=== PATIENT | female | born 1950 | race Caucasian/White ===

== ENCOUNTER 2020-02-13 13:56 | Outpatient (CLI) | payer MEDICARE, SELFPAY ==
--- NOTE | ~2020-02-13 | XR_ITS ---
EXAMINATION: XR knee LT 3V DATE: 02/13/2020 14:17 INDICATION: Left knee pain. TECHNIQUE: 3 views of left knee were obtained. COMPARISON: None. FINDINGS: Bone alignment is normal. No fracture. There is mild tricompartmental osteoarthritis. There is chondrocalcinosis of the menisci. There is a small knee joint effusion. IMPRESSION: 1. Mild left knee osteoarthritis. 2. Small left knee joint effusion. Reviewed, dictated and finalized at location A.
== END 2020-02-13 13:57 | disposition home or self-care (01) ==
LOC: ANHIMG 14:05
PROVIDERS: PCP Family Medicine; Visit Provider Physician Assistant
DX: M25.562 Pain in left knee (principal); M17.12 Unilateral primary osteoarthritis, left knee; M25.462 Effusion, left knee
CPT/HCPCS: 73562

== ENCOUNTER 2020-08-03 13:05 | Outpatient (CLI) | payer MEDICARE, SELFPAY ==
[2020-08-03 15:01] LABS: Alanine Aminotransferase 34 U/L (14-59); Albumin Level 3.6 g/dL (3.4-5.0); Alkaline Phosphatase 111 U/L (46-116); Anion Gap 8 mmol/L (8-16); Aspartate Amino Transferase 19 U/L (15-37); Bilirubin,Total 0.3 mg/dL (0.00-1.00); Blood Urea Nitrogen 15 mg/dL (7-18); Calcium 9.1 mg/dL (8.5-10.1); Carbon Dioxide 28 mmol/L (21-32); Chloride 105 mmol/L (98-108); Estimated Glomerular Filt Rate > 60; Glucose 91 mg/dL (70-99); Osmolality Calculated 292 mOsm/kg (285-295); Potassium 4.2 mmol/L (3.5-5.1); Sodium 141 mmol/L (136-145)
== END 2020-08-03 13:06 | disposition home or self-care (01) ==
LOC: CHSLAB 13:08
PROVIDERS: PCP Family Medicine; Visit Provider Family Medicine
DX: I10 Essential (primary) hypertension (principal)
CPT/HCPCS: 36415; 80053

== ENCOUNTER 2020-08-10 15:44 | Outpatient (RCR) | payer MEDICARE, SELFPAY ==
--- NOTE | 2020-08-10 16:12 | PTOPEVAL ---
Thank you for referring Daphne Paula to [facility].? The patient is scheduled to be seen for therapy? __3__x/week for 12 visits. Please review, sign, date and return this plan of care CHIQUIS. I agree with and certify that the following plan of care is medically necessary. Referring Physician Date Admitting Provider: Attending Provider: Fuad Dudley MD Referring Provider: *PT Outpatient Evaluation Start: 08/10/20 15:34 Freq: Status: Active Protocol: Document 08/10/20 15:35 CATALINA (Rec: 08/10/20 16:11 CATALINA [id number]) Therapy Assessment Status Assessment Status Assessment Status Evaluation Evaluation Information Problem Diagnosis left shoulder pain Onset 05/10/20 Subjective Information Pt. reports that she developed Query Text:As Reported By Patient/ a gradual onset of left Family shoulder pain over the past 3 months. Pain is described in the lateral brachial region and increased reaching behind the back and overhead. She has not undergone MRI and xray . Pt. reports that pain does not wake her at night. She is right hand dominant. Pt. reports that she wants to be able to comb her hair and hook her undergarment without pain . 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 Hand Dominance Right Activity of Daily Living Ability Independent Indoor/Home Mobility Independent Community Mobility Independent Stairs Ability Independent Functional Cognition (Planning, Shopping Independent , Taking Medications) Cooking Yes Cleaning Yes Laundry Yes Shopping Yes Driving Yes Pain Assessment Timing of Pain Assessment Timing of Pain Assessment Pre-Treatment Pain Scale Pain Scale Used Numeric (1 - 10) Self Report Pain Assessment Left Shoulder(s) Reported Pain Level 3 Pain Description Sharp Lowest Pain Intensity 0 Greatest Pain Intensity 9 Pain Aggravating Factors Exercise/Activity,Lifting Pain Score Pain Score 3: Self Report Interventions Used Interventions Used By Clinicians Electrical Stimulation, Exercise,Heat Upper Extremity Range of Motion General Upper Extremity Range of
--- NOTE | 2020-08-30 09:18 | PCPTNOTE ---
patient called and cancelled appt today. ANDREWS
--- NOTE | 2020-11-09 12:58 | PCPTNOTE ---
Pt. has failed to return to the clinic. Refer to her last daily note for discharge status. Nile Robertson, MPT
== END 2020-08-24 18:00 | disposition home or self-care (01) ==
LOC: CHSPT 15:44
PROVIDERS: PCP Family Medicine; Visit Provider Family Medicine
DX: M25.512 Pain in left shoulder (principal); M75.02 Adhesive capsulitis of left shoulder
CPT/HCPCS: 97014; 97110; 97161; G0283

== ENCOUNTER 2020-09-07 09:59 | Outpatient (CLI) | payer MEDICARE, SELFPAY ==
--- NOTE | ~2020-09-07 | XR_ITS ---
EXAMINATION: XR shoulder LT min 2V DATE: 09/07/2020 10:14 INDICATION: Left shoulder pain. TECHNIQUE: 4 views of left shoulder were obtained. COMPARISON: None. FINDINGS: Bone alignment is normal. No fracture. Glenohumeral joint is normal. There is mild acromioc lavicular joint osteoarthritis. IMPRESSION: 1. Mild acromioclavicular joint osteoarthritis. Reviewed, dictated and finalized at location A. AL SERVICES DIRECTOR
== END 2020-09-07 10:00 | disposition home or self-care (01) ==
LOC: CHSIMG 10:01
PROVIDERS: PCP Family Medicine; Visit Provider Physician Assistant
DX: M25.512 Pain in left shoulder (principal)
CPT/HCPCS: 73030

== ENCOUNTER 2020-09-20 10:09 | Emergency (ER) | payer MEDICARE, SELFPAY ==
[2020-09-20] VITALS (62 sets, daily range): BP systolic 69–117; BP diastolic 29–74; PULSE 79–120; RESP 11–28; TEMP 36.1–37.2; O2SAT 79–100
--- NOTE | ~2020-09-20 | CT_ITS ---
EXAMINATION: CT abdomen pelvis wo con DATE: 09/20/2020 11:00 INDICATION: Epigastric abdominal pain. Left lower quadrant abdominal pain. Nausea, vomiting, diarrhea . TECHNIQUE: Computed tomography (CT) of the abdomen and pelvis was performed without intravenous contr ast. Automated exposure control and iterative reconstruction technique were employed. Exam dose: 460 .38 mGy-cm total exam DLP. COMPARISON: None. FINDINGS: There is mild patchy infiltrate and/or atelectasis at the lung base including lingula and l eft lower lobe. The right lung base is clear. Heart size is within normal range. No pericardial or pleural effusion. There is a large paraesophageal hiatal hernia, with prominent fluid levels within the hiatal hernia a nd the abdominal portion of the stomach. Status post cholecystectomy. No hepatic space-occupying mass lesion or bile duct dilatation is eviden t. Normal splenic size. No pancreatic mass lesion or calcification or pancreatic duct dilatation. Normal morphology of the adrenal glands. No renal mass lesion or urinary tract calculus or hydroureteronephrosis. The urinary bladder is evacu ated, not optimally evaluated. The uterus and adnexal areas are unremarkable. Normal appendix. No bowel obstruction, bowel wall thickening, pneumatosis or intraperitoneal free air . Normal caliber of the abdominal aorta. No intraperitoneal or retroperitoneal or pelvic mass lesion or adenopathy or ascites. No suspicious osteolytic or osteoblastic lesions are noted. IMPRESSION: Large paraesophageal hiatal hernia with prominent air-fluid levels; surgical consultatio n is recommended. Status post cholecystectomy Dr. Bird telephoned the report and recommendation for surgical consultation on 09/20/2020 at 1123 hours to emergency room physician Dr. Shanks. Reviewed, dictated and finalized at Location A. Reviewed, dictated and finalized at location B. SPORTATION SPECIALIST IMPRESSION: Large paraesophageal hiatal hernia with prominent air-fluid levels ; surgical consultation is recommended. Status post cholecystectomy Dr. Bird telephoned the report and recommendation for surgical consultation on 09/20/2020 at 1123 hours to emergency room physician Dr. Shanks.
--- NOTE | 2020-09-20 10:21 | ED.GENADULT ---
HPI - General Adult General Chief complaint: Nausea/Vomiting/Diarrhea <Abdifatah Sahni PA-C - Last Filed: 09/20/20 18:31> Stated complaint: N/V since <Abdifatah Sahni PA-C - Last Filed: 09/20/20 18:31> Time Seen by Provider: 09/20/20 10:12 <ARIEL Baldwin Last Filed: 09/20/20 18:31> History of Present Illness HPI narrative: Patient is a 70-year-old female who comes to the ED today complaining of nausea, vomiting, diarrhea for the last 4 days. Patient reports that she has been unable to keep anything down, having about 10 episodes of emesis per day. She did notice some coffee-ground emesis. Having about 3 loose bowel meds a day as well. Having some intermittent epigastric pain. Denies any fevers or any other symptoms or concerns. Admits to previous history of similar symptoms several times in the past but typically only last for a couple hours, says it is very strange for the symptoms to last several days like they are now. Is followed by gastroenterology Dr. Yap. <Abdifatah Sahni PA-C - Last Filed: 09/20/20 18:31> Related Data Home medications: Home Medications Medication Instructions Recorded Confirmed bupropion HCl 150 mg 24 hr tablet, 150 mg PO QAM 02/13/20 09/15/20 extended release buspirone 5 mg tablet 5 mg PO BID 02/13/20 09/15/20 cholecalciferol (vitamin D3) 125 125 mcg PO DAILY 02/13/20 09/15/20 mcg (5,000 unit) tablet duloxetine 60 mg capsule,delayed 60 mg PO DAILY 02/13/20 09/15/20 release omeprazole 20 mg capsule,delayed 20 mg PO DAILY 02/13/20 09/15/20 release vitamin B12 1,000 mcg-folic acid lozenge SUBLINGUAL 02/13/20 09/15/20 400 mcg sublingual lozenge zolpidem 5 mg tablet 5 mg PO ONCE 02/13/20 09/15/20 aripiprazole 2 mg tablet 2 mg PO DAILY 03/02/20 09/15/20 <Abdifatah Sahni PA-C - Last Filed: 09/20/20 18:31> Allergies/adverse reactions: Allergies Allergy/AdvReac Type Severity Reaction Status Date / Time testosterone AdvReac Unknown HIVES Verified 09/14/20 10:58 <ARIEL Baldwin Last Filed: 09/20/20 18:31> Review of Systems Review of Systems: All systems reviewed & are unremarkable except as noted in HPI and below <Abdifatah Sahni PA-C - Last Filed: 09/20/20 18:31> REPLACED BY [facility] Past Medical History Medical History: Medical History (Updated 09/20/20 @ 16:50 by Kevin Shanks DO) Adhesive capsulitis of left shoulder BMI 32.0-32.9,adult Depression H/O hiatal hernia History of terminal esophageal web HLD (hyperlipidemia) HTN (hypertension) Insomnia OAB (overactive bladder) Vitamin D deficiency <ARIEL Baldwin Last Filed: 09/20/20 18:31> Surgical History Surgical History: Surgical History H/O right knee surgery (~1989) History of cholecystectomy (~1994) <ARIEL Baldwin Last Filed: 09/20/20 18:31> Family History Family History: Family History Father Hypertension Cerebrovascular accident Sibling Hypertension Cerebrovascular accident Family history of malignant neoplasm <ARIEL Baldwin Last Filed: 09/20/20 18:31> Social History Social History: Social History Smoking status: Never smoker Second hand tobacco smoke exposure: No Alcohol intake: never Substance use: never Substance use type: does not use Additional occupation/education comments: [employer] Gender identity (if verbalized by the patient): Female <ARIEL Baldwin Last Filed: 09/20/20 18:31> Exam Const: General: no acute distress (Uncomfortable appearing) and alert <Abdifatah Sahni PA-C - Last Filed: 09/20/20 18:31> Orientation/consciousness: patient oriented x3 <Abdifatah Sahni PA-C - Last Filed: 09/20/20 18:31> HENMT: Head: normal to inspe
[2020-09-20 10:28] LABS: Hematocrit 41.6 % (37.0-47.0); Hemoglobin 13.9 g/dL (12.0-15.0); Mean Corpuscular HGB Conc 33.4 g/dl (32-36); Mean Corpuscular Hemoglobin 29.6 pg (26-34); Mean Corpuscular Volume 88.5 fl (80-100); Mean Platelet Volume 9.7 fl (7.4-10.4); Platelet Count Result 506 k/mm3 (150-375); Red Cell Distribution Width 14.1 % (11.5-14.5)
[2020-09-20 10:40] LABS: Alanine Aminotransferase 33 U/L (4-35); Albumin Level 4.5 g/dL (3.5-5.1); Alkaline Phosphatase 105 U/L (38-126); Anion Gap 17 mmol/L (8-16); Aspartate Amino Transferase 34 U/L (14-36); Bilirubin,Total 0.8 mg/dL (0.2-1.3); Blood Urea Nitrogen 81 mg/dL (7-17); Calcium 9.7 mg/dL (8.4-10.2); Carbon Dioxide 34 mmol/L (22-30); Chloride 85 mmol/L (98-107); Estimated CRCL calculation 11 ml/min; Estimated Glomerular Filt Rate 10; Glucose 157 mg/dL (65-105); Lipase 183 U/L (23-300); Sodium 136 mmol/L (137-145)
[2020-09-20 10:43] LABS: Lymphocytes Absolute Manual 4.32 K/mm3 (1.1-4.5); Monocytes Absolute Manual 1.08 K/mm3 (0.1-0.90); Monocytes Percent Manual 4 % (3-9); Neutrophils Percent Manual 80 % (46-73); Platelet Estimate Increased (Adequate); Total Cells Counted 100
[2020-09-20 10:44] LABS: Hypochromasia 1+ (NORMAL)
[2020-09-20] MEDS: LACTATED RINGERS 1,000 ML 999 ML IV CONT (11:08)
[2020-09-20] MEDS: ONDANSETRON INJ 4 MG/2 ML VIAL IV PUSH (11:09)
[2020-09-20] MEDS: FAMOTIDINE 20 MG/2 ML VIAL IV PUSH (11:10)
[2020-09-20] MEDS: SODIUM CHLORIDE 0.9% IV 1,000 ML 999 ML IV CONT (11:29)
--- NOTE | 2020-09-20 12:31 | PC.NURSE ---
attempted to place ng x2, unsuccesful pt to go to have it done by [facility]
[2020-09-20] MEDS: BENZOCAINE/TETRACAINE SPRAY (*SP) 56 ML AEROSOL 1 SPRAY (12:52)
[2020-09-20] MEDS: SODIUM CHLORIDE 0.9% IV 1,000 ML 999 ML (12:52)
--- NOTE | 2020-09-20 14:20 | PC.NURSE ---
[facility] declined transfer to [facility] accepted transfer to [facility] [address] Trip# [phone]
[2020-09-20] MEDS: SODIUM CHLORIDE 0.9% IV 1,000 ML 125 ML IV CONT (14:41)
[2020-09-20 14:55] LABS: Reflex Lactic Acid Yes or No Add Lactic
--- NOTE | 2020-09-20 15:18 | PC.NURSE ---
new ETA for [facility] [address]
[2020-09-20 15:52] LABS: Lactic Acid 1.9 mmol/L (0.7-2.1)
[2020-09-20 16:13] LABS: Add Urine Microscopic? YES; Appearance Urine Cloudy (Clear); Bacteria Urine Trace /hpf; Bilirubin Urine Negative (Negative); Blood Urine 2+ (Negative); Color Urine Yellow (Yellow); Glucose Urine UA 1+ mg/dL (Negative); Hyaline Casts Urine 20-29 /lpf; Ketones Urine Negative (Negative); Leukocyte Esterase Ur Negative LEU/UL (Negative); Mucus Urine Few /lpf; Nitrate Urine Negative (Negative); Protein Urine 2+ mg/dL (Negative); RBC Urine 0-2 /hpf (0-2); Specific Grav Ur 1.018 (1.001-1.035); Squamous Epithelial Cell Urine Few /hpf (Few); Urobilinogen Urine Negative mg/dL (<2.0); WBC Urine 0-3 /hpf
== END 2020-09-20 18:12 | disposition short-term general hospital (02) ==
PROVIDERS: Physician Assistant Medical; Emergency Provider Emergency Medicine; PCP Family Medicine
DX: K44.9 Diaphragmatic hernia without obstruction or gangrene (principal); N17.9 Acute kidney failure, unspecified; D72.829 Elevated white blood cell count, unspecified; E87.6 Hypokalemia; E78.5 Hyperlipidemia, unspecified; I10 Essential (primary) hypertension; F32.9 Major depressive disorder, single episode, unspecified
CPT/HCPCS: 36415; 74176; 80053; 81001; 83605; 83690; 83735; 85025; 87040; 96361; 96365; 96366; 96375; 99291; A9270; J2405; J3480; J7030; J7120

== ENCOUNTER 2020-11-17 15:49 | Outpatient (CLI) | payer MEDICARE, SELFPAY ==
[2020-11-17 16:12] LABS: Basophils Absolute Auto 0.1 K/mm3 (0.0-0.1); Basophils Percent Auto 0.6 % (0.2-1.2); Eosinophils Absolute Auto 0.3 K/mm3 (0-0.3); Eosinophils Percent Auto 2.3 % (0-4.4); Hematocrit 41.1 % (37.0-47.0); Hemoglobin 13.2 g/dL (12.0-15.0); Immature Granulocyte Absolute 0.05 K/mm3 (0.00-0.031); Immature Granulocyte Percent A 0.5 % (0-0.5); Lymphocytes Absolute Auto 1.87 K/mm3 (0.9-3.2); Lymphocytes Percent Auto 17.3 % (18.3-44.2); Mean Corpuscular HGB Conc 32.1 g/dl (32-36); Mean Corpuscular Hemoglobin 27.6 pg (26-34); Mean Platelet Volume 8.8 fl (7.4-10.4); Monocytes Absolute Auto 0.7 K/mm3 (0.1-0.6); Monocytes Percent Auto 6.3 % (2.6-8.5); Neutrophils Absolute Auto 7.9 K/mm3 (1.3-6.7); Platelet Count Result 411 k/mm3 (150-375); Red Blood Count 4.78 M/mm3 (4.2-5.4); Red Cell Distribution Width 13.9 % (11.5-14.5); White Blood Count 10.8 K/mm3 (4.5-10.0)
[2020-11-17 16:25] LABS: D Dimer 0.65 ug/mL (<0.48)
[2020-11-17 16:26] LABS: Alanine Aminotransferase 22 U/L (4-35); Albumin Level 4.3 g/dL (3.5-5.1); Alkaline Phosphatase 116 U/L (38-126); Anion Gap 9 mmol/L (8-16); Aspartate Amino Transferase 32 U/L (14-36); Bilirubin,Total 0.3 mg/dL (0.2-1.3); Blood Urea Nitrogen 16 mg/dL (7-17); Calcium 9.6 mg/dL (8.4-10.2); Carbon Dioxide 25 mmol/L (22-30); Chloride 106 mmol/L (98-107); Estimated Glomerular Filt Rate > 60; Glucose 124 mg/dL (65-105); Potassium 3.7 mmol/L (3.4-5.0); Sodium 140 mmol/L (137-145)
== END 2020-11-17 15:50 | disposition home or self-care (01) ==
LOC: ANHLAB 15:55
PROVIDERS: PCP Family Medicine; Visit Provider Family Medicine
DX: I10 Essential (primary) hypertension (principal); I95.1 Orthostatic hypotension; R00.0 Tachycardia, unspecified
CPT/HCPCS: 36415; 80053; 84443; 85025; 85380

== ENCOUNTER 2020-11-18 12:03 | Outpatient (CLI) | payer MEDICARE, SELFPAY ==
--- NOTE | ~2020-11-18 | CT_ITS ---
EXAMINATION: CTA chest PE protocol EXAM DATE: 11/18/2020 12:28 INDICATION: R00.0 - Tachycardia, unspecified . TECHNIQUE: Spiral CTA of the chest (pulmonary arteries) was performed with 100 cc Omnipaque 350 intr avenous contrast injection. Images were acquired during the pulmonary arterial phase. Coronal maxi mum intensity projection 3D-reconstructions were created by the technologist on dedicated workstation . Axial, coronal and sagittal reformatted images were reviewed. The dose-length product (DLP) for t his examination was 274.33 mGy-cm. The exposure was tailored according to patient size (auto mA exp osure control), and iterative reconstruction (ASIR) was used as additional dose reduction technique. Comparison is made to prior examination from 10/06/2016. FINDINGS: Pulmonary arteries are well opacified and without intraluminal filling defects. No thora cic aortic dissection. Lingular subsegmental atelectasis. There is mild emphysema. Several pleural-b ased nodules identified bilaterally, up to 5 mm diameter. These are stable compared to 2017, noncalci fied granulomata. No suspicious nodules or lung opacities. There is small pericardial effusion. Tr acheobronchial tree is patent. There is no mediastinal, hilar or axillary lymphadenopathy. There is no pneumothorax. Heart normal in size. No evidence of coronary arterial calcification. Possib le Estefani fundoplication, correlate with surgical history (there was moderate hiatal hernia on prior study). There are cholecystectomy clips. There is thoracic spondylosis without osteoblastic or osteo lytic lesions identified. IMPRESSION: 1. No pulmonary emboli or acute findings. 2. Mild emphysema. 3. Granulomata. Reviewed, dictated and finalized at location A. /VAULT SUPERVISOR
== END 2020-11-18 12:04 | disposition home or self-care (01) ==
PROVIDERS: PCP Family Medicine; Visit Provider Family Medicine
DX: R00.0 Tachycardia, unspecified (principal); R78.89 Finding of other specified substances, not normally found in blood
CPT/HCPCS: 71275; Q9967

== ENCOUNTER 2020-12-24 07:53 | Outpatient (RCR) | payer MEDICARE, SELFPAY ==
--- NOTE | 2020-12-24 09:03 | PTOPEVAL ---
Thank you for referring Daphne Paula to [facility].? The patient is scheduled to be seen for therapy? ____x/week for ___ weeks. Please review, sign, date and return this plan of care CHIQUIS. I agree with and certify that the following plan of care is medically necessary. Referring Physician Date Admitting Provider: Attending Provider: Zeb Alarcon MD Referring Provider: *PT Outpatient Evaluation Start: 12/24/20 07:56 Freq: Status: Active Protocol: Document 12/24/20 07:57 Nely (Rec: 12/24/20 09:02 TIFF [email or web address]) Therapy Assessment Status Assessment Status Assessment Status Evaluation Outpatient Past Medical History Neurological History Hx Neurological Disorders No Significant History Cardiovascular History Hx Cardiac Disorders No Significant History Respiratory History Hx Respiratory Disorders No Significant History Gastrointestinal History Hx Gastrointestinal Disorders No Significant History Genitourinary History Hx Genitourinary Disorders No Significant History Musculoskeletal History Hx Musculoskeletal Disorders No Significant History Hematological History Hx Hematological Disorders No Significant History Endocrine History Hx Endocrine Disorders No Significant History HEENT History Hx HEENT Disorders No Significant History Integumentary History Hx Skin Disorders No Significant History Reproductive History Hx Reproductive Disorders No Significant History Psychosocial History Hx Depression Yes Pain History History of Any Previous or Ongoing No Significant History Instance of Pain Anesthesia History Hx Anesthesia Reactions No Significant History Evaluation Information Problem Diagnosis L adhesive capsulitis Onset 09/15/20 Additional Evaluation Detail quick dash = 38% functionally declined Subjective Information patient reports she has had a Query Text:As Reported By Patient/ frozen shoulder on the L side Family since june of last year. she reports her frozen shoulder occured around the time of getting her flu shot. she was coming to therapy for about a month, but had to stop due to another surgery. she is now ready to come back to therapy for her shoulder after recovering from operation. she reports she did see a specialist for the L shoulder who gave her an injection. she reports s
== END 2021-02-01 16:23 | disposition home or self-care (01) ==
LOC: CHSPT 07:53
PROVIDERS: Visit Provider Orthopaedic Surgery
DX: M75.02 Adhesive capsulitis of left shoulder (principal)
CPT/HCPCS: 97014; 97110; 97140; 97161; G0283

== ENCOUNTER 2021-07-11 10:12 | Outpatient (CLI) | payer MEDICARE, SELFPAY ==
--- NOTE | ~2021-07-11 | MM_ITS ---
EXAMINATION: MM screening [facility] BI w mitul HISTORY: Screening mammogram TECHNIQUE: Craniocaudal and mediolateral oblique 3-D tomosynthesis images were obtained and synthetic 2-D images were generated. CAD analysis was submitted and interpreted. COMPARISON: 09/27/2018, 01/05/2017, 08/27/2015 bilateral digital screening mammogram examinations BREAST PARENCHYMAL COMPOSITION: There are scattered areas of fibroglandular density. FINDINGS: Bilateral subcentimeter breast masses are suggested. Bilateral diagnostic mammography and b ilateral breast ultrasound examination are recommended. IMPRESSION: 1. Bilateral breast masses 2. Bilateral diagnostic mammography and bilateral breast ultrasound examination are recommended. BI-RADS Category 0: Incomplete: Needs additional imaging evaluation. Reviewed, dictated and finalized at location A.
== END 2021-07-11 10:13 | disposition home or self-care (01) ==
LOC: ANHIMG 10:14
PROVIDERS: PCP Family Medicine; Visit Provider Family Medicine
DX: Z12.31 Encounter for screening mammogram for malignant neoplasm of breast (principal); R92.8 Other abnormal and inconclusive findings on diagnostic imaging of breast
CPT/HCPCS: 77063; 77067

== ENCOUNTER 2021-07-12 13:41 | Outpatient (CLI) | payer MEDICARE, SELFPAY ==
--- NOTE | ~2021-07-12 | DEXA_ITS ---
Bone Density Report Name: Daphne Paula Age: 70 Sex: Female Ethnicity: White Date of : 1950 Indication: postmenopausal; Referring Provider: Fuad Dudley Study: Bone densitometry was performed. Exam Date: July 12, 2021 Accession number: [id number] Bone Density: Region BMD T-score Z-score Classification AP Spine (L1, L3, L4) 0.953 -0.9 1.4 Normal Femoral Neck (Left) 0.743 -1.0 1.0 Normal Total Hip (Left) 0.875 -0.5 1.1 Normal Total Hip Bilateral Avg 0.854 -0.7 1.0 Normal Femoral Neck (Right) 0.690 -1.4 0.5 Osteopenia Total Hip (Right) 0.832 -0.9 0.8 Normal World Health Organization criteria for BMD impression classify patients as: Normal (T-score at or above -1.0), Osteopenia (T-score between -1.0 and -2.5), or Osteoporosis (T-score at or below -2.5). 10-year Fracture Risk(1): Major Osteoporotic Fracture 10% Hip Fracture 1.6% Reported Risk Factors: [place] (), Neck BMD=0.690, BMI=31.1 (1) FRAX(R) Version 3.08. Fracture probability calculated for an untreated patient. Fracture probability may be lower if the patient has received treatment. Clinical Information Provided by Patient: Has used the following medications: Vitamin D Patient maximum height was 66 Menopause Age: 48 No regular weight bearing exercise Drinks caffeinated beverages Onset of menses at age 11 Number of children 3 Impression: The patient has low bone mass, based on the Right Femoral Neck T-score. The patient has an estimated ten-year risk of hip fracture of 1.6% and an estimated ten-year risk of major fracture of 10%, based on the WHO FRAX algorithm. Discussion: BONE DENSITY IS LOW AT ONE OR MORE SKELETAL SITES. This patient's lowest T-score is low at one or more skeletal sites. It meets the World Health Organization's (WHO) criteria for ?low bone mass? (T-score between -1.0 and -2.5). The patient's 10-year risk of fracture as calculated by FRAX is less than the threshold where pharmacological therapy is recommended by the National Osteoporosis Foundation (NOF). However, all treatment decisions require clinical judgment and consideration of individual patient factors, including patient preferences, comorbidities, previous drug use, risk factors not captured in the FRAX model (e.g., frailty, falls, vitamin D deficiency, increased bone turnover, interval significant decline in bone density) and possible under or overestimation of fracture risk by FRAX. The patient should follow a healthful lifestyle (good nutrition with adequate calcium and vitamin D, and appropriate weight-bearing exercise). Follow-Up: Consider repeating this study in 2 to 3 years to reassess this patient's status, or sooner if there is some new clinical indication. Reported by: HEENA on 07/12/2021 2:01:00 PM.
== END 2021-07-12 13:42 | disposition home or self-care (01) ==
LOC: ANHIMG 13:43
PROVIDERS: PCP Family Medicine; Visit Provider Family Medicine
DX: Z78.0 Asymptomatic menopausal state (principal); M85.851 Other specified disorders of bone density and structure, right thigh
CPT/HCPCS: 77080

== ENCOUNTER → 2021-07-12 15:11 | Outpatient (REF) | payer MEDICARE, SELFPAY | LOC: ANHLAB 15:11 | PROVIDERS: PCP Family Medicine; Visit Provider Nurse Practitioner | DX: D49.2 Neoplasm of unspecified behavior of bone, soft tissue, and skin (principal) | CPT/HCPCS: 77080; 88305 ==

== ENCOUNTER 2021-07-15 11:40 | Outpatient (CLI) | payer MEDICARE, SELFPAY ==
[2021-07-15 11:56] LABS: Hematocrit 43.1 % (35.0-42.0); Mean Corpuscular HGB Conc 32.5 g/dL (32.0-36.0); Mean Corpuscular Volume 89.2 fL (78.0-102.0); Mean Platelet Volume 8.6 fl (9.2-11.8); Platelet Count Result 309 K/mm3 (150-420); Red Blood Count 4.83 M/mm3 (4.20-5.40); Red Cell Distribution Width 14.3 % (11.6-14.4); White Blood Count 7.3 K/mm3 (4.8-10.8)
[2021-07-15 11:58] LABS: Appearance Urine Clear (Clear); Bilirubin Urine Negative (Negative); Color Urine Light Yellow (Yellow); Glucose Urine UA Negative (Negative); Ketones Urine Negative (Negative); Leukocyte Esterase Ur 2+ (Negative); Nitrate Urine Negative (Negative); Protein Urine Negative (Negative); Specific Grav Ur 1.015 (1.010-1.020); Urobilinogen Urine 0.2 mg/dL (0.2-1.0)
[2021-07-15 12:05] LABS: Add Urine Microscopic? YES; Blood Urine Trace-Intact (Negative); RBC Urine 0-2 /hpf (0-2); Squamous Epithelial Cell Urine Few /hpf (Few)
[2021-07-15 12:06] LABS: Bacteria Urine 1+ /hpf
[2021-07-15 12:32] LABS: Alanine Aminotransferase 48 U/L (14-59); Albumin Level 3.6 g/dL (3.4-5.0); Alkaline Phosphatase 132 U/L (46-116); Anion Gap 10 mmol/L (8-16); Aspartate Amino Transferase 28 U/L (15-37); Bilirubin,Total 0.3 mg/dL (0.00-1.00); Blood Urea Nitrogen 12 mg/dL (7-18); Calcium 9.2 mg/dL (8.5-10.1); Carbon Dioxide 29 mmol/L (21-32); Chloride 104 mmol/L (98-108); Cholesterol 207 mg/dL (0-200); Estimated Glomerular Filt Rate > 60; Glucose 101 mg/dL (70-99); HDL Direct 72 mg/dL (40-60); LDL Cholesterol Calculated 116 mg/dL (<130); Osmolality Calculated 295 mOsm/kg (285-295); Sodium 143 mmol/L (136-145); Total Protein 6.8 g/dL (6.4-8.2); Triglycerides 94 mg/dL (0-150)
[2021-07-15 12:50] LABS: Thyroid Stimulating Hormone 1.47 uIU/mL (0.36-3.74)
== END 2021-07-15 11:41 | disposition home or self-care (01) ==
LOC: CHSLAB 11:43
PROVIDERS: PCP Family Medicine; Visit Provider Family Medicine
DX: E78.2 Mixed hyperlipidemia (principal); I10 Essential (primary) hypertension; R53.83 Other fatigue; Z00.00 Encounter for general adult medical examination without abnormal findings
CPT/HCPCS: 36415; 80053; 80061; 81001; 84443; 85027

== ENCOUNTER 2021-07-28 12:21 | Outpatient (CLI) | payer MEDICARE, SELFPAY ==
--- NOTE | ~2021-07-28 | MMUS_ITS ---
EXAMINATION: MM diagnostic [facility] BI w mitul, US breast BI complete HISTORY: Bilateral breast masses on 06/2021 screening mammogram examination TECHNIQUE: Additional 3-D tomosynthesis images of both breasts were performed and synthetic 2-D image s were generated. CAD analysis was submitted and interpreted. High resolution and complete bilateral breast ultrasound including all 4 quadrants and subareolar areas was performed. COMPARISON: 07/11/2021, 10/06/2018, 01/05/2017, 08/27/2015, 08/18/2014 bilateral screening mammogram exa minations. FINDINGS: MAMMOGRAPHIC FINDINGS: There are occasional small circumscribed opacities which are largely chronic, and benign in mammograp hic appearance. No suspicious mass or architectural distortion, malignant calcification or skin thickening or retract ion or significant new or developing density is detected. ULTRASOUND: No suspicious mass or shadowing or other significant sonographic abnormality of either breast is dete cted. IMPRESSION: 1. No mammographic evidence of malignancy 2. Routine mammographic screening is recommended BI-RADS Category 1: Negative Reviewed, dictated and finalized at location A. LATORY PROCESS MANAGER IMPRESSION: 1. No mammographic evidence of malignancy 2. Routine mammographic screening is recommended BI-RADS Category 1: Negative
== END 2021-07-28 12:22 | disposition home or self-care (01) ==
PROVIDERS: PCP Family Medicine; Visit Provider Family Medicine
DX: R92.8 Other abnormal and inconclusive findings on diagnostic imaging of breast (principal)
CPT/HCPCS: 76641; 77062; 77066; G0279

== ENCOUNTER 2021-11-18 12:05 | Outpatient (CLI) | payer MEDICARE, SELFPAY ==
[2021-11-18 13:23] LABS: Cholesterol 223 mg/dL (0-200); HDL Direct 69 mg/dL (40-60); LDL Cholesterol Calculated 135 mg/dL (<130); Triglycerides 95 mg/dL (0-150)
== END 2021-11-18 12:06 | disposition home or self-care (01) ==
LOC: CHSLAB 12:07
PROVIDERS: PCP Family Medicine; Visit Provider Nurse Practitioner Family
DX: R73.01 Impaired fasting glucose (principal); E78.2 Mixed hyperlipidemia
CPT/HCPCS: 36415; 80061; 83036

== ENCOUNTER 2021-12-27 14:56 | Outpatient (CLI) | payer MEDICARE, SELFPAY ==
--- NOTE | ~2021-12-27 | XR_ITS ---
EXAM: XR lumbar spine 2-3V HISTORY: Low back pain towards RT side x 6 mo NKI. COMPARISON: 02/07/2019 FINDINGS: Cholecystectomy. 5 nonrib-bearing lumbar-type vertebral bodies. Pedicles are intact. Hypop lastic ribs at T12. Exaggerated lumbar lordosis. Multilevel disc space narrowing and marginal osteoph ytosis. Multilevel facet hypertrophy. IMPRESSION: No acute fracture or traumatic malalignment in the lumbar spine. Multilevel degenerative disc disease and facet arthropathy. Reviewed, dictated and finalized at location K. IMPRESSION: No acute fracture or traumatic malalignment in the lumbar spine. Multilevel deg enerative disc disease and facet arthropathy.
== END 2021-12-27 14:57 | disposition home or self-care (01) ==
LOC: CHSIMG 14:58
PROVIDERS: PCP Family Medicine; Visit Provider Nurse Practitioner Family
DX: M54.50 Low back pain, unspecified (principal)
CPT/HCPCS: 72100

== ENCOUNTER 2022-01-16 12:48 | Outpatient (RCR) | payer MEDICARE, SELFPAY ==
--- NOTE | 2022-01-16 14:01 | PTOPEVAL ---
Thank you for referring Daphne Paula to [facility].? The patient is scheduled to be seen for therapy? __2__x/week for 12 visits. Please review, sign, date and return this plan of care CHIQUIS. I agree with and certify that the following plan of care is medically necessary. Referring Physician Date Admitting Provider: Attending Provider: ANDREA Dao Referring Provider: DanaPT Outpatient Evaluation Start: 01/16/22 13:03 Freq: Status: Active Protocol: Document 01/16/22 13:00 CATALINA (Rec: 01/16/22 14:00 CATALINA [email or web address]) Therapy Assessment Status Assessment Status Assessment Status Evaluation Outpatient Past Medical History Neurological History Hx Neurological Disorders No Significant History Cardiovascular History Hx Cardiac Disorders No Significant History Respiratory History Hx Respiratory Disorders No Significant History Gastrointestinal History Hx Gastrointestinal Disorders No Significant History Genitourinary History Hx Genitourinary Disorders No Significant History Musculoskeletal History Hx Musculoskeletal Disorders No Significant History Hematological History Hx Hematological Disorders No Significant History Endocrine History Hx Endocrine Disorders No Significant History HEENT History Hx HEENT Disorders No Significant History Integumentary History Hx Skin Disorders No Significant History Reproductive History Hx Reproductive Disorders No Significant History Psychosocial History Hx Depression Yes Pain History History of Any Previous or Ongoing No Significant History Instance of Pain Anesthesia History Hx Anesthesia Reactions No Significant History Evaluation Information Problem Diagnosis back pain Onset 10/19/21 Subjective Information Pt. reports worsening back Query Text:As Reported By Patient/ pain over the past several Family months. She reports that pain is most notable with working. 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 She reports she can work outside in the yard for only about 15 minutes before having to sit due to back pain. She reports that her goal for therapy is to reduce her back pain with standing. Prior Level of Function Comments Additional Prior Level of Function Pt. attempts to remain very Comments active. She continues to work 1-2 days a week and completes
== END 2022-02-09 15:05 | disposition home or self-care (01) ==
LOC: CHSPT 12:48
PROVIDERS: Visit Provider Nurse Practitioner Family
DX: M54.50 Low back pain, unspecified (principal)
CPT/HCPCS: 97014; 97110; 97140; 97161; G0283

== ENCOUNTER 2022-04-07 12:56 | Outpatient (CLI) | payer MEDICARE, SELFPAY ==
[2022-04-07 13:54] LABS: Cholesterol 151 mg/dL (0-200); HDL Direct 69 mg/dL (40-60); LDL Cholesterol Calculated 67 mg/dL (<130); Triglycerides 74 mg/dL (0-150)
== END 2022-04-07 12:57 | disposition home or self-care (01) ==
LOC: CHSLAB 12:58
PROVIDERS: PCP Family Medicine; Visit Provider Nurse Practitioner Family
DX: E78.2 Mixed hyperlipidemia (principal); H53.2 Diplopia
CPT/HCPCS: 36415; 80061; 83519

== ENCOUNTER 2022-04-10 12:15 | Outpatient (CLI) | payer MEDICARE, SELFPAY ==
--- NOTE | ~2022-04-10 | MR_ITS ---
EXAMINATION: MR brain/brain stem wo/w con, MR orbits face neck wo/w con DATE: 04/10/2022 13:28 INDICATION: Diplopia, blurry vision and drifting left eye. TECHNIQUE: 1. Magnetic resonance imaging (MRI) of the brain and brainstem was performed without and with 17 mL M ultihance intravenous contrast. Sequences included sagittal and axial T1-weighted SE, axial diffusion -weighted FS SE, axial T2*-weighted GRE, coronal T2-weighted PROPELLOR FLAIR, axial T2-weighted FLAIR , and axial T2-weighted FSE. Postcontrast axial and coronal T1-weighted FS PROPELLER was obtained. Ap parent diffusion coefficient (ADC) maps were created. 2. MRI of the orbits was performed without and with identical 17 mL MultiHance intravenous contrast b olus. Sequences included small [id number] sequences of the orbits included coronal and axial T2-we ighted FS FSE, T1-weighted FSE and T2-weighted PROPELLOR FLAIR. Postcontrast sequences included small field of view axial T1-weighted FS FSE. COMPARISON: None. FINDINGS: There are no areas of restricted diffusion to suggest acute infarction. No intracranial hemorrhage or abnormal intracranial mass lesion. There are a few small scattered foci of nonspecific increased T2- weighted signal intensity in the cerebral white matter, predominantly involving the deep and perivent ricular white matter which is within normal limits for age. There are no intraparenchymal signal abno rmalities seen on the other pulse sequences. The ventricles are symmetric and normal in size. There i s and intrasellar 7 x 5 x 7 mm T2 hyperintense nonenhancing cystic lesion along the posterior margin of the pituitary and which remains within the sella with no extension into the suprasellar space or m ass effect upon the optic chiasm. The lesion remains hypointense on the prior imaging. There are no a bnormal extra-axial fluid collections. Flow voids are seen in the cerebral arteries on the T2-weighte d sequences consistent with their expected patency. Small mucous retention cyst in a posterior left e thmoid air cell. Prominent right occipital arachnoid granulation. Visualized orbits and soft tissues are unremarkable. There are no areas of abnormal enhancement on the post contrast images. IMPRESSION: 1. Mild scattered nonspecific white matter T2 hyperintensity which is within normal limits for age an d likely sequela of chronic small vessel ischemic disease. No acute intracranial process. 2. 7 x 5 x 7 mm nonenhancing T2 hyperintense cystic lesion within the sella at the posterior margin o f the pituitary gland which follows CSF signal on FLAIR images. Differential would include arachnoid cyst or Rathke's cleft cyst, epidermoid cyst or less likely craniopharyngioma or cystic pituitary khushbu noma. Reviewed, dictated and finalized at location A. IMPRESSION: 1. Mild scattered nonspecific white matter T2 hyperintensity which is within no rmal limits for age and likely sequela of chronic small vessel ischemic disease . No acute intracranial process. 2. 7 x 5 x 7 mm nonenhancing T2 hyperintense cystic lesion within the sella at the posterior margin of the pituitary gland which follows CSF signal on FLAIR i mages. Differential would include arachnoid cyst or Rathke's cleft cyst, epider moid cyst or less likely craniopharyngioma or cystic pituitary adenoma.
[2022-04-10 12:47] LABS: Estimated Glomerular Filt Rate 49
== END 2022-04-10 12:16 | disposition home or self-care (01) ==
LOC: ANHIMG 12:22
PROVIDERS: PCP Family Medicine
DX: H53.2 Diplopia (principal); R93.0 Abnormal findings on diagnostic imaging of skull and head, not elsewhere classified
CPT/HCPCS: 70543; 70553; A9577

== ENCOUNTER 2022-05-18 14:29 | Outpatient (CLI) | payer MEDICARE, SELFPAY ==
--- NOTE | 2022-05-18 14:45 | ECG_ITS ---
Measurements Intervals Cunningham Rate: 84 P: 57 MA: 170 QRS: -25 QRSD: 144 T: 124 QT: 408 QTc: 485 Interpretive Statements SINUS RHYTHM LEFT BUNDLE BRANCH BLOCK [120+ ms QRS DURATION, 80+ ms Q/S IN V1/V2, 85+ ms R IN I/aVL/V5/V6] NO PREVIOUS ECG AVAILABLE FOR COMPARISON Electronically Signed On 05-18-2022 15:13:25 CDT by Wanda Almaguer M.D.
[2022-05-21 07:06] LABS: Prolactin 7.8 ng/mL (***)
== END 2022-05-18 14:30 | disposition home or self-care (01) ==
LOC: CHSLAB 14:32
PROVIDERS: PCP Family Medicine; Visit Provider Nurse Practitioner Family
DX: E23.7 Disorder of pituitary gland, unspecified (principal); I10 Essential (primary) hypertension; Z01.818 Encounter for other preprocedural examination
CPT/HCPCS: 36415; 84146; 93005

== ENCOUNTER → 2022-06-12 01:53 | Outpatient (CLI) | payer MEDICARE, SELFPAY ==
[2022-06-12 11:42] LABS: SARS-CoV-2 RNA PCR Negative
== END ==
PROVIDERS: PCP Family Medicine
DX: Z01.812 Encounter for preprocedural laboratory examination (principal); Z20.822 Contact with and (suspected) exposure to COVID-19
CPT/HCPCS: C9803; U0003; U0005

== ENCOUNTER 2022-08-25 12:18 | Outpatient (CLI) | payer MEDICARE, SELFPAY ==
[2022-08-25 12:34] LABS: Basophils Absolute Auto 0.05 K/mm3 (0.00-0.10); Basophils Percent Auto 0.5 % (0.0-1.0); Eosinophils Absolute Auto 0.15 K/mm3 (0.02-0.50); Eosinophils Percent Auto 1.6 % (1.0-6.0); Hematocrit 40.6 % (35.0-42.0); Hemoglobin 13.1 g/dL (11.7-13.8); Immature Granulocyte Absolute 0.04 K/mm3 (0.00-0.00); Immature Granulocyte Percent A 0.4 % (0.0-0.0); Lymphocytes Percent Auto 28.2 % (18.0-42.0); Mean Corpuscular HGB Conc 32.3 g/dL (32.0-36.0); Mean Corpuscular Hemoglobin 29.2 pg (27.0-31.0); Mean Corpuscular Volume 90.6 fL (78.0-102.0); Mean Platelet Volume 8.8 fl (9.2-11.8); Monocytes Absolute Auto 0.53 K/mm3 (0.10-0.90); Monocytes Percent Auto 5.5 % (2.0-11.0); Neutrophils Absolute Auto 6.1 K/mm3 (1.7-7.2); Neutrophils Percent Auto 63.8 % (50.0-70.0); Platelet Count Result 373 K/mm3 (150-420); Red Blood Count 4.48 M/mm3 (4.20-5.40); Red Cell Distribution Width 13.6 % (11.6-14.4); White Blood Count 9.6 K/mm3 (4.8-10.8)
[2022-08-25 12:36] LABS: Appearance Urine Slightly Cloudy (Clear); Bilirubin Urine Negative (Negative); Color Urine Yellow (Yellow); Glucose Urine UA Negative (Negative); Ketones Urine Negative (Negative); Leukocyte Esterase Ur 3+ (Negative); Nitrate Urine Negative (Negative); Protein Urine Negative (Negative); Urobilinogen Urine 0.2 mg/dL (0.2-1.0); pH Urine 6.5 (5.0-8.0)
[2022-08-25 12:47] LABS: Add Urine Microscopic? YES; Bacteria Urine 1+ /hpf; Blood Urine Trace-Intact (Negative); Squamous Epithelial Cell Urine Many /hpf (Few); WBC Urine 21-30 /hpf (0-3)
[2022-08-25 13:02] LABS: Hemoglobin A1C 5.5 % (<5.7)
[2022-08-25 13:22] LABS: Alanine Aminotransferase 27 U/L (14-59); Albumin Level 3.5 g/dL (3.4-5.0); Alkaline Phosphatase 138 U/L (46-116); Anion Gap 9 mmol/L (8-16); Aspartate Amino Transferase 17 U/L (15-37); Bilirubin,Total 0.3 mg/dL (0.00-1.00); Blood Urea Nitrogen 15 mg/dL (7-18); Carbon Dioxide 26 mmol/L (21-32); Chloride 107 mmol/L (98-108); Estimated Glomerular Filt Rate 52; Glucose 103 mg/dL (70-99); Osmolality Calculated 294 mOsm/kg (285-295); Potassium 4.1 mmol/L (3.5-5.1); Sodium 142 mmol/L (136-145); Thyroid Stimulating Hormone 1.42 uIU/mL (0.36-3.74); Total Protein 6.7 g/dL (6.4-8.2)
== END 2022-08-25 12:19 | disposition home or self-care (01) ==
LOC: CHSLAB 12:20
PROVIDERS: PCP Family Medicine; Visit Provider Nurse Practitioner Family
DX: E78.5 Hyperlipidemia, unspecified (principal); E03.9 Hypothyroidism, unspecified; I10 Essential (primary) hypertension; R73.01 Impaired fasting glucose; Z00.00 Encounter for general adult medical examination without abnormal findings
CPT/HCPCS: 36415; 80053; 81001; 83036; 84443; 85025

== ENCOUNTER 2022-09-12 10:43 | Outpatient (CLI) | payer MEDICARE, SELFPAY ==
--- NOTE | ~2022-09-12 | MM_ITS ---
EXAMINATION: MM screening poncho BI w mitul HISTORY: Screening mammogram TECHNIQUE: Craniocaudal and mediolateral oblique 3-D tomosynthesis images were obtained and synthetic 2-D images were generated. CAD analysis was submitted and interpreted. COMPARISON: 07/28/2021 bilateral diagnostic mammography and complete breast ultrasound examination 07/11/2021, 09/27/2018 bilateral screening mammogram examinations BREAST PARENCHYMAL COMPOSITION: There are scattered areas of fibroglandular density. FINDINGS: There is no evidence of suspicious mass, calcification, or architectural distortion to sugg est malignancy in either breast. There has been no suspicious interval change. IMPRESSION: 1. No mammographic evidence of malignancy. 2. Recommend routine screening mammography in one year. BI-RADS Category 1: Negative Reviewed, dictated and finalized at location A. ER GRADER
== END 2022-09-12 10:44 | disposition home or self-care (01) ==
LOC: ANHIMG 10:45
PROVIDERS: PCP Family Medicine; Visit Provider Physician Assistant
DX: Z12.31 Encounter for screening mammogram for malignant neoplasm of breast (principal)
CPT/HCPCS: 77063; 77067

== ENCOUNTER 2023-03-29 12:47 | Outpatient (CLI) | payer MEDICARE, OTHER, SELFPAY ==
--- NOTE | ~2023-03-29 | MR_ITS ---
EXAMINATION: MR brain/brain stem wo con DATE: 03/29/2023 13:46 INDICATION: Pituitary cyst. TECHNIQUE: Magnetic resonance imaging (MRI) of the brain and brainstem was performed without intraven ous contrast. COMPARISON: Brain MRI 04/10/2022 FINDINGS: There are scattered areas of nonspecific increased T2-weighted signal intensity in the cere bral white matter, which is within normal limits for the patient's age. There is a 7 mm cyst in the p ituitary. There is no acute ischemic infarct or intracranial hemorrhage. The ventricles are normal in size. The orbits are normal. The paranasal sinuses are clear. The mastoid air cells are normal. IMPRESSION: 1. 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 Reviewed, dictated and finalized at location E.
== END 2023-03-29 12:48 | disposition home or self-care (01) ==
PROVIDERS: PCP Family Medicine; Visit Provider Family Medicine
DX: E23.6 Other disorders of pituitary gland (principal)
CPT/HCPCS: 70551

== ENCOUNTER 2023-05-18 12:34 | Outpatient (CLI) | payer MEDICARE, SELFPAY ==
[2023-05-18 12:56] LABS: Bilirubin Urine Negative (Negative); Blood Urine Trace-Intact (Negative); Color Urine Light Yellow (Yellow); Glucose Urine UA Negative (Negative); Ketones Urine Negative (Negative); Leukocyte Esterase Ur 2+ (Negative); Nitrate Urine Negative (Negative); Protein Urine Negative (Negative); Urobilinogen Urine 0.2 mg/dL (0.2-1.0)
[2023-05-18 12:56] LABS: Basophils Absolute Auto 0.09 K/mm3 (0.00-0.10); Basophils Percent Auto 0.7 % (0.0-1.0); Eosinophils Absolute Auto 0.19 K/mm3 (0.02-0.50); Eosinophils Percent Auto 1.6 % (1.0-6.0); Hematocrit 43.7 % (35.0-42.0); Hemoglobin 14.3 g/dL (11.7-13.8); Immature Granulocyte Absolute 0.07 K/mm3 (0.00-0.00); Immature Granulocyte Percent A 0.6 % (0.0-0.0); Lymphocytes Absolute Auto 2.77 K/mm3 (1.10-4.50); Lymphocytes Percent Auto 22.8 % (18.0-42.0); Mean Corpuscular HGB Conc 32.7 g/dL (32.0-36.0); Mean Corpuscular Hemoglobin 30.6 pg (27.0-31.0); Mean Corpuscular Volume 93.6 fL (78.0-102.0); Mean Platelet Volume 9.1 fl (9.2-11.8); Monocytes Absolute Auto 0.65 K/mm3 (0.10-0.90); Monocytes Percent Auto 5.3 % (2.0-11.0); Neutrophils Absolute Auto 8.4 K/mm3 (1.7-7.2); Nucleated Red Blood Cells Absolute Auto 0.03 K/mm3 (0.00-0.00); Nucleated Red Blood Cells Perc 0.2 % (0-0.0); Platelet Count Result 331 K/mm3 (150-420); Red Blood Count 4.67 M/mm3 (4.20-5.40); Red Cell Distribution Width 13.2 % (11.6-14.4); White Blood Count 12.2 K/mm3 (4.8-10.8)
[2023-05-18 13:02] LABS: Add Urine Microscopic? YES; Appearance Urine Slightly Cloudy (Clear); RBC Urine 0-2 /hpf (0-2); Renal Epithelial Cells Urine Few /hpf; Squamous Epithelial Cell Urine Moderate /hpf (Few)
[2023-05-18 13:03] LABS: Bacteria Urine 2+ /hpf
[2023-05-18 13:26] LABS: Alanine Aminotransferase 26 U/L (14-59); Albumin Level 3.7 g/dL (3.4-5.0); Alkaline Phosphatase 130 U/L (46-116); Anion Gap 6 mmol/L (8-16); Aspartate Amino Transferase 16 U/L (15-37); Bilirubin,Total 0.4 mg/dL (0.00-1.00); Blood Urea Nitrogen 18 mg/dL (7-18); Calcium 9.5 mg/dL (8.5-10.1); Carbon Dioxide 31 mmol/L (21-32); Chloride 105 mmol/L (98-108); Estimated Glomerular Filt Rate 48; Glucose 108 mg/dL (70-99); Osmolality Calculated 296 mOsm/kg (285-295); Sodium 142 mmol/L (136-145); Thyroid Stimulating Hormone 3.22 uIU/mL (0.36-3.74); Total Protein 6.8 g/dL (6.4-8.2)
[2023-05-23 20:13] LABS: Vitamin D 25 Hydroxy 30 ng/mL (30-100)
== END 2023-05-18 12:35 | disposition home or self-care (01) ==
LOC: CHSLAB 12:39
PROVIDERS: Physician Assistant; PCP Family Medicine
DX: I10 Essential (primary) hypertension (principal); E55.9 Vitamin D deficiency, unspecified; R31.9 Hematuria, unspecified
CPT/HCPCS: 36415; 80053; 80178; 81001; 82306; 84443; 85025; 87086; 87088

== ENCOUNTER 2023-06-20 08:32 | Outpatient (CLI) | payer MEDICARE, OTHER, SELFPAY ==
--- NOTE | ~2023-06-20 | XR_ITS ---
XR chest 2V DATE: 06/20/2023 08:48 INDICATION: Shortness of breath for 3 weeks TECHNIQUE: PA and lateral views COMPARISON: 11/2020 CT pulmonary scan FINDINGS: Heart size is within normal limits. No hilar or mediastinal enlargement. No pulmonary infil trate or consolidation, pleural effusion or pulmonary vascular congestion or pneumothorax is detected . Surgical clips, right upper quadrant consistent with cholecystectomy. Diffuse osteopenia. IMPRESSION: No active cardiopulmonary disease Reviewed, dictated and finalized at location B.
== END 2023-06-20 08:33 | disposition home or self-care (01) ==
LOC: ANHIMG 08:38
PROVIDERS: PCP Family Medicine; Visit Provider Family Medicine
DX: R06.09 Other forms of dyspnea (principal)
CPT/HCPCS: 71046

== ENCOUNTER 2023-06-20 10:12 | Outpatient (CLI) | payer MEDICARE, SELFPAY ==
[2023-06-20 10:24] LABS: Basophils Absolute Auto 0.05 K/mm3 (0.00-0.10); Basophils Percent Auto 0.5 % (0.0-1.0); Eosinophils Absolute Auto 0.07 K/mm3 (0.02-0.50); Eosinophils Percent Auto 0.7 % (1.0-6.0); Hematocrit 42.4 % (35.0-42.0); Hemoglobin 13.8 g/dL (11.7-13.8); Immature Granulocyte Absolute 0.07 K/mm3 (0.00-0.00); Immature Granulocyte Percent A 0.7 % (0.0-0.0); Lymphocytes Absolute Auto 2.57 K/mm3 (1.10-4.50); Lymphocytes Percent Auto 23.9 % (18.0-42.0); Mean Corpuscular HGB Conc 32.5 g/dL (32.0-36.0); Mean Corpuscular Hemoglobin 30.3 pg (27.0-31.0); Mean Platelet Volume 8.9 fl (9.2-11.8); Monocytes Absolute Auto 0.48 K/mm3 (0.10-0.90); Monocytes Percent Auto 4.5 % (2.0-11.0); Neutrophils Absolute Auto 7.5 K/mm3 (1.7-7.2); Neutrophils Percent Auto 69.7 % (50.0-70.0); Platelet Count Result 322 K/mm3 (150-420); Red Blood Count 4.56 M/mm3 (4.20-5.40); Red Cell Distribution Width 13.4 % (11.6-14.4); White Blood Count 10.8 K/mm3 (4.8-10.8)
== END 2023-06-20 10:13 | disposition home or self-care (01) ==
LOC: CHSLAB 10:14
PROVIDERS: PCP Family Medicine; Visit Provider Family Medicine
DX: D72.829 Elevated white blood cell count, unspecified (principal); I10 Essential (primary) hypertension
CPT/HCPCS: 36415; 85025

== ENCOUNTER 2023-07-16 08:56 | Outpatient (CLI) | payer MEDICARE, OTHER, SELFPAY ==
--- NOTE | 2023-07-16 | EST_ITS ---
Patient Info Name: Daphne Paula Age: 72 years : 1950 Gender: Female Ht: 66 in Wt: 185 lbs BSA: 2.00 m2 HR: 69 bpm BP: 150 / 80 mmHg Heart Rhythm: Sinus Rhythm Exam Date: 07/16/2023 9:59 AM Exam Location: [facility] Stress Patient Status: Outpatient Admit Date: 07/16/2023 Staff Ordering Physician: Jarrod Vera PA-C Attending Provider: Jarrod Vera PA-C Exercise Technologist: Keesha Obrien CT Nurse: Kelle Reyes APN Exam Type: CA stress felisa w NM Study Info Indications R06.09 - Other forms of dyspnea A regadenoson stress test was performed. Summary 1. Normal sinus rhythm with left bundle branch block. 2. Non-diagnostic ECG due to left bundle branch block. 3. Clinically and electrocardiographically negative but nondiagnostic stress test because of left bundle branch block. 4. Myocardial perfusion imaging study to be reported by Radiology. Protocol: Lexiscan Stress ECG Details Stage: REST Duration (min): 1 min : 0 sec HR (bpm): 69 SBP (mmHg): 150 DBP (mmHg): 80 Stage: REST Duration (min): 5 min : 42 sec HR (bpm): 68 SBP (mmHg): 150 DBP (mmHg): 80 Stage: STAGE 1 Duration (min): 1 min : 0 sec HR (bpm): 76 SBP (mmHg): 150 DBP (mmHg): 80 Stage: RECOVERY Duration (min): 1 min : 0 sec HR (bpm): 84 SBP (mmHg): 114 DBP (mmHg): 65 Stage: RECOVERY Duration (min): 2 min : 0 sec HR (bpm): 84 SBP (mmHg): 114 DBP (mmHg): 65 Stage: RECOVERY Duration (min): 3 min : 0 sec HR (bpm): 85 SBP (mmHg): 142 DBP (mmHg): 65 Stage: RECOVERY Duration (min): 3 min : 11 sec HR (bpm): 86 SBP (mmHg): 142 DBP (mmHg): 65 Rest HR: 68 bpm Peak HR: 86 bpm Rest Sys BP: 150 mmHg Peak Sys BP: 142 mmHg Max Pred HR: 146 bpm % Max Pred HR: 59 % Target HR: 124 bpm Max RPP: 12,212 bpm*mmHg Termination Reason: Completed protocol Cardiac Symptoms: None Total Time: 1 min : 0 sec Rest Davison BP: 80 mmHg Peak Davison BP: 65 mmHg Total Dose: 0.4 mg Resting ECG Normal sinus rhythm with left bundle branch block. Stress ECG Non-diagnostic ECG due to left bundle branch block. Report Signatures
--- NOTE | ~2023-07-16 | NM_ITS ---
EXAMINATION: NM felisa stress w perfusion DATE: 07/16/2023 11:26 INDICATION: Other forms of dyspnea TECHNIQUE: Rest images were obtained following intravenous administration of 9.7 mCi Tc99m tetrofosmi n (Myoview). The patient was infused intravenously with Lexiscan (Regadenoson). Then, 30.5 mCi Tc99m tetrofosmin (Myoview) was administered intravenously, and stress images were obtained in supine posit ion with repeat post stress images obtained in the prone position. Data was reconstructed into short axis and horizontal and vertical long axis SPECT images. Gated SPECT images were also obtained. COMPARISON: None. FINDINGS: Likely diaphragmatic attenuation artifact along portions of the inferior and septal romo o n imaging obtained in the supine position which normalizes on the prone post stress imaging where the re is no perfusion abnormality to suggest ischemia or infarction. There is normal left ventricular c hamber size, wall motion and ejection fraction. Left ventricular ejection fraction measures >70%. IMPRESSION: 1. Normal myocardial perfusion on post stress imaging obtained in prone position with no evident isch emia or infarct. 2. Left ventricular ejection fraction measuring >70%. Reviewed, dictated and finalized at location A. IMPRESSION: 1. Normal myocardial perfusion on post stress imaging obtained in prone positio n with no evident ischemia or infarct. 2. Left ventricular ejection fraction measuring >70%.
== END 2023-07-16 08:57 | disposition home or self-care (01) ==
PROVIDERS: PCP Family Medicine; Visit Provider Physician Assistant
DX: R06.09 Other forms of dyspnea (principal)
CPT/HCPCS: 78452; 93017; A9502; J2785

== ENCOUNTER 2023-08-23 09:55 | Outpatient (CLI) | payer MEDICARE, OTHER, SELFPAY ==
--- NOTE | 2023-08-27 12:27 | WPDPFTINT ---
PFT Procedure Performed PFT Procedure Performed Spirometry with Pre/Post Bronchodilator Plethysmography (Lung Vol) Diffusing Cap (DLCO) Flow Vol Loop PFT Interpretation DOS: 08/23/2023 REQUESTING: Dr. Faud Dudley REASON FOR TESTING: dyspnea PULMONARY FUNCTION TESTS Results are reliable and reproducible. The repeatability of spirometry pre and post bronchodilator is Grade A. Spirometry: pre bronchodilator FEV1 is 2.55 L, 113%, normal. Pre bronchodilator FVC is 3.33 L, 113%, normal. FEV1/FVC is 76%, normal. After bronchodilator there is a 2% increase in the FEV1 and no change in the FVC. This is not statistically significant. Lung volumes: total lung capacity 5.83 L, 108% predicted, normal. Residual volume 2.35 L, 99%, normal. RV /TLC is 40%, normal. Airway resistance is 2.19, 157% predicted. Diffusion: DLCO 16.2, 78%, normal. DLCO/VA is 3.26, 79%, normal. Flow volume loop: Normal. IMPRESSION: This pulmonary function test shows normal spirometry, normal lung volumes and normal diffusion. There is no significant response to bronchodilator. Lack of response to bronchodilator should not preclude use if clinically indicated. Bailee Marquis MD
== END 2023-08-23 09:56 | disposition home or self-care (01) ==
PROVIDERS: PCP Family Medicine; Visit Provider Family Medicine
DX: R06.09 Other forms of dyspnea (principal)
CPT/HCPCS: 94060; 94726; 94729

== ENCOUNTER 2023-09-05 11:35 | Outpatient (CLI) | payer MEDICARE, OTHER, SELFPAY ==
[2023-09-05 14:57] LABS: Basophils Absolute Auto 0.1 K/mm3 (0.0-0.1); Basophils Percent Auto 0.7 % (0.2-1.2); Eosinophils Absolute Auto 0.2 K/mm3 (0-0.3); Eosinophils Percent Auto 1.6 % (0-4.4); Hematocrit 43.8 % (37.0-47.0); Hemoglobin 14.5 g/dL (12.0-15.0); Immature Granulocyte Absolute 0.05 K/mm3 (0.00-0.031); Immature Granulocyte Percent A 0.5 % (0-0.5); Lymphocytes Absolute Auto 2.23 K/mm3 (0.9-3.2); Lymphocytes Percent Auto 21.6 % (18.3-44.2); Mean Corpuscular HGB Conc 33.1 g/dl (32-36); Mean Corpuscular Hemoglobin 29.8 pg (26-34); Mean Corpuscular Volume 89.9 fl (80-100); Mean Platelet Volume 9.1 fl (7.4-10.4); Monocytes Absolute Auto 0.6 K/mm3 (0.1-0.6); Monocytes Percent Auto 5.7 % (2.6-8.5); Neutrophils Absolute Auto 7.2 K/mm3 (1.3-6.7); Neutrophils Percent Auto 69.9 % (45.5-73.1); Platelet Count Result 332 k/mm3 (150-375); Red Blood Count 4.87 M/mm3 (4.2-5.4); Red Cell Distribution Width 13.1 % (11.5-14.5); White Blood Count 10.3 K/mm3 (4.5-10.0)
[2023-09-05 15:02] LABS: Alanine Aminotransferase 40 U/L (6-35); Albumin Level 4.1 g/dL (3.5-5.1); Alkaline Phosphatase 137 U/L (38-126); Anion Gap 9 mmol/L (8-16); Aspartate Amino Transferase 37 U/L (14-36); Bilirubin,Total 0.4 mg/dL (0.2-1.3); Blood Urea Nitrogen 15 mg/dL (7-17); Calcium 9.2 mg/dL (8.4-10.2); Carbon Dioxide 22 mmol/L (22-30); Chloride 106 mmol/L (98-107); Estimated Glomerular Filt Rate > 60; Glucose 134 mg/dL (65-110); Potassium 3.5 mmol/L (3.4-5.0); Sodium 137 mmol/L (137-145)
[2023-09-05 15:11] LABS: Iron 90 ug/dL (37-170)
[2023-09-05 15:20] LABS: Percent Iron Saturation 25 % (20-50)
[2023-09-05 16:37] LABS: Free T4 Free Thyroxine 1.37 ng/mL (0.78-2.19)
== END 2023-09-05 11:36 | disposition home or self-care (01) ==
PROVIDERS: PCP Family Medicine
DX: L65.9 Nonscarring hair loss, unspecified (principal); L81.4 Other melanin hyperpigmentation; L71.8 Other rosacea; L82.1 Other seborrheic keratosis
CPT/HCPCS: 36415; 80053; 82306; 82607; 82728; 83540; 83550; 84439; 84443; 85025

== ENCOUNTER 2023-11-29 14:45 | Outpatient (CLI) | payer MEDICARE, OTHER, SELFPAY ==
[2023-11-29 15:55] LABS: Alanine Aminotransferase 37 U/L (14-59); Albumin Level 3.5 g/dL (3.4-5.0); Alkaline Phosphatase 147 U/L (46-116); Anion Gap 10 mmol/L (8-16); Aspartate Amino Transferase 22 U/L (15-37); Bilirubin,Total 0.3 mg/dL (0.00-1.00); Blood Urea Nitrogen 16 mg/dL (7-18); Carbon Dioxide 27 mmol/L (21-32); Chloride 105 mmol/L (98-108); Estimated Glomerular Filt Rate 57; Glucose 97 mg/dL (70-99); Osmolality Calculated 295 mOsm/kg (285-295); Potassium 4.1 mmol/L (3.5-5.1); Sodium 142 mmol/L (136-145); Total Protein 6.7 g/dL (6.4-8.2)
== END 2023-11-29 14:46 | disposition home or self-care (01) ==
LOC: CHSLAB 14:47
PROVIDERS: PCP Family Medicine; Visit Provider Family Medicine
DX: I10 Essential (primary) hypertension (principal)
CPT/HCPCS: 36415; 80053

== ENCOUNTER 2024-02-15 10:06 | Outpatient (CLI) | payer MEDICARE, OTHER, SELFPAY ==
--- NOTE | ~2024-02-15 | MM_ITS ---
EXAMINATION: MM screening poncho BI w mitul HISTORY: Screening TECHNIQUE: Craniocaudal and mediolateral oblique 3-D tomosynthesis images were obtained and synthetic 2-D images were generated. CAD analysis was submitted and interpreted. COMPARISON: Comparison to multiple prior studies sequentially, with oldest reviewed study dated 08/17. BREAST PARENCHYMAL COMPOSITION: There are scattered areas of fibroglandular density. FINDINGS: There is no evidence of suspicious mass, calcification, or architectural distortion to sugg est malignancy in either breast. There has been no suspicious interval change. IMPRESSION: 1. No mammographic evidence of malignancy. 2. Recommend routine screening mammography in one year. BI-RADS Category 1: Negative Reviewed, dictated and finalized at location B.
== END 2024-02-15 10:07 | disposition home or self-care (01) ==
LOC: ANHIMG 10:09
PROVIDERS: PCP Family Medicine; Visit Provider Family Medicine
DX: Z12.31 Encounter for screening mammogram for malignant neoplasm of breast (principal)
CPT/HCPCS: 77063; 77067

== ENCOUNTER 2024-05-22 12:43 | Outpatient (CLI) | payer MEDICARE, SELFPAY ==
[2024-05-22 12:56] LABS: Hemoglobin 14.1 g/dL (11.7-13.8); Mean Corpuscular HGB Conc 32.8 g/dL (32-36); Mean Corpuscular Hemoglobin 29.7 pg (27.0-31.0); Mean Corpuscular Volume 90.5 fL (78.0-102.0); Mean Platelet Volume 8.8 fl (9.2-11.8); Platelet Count Result 323 K/mm3 (150-420); Red Blood Count 4.75 M/mm3 (4.20-5.40); Red Cell Distribution Width 13.2 % (11.6-14.4); White Blood Count 10.4 K/mm3 (4.8-10.8)
[2024-05-22 13:16] LABS: Add Urine Microscopic? YES; Appearance Urine Sl Cloudy (Clear); Bilirubin Urine Negative (Negative); Blood Urine Trace (Negative); Color Urine Yellow (Yellow); Glucose Urine UA Negative (Negative); Ketones Urine Negative (Negative); Leukocyte Esterase Ur 2+ (Negative); Nitrate Urine Negative (Negative); Protein Urine Negative (Negative); Specific Grav Ur 1.015 (1.010-1.020); Urobilinogen Urine 0.2 mg/dL (0.2-1.0)
[2024-05-22 13:17] LABS: Bacteria Urine 1+ /hpf; RBC Urine None seen /hpf (0-2); Squamous Epithelial Cell Urine Moderate /hpf (Few)
[2024-05-23 09:27] LABS: Alanine Aminotransferase 34 U/L (6-35); Albumin Level 4.1 g/dL (3.5-5.1); Alkaline Phosphatase 120 U/L (38-126); Anion Gap 12 mmol/L (4-12); Aspartate Amino Transferase 32 U/L (14-36); Bilirubin,Total 0.5 mg/dL (0.2-1.3); Blood Urea Nitrogen 15 mg/dL (7-17); Calcium 9.8 mg/dL (8.4-10.2); Carbon Dioxide 28 mmol/L (22-30); Chloride 99 mmol/L (98-107); Cholesterol 139 mg/dL (0-200); Estimated Glomerular Filt Rate > 60; Glucose 99 mg/dL (65-110); HDL Direct 59 mg/dL; LDL Cholesterol Calculated 65 mg/dL (<130); Osmolality Calculated 288 mOsm/kg (285-295); Potassium 4.2 mmol/L (3.4-5.0); Sodium 139 mmol/L (137-145); Triglycerides 75 mg/dL (<150)
[2024-05-23 09:55] LABS: Thyroid Stimulating Hormone 0.266 uIU/mL (0.465-4.680)
== END 2024-05-22 12:44 | disposition home or self-care (01) ==
LOC: CHSLAB 12:45
PROVIDERS: PCP Family Medicine; Visit Provider Family Medicine
DX: R53.83 Other fatigue (principal); E78.5 Hyperlipidemia, unspecified; I10 Essential (primary) hypertension
CPT/HCPCS: 36415; 80053; 80061; 81001; 84443; 85027

== ENCOUNTER 2024-06-16 17:14 | Outpatient (CLI) | payer MEDICARE, SELFPAY ==
[2024-06-16 18:20] LABS: Free T4 Free Thyroxine 0.98 ng/dL (0.76-1.46); Thyroid Stimulating Hormone 1.67 uIU/mL (0.36-3.74)
[2024-06-17 14:36] LABS: Free T3 2.53 pg/mL (2.18-3.98)
== END 2024-06-16 17:15 | disposition home or self-care (01) ==
LOC: CHSLAB 17:18
PROVIDERS: PCP Family Medicine; Visit Provider Physician Assistant Medical
DX: I10 Essential (primary) hypertension (principal); R79.89 Other specified abnormal findings of blood chemistry
CPT/HCPCS: 36415; 84439; 84443; 84481

== ENCOUNTER 2024-12-03 13:03 | Outpatient (CLI) | payer MEDICARE, SELFPAY ==
[2024-12-03 13:44] LABS: Alanine Aminotransferase 61 U/L (14-59); Albumin Level 3.8 g/dL (3.4-5.0); Alkaline Phosphatase 128 U/L (46-116); Anion Gap 9 mmol/L (4-12); Aspartate Amino Transferase 37 U/L (15-37); Bilirubin,Total 0.7 mg/dL (0.00-1.00); Blood Urea Nitrogen 11 mg/dL (7-18); Carbon Dioxide 29 mmol/L (21-32); Chloride 103 mmol/L (98-108); Estimated Glomerular Filt Rate 44; Glucose 138 mg/dL (70-99); Osmolality Calculated 293 mOsm/kg (285-295); Sodium 141 mmol/L (136-145); Total Protein 6.9 g/dL (6.4-8.2)
--- OUTSIDE RECORDS SUMMARY | 2024-12-03 14:28 | XMS_ITS ---
Author Organization [facility] [employer] 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 Name Role Phone Fuad Dudley MD Primary Care Provider Unavaila Roya Mann Unavailable [phone] Allergies No Known Allergies Results Component Value Reference Range Notes UDT Reviewed date:11/27/2024 11:37:42 AM Interpretation: Performing Lab: Notes/Report: THC NEG 0 - 50 ng/ml Cocaine NEG 0 - 300 ng/ml Amphetamine NEG 0 - 1000 ng/ml Buprenorphine (BUP) NEG 0 - 10 ng/ml Secobarbital (Bar) NEG 0 - 300 ng/ml Oxazepam (BZO) POS 0 - 300 ng/ml 7-wrleoqkili-9,4-siddgfxs-0,3-diphenylpyrrolidine (SOTO P) NEG 0 - 300 ng/ml Methamphetamine (MET) NEG 0 - 1000 ng/ml Methylenedioxymethamphetamine (MDMA) NEG 0 - 500 ng/ml Morphine (MOP 300/[id number]) NEG 0 - 300 ng/ml Methadone (MTD) NEG 0 - 300 ng/ml Phencyclidine (PCP) NEG 0 - 25 ng/ml Nortriptyline (TCA) NEG 0 - 1000 ng/ml Oxycodone NEG 0 - 300 ng/ml x NEG 0 - 300 ng/ml REASON FOR VISIT follow-up anxiety Medications Medication SIG (Take, Route, Frequency, Duration) Notes Start Date End Date Status Venlafaxine HCl ER 75 MG Oral 02/04/2024 Unknown Venlafaxine HCl ER 150 MG Oral 02/04/2024 Unknown Tretinoin 0.025 % External 02/04/2024 U nknown Atorvastatin Calcium 20 MG Oral 02/04/2024 Unknown metroNIDAZOLE 1 % External 02/04/2024 U nknown Lisinopril 10 MG Oral 02/04/2024 Un known Clobetasol Propionate 0.05 % External 02/04/2024 Unknown Lisinopril 5 MG Oral 02/04/2024 Unk nown metroNIDAZOLE 0.75 % External 02/04/2024 Unknown Zolpidem Tartrate 5 MG Oral 02/04/2024 Unknown Atorvastatin Calcium 20 MG 20 MG ORALLY EVERY DAY AT BEDTIME Oral for 90 Days Active Clindamycin HCl 150 MG TAKE 1 CAPSULE 4 TIMES DAILY FOR 7 DAYS Oral for 7 Days Active hydroCHLOROthiazide 12.5 MG Oral 02/04/2024 Unknown Lisinopril 5 MG TAKE 1 TABLET (5 MG TOTAL) BY MOUTH DAILY. Oral for 90 Days Active hydroCHLOROthiazide 12.5 MG TAKE 1 TABLET BY MOUTH EVERY DAY Oral for 90 Days Active ALPRAZolam 0.5 MG TAKE 1 TABLET BY MOUTH EVERY DAY FOR 30 DAYS for 30 appointment needed 11/12/2024 Active lamoTRIgine 150 MG 1 tablet Orally Once a day for 90 days D/C 100 mg dose Active ALPRAZolam 0.5 MG 1 tablet Oral Twice a day for 30 days 11/27/2024 Active Zolpidem Tartrate 5 MG 1 tablet bedtime Oral bedtime for 30 days 11/27/2024 Active Lurasidone HCl 20 MG 1 tablet in the evening with food Orally Once a day for 30 days d/c 40 mg dose Active Social History Sex Assigned At : Social History Observation Description Sex Assigned At Female Vital Signs Blood pressure systolic 110 mm Hg 11/28/19 25 Blood pressure diastolic 75 mm Hg 025 Heart Rate 67 /min 11/27/2024 Height 66.00 in 11/27/2024 Weight 186.4 lbs 11/27/2024 BMI 30.08 kg/m2 11/27/2024 Height-cm 167.64 cm 11/27/2024 Weight-kg 84.55 kg 11/27/2024 Encounters Encounter Location Date Provider Diagnosis [facility] [employer] [facility] [address] [address] 11/27/2024 Roya Cuellar Encounter for screen ing for depression Z13.31 ; Encounter for screening for cardiovascular disorders Z13.6 ; Generalized anxiety disorder F41.1 ; Major depressive disorder, recurrent severe without psychotic features F33.2 ; Primary insomnia F51.01 ; Primary hypertension I10 ; Involuntary movements R25.9 and Tardive dyskinesia G24.01 Assessments Encounter Date Diagnosis (ICD Code) Assessment Notes Treatment Notes Treatment Clinical Notes Section Notes 11/27/2024 Encounter for screening for depression (ICD-10 - Z13.31) 1. Depression discuss therapy options- refer to [facility] and would like to see someone else in [facility] Irritability and Agitation - Assessment: Patient reports a history of irritability and agitation, exacerbated by recent stressors patient needs 90 days rx, decrease lurasidone (Latuda) 20 mg at night with food - monitor TD and mood, depression patient reported since last visit having tongue movement clicking and rt leg moves at times AIMS= 6 11/27/24 mood stabilization and off-label use for irritability and agitation and depression reported fatigue and helps sleep still has depression and some agitation and irritable heart heart healthy diet and excise educated and healthy eating habits, discuss rx options for depression and anxiety and agiation Increase Lamotrigine 150 mg daily depression educated on Lamotrigine and monitor for rash, 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 2. Anxiety- having increase - Assessment: Patient is currently taking alprazolam (Xanax) as needed for anxiety.- - Plan: increase alprazolam 0.5 mg twice a day as needed.at this time 3. Insomnia - Assessment: Patient is currently taking zolpidem (Ambien) 1/2 tab for insomnia. - Plan: Continue zolpidem as prescribed. Monitor for any changes in sleep patterns sleep hygeine Previous Adverse Reaction to Medication - Assessment: Patient reports a history of muscle twitching and agitation with either Rexulti or Vraylar. - Plan: Avoid prescribing Rexulti or Vraylar. Pharmacogenomic Testing - hx Patient pharmacogenomic testing reviewed and copy given - Plan: discuss medication options 4. MNCD - SLUMS reviewed = 24 06/30/24- discuss with patient will take test in 6-12 months discuss rx for memory - patient will wait at this time 5. TD patient reported since last visit having tongue movement clicking and rt leg moves at times DISCUSS TD and tx options Austedo and Ingrezza discuss Latuda and past medications and TD AIMS= 6 11/27/24 ADD Austedo XR titation saples given to 12 mg dose - PA started [facility] education on rx benefits, side effects, risk, discuss DXN and monitoring Counseling - Assessment: Patient has seen a counselor, Trixie, - Plan: Encourage healthy eating habits and excise and sleep hygenie and therapy 11/27/2024 Encounter for screening for cardiovascular disorders (ICD-10 - Z13.6) 1. Depression discuss therapy options- refer to [facility] Trixie hx and would like to see someone else in [facility] Irritability and Agitation - Assessment: Patient reports a history of irritability and agitation, exacerbated by recent stressors patient needs 90 days rx, decrease lurasidone (Latuda) 20 mg at night with food - monitor TD and mood, depression patient reported since last visit having tongue movement clicking and rt leg moves at times AIMS= 6 11/27/24 mood stabilization and off-label use for irritability and agitation and depression reported fatigue and helps sleep still has depression and some agitation and irritable heart heart healthy diet and excise educated and healthy eating habits, discuss rx options for depression and anxiety and agiation Increase Lamotrigine 150 mg daily depression educated on Lamotrigine and monitor for rash, 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 2. Anxiety- having increase - Assessment: Patient is currently taking alprazolam (Xanax) as needed for anxiety.- - Plan: increase alprazolam 0.5 mg twice a day as needed.at this time 3. Insomnia - Assessment: Patient is currently taking zolpidem (Ambien) 1/2 tab for insomnia. - Plan: Continue zolpidem as prescribed. Monitor for any changes in sleep patterns sleep hygeine Previous Adverse Reaction to Medication - Assessment: Patient reports a history of muscle twitching and agitation with either Rexulti or Vraylar. - Plan: Avoid prescribing Rexulti or Vraylar. Pharmacogenomic Testing - hx Patient pharmacogenomic testing reviewed and copy given - Plan: discuss medication options 4. MNCD - SLUMS reviewed = 24 06/30/24- discuss with patient will take test in 6-12 months discuss rx for memory - patient will wait at this time 5. TD patient reported since last visit having tongue movement clicking and rt leg moves at times DISCUSS TD and tx options Austedo and Ingrezza discuss Latuda and past medications and TD AIMS= 6 11/27/24 ADD Austedo XR titation saples given to 12 mg dose - PA started [facility] education on rx benefits, side effects, risk, discuss DXN and monitoring Counseling - Assessment: Patient has seen a counselor, Trixie, - Plan: Encourage healthy eating habits and excise and sleep hygenie and therapy 11/27/2024 Generalized anxiety disorder (ICD-10 - F41.1) 1. Depression discuss therapy options- refer to [facility] Trixie hx and would like to see someone else in [facility] Irritability and Agitation - Assessment: Patient reports a history of irritability and agitation, exacerbated by recent stressors patient needs 90 days rx, decrease lurasidone (Latuda) 20 mg at night with food - monitor TD and mood, depression patient reported since last visit having tongue movement clicking and rt leg moves at times AIMS= 6 11/27/24 mood stabilization and off-label use for irritability and agitation and depression reported fatigue and helps sleep still has depression and some agitation and irritable heart heart healthy diet and excise educated and healthy eating habits, discuss rx options for depression and anxiety and agiation Increase Lamotrigine 150 mg daily depression educated on Lamotrigine and monitor for rash, 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 2. Anxiety- having increase - Assessment: Patient is currently taking alprazolam (Xanax) as needed for anxiety.- - Plan: increase alprazolam 0.5 mg twice a day as needed.at this time 3. Insomnia - Assessment: Patient is currently taking zolpidem (Ambien) 1/2 tab for insomnia. - Plan: Continue zolpidem as prescribed. Monitor for any changes in sleep patterns sleep hygeine Previous Adverse Reaction to Medication - Assessment: Patient reports a history of muscle twitching and agitation with either Rexulti or Vraylar. - Plan: Avoid prescribing Rexulti or Vraylar. Pharmacogenomic Testing - hx Patient pharmacogenomic testing reviewed and copy given - Plan: discuss medication options 4. MNCD - SLUMS reviewed = 24 06/30/24- discuss with patient will take test in 6-12 months discuss rx for memory - patient will wait at this time 5. TD patient reported since last visit having tongue movement clicking and rt leg moves at times DISCUSS TD and tx options Austedo and Ingrezza discuss Latuda and past medications and TD AIMS= 6 11/27/24 ADD Austedo XR titation saples given to 12 mg dose - PA started [facility] education on rx benefits, side effects, risk, discuss DXN and monitoring Counseling - Assessment: Patient has seen a counselor, Trixie, - Plan: Encourage healthy eating habits and excise and sleep hygenie and therapy 11/27/2024 Major depressive disorder, recurrent severe without psychotic features (ICD-10 - F33.2) 1. Depression discuss therapy options- refer to [facility] and would like to see someone else in [facility] Irritability and Agitation - Assessment: Patient reports a history of irritability and agitation, exacerbated by recent stressors patient needs 90 days rx, decrease lurasidone (Latuda) 20 mg at night with food - monitor TD and mood, depression patient reported since last visit having tongue movement clicking and rt leg moves at times AIMS= 6 11/27/24 mood stabilization and off-label use for irritability and agitation and depression reported fatigue and helps sleep still has depression and some agitation and irritable heart heart healthy diet and excise educated and healthy eating habits, discuss rx options for depression and anxiety and agiation Increase Lamotrigine 150 mg daily depression educated on Lamotrigine and monitor for rash, 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 2. Anxiety- having increase - Assessment: Patient is currently taking alprazolam (Xanax) as needed for anxiety.- - Plan: increase alprazolam 0.5 mg twice a day as needed.at this time 3. Insomnia - Assessment: Patient is currently taking zolpidem (Ambien) 1/2 tab for insomnia. - Plan: Continue zolpidem as prescribed. Monitor for any changes in sleep patterns sleep hygeine Previous Adverse Reaction to Medication - Assessment: Patient reports a history of muscle twitching and agitation with either Rexulti or Vraylar. - Plan: Avoid prescribing Rexulti or Vraylar. Pharmacogenomic Testing - hx Patient pharmacogenomic testing reviewed and copy given - Plan: discuss medication options 4. MNCD - SLUMS reviewed = 24 06/30/24- discuss with patient will take test in 6-12 months discuss rx for memory - patient will wait at this time 5. TD patient reported since last visit having tongue movement clicking and rt leg moves at times DISCUSS TD and tx options Austedo and Ingrezza discuss Latuda and past medications and TD AIMS= 6 11/27/24 ADD Austedo XR titation saples given to 12 mg dose - PA started [facility] education on rx benefits, side effects, risk, discuss DXN and monitoring Counseling - Assessment: Patient has seen a counselor, Trixie, - Plan: Encourage healthy eating habits and excise and sleep hygenie and therapy 11/27/2024 Primary insomnia (ICD-10 - F51.01) 1. Depression discuss therapy options- refer to [facility] Trixie and would like to see someone else in [facility] Irritability and Agitation - Assessment: Patient reports a history of irritability and agitation, exacerbated by recent stressors patient needs 90 days rx, decrease lurasidone (Latuda) 20 mg at night with food - monitor TD and mood, depression patient reported since last visit having tongue movement clicking and rt leg moves at times AIMS= 6 11/27/24 mood stabilization and off-label use for irritability and agitation and depression reported fatigue and helps sleep still has depression and some agitation and irritable heart heart healthy diet and excise educated and healthy eating habits, discuss rx options for depression and anxiety and agiation Increase Lamotrigine 150 mg daily depression educated on Lamotrigine and monitor for rash, 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 2. Anxiety- having increase - Assessment: Patient is currently taking alprazolam (Xanax) as needed for anxiety.- - Plan: increase alprazolam 0.5 mg twice a day as needed.at this time 3. Insomnia - Assessment: Patient is currently taking zolpidem (Ambien) 1/2 tab for insomnia. - Plan: Continue zolpidem as prescribed. Monitor for any changes in sleep patterns sleep hygeine Previous Adverse Reaction to Medication - Assessment: Patient reports a history of muscle twitching and agitation with either Rexulti or Vraylar. - Plan: Avoid prescribing Rexulti or Vraylar. Pharmacogenomic Testing - hx Patient pharmacogenomic testing reviewed and copy given - Plan: discuss medication options 4. MNCD - SLUMS reviewed = 24 06/30/24- discuss with patient will take test in 6-12 months discuss rx for memory - patient will wait at this time 5. TD patient reported since last visit having tongue movement clicking and rt leg moves at times DISCUSS TD and tx options Austedo and Ingrezza discuss Latuda and past medications and TD AIMS= 6 11/27/24 ADD Austedo XR titation saples given to 12 mg dose - PA started [facility] education on rx benefits, side effects, risk, discuss DXN and monitoring Counseling - Assessment: Patient has seen a counselor, Trixie, - Plan: Encourage healthy eating habits and excise and sleep hygenie and therapy 11/27/2024 Primary hypertension (ICD-10 - I10) 1. Depression discuss therapy options- refer to [facility] Trixie hx and would like to see someone else in [facility] Irritability and Agitation - Assessment: Patient reports a history of irritability and agitation, exacerbated by recent stressors patient needs 90 days rx, decrease lurasidone (Latuda) 20 mg at night with food - monitor TD and mood, depression patient reported since last visit having tongue movement clicking and rt leg moves at times AIMS= 6 11/27/24 mood stabilization and off-label use for irritability and agitation and depression reported fatigue and helps sleep still has depression and some agitation and irritable heart heart healthy diet and excise educated and healthy eating habits, discuss rx options for depression and anxiety and agiation Increase Lamotrigine 150 mg daily depression educated on Lamotrigine and monitor for rash, 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 2. Anxiety- having increase - Assessment: Patient is currently taking alprazolam (Xanax) as needed for anxiety.- - Plan: increase alprazolam 0.5 mg twice a day as needed.at this time 3. Insomnia - Assessment: Patient is currently taking zolpidem (Ambien) 1/2 tab for insomnia. - Plan: Continue zolpidem as prescribed. Monitor for any changes in sleep patterns sleep hygeine Previous Adverse Reaction to Medication - Assessment: Patient reports a history of muscle twitching and agitation with either Rexulti or Vraylar. - Plan: Avoid prescribing Rexulti or Vraylar. Pharmacogenomic Testing - hx Patient pharmacogenomic testing reviewed and copy given - Plan: discuss medication options 4. MNCD - SLUMS reviewed = 24 06/30/24- discuss with patient will take test in 6-12 months discuss rx for memory - patient will wait at this time 5. TD patient reported since last visit having tongue movement clicking and rt leg moves at times DISCUSS TD and tx options Austedo and Ingrezza discuss Latuda and past medications and TD AIMS= 6 11/27/24 ADD Austedo XR titation saples given to 12 mg dose - PA started [facility] education on rx benefits, side effects, risk, discuss DXN and monitoring Counseling - Assessment: Patient has seen a counselor, Trixie, - Plan: Encourage healthy eating habits and excise and sleep hygenie and therapy 11/27/2024 Involuntary movements (ICD-10 - R25.9) 1. Depression discuss therapy options- refer to [facility] Trixie hx and would like to see someone else in [facility] Irritability and Agitation - Assessment: Patient reports a history of irritability and agitation, exacerbated by recent stressors patient needs 90 days rx, decrease lurasidone (Latuda) 20 mg at night with food - monitor TD and mood, depression patient reported since last visit having tongue movement clicking and rt leg moves at times AIMS= 6 11/27/24 mood stabilization and off-label use for irritability and agitation and depression reported fatigue and helps sleep still has depression and some agitation and irritable heart heart healthy diet and excise educated and healthy eating habits, discuss rx options for depression and anxiety and agiation Increase Lamotrigine 150 mg daily depression educated on Lamotrigine and monitor for rash, 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 2. Anxiety- having increase - Assessment: Patient is currently taking alprazolam (Xanax) as needed for anxiety.- - Plan: increase alprazolam 0.5 mg twice a day as needed.at this time 3. Insomnia - Assessment: Patient is currently taking zolpidem (Ambien) 1/2 tab for insomnia. - Plan: Continue zolpidem as prescribed. Monitor for any changes in sleep patterns sleep hygeine Previous Adverse Reaction to Medication - Assessment: Patient reports a history of muscle twitching and agitation with either Rexulti or Vraylar. - Plan: Avoid prescribing Rexulti or Vraylar. Pharmacogenomic Testing - hx Patient pharmacogenomic testing reviewed and copy given - Plan: discuss medication options 4. MNCD - SLUMS reviewed = 24 06/30/24- discuss with patient will take test in 6-12 months discuss rx for memory - patient will wait at this time 5. TD patient reported since last visit having tongue movement clicking and rt leg moves at times DISCUSS TD and tx options Austedo and Ingrezza discuss Latuda and past medications and TD AIMS= 6 11/27/24 ADD Austedo XR titation saples given to 12 mg dose - PA started [facility] education on rx benefits, side effects, risk, discuss DXN and monitoring Counseling - Assessment: Patient has seen a counselor, Trixie, - Plan: Encourage healthy eating habits and excise and sleep hygenie and therapy 11/27/2024 Tardive dyskinesia (ICD-10 - G24.01) Electronic Prior Authorization was requested for Austedo XR 12 MG Tablet Extended Release 24 Hour. Provider can order medication once approval received. 1. Depression discuss therapy options- refer to [facility] Trixie hx and would like to see someone else in [facility] Irritability and Agitation - Assessment: Patient reports a history of irritability and agitation, exacerbated by recent stressors patient needs 90 days rx, decrease lurasidone (Latuda) 20 mg at night with food - monitor TD and mood, depression patient reported since last visit having tongue movement clicking and rt leg moves at times AIMS= 6 11/27/24 mood stabilization and off-label use for irritability and agitation and depression reported fatigue and helps sleep still has depression and some agitation and irritable heart heart healthy diet and excise educated and healthy eating habits, discuss rx options for depression and anxiety and agiation Increase Lamotrigine 150 mg daily depression educated on Lamotrigine and monitor for rash, 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 2. Anxiety- having increase - Assessment: Patient is currently taking alprazolam (Xanax) as needed for anxiety.- - Plan: increase alprazolam 0.5 mg twice a day as needed.at this time 3. Insomnia - Assessment: Patient is currently taking zolpidem (Ambien) 1/2 tab for insomnia. - Plan: Continue zolpidem as prescribed. Monitor for any changes in sleep patterns sleep hygeine Previous Adverse Reaction to Medication - Assessment: Patient reports a history of muscle twitching and agitation with either Rexulti or Vraylar. - Plan: Avoid prescribing Rexulti or Vraylar. Pharmacogenomic Testing - hx Patient pharmacogenomic testing reviewed and copy given - Plan: discuss medication options 4. MNCD - SLUMS reviewed = 24 06/30/24- discuss with patient will take test in 6-12 months discuss rx for memory - patient will wait at this time 5. TD patient reported since last visit having tongue movement clicking and rt leg moves at times DISCUSS TD and tx options Austedo and Ingrezza discuss Latuda and past medications and TD AIMS= 6 11/27/24 ADD Austedo XR titation saples given to 12 mg dose - PA started [facility] education on rx benefits, side effects, risk, discuss DXN and monitoring Counseling - Assessment: Patient has seen a counselor, Trixie, - Plan: Encourage healthy eating habits and excise and sleep hygenie and therapy Plan Of Treatment Medication Medication Name Sig Start Date Stop Date Notes lamoTRIgine 150 MG 1 tablet Orally Once a day for 90 days D/C 100 mg dose ALPRAZolam 0.5 MG 1 tablet Oral Twice a day for 30 days 11/27/2024 Zolpidem Tartrate 5 MG 1 tablet bedtime Oral bedtime for 30 days 11/27/2024 Lurasidone HCl 20 MG 1 tablet in the neftali lolly with food Orally Once a day for 30 days d/c 40 mg dose Treatment Notes Assessment Notes Tardive dyskinesia Electronic Prior Aut horization was requested for Austedo XR 12 MG Tablet Extended Release 24 Hour. Provider can order medication once approval received. Next Appt Details Follow Up: 4 Weeks, Reason: medication follow up Austedo and increase LAMOTRIGINE and decrease Latuda Provider Name:Roya Cuellar , 12/25/2024 11:00:00 AM, [address], [address], [place], [address], Progress Notes * HAFSA SANTANAOB:[id number] ( 74 yo F)Acc No.[id number]:11/27/2024 Patient: NABOR HUANG Provider: EVAN LOUISHNP :1950 A ge:74 Y S ex:Female Date:11/27/2024 Address:[address] [place], [place] [id number] Pcp:Fuad Dudley MD Subjective: * Chief Complaints: * 1 . Follow-up anxiety. * HPI: D epression Screening: MAXIMUS-7 (2018 Edition) F eeling nervous, anxious, or on edge N early every day N ot being able to stop or control worrying?Nearly every day W orrying too much about different things N early every day T rouble relaxing N early every day B eing so restless that it is hard to sit still M ore than half the days B ecoming easily annoyed or irritable S ever F eeling afraid as if something awful might happen M ore than half the days T otal MAXIMUS-7 Score 1 7 I nterpretation of Total ( 15 and over) Severe D epression screening: PHQ-9 L ittle interest or pleasure in doing things?Nearly every day F eeling down, depressed, or hopeless N early every day T rouble falling or staying asleep, or sleeping too much N early every day F eeling tired or having little energy N early every day P oor appetite or overeating N early every day F eeling bad about yourself or that you are a failure, or have let yourself or your family down M ore than half the days T rouble concentrating on things, such as reading the newspaper or watching television S ever days M oving or speaking so slowly that other people could have noticed; or the opposite, being so fidgety or restless that you have been moving around a lot more than usual N ot at all T houghts that you would be better off or of hurting yourself in some way N ot at all T otal Score 1 8 I nterpretation M oderately Severe Depression Intervention D epression Screening Findings P ositve F ollow-Up for Depression M [facility], Patient follow-up to return when and if necessary S uicide Risk Assessment Performed 0 11/27/2024 A dditional Evaluation for Depression P sychiatric interview and evaluation N oren of the standardized tool used for adult depression screening: P atient Health Questionnaire (PHQ-9) H istory of Presenting Problem: Pt was seen today and Urine drug screen was done This is a 74 year old female follow up depression and anxiety I am not doing good I have increase anxiety and not able to sit still I have issue swith bowels and diarrhea and increase anxiety and tearful today and depression, I feel bowels get worst last few months, I have appt tomorrow with GI, I have uncontrol movement in tongue and rt foot, been going on rt foot for a while and tongue 2 months, I feel sad, down hopeless and helpess and I had flu past week also not helped it and I sleep if I settle down ok, but trouble settle down and up and down, and had to stay in one place very long, I feel like I need to move, I am on antibiotic for root canal infection, I cry all the time over anything, I sleep average hours plenty 12 am- 8 am, since flu not eating well and less appetite but before that fine, and no paranoia, no delusions, no SI/HI, I get nervous, no patience, I do worry about what is happening, I take 1/2 Xanax 0.5 mg tab and once in a while whole tab, helps, Abilify worked the best but cost too much. rx hx Ambien, Xanax, Effexor (hot flashes, irritable and agitation), Wellbutrin (r/o agitation), Vraylar (irritable and agitation) Rexulti (irritable and agitation), Viibyrd(agitated), Auvelity (too expensive), Kinnelon, trintellix, viibryd, paxil, sertraline, Cymbalta, Abilify, Latuda (r/o TD) therapy KISHRO Mckay had TMS and not helped SLUMS= 24 06/30/24 discuss Anastacia has no ride. * ROS: P erformance Met: N ormal blood pressure reading documented, follow-up not required ( G8783) Patient reports no chest pain, reported shortness of breath flu last week a nd on antibiotic n o palpitations, no known heart murmur, and no ankle swelling; . She reports no GERD b ut reports no abdominal pain, no nausea, no vomiting, no constipation, normal appetite, reported diarrhea- chronic- see GI , chornic bowel issues on fiber con - on antibiotic tooth infection . She reports no gait dysfunction; She reports d epression, sleep disturbances, reported restless sleep, reported anxiety, and no memory loss no alcohol abuse, no hallucinations, no suicidal thoughts, no mood swings,? no agitation, no dementia, She reports f atigue. She reports no fever, weight gain, and no significant weight loss. She reports no sore throat, reported seasonal allergies She reports no cough She reports no incontinence, no difficulty urinating, and no increased frequency. reported hx bladder leakage She reports no muscle aches, no muscle weakness, no arthralgias/joint pain, once in a while back pain, no neck pain, and no difficulty walking. SLUMS= 24 06/30/24. * Medical History: Naresh kennedy: Chronic post-traumatic stress disorder, Generalized anxiety disorder, Long-term drug therapy, Primary insomnia, Severe recurrent major depression without psychotic features. * Medications: T aking Lurasidone HCl 40 MG Tablet 1 tablet in the evening with food Orally Once a day , Notes to Pharmacist: d/c 20 mg dose, Notes: eat 350 calories with rx, Taking lamoTRIgine 100 MG Tablet 1 tablet Orally Once a day , Notes to Pharmacist: D/C 50 mg dose, Taking Zolpidem Tartrate 5 MG Tablet 1 tablet bedtime Oral bedtime , Taking ALPRAZolam 0.5 MG Tablet TAKE 1 TABLET BY MOUTH EVERY DAY FOR 30 DAYS , Notes to Pharmacist: appointment needed, Taking Lisinopril 5 MG Tablet TAKE 1 TABLET (5 MG TOTAL) BY MOUTH DAILY. Oral , Taking hydroCHLOROthiazide 12.5 MG Tablet TAKE 1 TABLET BY MOUTH EVERY DAY Oral , Taking Atorvastatin Calcium 20 MG Tablet 20 MG ORALLY EVERY DAY AT BEDTIME Oral , Taking Clindamycin HCl 150 MG Capsule TAKE 1 CAPSULE 4 TIMES DAILY FOR 7 DAYS Oral , Discontinued lamoTRIgine 100 MG Tablet 1 tablet Orally Once a day , Unknown hydroCHLOROthiazide 12.5 MG Tablet Oral , Unknown Zolpidem Tartrate 5 MG Tablet Oral , Unknown Lisinopril 10 MG Tablet Oral , Unknown Clobetasol Propionate 0.05 % Solution External , Unknown Lisinopril 5 MG Tablet Oral , Unknown metroNIDAZOLE 0.75 % Gel External , Unknown Tretinoin 0.025 % Cream External , Unknown Atorvastatin Calcium 20 MG Tablet Oral , Unknown metroNIDAZOLE 1 % Gel External , Unknown Venlafaxine HCl ER 75 MG Capsule Extended Release 24 Hour Oral , Unknown Venlafaxine HCl ER 150 MG Capsule Extended Release 24 Hour Oral , Medication List reviewed and reconciled with the patient * Allergies: N .K.D.A. Objective: * Vitals: B P:110/75mm Hg, HR:67/min, Wt:186.4lbs, Wt-k.55 kg, Ht: 66.00 in, Ht-cm: 167.64 cm, BMI:30.08Index, Body Surface Area: 1.98. * Examination: P sychiatry: Appearance: w ell-groomed, well-nourished, appears stated age. Abnormal body movements: r eported mouth movement and rt foot. Affect / mood: a pathetic, depressed, sad, tearful. Aggression: l ow. Anger control: g ood. Attention: g ood. Attitude: c ooperative. Gait s teady. Homicidal ideation: n one. Suicidal ideation: n one. Memory status: n o impairment noted. Degree of awareness of surroundings: w ithin normal limits.? Delusions: n o. Hallucinations: n o. Impulse control: g ood. Insight: g ood. Intellectual functioning: a verage. Comprehension - Intellectual function: a verage. Judgement: g ood. Orientation: a wake, alert and oriented x 3. Perceptual disorders: n o perceptual disorder noted. Psychomotor activity: w ithin normal range. Speech / language: a ppropriate pitch/modulation, clear and coherent, normal rate, volume, and articulation (RVR), proper grammar used. Thought content: a ppropriate. Thought process: i ntact. u nsupported by family members N o overt signs of psychosis or thought disorder were observed during the conversation. Diagnostic Test Results and Labs: - Pharmacogenomic testing was discussed. Assessment: * Assessment: 1. M ajor depressive disorder, recurrent severe without psychotic features - F33.2 (Primary)? 2. E ncounter for screening for depression - Z13.31 3 . E ncounter for screening for cardiovascular disorders - Z13.6 4 . G eneralized anxiety disorder - F41.1 5 . P rimary insomnia - F51.01 6 . P rimary hypertension - I10 7 . I nvoluntary movements - R25.9 8 .?Tardive dyskinesia - G24.01 1. Depression discuss therapy options- refer to [facility] Trixie and would like to see someone else in [facility] Irritability and Agitation - Assessment: Patient reports a history of irritability and agitation, exacerbated by recent stressors patient needs 90 days rx, d ecrease lurasidone (Latuda) 20 mg at night with food- monitor TD and mood, depression patient reported since last visit having tongue movement clicking and rt leg moves at times AIMS= 6 11/27/24 mood stabilization and off-label use for irritability and agitation and depression reported fatigue and helps sleep still has depression and some agitation and irritable heart heart healthy diet and excise educated and healthy eating habits, discuss rx options for depression and anxiety and agiation Increase Lamotrigine 150 mg daily depression educated on Lamotrigine and monitor for rash, 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 2. Anxiety- having increase - Assessment: Patient is currently taking alprazolam (Xanax) as needed for anxiety.- - Plan: increase alprazolam 0.5 mg twice a day a s needed.at this time 3. Insomnia - Assessment: Patient is currently taking zolpidem (Ambien) 1/2 tab for insomnia. - Plan: Continue zolpidem as prescribed. Monitor for any changes in sleep patterns sleep hygeine Previous Adverse Reaction to Medication - Assessment: Patient reports a history of muscle twitching and agitation with either Rexulti or Vraylar. - Plan: Avoid prescribing Rexulti or Vraylar. Pharmacogenomic Testing - hx Patient pharmacogenomic testing reviewed and copy given - Plan: discuss medication options 4. MNCD - SLUMS reviewed = 24 06/30/24- discuss with patient will take test in 6-12 months discuss rx for memory - patient will wait at this time 5. TD patient reported since last visit having tongue movement clicking a nd rt leg moves at times DISCUSS TD and tx options Austedo and Ingrezza d iscuss Latuda and past medications and TD AIMS= 6 11/27/24 ADD Austedo XR titation saples given to 12 mg dose - PA started [facility] education on rx benefits, side effects, risk, discuss DXN and monitoring Counseling - Assessment: Patient has seen a counselor, Trixie, - Plan: Encourage healthy eating habits and excise and sleep hygenie and therapy Plan: * Treatment: 2. G eneralized anxiety disorder Refill ALPRAZolam Tablet, 0.5 MG, 1 tablet, Oral, Twice a day, 30 days, 60 Tablet, Refills 0. ? 3. P rimary insomnia Refill Zolpidem Tartrate Tablet, 5 MG, 1 tablet bedtime, Oral, bedtime, 30 days, 30 Tablet, Refills 2. 4. T ardive dyskinesia Notes: Electronic Prior Authorization was requested for Austedo XR 12 MG Tablet Extended Release 24 Hour. Provider can order medication once approval received. * Labs: * L ab: UDT (Collection Date & Time - 11/27/2024) Value Reference Range T HC NEG 0 - 50 ng/ml * C ocaine NEG 0 - 300 ng/ml * A mphetamine NEG 0 - 1000 ng/ml * B uprenorphine (BUP) NEG 0 - 10 ng/ml * S ecobarbital (Bar) NEG 0 - 300 ng/ml * O xazepam (BZO) POS 0 - 300 ng/ml * 2 -ethylidene-1,8-vztsjjvv-3,3-diphenylpyrrolidine (EDDP) NEG 0 - 300 ng/ml * M ethamphetamine (MET) NEG 0 - 1000 ng/ml * M ethylenedioxymethamphetamine (MDMA) NEG 0 - 500 ng/ml * M orphine (MOP 300/CZU6725) NEG 0 - 300 ng/ml * M ethadone (MTD) NEG 0 - 300 ng/ml * P hencyclidine (PCP) NEG 0 - 25 ng/ml * N ortriptyline (TCA) NEG 0 - 1000 ng/ml * O xycodone NEG 0 - 300 ng/ml * x NEG 0 - 300 ng/ml * Procedure Codes: 9 6127 BEHAV ASSMT W/SCORE & DOCD/STAND INSTRUMENT, G8783 NORMAL BP READING DOC F/U NOT RQR, 88867 DRUG TST PRSMV READ INSTRMNT ASSTD DIR OPT OBS, 11540 BEHAV ASSMT W/SCORE & DOCD/STAND INSTRUMENT, G8431 CLIN DEPRESSION SCREEN DOC, G8431 CLIN DEPRESSION SCREEN DOC, G2211 VISIT COMPLEXITY INHERENT TO ONGOING CARE RELATED TO A PATIENT'S SINGLE, SERIOUS CONDITION OR A COMPLEX CONDITION, G8752 MOST RECENT SYSTOLIC BP < 140MM HG, G8754 MOST RECENT DIASTOLIC BP < 90MM HG * Preventive Medicine: Counseling: A dvance Care Planning Date of last Advance Care Planning:?11/27/2024 ____ MIPS Type of advance care directives: F ull Code POA- DAUGHTER * Follow Up: 4 Weeks (Reason: medication follow up Austedo and increase LAMOTRIGINE and decrease Latuda) * Billing Information: * Visit Code: 75229 OFFICE OUTPATIENT VISIT 25 MINUTES DETAILED HISTORY AND EXAM/MODERATE MEDICAL DECISION MAKING. * Procedure Codes: 66111 BEHAV ASSMT W/SCORE & DOCD/STAND INSTRUMENT. G8783 NORMAL BP READING DOC F/U NOT RQR. 63610 DRUG TST PRSMV READ INSTRMNT ASSTD DIR OPT OBS. 97383 BEHAV ASSMT W/SCORE & DOCD/STAND INSTRUMENT. G8431 CLIN DEPRESSION SCREEN DOC. G8431 CLIN DEPRESSION SCREEN DOC. G2211 VISIT COMPLEXITY INHERENT TO ONGOING CARE RELATED TO A PATIENT'S SINGLE, SERIOUS CONDITION OR A COMPLEX CONDITION. G8752 MOST RECENT SYSTOLIC BP < 140MM HG. G8754 MOST RECENT DIASTOLIC BP < 90MM HG. * Sign off status: Completed true * Provider: ECHO LOUIS Date: 11/27/2024 Generated for Robert hernandez/Tamie/Ignacio on: 12/03/2024 02:28 PM CDT History and Physical Notes * HPI (History of Present Illness) Category Sub-Category Detail Notes Category Not es History of Presenting Problem Pt was seen today and Urine drug screen was done This is a 74 year old female follow up depression and anxiety I am not doing good I have increase anxiety and not able to sit still I have issue swith bowels and diarrhea and increase anxiety and tearful today and depression, I feel bowels get worst last few months, I have appt tomorrow with GI, I have uncontrol movement in tongue and rt foot, been going on rt foot for a while and tongue 2 months, I feel sad, down hopeless and helpess and I had flu past week also not helped it and I sleep if I settle down ok, but trouble settle down and up and down, and had to stay in one place very long, I feel like I need to move, I am on antibiotic for root canal infection, I cry all the time over anything, I sleep average hours plenty 12 am- 8 am, since flu not eating well and less appetite but before that fine, and no paranoia, no delusions, no SI/HI, I get nervous, no patience, I do worry about what is happening, I take 1/2 Xanax 0.5 mg tab and once in a while whole tab, helps, Abilify worked the best but cost too much. rx hx Ambien, Xanax, Effexor (hot flashes, irritable and agitation), Wellbutrin (r/o agitation), Vraylar (irritable and agitation) Rexulti (irritable and agitation), Viibyrd(agitated), Auvelity (too expensive), Kinnelon, trintellix, viibryd, paxil, sertraline, Cymbalta, Abilify, Latuda (r/o TD) therapy KISHOR Mckay had TMS and not helped SLUMS= 24 06/30/24 discuss Anastacia has no ride Depression screening PHQ-9 Little inte rest or pleasure in doing things: Nearly every day Feeling down, depressed, or hopeless: Ne lubna every day Trouble falling or staying asleep, or sl eeping too much: Nearly every day Feeling tired or having little energy: N early every day Poor appetite or overeating: Nearly ever y day Feeling bad about yourself o r that you are a failure, or have let yourself or your family down: More than half the days Trouble concentrating on thi ngs, such as reading the newspaper or watching television: Several days Moving or speaking so slowly that other people could have noticed; or the opposite, being so fidgety or restless that you have been moving around a lot more than usual: Not at all Thoughts that you would be b raven off or of hurting yourself in some way: Not at all Total Score: 18 Interpretation: Moderately Severe Depres su Intervention Depression Screening Findings: P ositve Follow-Up for Depression: [facility] health treatment assessment, Patient follow-up to return when and if necessary Suicide Risk Assessment Performed: 11/27 Additional Evaluation for Depression: Ps ychiatric interview and evaluation Name of the standardized too l used for adult depression screening:: Patient Health Questionnaire (PHQ-9) Depression Screening MAXIMUS-7 (2018 Edition) Feelin g nervous, anxious, or on edge: Nearly every day Not being able to stop or control worryi ng: Nearly every day Worrying too much about different things : Nearly every day Trouble relaxing: Nearly every day Being so restless that it is hard to sit still: More than half the days Becoming easily annoyed or irritable: Se veral days Feeling afraid as if something awful faby ht happen: More than half the days Total MAXIMUS-7 Score: 17 Interpretation of Total: (15 and over) S evere Examination Category Sub-Category Detail Notes Category Not es Psychiatry Appearance: well-groomed, we ll-nourished, appears stated age unsupported by family members No overt signs of psychosis or thought disorder were observed during the conversation. Diagnostic Test Results and Labs: - Pharmacogenomic testing was discussed Attitude: cooperative Psychomotor activity: within normal rang e Abnormal body movements: reported mouth movement and rt foot Attention: good Degree of awareness of surroundings: wit hin normal limits Orientation: awake, alert and charisse ented x 3 Affect / mood: apathetic, depressed , sad, tearful Speech / language: appropriate pitch/mo dulation, clear and coherent, normal rate, volume, and articulation (RVR), proper grammar used Insight: good Judgement: good Thought process: intact Thought content: appropriate Perceptual disorders: no perceptual diso rder noted Aggression: low Anger control: good Suicidal ideation: none Homicidal ideation: none Intellectual functioning: average Impulse control: good Memory status: no impairment noted Delusions: no Hallucinations: no Comprehension - Intellectual function: a verage Gait steady
--- OUTSIDE RECORDS SUMMARY | 2024-12-03 14:28 | XMS_ITS | Clinical Summary ---
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 Name Role Phone Fuad Dudley MD Primary Care Provider Allergies No known active allergies Medications ALPRAZolam (XANAX) 0.5 mg tablet Take 1 tablet (0.5 mg total) by mouth nightly as needed for anxiety Active zolpidem (AMBIEN) 5 mg tablet 1 Active atorvastatin (LIPITOR) 20 mg tablet 2 Active lurasidone (LATUDA) 20 mg tablet TAKE 1 TABLET BY MOUTH EVERY DAY IN THE EVENING WITH FOOD 4 Active hydroCHLOROthiazi de 12.5 mg tabletIndications :Essential hypertension TAKE 1 TABLET BY MOUTH EVERY DAY 90 tablet 2 4 Active lisinopriL (PRINIVIL,ZESTRIL ) 5 mg tabletIndications :Essential hypertension TAKE 1 TABLET (5 MG TOTAL) BY MOUTH DAILY. 90 tablet 2 4 09/15/20 25 Active Active Problems Problem Noted Date Diagnosed Date Hypercholesterolemia 01/23/2022 LBBB (left bundle branch block) 11/29/2020 Sinus tachycardia 11/29/2020 Hiatal hernia 09/20/2020 Overview (09/21/2020): Added automatically from request for surgery [id number] Hiatal hernia with GERD 09/20/2020 Overview (09/22/2020): Added automatically from request for surgery [id number] Hypertension Lipid screening Dizziness Surgical History Surgery Date Site/Laterality Comments KNEE ARTHROSCOPY Right CHOLECYSTECTOMY HERNIA REPAIR Medical History Medical History Date Comments Anxiety Depression Hiatal hernia Hypertension Skin disorder Pneumonia Family History Medical History Relation Name Comments Stroke Brother Seizures Father Stroke Father Fall Mother Cancer Sister Relation Name Status Comments Brother (Age 77) Father (Age 73) Mother (Age 88) Sister (Age 52) Social History Tobacco Use Types Packs/Day Years Used Date Smoking Tobacco: Never Smokeless Tobacco: Never Tobacco Cessation:Counseling Given: Not Answered Comments No Sex and Gender Information Value Date Recorded Sex Assigned at Not on file Legal Sex Female 9:48 AM [facility] [place] Gender Identity Not on file Sexual Orientation Not on file Obstetrics History Last Filed Vital Signs Vital Sign Reading Time Taken Comments Blood Pressure 102/60 05/12/2024 11:42 AM CDT Pulse 88 05/12/2024 11:42 AM CDT Temperature 36.5 C (97.7 F) 12/15/2020 2:01 PM CDT Respiratory Rate 18 09/25/2020 8:45 AM [place] Oxygen Saturation 94% 05/12/2024 11:42 AM CDT Inhaled Oxygen Concentration - - Weight 90.3 kg (199 lb) 05/12/2024 11:42 AM CDT Height 165.1 cm (5' 5 ) 05/12/2024 11:42 AM CDT Body Mass Index 33.12 05/12/2024 11:42 AM CDT Plan of Treatment Health Maintenance Due Date Last Done Comments Depression Screening 1950 Hepatitis C Screening 1950 Osteoporosis Screening-Bone Density Scan 1950 Hepatitis B Screening 1966 Zoster Vaccine (1 of 2) 1998 Well Visit 65+ 2013 Fall Risk Assessment 09/25/2021 09/25/2020 DTaP/Tdap/Td Vaccine (2 - Td or Tdap) 07/22/2022 07/22/2012 Influenza Vaccine (#1) 2024 9, 07/23/2018, 06/27/2017, Additional history exists Pneumococcal vaccine 65+ Completed 018, 12/26/2016, 07/04/2013 Insurance MEDICARE [employer] SENIOR SU[employer]MENT MEDICARE [facility] MEDICARE [facility] [place] [address] Advance Directives For more information, please contact: [phone] * Full Code (Latest Code Status on File) Date Activated Date Inactivated Comments 09/21/2020 12:22 PM 09/25/2020 6:54 PM * Full Code Date Activated Date Inactivated Comments 09/20/2020 7:42 PM 09/21/2020 12:22 PM Care Teams Balloon Artist Relationship Specialty Start Date End Date Fuad Dudley MD [address] [address] PCP - General Family Medicine 11/29/20
--- OUTSIDE RECORDS SUMMARY | 2024-12-03 14:28 | XMS_ITS ---
Author Organization [facility] [employer] Address [address] [place] [address] Care Team Providers Care X Ray Consultant Name Role Phone Fuad Dudley MD Primary Care Provider Roya Guzmán Unavailable [phone] Allergies No Known Allergies REASON FOR VISIT f/u increase Lamotrigine Medications Medication SIG (Take, Route, Frequency, Duration) Notes Start Date End Date Status Tretinoin 0.025 % External 02/04/2024 U nknown Atorvastatin Calcium 20 MG Oral 02/04/2024 Unknown metroNIDAZOLE 1 % External 02/04/2024 U nknown Venlafaxine HCl ER 75 MG Oral 02/04/2024 Unknown Venlafaxine HCl ER 150 MG Oral 02/04/2024 Unknown Clobetasol Propionate 0.05 % External 02/04/2024 Unknown Lisinopril 5 MG Oral 02/04/2024 Unk nown metroNIDAZOLE 0.75 % External 02/04/2024 Unknown lamoTRIgine 100 MG 1 tablet Orally Once a day for 90 days D/C 50 mg dose Active Zolpidem Tartrate 5 MG 1 tablet bedtime Oral bedtime for 30 days 08/28/2024 Active Zolpidem Tartrate 5 MG Oral 02/04/2024 Unknown Lisinopril 10 MG Oral 02/04/2024 Un known ALPRAZolam 0.5 MG 1 tablet Oral once a day for 30 days 08/28/2024 Active Lurasidone HCl 40 MG 1 tablet in the evening with food Orally Once a day for 90 days d/c 20 mg dose Active hydroCHLOROthiazide 12.5 MG Oral 02/04/2024 Unknown hydroCHLOROthiazide 12.5 MG Oral for 90 Days Active Lisinopril 5 MG Oral for 90 Days Active Atorvastatin Calcium 20 MG Oral for 90 Days Active lamoTRIgine 100 MG 1 tablet Orally Once a day for 30 day(s) Active Social History Sex Assigned At : Social History Observation Description Sex Assigned At Female Vital Signs Blood pressure systolic 126 mm Hg 08/28/20 24 Blood pressure diastolic 85 mm Hg 024 Heart Rate 86 /min 08/28/2024 Height 66.00 in 08/28/2024 Weight 195.0 lbs 08/28/2024 BMI 31.47 kg/m2 08/28/2024 Height-cm 167.64 cm 08/28/2024 Weight-kg 88.45 kg 08/28/2024 Encounters Encounter Location Date Provider Diagnosis [facility] [employer] [address] [place] [address] 08/28/2024 Roya Cuellar Generalized anxiety disorder F41.1 ; Major depressive disorder, recurrent severe without psychotic features F33.2 ; Primary insomnia F51.01 and Primary hypertension I10 Assessments Encounter Date Diagnosis (ICD Code) Assessment Notes Treatment Notes Treatment Clinical Notes Section Notes 08/28/2024 Generalized anxiety disorder (ICD-10 - F41.1) Irritability and Agitation - Assessment: Patient reports a history of irritability and agitation, exacerbated by recent stressors patient needs 90 days rx, Increase lurasidone (Latuda) 40 mg at night with food for mood stabilization and off-label use for irritability and agitation and depression reported fatigue and helps sleep still has depression and some agitation and irritable heart heart healthy diet and excise educated and healthy eating habits, discuss rx options for depression and anxiety and agiation Lamotrigine 100 mg daily depression educated on Lamotrigine and monitor for rash, 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 Anxiety - Assessment: Patient is currently taking alprazolam (Xanax) as needed for anxiety.- - Plan: Continue alprazolam as needed. Insomnia - Assessment: Patient is currently taking zolpidem (Ambien) for insomnia. - Plan: Continue zolpidem as prescribed. Monitor for any changes in sleep patterns during the follow-up appointment. Previous Adverse Reaction to Medication - Assessment: Patient reports a history of muscle twitching and agitation with either Rexulti or Vraylar. - Plan: Avoid prescribing Rexulti or Vraylar. Pharmacogenomic Testing - Assessment: Patient pharmacogenomic testing reviewed and copy given - Plan: discuss medication options MNCD - SLUMS reviewed = 24 06/30/24- discuss with patient will take test in 6-12 months discuss rx for memory - patient will wait at this time Counseling - Assessment: Patient has seen a counselorTrixie, - Plan: Encourage healthy eating habits and excise and sleep hygenie and therapy 08/28/2024 Major depressive disorder, recurrent severe without psychotic features (ICD-10 - F33.2) Irritability and Agitation - Assessment: Patient reports a history of irritability and agitation, exacerbated by recent stressors patient needs 90 days rx, Increase lurasidone (Latuda) 40 mg at night with food for mood stabilization and off-label use for irritability and agitation and depression reported fatigue and helps sleep still has depression and some agitation and irritable heart heart healthy diet and excise educated and healthy eating habits, discuss rx options for depression and anxiety and agiation Lamotrigine 100 mg daily depression educated on Lamotrigine and monitor for rash, 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 Anxiety - Assessment: Patient is currently taking alprazolam (Xanax) as needed for anxiety.- - Plan: Continue alprazolam as needed. Insomnia - Assessment: Patient is currently taking zolpidem (Ambien) for insomnia. - Plan: Continue zolpidem as prescribed. Monitor for any changes in sleep patterns during the follow-up appointment. Previous Adverse Reaction to Medication - Assessment: Patient reports a history of muscle twitching and agitation with either Rexulti or Vraylar. - Plan: Avoid prescribing Rexulti or Vraylar. Pharmacogenomic Testing - Assessment: Patient pharmacogenomic testing reviewed and copy given - Plan: discuss medication options MNCD - SLUMS reviewed = 24 06/30/24- discuss with patient will take test in 6-12 months discuss rx for memory - patient will wait at this time Counseling - Assessment: Patient has seen a counselorTrixie, - Plan: Encourage healthy eating habits and excise and sleep hygenie and therapy 08/28/2024 Primary insomnia (ICD-10 - F51.01) Irritability and Agitation - Assessment: Patient reports a history of irritability and agitation, exacerbated by recent stressors patient needs 90 days rx, Increase lurasidone (Latuda) 40 mg at night with food for mood stabilization and off-label use for irritability and agitation and depression reported fatigue and helps sleep still has depression and some agitation and irritable heart heart healthy diet and excise educated and healthy eating habits, discuss rx options for depression and anxiety and agiation Lamotrigine 100 mg daily depression educated on Lamotrigine and monitor for rash, 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 Anxiety - Assessment: Patient is currently taking alprazolam (Xanax) as needed for anxiety.- - Plan: Continue alprazolam as needed. Insomnia - Assessment: Patient is currently taking zolpidem (Ambien) for insomnia. - Plan: Continue zolpidem as prescribed. Monitor for any changes in sleep patterns during the follow-up appointment. Previous Adverse Reaction to Medication - Assessment: Patient reports a history of muscle twitching and agitation with either Rexulti or Vraylar. - Plan: Avoid prescribing Rexulti or Vraylar. Pharmacogenomic Testing - Assessment: Patient pharmacogenomic testing reviewed and copy given - Plan: discuss medication options [facility] - SLUMS reviewed = 24 06/30/24- discuss with patient will take test in 6-12 months discuss rx for memory - patient will wait at this time Counseling - Assessment: Patient has seen a counselor, Trixie, - Plan: Encourage healthy eating habits and excise and sleep hygenie and therapy 08/28/2024 Primary hypertension (ICD-10 - I10) Irritability and Agitation - Assessment: Patient reports a history of irritability and agitation, exacerbated by recent stressors patient needs 90 days rx, Increase lurasidone (Latuda) 40 mg at night with food for mood stabilization and off-label use for irritability and agitation and depression reported fatigue and helps sleep still has depression and some agitation and irritable heart heart healthy diet and excise educated and healthy eating habits, discuss rx options for depression and anxiety and agiation Lamotrigine 100 mg daily depression educated on Lamotrigine and monitor for rash, 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 Anxiety - Assessment: Patient is currently taking alprazolam (Xanax) as needed for anxiety.- - Plan: Continue alprazolam as needed. Insomnia - Assessment: Patient is currently taking zolpidem (Ambien) for insomnia. - Plan: Continue zolpidem as prescribed. Monitor for any changes in sleep patterns during the follow-up appointment. Previous Adverse Reaction to Medication - Assessment: Patient reports a history of muscle twitching and agitation with either Rexulti or Vraylar. - Plan: Avoid prescribing Rexulti or Vraylar. Pharmacogenomic Testing - Assessment: Patient pharmacogenomic testing reviewed and copy given - Plan: discuss medication options MNCD - SLUMS reviewed = 24 06/30/24- discuss with patient will take test in 6-12 months discuss rx for memory - patient will wait at this time Counseling - Assessment: Patient has seen a counselor, Trixie, - Plan: Encourage healthy eating habits and excise and sleep hygenie and therapy Plan Of Treatment Medication Medication Name Sig Start Date Stop Date Notes lamoTRIgine 100 MG 1 tablet Orally Once a day for 90 days D/C 50 mg dose Zolpidem Tartrate 5 MG 1 tablet bedtime Oral bedtime for 30 days 08/28/2024 ALPRAZolam 0.5 MG 1 tablet Oral once a day for 30 days 08/28/2024 Lurasidone HCl 40 MG 1 tablet in the neftali lolly with food Orally Once a day for 90 days d/c 20 mg dose Next Appt Details Follow Up: 3 Weeks, Reason: f/u increase Latuda Provider Name:Roya Cuellar , 12/25/2024 11:00:00 AM, [address] [facility] [address] [facility] [address], [place], [address], Progress Notes * HAFSA SANTANAOB:1950 ( 73 yo F)Acc No.[id number]:08/28/2024 Patient: NABOR HUANG Provider: EVAN LUOISHNP :1950 A ge:73 Y S ex:Female Date:08/28/2024 Address:[address] [place], [place] [id number] Pcp:Fuad Dudley MD Subjective: * Chief Complaints: * 1 . f/u increase Lamotrigine. * HPI: D epression screening: PHQ-9 L ittle interest or pleasure in doing things N early every day, F eeling down, depressed, or hopeless M ore than half the days, T rouble falling or staying asleep, or sleeping too much N early every day, F eeling tired or having little energy N early every day, P oor appetite or overeating M ore than half the days,?Feeling bad about yourself or that you are a failure, or have let yourself or your family down Several days, T rouble concentrating on things, such as reading the newspaper or watching television S , M oving or speaking so slowly that other people could have noticed; or the opposite, being so fidgety or restless that you have been moving around a lot more than usual N ot at all, T houghts that you would be better off or of hurting yourself in some way N ot at all, T otal Score 1 5, I nterpretation M oderately Severe Depression.?Intervention D epression Screening Findings P ositve, F ollow-Up for Depression Emotional support education, Management of mental health treatment, S uicide Risk Assessment Performed 1 10/29/2023 , A dditional Evaluation for Depression P sychiatric interview and evaluation, N oren of the standardized tool used for adult depression screening:?Patient Health Questionnaire (PHQ-9). D epression Screening: MAXIMUS-7 (2018 Edition) F eeling nervous, anxious, or on edge?More than half the days, N ot being able to stop or control worrying M ore than half the days, W orrying too much about different things M ore than hafl the days, T rouble relaxing S ever, B eing so restless that it is hard to sit still N ot at all, B ecoming easily annoyed or irritable M ore than half the days, F eeling afraid as if something awful might happen S , T otal MAXIMUS-7 Score 1 0, I nterpretation of Total (10 to 14) Moderate. H istory of Presenting Problem: This is a 73 year old female follow up increase L amotrigine 100 mg I am emotional and cry over everything, it has been that way for a while not since rx, I get agitation still r/t roof they got money untill I was bullied for it and I am reporting them and complaint number, insurance account manager came over also, I am writign a review also, still hang there, it is over and deal with it now, and I feel sad, down, also still h opeless and helpless after all this, I want to stay in bed all the time not sleeping just in bed and I can not get up and do things, unless I have to do something or go some place, I have no desire, I do not have ride for [employer], I am eating normal for me I eat early afternoon and I eat all the time and out of nervous and depression, not best food choices and I eat out a lot and junk food, I also have candy in my bedroom.I love bedroom and eat in there, I need to plan to do things with others, I am not having any s/e rx no rash, n o abnormal inviluntary movements reported or noted, I feel not worth getting ready to go places, no motivation and at times not a lot restless but I do get anxious about different things and I am working on trust made up also, I have a advanced manufacturing associate to help me, and a lot worries, I have not seen therapy, no psychosis, no azalea s/s r no energy, cocnentration and focus fine no paranoia, no delusions, no SI/HI, toelrating rx no s/e I also feel comfortable in house all day and weather not for cold I been waking up early and bed early also now, rx hx Ambien, Xanax, Effexor (irritable and agitation), Wellbutrin (r/o agitation), Vraylar (irritable and agitation) Rexulti (irritable and agitation), Viibyrd(agitated), Auvelity (too expensive), [place], trintellix, viibryd,paxil, sertraline, Cymbalta, Abilify therapy KISHOR Mckay had TMS and not helped SLUMS= 24 06/30/24. * ROS: Patient reports no chest pain, no shortness of breath no palpitations, no known heart murmur, and no ankle swelling; . She reports no GERD b ut reports no abdominal pain, no nausea, no vomiting, no constipation, normal appetite, no diarrhea, chornic bowel issues on fiber con . She reports no gait dysfunction; She reports d epression, nosleep disturbances, no restless sleep, anxiety, and no memory loss no alcohol abuse, no hallucinations, no suicidal thoughts, no mood swings, agitation, no dementia, She reports f atigue. She reports no fever, weight gain, and no significant weight loss. She reports no sore throat, reported seasonal allergies She reports no cough and no shortness of breath. She reports no incontinence, no difficulty urinating, and no increased frequency. reported hx bladder leakage She reports no muscle aches, no muscle weakness, no arthralgias/joint pain, once in a while back pain, no neck pain, and no difficulty walking. SLUMS= 24 06/30/24. * Medical History: P sulaiman: Chronic post-traumatic stress disorder, Generalized anxiety disorder, Long-term drug therapy, Primary insomnia, Severe recurrent major depression without psychotic features. * Medications: T aking Zolpidem Tartrate 5 MG Tablet Oral , Taking hydroCHLOROthiazide 12.5 MG Tablet Oral , Taking Lisinopril 5 MG Tablet Oral , Taking Atorvastatin Calcium 20 MG Tablet Oral , Taking Lurasidone HCl 20 MG Tablet 1 tablet in the evening with food Orally Once a day , Taking ALPRAZolam 0.5 MG Tablet 1 tablet Oral once a day , Taking lamoTRIgine 100 MG Tablet 1 tablet Orally Once a day , Discontinued Lurasidone HCl 20 MG Tablet 1 tablet in the evening with food Orally Once a day , Unknown hydroCHLOROthiazide [...] Allergies: N .K.D.A. Objective: * Vitals: B P:126/85mm Hg, HR:86/min, Wt:195.0lbs, Wt-k.45 kg, Ht: 66.00 in, Ht-cm: 167.64 cm, BMI:31.47Index, Body Surface Area: 2.03. * Examination: P sychiatry: Appearance: w ell-groomed, well-nourished, appears stated age. Abnormal body movements: n one. Affect / mood: a ppropriate, full range reported gets irritable. Aggression: l ow. Anger control: g ood. Attention: g ood. Attitude: c ooperative. Homicidal ideation: n one. Suicidal ideation: n [...] content: a ppropriate. Thought process: i ntact. M ental Status Examination: The patient expressed irritability and agitation, particularly in relation to personal and family issues. D emonstrated frustration and a sense of being unsupported by family members N o overt signs of psychosis or thought disorder were observed during the conversation. tolerating Latuda no s/e Diagnostic Test Results and Labs: - Pharmacogenomic testing was discussed. Assessment: * Assessment: 1. M ajor depressive disorder, recurrent severe without psychotic features - F33.2 (Primary)? 2. G eneralized anxiety disorder - F41.1 3 . P rimary insomnia - F51.01 4 . P rimary hypertension - I10 Irritability and Agitation - Assessment: Patient reports a history of irritability and agitation, exacerbated by recent stressors patient needs 90 days rx, Increase lurasidone (Latuda) 40 mg at night with food for mood stabilization and off-label use for irritability and agitation and depression reported fatigue and helps sleep still has depression and some agitation and irritable heart heart healthy diet and excise educated and healthy eating habits, discuss rx options for depression and anxiety and agiation L amotrigine 100 mg daily depression educated on Lamotrigine and monitor for rash, 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 Anxiety - Assessment: Patient is currently taking alprazolam (Xanax) as needed for anxiety.- - Plan: Continue alprazolam as needed. Insomnia - Assessment: Patient is currently taking zolpidem (Ambien) for insomnia. - Plan: Continue zolpidem as prescribed. Monitor for any changes in sleep patterns during the follow-up appointment. Previous Adverse Reaction to Medication - Assessment: Patient reports a history of muscle twitching and agitation with either Rexulti or Vraylar. - Plan: Avoid prescribing Rexulti or Vraylar. Pharmacogenomic Testing - Assessment: Patient pharmacogenomic testing reviewed and copy given - Plan: discuss medication options MNCD - SLUMS reviewed = 24 06/30/24- discuss with patient will take test in 6-12 months discuss rx for memory - patient will wait at this time Counseling - Assessment: Patient has seen a counselor, Trixie, - Plan: Encourage healthy eating habits and excise and sleep hygenie and therapy Plan: * Treatment: 2. G eneralized anxiety disorder Refill ALPRAZolam Tablet, 0.5 MG, 1 tablet, Oral, once a day, 30 days, 30, Refills 2. 3. P rimary insomnia Refill Zolpidem Tartrate Tablet, 5 MG, 1 tablet bedtime, Oral, bedtime, 30 days, 30 Tablet, Refills 2. * Procedure Codes: 9 6127 BEHAV ASSMT W/SCORE & DOCD/STAND INSTRUMENT, 88118 BEHAV ASSMT W/SCORE & DOCD/STAND INSTRUMENT, G2211 VISIT COMPLEXITY INHERENT TO ONGOING CARE RELATED TO A PATIENT'S SINGLE, SERIOUS CONDITION OR A COMPLEX CONDITION * Follow Up: 3 Weeks (Reason: f/u increase Latuda) * Billing Information: * Visit Code: 70382 OFFICE OUTPATIENT VISIT 25 MINUTES DETAILED HISTORY AND EXAM/MODERATE MEDICAL DECISION MAKING. * Procedure Codes: 31587 BEHAV ASSMT W/SCORE & DOCD/STAND INSTRUMENT. 96855 BEHAV ASSMT W/SCORE & DOCD/STAND INSTRUMENT. G2211 VISIT COMPLEXITY INHERENT TO ONGOING CARE RELATED TO A PATIENT'S SINGLE, SERIOUS CONDITION OR A COMPLEX CONDITION. * [employer]CH[employer]IC Sign off status: Completed true * Provider: ECHO [facility] Date: 10/29/2023 Generated for Robert hernandez/Tamie/Zoesmitting on: 0 12/03/2024 02:28 PM CDT History and Physical Notes * HPI (History of Present Illness) Category Sub-Category Detail Notes Category Not es History of Presenting Problem This is a 73 year old female follow up increase Lamotrigine 100 mg I am emotional and cry over everything, it has been that way for a while not since rx, I get agitation still r/t roof they got money untill I was bullied for it and I am reporting them and complaint number, insurance account manager came over also, I am writign a review also, still hang there, it is over and deal with it now, and I feel sad, down, also still hopeless and helpless after all this, I want to stay in bed all the time not sleeping just in bed and I can not get up and do things, unless I have to do something or go some place, I have no desire, I do not have ride for [employer], I am eating normal for me I eat early afternoon and I eat all the time and out of nervous and depression, not best food choices and I eat out a lot and junk food, I also have candy in my bedroom.I love bedroom and eat in there, I need to plan to do things with others, I am not having any s/e rx no rash, no abnormal inviluntary movements reported or noted, I feel not worth getting ready to go places, no motivation and at times not a lot restless but I do get anxious about different things and I am working on trust made up also, I have a advanced manufacturing associate to help me, and a lot worries, I have not seen therapy, no psychosis, no azalea s/s r no energy, cocnentration and focus fine no paranoia, no delusions, no SI/HI, toelrating rx no s/e I also feel comfortable in house all day and weather not for cold I been waking up early and bed early also now, rx hx Ambien, Xanax, Effexor (irritable and agitation), Wellbutrin (r/o agitation), Vraylar (irritable and agitation) Rexulti (irritable and agitation), Viibyrd(agitated), Auvelity (too expensive), [place], trintellix, viibryd,paxil, sertraline, Cymbalta, Abilify therapy KISHOR Mckay had TMS and not helped SLUMS= 24 06/30/24 Depression screening PHQ-9 Little interest or pleasure in doing things: Nearly every day Feeling down, depressed, or hopeless: Mo re than half the days Trouble falling or staying asleep, or sl eeping too much: Nearly every day Feeling tired or having little energy: N early every day Poor appetite or overeating: More than h freddie the days Feeling bad about yourself o r that you are a failure, or have let yourself or your family down: Several days Trouble concentrating on thi ngs, such [...] some way: Not at all Total Score: 15 Interpretation: Moderately Severe Depres su Intervention Depression Screening Findings: P ositve Follow-Up for Depression: Em otional support education, Management of mental health treatment Suicide Risk Assessment Performed: 08/28 Additional Evaluation for De pression: Psychiatric interview and evaluation Name of the standardized too l used for adult depression screening:: Patient Health Questionnaire (PHQ-9) Depression Screening MAXIMUS-7 (2018 Edition) Feelin g nervous, anxious, or on edge: More than half the days Not being able to stop or control worryi ng: More than half the days Worrying too much about different things : More than hafl the days Trouble relaxing: Several days Being so restless that it is hard to sit still: Not at all Becoming easily annoyed or irritable: Mo re than half the days Feeling afraid as if something awful faby ht happen: Several days Total MAXIMUS-7 Score: 10 Interpretation of Total: (10 to 14) Mode rate Examination Category Sub-Category Detail Notes Category Not es Psychiatry Appearance: well-groomed, we ll-nourished, appears stated age Mental Status Examination: The patient expressed irritability and agitation, particularly in relation to personal and family issues. Demonstrated frustration and a sense of being unsupported by family members No overt signs of psychosis or thought disorder were observed during the conversation. tolerating Latuda no s/e Diagnostic Test Results and Labs: - Pharmacogenomic testing was discussed Attitude: cooperative Psychomotor activity: within normal rang e Abnormal body movements: none Attention: good Degree of awareness of surroundings: wit hin normal limits Orientation: awake, alert and charisse ented x 3 Affect / mood: appropriate, full ra nge reported gets irritable Speech / language: appropriate pitch/mo dulation, clear [...]
--- OUTSIDE RECORDS SUMMARY | 2024-12-03 14:28 | XMS_ITS ---
Author Organization [facility] [address] Address [address] [place] [address] Care Team Providers Care Emery Wheel Worker Name Role Phone Fuad Dudley MD Primary Care Provider UnavailRoya Maldonado Unavailable [phone] Allergies No Known Allergies REASON FOR VISIT f/u rx Lamotrigine Medications Medication SIG (Take, Route, Frequency, Duration) Notes Start Date End Date Status ALPRAZolam 0.5 MG 1 tablet Oral once a day for 30 days As needed 06/02/2024 Active Lurasidone HCl 20 MG 1 tablet in the evening with food Orally Once a day for 30 day(s) Active Venlafaxine HCl ER 150 MG Oral 02/04/2024 Unknown Venlafaxine HCl ER 75 MG Oral 02/04/2024 Unknown metroNIDAZOLE 1 % External 02/04/2024 U nknown Clobetasol Propionate 0.05 % External 02/04/2024 Unknown Atorvastatin Calcium 20 MG Oral 02/04/2024 Unknown Tretinoin 0.025 % External 02/04/2024 U nknown metroNIDAZOLE 0.75 % External 02/04/2024 Unknown Lisinopril 5 MG Oral 02/04/2024 Unk nown Lurasidone HCl 20 MG 1 tablet in the evening with food Orally Once a day for 30 days Active Lisinopril 10 MG Oral 02/04/2024 Un known ALPRAZolam 0.5 MG Oral 02/04/2024 U nknown Zolpidem Tartrate 5 MG Oral 02/04/2024 Unknown lamoTRIgine 100 MG 1 tablet Orally Once a day for 30 days D/C 50 mg dose Active hydroCHLOROthiazide 12.5 MG Oral 02/04/2024 Unknown Atorvastatin Calcium 20 MG Oral for 90 Days Active Lisinopril 5 MG Oral for 90 Days Active hydroCHLOROthiazide 12.5 MG Oral for 90 Days Active Zolpidem Tartrate 5 MG Oral for 90 Days Active Social History Sex Assigned At : Social History Observation Description Sex Assigned At Female Problems Problem Type SNOMED Code ICD Code Onset Dates Problem Status W/U Status Risk Notes Problem [id number] Primary hypertension (I10) Active confirmed Vital Signs Blood pressure systolic 137 mm Hg 06/30/20 24 Blood pressure diastolic 99 mm Hg 024 Heart Rate 85 /min 06/30/2024 Height 66.00 in 06/30/2024 Weight 197.6 lbs 06/30/2024 BMI 31.89 kg/m2 06/30/2024 Height-cm 167.64 cm 06/30/2024 Weight-kg 89.63 kg 06/30/2024 Encounters Encounter Location Date Provider Diagnosis [facility] [address] [facility] [address] [place] [address] 06/30/2024 Roya Cuellar Generalized anxiety disorder F41.1 ; Major depressive disorder, recurrent severe without psychotic features F33.2 ; Primary insomnia F51.01 and Primary hypertension I10 Assessments Encounter Date Diagnosis (ICD Code) Assessment Notes Treatment Notes Treatment Clinical Notes Section Notes 06/30/2024 Generalized anxiety disorder (ICD-10 - F41.1) Irritability and Agitation - Assessment: Patient reports a history of irritability and agitation, exacerbated by recent stressors Continue lurasidone (Latuda) 20 mg at night with food for mood stabilization and off-label use for irritability and agitation. 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 Anxiety - Assessment: Patient is currently taking alprazolam (Xanax) as needed for anxiety.- no refil needed - Plan: Continue alprazolam as needed. Insomnia - Assessment: Patient is currently taking zolpidem (Ambien) for insomnia. - Plan: Continue zolpidem as prescribed. no refill needed Monitor for any changes in sleep patterns [...] and excise and sleep hygenie and therapy 06/30/2024 Major depressive disorder, recurrent severe without psychotic features (ICD-10 - F33.2) Irritability and Agitation - Assessment: Patient reports a history of irritability and agitation, exacerbated by recent stressors Continue lurasidone (Latuda) 20 mg at night with food for mood stabilization and off-label use for irritability and agitation. 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 Anxiety - Assessment: Patient is currently taking alprazolam (Xanax) as needed for anxiety.- no refil needed - Plan: Continue alprazolam as needed. Insomnia - Assessment: Patient is currently taking zolpidem (Ambien) for insomnia. - Plan: Continue zolpidem as prescribed. no refill needed Monitor for any changes in sleep patterns [...] and excise and sleep hygenie and therapy 06/30/2024 Primary insomnia (ICD-10 - F51.01) Irritability and Agitation - Assessment: Patient reports a history of irritability and agitation, exacerbated by recent stressors Continue lurasidone (Latuda) 20 mg at night with food for mood stabilization and off-label use for irritability and agitation. 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 Anxiety - Assessment: Patient is currently taking alprazolam (Xanax) as needed for anxiety.- no refil needed - Plan: Continue alprazolam as needed. Insomnia - Assessment: Patient is currently taking zolpidem (Ambien) for insomnia. - Plan: Continue zolpidem as prescribed. no refill needed Monitor for any changes in sleep patterns [...] and excise and sleep hygenie and therapy 06/30/2024 Primary hypertension (ICD-10 - I10) Irritability and Agitation - Assessment: Patient reports a history of irritability and agitation, exacerbated by recent stressors Continue lurasidone (Latuda) 20 mg at night with food for mood stabilization and off-label use for irritability and agitation. 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 Anxiety - Assessment: Patient is currently taking alprazolam (Xanax) as needed for anxiety.- no refil needed - Plan: Continue alprazolam as needed. Insomnia - Assessment: Patient is currently taking zolpidem (Ambien) for insomnia. - Plan: Continue zolpidem as prescribed. no refill needed Monitor for any changes in sleep patterns [...] Name Sig Start Date Stop Date Notes Lurasidone HCl 20 MG 1 tablet in the neftali lolly with food Orally Once a day for 30 days lamoTRIgine 100 MG 1 tablet Orally Once a day for 30 days D/C 50 mg dose Next Appt Details Follow Up: 4 Weeks, Reason: f/u increase Lamotrigine Provider Name:Roya Cuellar , 12/25/2024 11:00:00 AM, [address] [address], [facility] [address], [place], [address], Progress Notes * HAFSA SANTANAOB:1950 ( 73 yo F)Acc No.[id number]:06/30/2024 Patient: NABOR HUANG Provider: Nely CUELLAR PMHNP :1950 A ge:73 Y S ex:Female Date:06/30/2024 Address:[address] [place], [place] [id number] Pcp:Fuad Dudley MD Subjective: * Chief Complaints: * 1 . f/u rx Lamotrigine. * HPI: D epression screening: PHQ-9 L ittle interest or pleasure in doing things N early every day, F eeling down, depressed, or hopeless N early every day, T rouble falling or staying asleep, or sleeping too much N early every day, F eeling tired or having little energy N early every day, P oor appetite or overeating N early every day, F eeling bad about yourself or that you are a failure, or have let yourself or your family down N early every day, T rouble concentrating on things, such as reading the newspaper or watching television?More than half the days, M oving or speaking so slowly that other people could have noticed; or the opposite, being so fidgety or restless that you have been moving around a lot more than usual N ot at all, T houghts that you would be better off or of hurting yourself in some way N ot at all, T otal Score 2 0, I nterpretation S evere Depression. I ntervention D epression Screening Findings P ositve, F ollow-Up for Depression E motional support education, Management of mental health treatment, S uicide Risk Assessment Performed , A dditional Evaluation for Depression P sychiatric interview and evaluation, N oren of the standardized tool used for adult depression screening: P atient Health Questionnaire (PHQ-9). D epression Screening: MAXIMUS-7 (2018 Edition) F eeling nervous, anxious, or on edge?Nearly every day, N ot being able to stop or control worrying N early every day, W orrying too much about different things N early every day, T rouble relaxing N ot at all, B eing so restless that it is hard to sit still N ot at all, B ecoming easily annoyed or irritable N early every day, F eeling afraid as if something awful might happen N early every day, T otal MAXIMUS-7 Score 1 5, I nterpretation of Total ( 15 and over) Severe. H istory of Presenting Problem: This is a 73 year old female follow up Lamotrigine 50 mg I been on rx last month and not seen much change I have lost few pounds, I get agitation still r/t roof and horrible time with it and insurance, nothing else triggers it, and I feel sad, down, also still h opeless and helpless I am eating normal for me not best food choices and I eat out a lot and junk food, I have diet drinks, and a lot water, hard to eat alone and cook, I am not having any s/e rx no rash, no abnormal inviluntary movements reported or noted, no twitching or moving in leg like I used to have when I was on Rexult or Vraylar, if my roof was done I would feel a lot better, n o time frame may be end 08/10, still prefer to not do things I made self have a yard sale this weekend and need to get out bed and get things done, no motivation and at times I get the anxious distress feeling, and a lot worries, and I feel not restless, fidgety and able to sit still, sleep a lot and prefer to stay in bed and not face the world, b ed 12 am or later and wake up 8 am but not out bed 10-11 am and sleep 9-10 hours, I have not seen therapy, no psychosis, no azalea s/s r no energy, cocnentration and focus fine n o paranoia, no delusions, no SI/HI,? rx hx Ambien, Xanax, Effexor (irritable and agitation), Wellbutrin (r/o agitation), Vraylar (irritable and agitation) Rexulti (irritable and agitation), Viibyrd(agitated), Auvelity (too expensive), Sum[place], trintellix, viibryd,paxil, sertraline, Cymbalta, Abilify therapy KISHOR Mckay had TMS and not helped SLUMS= 24 06/30/24. * ROS: Patient reports no chest pain, no arm pain on exertion, no shortness of breath when walking, no shortness of breath when lying down, no palpitations, no known heart murmur, and no ankle swelling;? . She reports no GERD b ut reports no abdominal pain, no nausea, no vomiting, no constipation, normal appetite, no diarrhea, chornic bowel issues on fiber con . She reports no gait dysfunction; She reports d epression, sleep disturbances, restless sleep, anxiety, and no memory loss [...] SLUMS= 24 06/30/24. * Medical History: P brent: Chronic post-traumatic stress disorder, Generalized anxiety disorder, [...] food Orally Once a day , Taking Lurasidone HCl 20 MG Tablet 1 tablet in the evening with food Orally Once a day , Taking lamoTRIgine 25 MG Tablet 1 tablet once a day for 15 days, 2 tablets once a day for 15 days Orally 1 tablet once a day for 15 days, 2 tablets once a day for 15 days , Taking ALPRAZolam 0.5 MG Tablet 1 tablet Oral once a day As needed, Unknown hydroCHLOROthiazide 12.5 MG Tablet Oral , Unknown Zolpidem Tartrate 5 MG Tablet Oral , Unknown ALPRAZolam 0.5 MG Tablet Oral , Unknown Lisinopril 10 [...] Allergies: N .K.D.A. Objective: * Vitals: B P:137/99mm Hg, HR:85/min, Wt:197.6lbs, Wt-k.63 kg, Ht: 66.00 in, Ht-cm: 167.64 cm, BMI:31.89Index, Body Surface Area: 2.04. * Examination: P sychiatry: Appearance: w ell-groomed, well-nourished, appears stated age. Abnormal body movements: n one. Affect / mood: a ppropriate, full range reported gets irritable and agitation. Aggression: l ow. Anger control: g ood. [...] irritability and agitation, exacerbated by recent stressors Continue lurasidone (Latuda) 20 mg at night with food for mood stabilization and off-label use for irritability and agitation. 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 Anxiety - Assessment: Patient is currently taking alprazolam (Xanax) as needed for anxiety.- no refil needed - Plan: Continue alprazolam as needed. Insomnia - Assessment: Patient is currently taking zolpidem (Ambien) for insomnia. - Plan: Continue zolpidem as prescribed. no refill needed Monitor for any changes in sleep patterns [...] sleep hygenie and therapy Plan: * Treatment: * Procedure Codes: 9 6127 BEHAV ASSMT W/SCORE & DOCD/STAND INSTRUMENT, 76136 BEHAV ASSMT W/SCORE & DOCD/STAND INSTRUMENT, G2211 VISIT COMPLEXITY INHERENT TO ONGOING CARE RELATED TO A PATIENT'S SINGLE, SERIOUS CONDITION OR A COMPLEX CONDITION, 16449 COGNITIVE TEST BY PRO * Preventive Medicine: Counseling: B P Management: P RE-HYPERTENSIVE FOLLOW-UP PLAN: F ollow-up 2 weeks monitor B/P- refer to PCPheart healthy diet and exciselimit salt and caffienemonitor B/Peducated on healthy B/P 120/80on b/p rx seen PCP last week for BPrefer to PCP with B/P, L IFESTYLE RECOMMENDATION: L ifestyle education, R EFERRAL TO ALTERNATIVE / PRIMARY CARE PROVIDER: R eferral to general physician . * Follow Up: 4 Weeks (Reason: f/u increase Lamotrigine) * Billing Information: * Visit Code: 82432 OFFICE OUTPATIENT VISIT 25 MINUTES DETAILED HISTORY AND EXAM/MODERATE MEDICAL DECISION MAKING. * Procedure Codes: 99770 BEHAV ASSMT W/SCORE & DOCD/STAND INSTRUMENT. 02394 BEHAV ASSMT W/SCORE & DOCD/STAND INSTRUMENT. G2211 VISIT COMPLEXITY INHERENT TO ONGOING CARE RELATED TO A PATIENT'S SINGLE, SERIOUS CONDITION OR A COMPLEX CONDITION. 00689 COGNITIVE TEST BY PRO. * Sign off status: Completed true * Provider: ECHO [facility] Date: Generated for Robert hernadnez/Tamie/Ignacio on: 0 12/03/2024 02:28 PM CDT History and Physical Notes * HPI (History of Present Illness) Category Sub-Category Detail Notes Category Not es History of Presenting Problem This is a 73 year old female follow up Lamotrigine 50 mg I been on rx last month and not seen much change I have lost few pounds, I get agitation still r/t roof and horrible time with it and insurance, nothing else triggers it, and I feel sad, down, also still hopeless and helpless I am eating normal for me not best food choices and I eat out a lot and junk food, I have diet drinks, and a lot water, hard to eat alone and cook, I am not having any s/e rx no rash, no abnormal inviluntary movements reported or noted, no twitching or moving in leg like I used to have when I was on Rexult or Vraylar, if my roof was done I would feel a lot better, no time frame may be end 08/10, still prefer to not do things I made self have a yard sale this weekend and need to get out bed and get things done, no motivation and at times I get the anxious distress feeling, and a lot worries, and I feel not restless, fidgety and able to sit still, sleep a lot and prefer to stay in bed and not face the world, bed 12 am or later and wake up 8 am but not out bed 10-11 am and sleep 9-10 hours, I have not seen therapy, no psychosis, no azalea s/s r no energy, cocnentration and focus fine no paranoia, no delusions, no SI/HI, rx hx Ambien, Xanax, Effexor (irritable and agitation), Wellbutrin (r/o agitation), Vraylar (irritable and agitation) Rexulti (irritable and agitation), Viibyrd(agitated), Auvelity (too expensive), [place], trintellix, viibryd,paxil, sertraline, Cymbalta, Abilify therapy KISHOR [...] have let yourself or your family down: Nearly every day Trouble concentrating on thi ngs, such as reading the newspaper or watching television: More than half the days Moving or speaking so slowly that other people could have noticed; or the opposite, being so fidgety or restless that you have been moving around a lot more than usual: Not at all Thoughts that you would be b raven off or of hurting yourself in some way: Not at all Total Score: 20 Interpretation: Severe Depression Intervention Depression Screening Findings: P lia Follow-Up for Depression: Em otional support education, Management of mental health treatment Suicide Risk Assessment Performed: Additional Evaluation for De pression: Psychiatric interview and evaluation Name of the standardized too l used for adult depression screening:: Patient Health Questionnaire (PHQ-9) Depression Screening MAXIMUS-7 (2018 Edition) Feelin g nervous, anxious, or on edge: Nearly every day Not being able to stop or control worryi ng: Nearly every day Worrying too much about different things : Nearly every day Trouble relaxing: Not at all Being so restless that it is hard to sit still: Not at all Becoming easily annoyed or irritable: Ne lubna every day Feeling afraid as if something awful faby ht happen: Nearly every day Total MAXIMUS-7 Score: 15 Interpretation of Total: (15 and over) S [...] appropriate, full ra nge reported gets irritable and agitation Speech / language: appropriate pitch/mo dulation, clear [...]
--- OUTSIDE RECORDS SUMMARY | 2024-12-03 14:28 | XMS_ITS | Referral Summary ---
Author Organization [facility] Address [address] [place] [address] Care Team Providers Care Medical Education Specialist Name Role Phone Fuad Dudley MD Primary [...] (09/21/2020): Added automatically from request for surgery [id number] Hiatal hernia with GERD 09/20/2020 Overview (09/22/2020): Added automatically from request for surgery [id number] Hypertension Lipid screening Dizziness Social History Tobacco Use Types Packs/Day Years Used Date Smoking Tobacco: Never Smokeless Tobacco: Never Tobacco Cessation:Counseling Given: Not Answered Comments No Sex and Gender Information Value Date Recorded Sex Assigned at Not on file 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[employer] Gender Identity Not on file Sexual Orientation Not on file Last Filed Vital Signs Vital Sign Reading Time Taken Comments Blood Pressure 102/60 05/12/2024 11:42 AM CDT Pulse 88 05/12/2024 11:42 AM CDT Temperature 36.5 C (97.7 F) 12/15/2020 2:01 PM CDT Respiratory Rate 18 09/25/2020 8:45 AM [employer] Oxygen Saturation 94% 05/12/2024 11:42 AM CDT Inhaled Oxygen Concentration - - Weight 90.3 kg (199 lb) 05/12/2024 11:42 AM CDT Height 165.1 cm (5' 5 ) 05/12/2024 11:42 AM CDT Body Mass Index 33.12 05/12/2024 11:42 AM CDT Plan of Treatment Not on file Insurance MEDICARE [employer] SENIOR SUPPLEMENT MEDICARE [facility] MEDICARE [facility] [place] [id number] Advance Directives For more information, please contact: [phone] * Full Code (Latest Code Status on File) Date Activated Date Inactivated Comments 09/21/2020 12:22 PM 09/25/2020 6:54 PM * Full Code Date Activated Date Inactivated Comments 09/20/2020 7:42 PM 09/21/2020 12:22 PM Care Teams Medical Education Specialist Relationship Specialty Start Date End Date Fuad Dudley MD [address] [place] [address] PCP - General Family Medicine 11/29/20
--- OUTSIDE RECORDS SUMMARY | 2024-12-03 14:28 | XMS_ITS | Clinical Summary ---
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 Gender Identity Not on file Sexual Orientation Not on file Plan of Treatment Health Maintenance Due Date Last Done Comments Colorectal Cancer Screening Colonoscopy (10 Years) 1948 Hepatitis C 1966 DTaP, Tdap and Td Vaccines ( 1 - Tdap) 1967 Zoster Vaccines (1 of 2) 1998 Dexa Scan (General) 2013 Pneumococcal Vaccine: 65+ Ye ars (1 of 1 - PCV) 2013 RSV Immunization or 60+ Years (1 - 1-dose 75+ series) 2023 COVID-19 Vaccine ( - 2023-2 5 season) 2024 Influenza Adult (#1) 2024 Meningococcal B Vaccine Aged Out No l onger eligible based on patient's age to complete this topic Meningococcal Vaccine Aged Out No nithya hannah eligible based on patient's age to complete this topic RSV Immunizations Under 20 Months Aged Out No longer eligible based on patient's age to complete this topic
== END 2024-12-03 13:04 | disposition home or self-care (01) ==
PROVIDERS: Physician Assistant Medical; PCP Family Medicine; Visit Provider Nurse Practitioner Family
DX: R19.7 Diarrhea, unspecified (principal); R15.9 Full incontinence of feces; I10 Essential (primary) hypertension; F32.9 Major depressive disorder, single episode, unspecified
CPT/HCPCS: 36415; 80053; 82653; 83993; 87045; 87427; 87449

== ENCOUNTER 2025-01-14 14:36 | Outpatient (CLI) | payer MEDICARE, SELFPAY ==
--- OUTSIDE RECORDS SUMMARY | 2025-01-14 15:39 | XMS_ITS | Clinical Summary ---
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 Gender Identity Not on file Sexual Orientation Not on file Obstetrics History Last Filed Vital Signs Vital Sign Reading Time Taken Comments Blood Pressure 102/60 05/12/2024 11:42 AM CDT Pulse 88 05/12/2024 11:42 AM CDT Temperature 36.5 C (97.7 F) 12/15/2020 2:01 PM CDT Respiratory Rate 18 09/25/2020 8:45 AM NUTRITIONAL SERVICES HOST Oxygen Saturation 94% 05/12/2024 11:42 AM CDT [...] Td or Tdap) 07/22/2022 07/22/2012 Influenza Vaccine (Season Ended) 2025 07/09/2019, 07/23/2018, 06/27/2017, Additional history exists Pneumococcal vaccine 65+ Completed 018, 12/26/2016, 07/04/2013 Insurance MEDICARE [employer] SENIOR SUPPLEMENT MEDICARE [facility] MEDICARE [facility] [place] Advance Directives For more information, please contact: [phone] * Full Code (Latest Code Status on File) Date Activated Date Inactivated Comments 09/21/2020 12:22 PM 09/25/2020 6:54 PM * Full Code Date Activated Date Inactivated Comments 09/20/2020 7:42 PM 09/21/2020 12:22 PM Care Teams Preparation Operator Relationship Specialty Start Date End Date Fuad Dudley MD [address] [address] PCP - General Family Medicine 11/29/20
--- OUTSIDE RECORDS SUMMARY | 2025-01-14 15:39 | XMS_ITS | Referral Summary ---
Author Organization [facility] al Address [address] [place] [address] Care Team Providers Care Children'[employer] Magistrate Name Role Phone Fuad Dudley MD Primary [...] (09/21/2020): Added automatically from request for surgery [id number] Hiatal hernia with GERD 09/20/2020 Overview (09/22/2020): Added automatically from request for surgery [id number] Hypertension Lipid screening Dizziness Social History Tobacco Use Types Packs/Day Years Used Date Smoking Tobacco: Never Smokeless Tobacco: Never Tobacco Cessation:Counseling Given: Not Answered Comments No Sex and Gender Information Value Date Recorded Sex Assigned at Not on file 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 Gender Identity Not on file Sexual Orientation Not on file Last Filed Vital Signs Vital Sign Reading Time Taken Comments Blood Pressure 102/60 05/12/2024 11:42 AM CDT Pulse 88 05/12/2024 11:42 AM CDT Temperature 36.5 C (97.7 F) 12/15/2020 2:01 PM CDT Respiratory Rate 18 09/25/2020 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 MEDICARE [facility] [place] [id number] Advance Directives For more information, please contact: [phone] * Full Code (Latest Code Status on File) Date Activated Date Inactivated Comments 09/21/2020 12:22 PM 09/25/2020 6:54 PM * Full Code Date Activated Date Inactivated Comments 09/20/2020 7:42 PM 09/21/2020 12:22 PM Care Teams [address] [address] Magistrate Relationship Specialty Start Date End Date Fuad Dudley MD [address] [place] [address] PCP - General Family Medicine 11/29/20
--- OUTSIDE RECORDS SUMMARY | 2025-01-14 15:39 | XMS_ITS ---
Author Organization [facility] Address [address] [place] [address] Care Team Providers Care Clerk Analyst Name Role Phone Fuad Dudley MD Primary Care Provider UnavailRoya Maldonado Unavailable [phone] Nicolette Boyd Unavailable [phone] REASON FOR VISIT Therapy, depression, anxiety, trauma Medications Medication SIG (Take, Route, Frequency, Duration) Notes Start Date End Date Status Venlafaxine HCl ER 150 MG Oral 02/04/2024 Unknown Venlafaxine HCl ER 75 MG Oral 02/04/2024 Unknown metroNIDAZOLE 1 % External 02/04/2024 U nknown Atorvastatin Calcium 20 MG Oral 02/04/2024 Unknown Tretinoin 0.025 % External 02/04/2024 U nknown Lisinopril 10 MG Oral 02/04/2024 Un known Zolpidem Tartrate 5 MG Oral 02/04/2024 Unknown metroNIDAZOLE 0.75 % External 02/04/2024 Unknown Lisinopril 5 MG Oral 02/04/2024 Unk nown Clobetasol Propionate 0.05 % External 02/04/2024 Unknown hydroCHLOROthiazide 12.5 MG Oral 02/04/2024 Unknown Clindamycin HCl 150 MG TAKE 1 CAPSULE 4 TIMES DAILY FOR 7 DAYS Oral for 7 Days Not-Taking ARIPiprazole 5 MG 1 tablet Orally Once a day for 30 day(s) 12/23/2024 Active lamoTRIgine 150 MG 1 tablet Orally Once a day Oral Once a day for 30 days Active Lurasidone HCl 20 MG 1 tablet in the evening with food Orally Once a day for 30 days Active hydroCHLOROthiazide 12.5 MG TAKE 1 TABLET BY MOUTH EVERY DAY Oral for 90 Days Active Lisinopril 5 MG TAKE 1 TABLET (5 MG TOTAL) BY MOUTH DAILY. Oral for 90 Days Active Austedo XR 12 MG 1 tablet Orally Once a day for 30 days PA approved 11/27/2024 Active Zolpidem Tartrate 5 MG 1 tablet bedtime Oral bedtime for 30 days 11/27/2024 Active Atorvastatin Calcium 20 MG 20 MG ORALLY EVERY DAY AT BEDTIME Oral for 90 Days Active ALPRAZolam 0.5 MG TAKE 1 TABLET BY MOUTH EVERY DAY FOR 30 DAYS for 30 appointment needed 11/12/2024 Active ALPRAZolam 0.25 MG 1 tablet Oral 4 times a day for 30 days d/c 0.5 mg dose 12/23/2024 Active Social History Tobacco Use: Social History Observation Description Date Details (start date - stop date) Never Smoker NA - NA Sex Assigned At : Social History Observation Description Sex Assigned At Female Tobacco Control (Standard) Question Answer Notes Tobacco use: Nonsmoker Additional Findings: Tobacco non-user Current no nsmoker Encounters Encounter Location Date Provider Diagnosis [facility] [address] [address] [address] 01/13/2025 Nicolette Boyd Major depressive disorder, recurrent severe without psychotic features F33.2 ; Generalized anxiety disorder F41.1 and Chronic post-traumatic stress disorder (PTSD) F43.12 Assessments Encounter Date Diagnosis (ICD Code) Assessment Notes Treatment Notes Treatment Clinical Notes Section Notes 01/13/2025 Major depressive disorder, recurrent severe without psychotic features (ICD-10 - F33.2) 01/13/2025 Generalized anxiety disorder (ICD-10 - F41.1) 01/13/2025 Chronic post-traumatic stress disorder (PTSD) (ICD-10 - F43.12) 01/13/2025 Other Client is tearful. She has had multiple health issues. Her daughter that hasn't talked to client in 14 years, sent her a card and initiated contact. They had multiple exchanges via text but daughter does not acknowledge client when they are in the same place (ex: a bridal shower). She focused primarily on how this is contributing to her lack of motivation.Narcisa massey actively listened to client and utilized a cognitve behavioral intervention to herlp her explore strategies to improve motivation (usintg a timer to ensure she is getting up every hour, making a list of calming activities). Plan Of Treatment Next Appt Details Follow Up: 2 Weeks, Reason: therapy follow up Provider Name:Roya Cuellar , 01/22/2025 03:45:00 PM, [address], [address], [address], Provider Name:Nicolette Boyd , 02/13/2025 11:00:00 AM, [address], [place] [address], [place], [address], Progress Notes * HAFSA SANTANAOB:1950 ( 74 yo F)Acc No.[id number]:01/13/2025 Patient: NABOR HUANG Provider: Emily BOYD LCSW :1950 A ge:74 Y S ex:Female Date:01/13/2025 Address:[address] [place], [place] [id number] Pcp:Fuad Dudley MD Data: * Time Tracker: * Date Start Time End Time Duration User Type Captured By Mode Notes 01/13/2025 12:55 PM 01:53 PM 00:58:00 Therapist Nicolette Boyd anual * Chief Complaints: * 1 . Therapy. 2. Depression. 3. Anxiety. 4. Trauma. * HPI: F unctional Status: Client is here today for psychotherapy to treat anxiety, depression, and trauma issues. Based on our session, I think the patient is making moderate progress. At this time I do not recommend changes to the treatment plan. I do not think the patient poses significant risk of harm to self or others at this time. Discussed continued treatment with patient. * Behavioral History: P ast psychiatric Hospitalization:No. H istory of suicidal attempt?:No. * Family History: M aternal Aunt: Depressive disorder . M other: Depressive disorder . D aughter: Depressive disorder . * Social History: T obacco Use: T obacco Control (Standard) T obacco use: N onsmoker A dditional Findings: Tobacco non-user C urrent nonsmoker * Medications: T aking ALPRAZolam 0.25 MG Tablet 1 tablet Oral 4 times a day , Notes to Pharmacist: d/c 0.5 mg dose, Taking ALPRAZolam 0.5 MG Tablet TAKE 1 [...] EVERY DAY AT BEDTIME Oral , Taking Zolpidem Tartrate 5 MG Tablet 1 tablet bedtime Oral bedtime , Taking Austedo XR 12 MG Tablet Extended Release 24 Hour 1 tablet Orally Once a day , stop date 05/26/2025, Notes to Pharmacist: NAYE approved, Taking Lurasidone HCl 20 MG Tablet 1 tablet in the evening with food Orally Once a day , Taking lamoTRIgine 150 MG Tablet 1 tablet Orally Once a day Oral Once a day , Taking ARIPiprazole 5 MG Tablet 1 tablet Orally Once a day , Not-Taking Clindamycin HCl 150 MG Capsule TAKE 1 CAPSULE 4 TIMES DAILY FOR 7 DAYS Oral , Unknown hydroCHLOROthiazide 12.5 MG Tablet Oral [...] reviewed and reconciled with the patient * Examination: P sychiatry: Appearance: w ell-groomed. Affect / mood: t earful. Attention: g ood. Attitude: c ooperative. Homicidal ideation: n one. Suicidal ideation: n one. Memory status: n o impairment noted. Assessment: * Assessment: 1. M ajor depressive disorder, recurrent severe without psychotic features - F33.2 (Primary)? 2. G eneralized anxiety disorder - F41.1 3 . C hronic post-traumatic stress disorder (PTSD) - F43.12 Plan: * Treatment: * Procedure Codes: 9 0837 PSYCHOTHERAPY W/PATIENT 60 MINUTES, G8734 ELDER MALTX SCR DOC NEG NO F/U RQR, G9903 Pt scrn tbco id as non user * Follow Up: 2 Weeks (Reason: therapy follow up) * Billing Information: * Visit Code: * Procedure Codes: 90881 PSYCHOTHERAPY W/PATIENT 60 MINUTES. G8734 ELDER MALTX SCR DOC NEG NO F/U RQR. G9903 Pt scrn tbco id as non user. * Sign off status: Completed Signatures: No Ad Hoc Signature Added true * Provider: Emily BOYD LCSW Date: 01/13/2025 Generated for Robert hernandez/Tamie/Ignacio on: 01/14/2025 03:39 PM CDT History and Physical Notes * Examination Category Sub-Category Detail Notes Category Not es Psychiatry Appearance: well-groomed Attitude: cooperative Attention: good Affect / mood: tearful Suicidal ideation: none Homicidal ideation: none Memory status: no impairment noted
--- OUTSIDE RECORDS SUMMARY | 2025-01-14 15:39 | XMS_ITS | Patient Health Record ---
Author Organization [facility] As [facility] Address [address] [facility] [address] [place] [address] Care Team Providers Care Manager Intern Name Role Phone Fuad Dudley MD Primary Care Provider UnavailRoya Maldonado Unavailable [phone] Daniela Gutierrez Unavailable [phone] Nicolette Boyd Unavailable [phone] Jose Fitch Unavailable [phone] Migration, Provider Unavailable Unavailable Allergies No Known Allergies Results Component Value Reference Range Notes UDT Reviewed date:04/04/2024 11:15:14 AM Interpretation: Performing Lab: Notes/Report: THC N 0 - 50 ng/ml Cocaine N 0 - 300 ng/ml Amphetamine N 0 - 1000 ng/ml Buprenorphine (BUP) N 0 - 10 ng/ml Secobarbital (Bar) N 0 - 300 ng/ml Oxazepam (BZO) P 0 - 300 ng/ml 2-mbkhgyjyrz-3,3-qkfkctmp-0, 3-diphenylpyr rolidine (EDDP) N 0 - 300 ng/ml Methamphetamine (MET) N 0 - 1000 ng/ml Methylenedioxymethamphetamine (MDMA) N 0 - 500 ng/ml Morphine (MOP 300/[id number]) N 0 - 300 ng/ml Methadone (MTD) N 0 - 300 ng/ml Phencyclidine (PCP) N 0 - 25 ng/ml Nortriptyline (TCA) N 0 - 1000 ng/ml Oxycodone N 0 - 300 ng/ml x N 0 - 300 ng/ml UDT Reviewed date:11/27/2024 11:37:42 AM Interpretation: Performing Lab: Notes/Report: THC NEG 0 - 50 ng/ml Cocaine NEG 0 - 300 ng/ml Amphetamine NEG 0 - 1000 ng/ml Buprenorphine (BUP) NEG 0 - 10 ng/ml Secobarbital (Bar) NEG 0 - 300 ng/ml Oxazepam (BZO) POS 0 - 300 ng/ml 4-evzqbfvfxy-3,2-ebhgicnz-4, 3-diphenylpyr rolidine (EDDP) NEG 0 - 300 ng/ml Methamphetamine (MET) NEG 0 - 1000 ng/ml Methylenedioxymethamphetamine (MDMA) NEG 0 - 500 ng/ml Morphine (MOP 300/[id number]) NEG 0 - 300 ng/ml Methadone (MTD) NEG 0 - 300 ng/ml Phencyclidine (PCP) NEG 0 - 25 ng/ml Nortriptyline (TCA) NEG 0 - 1000 ng/ml Oxycodone NEG 0 - 300 ng/ml x NEG 0 - 300 ng/ml Benzodiazepines Reviewed date:12/26/2024 11:13:13 AM Interpretation: Performing Lab:[address] [place] [address], [address] [place] [address], Director - [id number] Notes/Report: An exception occurred while processing this report and so it has incomplete data. Please contact [employer] for assistance. Medicated Consistent Medicated Consistent Not Medicated Consistent Not Medicated Consistent Not Medicated Consistent Not Medicated Consistent Not Medicated Consistent Not Medicated Consistent Not Medicated Consistent Not Medicated Consistent 7-Aminoclonazepam NEGATIVE 20.0 ng/mL Temazepam NEGATIVE 40.0 ng/mL Oxazepam NEGATIVE 40.0 ng/mL Midazolam NEGATIVE 40.0 ng/mL Lorazepam NEGATIVE 40.0 ng/mL Nordiazepam NEGATIVE 40.0 ng/mL Diazepam NEGATIVE 40.0 ng/mL Clonazepam NEGATIVE 20.0 ng/mL Hydroxyalprazolam 686.5 20.0 ng/mL Alprazolam 212.0 20.0 ng/mL PDF Report CE_OUT_RAW_COMMON_S RC_ORU Validity Testing Reviewed date:12/26/2024 11:13:27 AM Interpretation: Performing Lab: Notes/Report: Not Medicated Consistent Not Medicated Consistent Not Medicated Consistent Not Medicated Consistent Specific Lincoln 1.019 1.003 - 1.030 pH 7.0 3.0 - 10.9 Oxidants -17 200 g/mL Creatinine 220.6 20.0 - 300.0 mg/dL UDT Reviewed date:12/23/2024 01:36:21 PM Interpretation: Performing Lab: Notes/Report: THC NEG 0 - 50 ng/ml Cocaine NEG 0 - 300 ng/ml Amphetamine NEG 0 - 1000 ng/ml Buprenorphine (BUP) NEG 0 - 10 ng/ml Secobarbital (Bar) NEG 0 - 300 ng/ml Oxazepam (BZO) POS 0 - 300 ng/ml 1-sjgybwgmpb-9,3-cnbbtzop-3, 3-diphenylpyr rolidine (EDDP) NEG 0 - 300 ng/ml Methamphetamine (MET) NEG 0 - 1000 ng/ml Methylenedioxymethamphetamine (MDMA) NEG 0 - 500 ng/ml Morphine (MOP 300/[id number]) NEG 0 - 300 ng/ml Methadone (MTD) NEG 0 - 300 ng/ml Phencyclidine (PCP) NEG 0 - 25 ng/ml Nortriptyline (TCA) NEG 0 - 1000 ng/ml Oxycodone NEG 0 - 300 ng/ml x NEG 0 - 300 ng/ml Benzodiazepines Reviewed date:12/05/2024 01:06:40 PM Interpretation: Performing Lab:[address] [place] [address], [address] [place] [address], Director - [id number] Notes/Report: An exception occurred while processing this report and so it has incomplete data. Please contact [employer] for assistance. Medicated Consistent Medicated Consistent Not Medicated Consistent Not Medicated Consistent Not Medicated Consistent Not Medicated Consistent Not Medicated Consistent Not Medicated Consistent Not Medicated Consistent Not Medicated Consistent 7-Aminoclonazepam NEGATIVE 20.0 ng/mL Temazepam NEGATIVE 40.0 ng/mL Oxazepam NEGATIVE 40.0 ng/mL Midazolam NEGATIVE 40.0 ng/mL Lorazepam NEGATIVE 40.0 ng/mL Nordiazepam NEGATIVE 40.0 ng/mL Diazepam NEGATIVE 40.0 ng/mL Clonazepam NEGATIVE 20.0 ng/mL Hydroxyalprazolam 228.1 20.0 ng/mL Alprazolam 88.9 20.0 ng/mL PDF Report CE_OUT_RAW_COMMON_S RC_ORU Validity Testing Reviewed date:12/05/2024 01:06:47 PM Interpretation: Performing Lab: Notes/Report: Not Medicated Consistent Not Medicated Consistent Not Medicated Consistent Not Medicated Consistent Specific Lincoln 1.011 1.003 - 1.030 pH 7.3 3.0 - 10.9 Oxidants -12 200 g/mL Creatinine 158.7 20.0 - 300.0 mg/dL Reason For Referral No Information Medications Medication SIG (Take, Route, Frequency, Duration) Notes Start Date End Date Status ARIPiprazole 5 MG 1 tablet Orally Once a day for 30 day(s) Active hydroCHLOROthiazide 12.5 MG TAKE 1 TABLET BY MOUTH EVERY DAY Oral for 90 Days Active Lisinopril 5 MG TAKE 1 TABLET (5 MG TOTAL) BY MOUTH DAILY. Oral for 90 Days Active Lisinopril 10 MG Oral 02/04/2024 Un known ALPRAZolam 0.5 MG TAKE 1 TABLET BY MOUTH EVERY DAY FOR 30 DAYS for 30 appointment needed 11/12/2024 Active Zolpidem Tartrate 5 MG Oral 02/04/2024 Unknown ALPRAZolam 0.25 MG 1 tablet Oral 4 times a day for 30 days d/c 0.5 mg dose 12/23/2024 Active hydroCHLOROthiazide 12.5 MG Oral 02/04/2024 Unknown Clindamycin HCl 150 MG TAKE 1 CAPSULE 4 TIMES DAILY FOR 7 DAYS Oral for 7 Days Not-Taking Venlafaxine HCl ER 150 MG Oral 02/04/2024 Unknown Venlafaxine HCl ER 75 MG Oral 02/04/2024 Unknown lamoTRIgine 150 MG 1 tablet Orally Once a day Oral Once a day for 30 days Active metroNIDAZOLE 1 % External 02/04/2024 U nknown Lurasidone HCl 20 MG 1 tablet in the evening with food Orally Once a day for 30 days Active Atorvastatin Calcium 20 MG Oral 02/04/2024 Unknown Austedo XR 12 MG 1 tablet Orally Once a day for 30 days PA approved 11/27/2024 Active Tretinoin 0.025 % External 02/04/2024 U nknown Zolpidem Tartrate 5 MG 1 tablet bedtime Oral bedtime for 30 days 11/27/2024 Active metroNIDAZOLE 0.75 % External 02/04/2024 Unknown Atorvastatin Calcium 20 MG 20 MG ORALLY EVERY DAY AT BEDTIME Oral for 90 Days Active Lisinopril 5 MG Oral 02/04/2024 Unk nown Clobetasol Propionate 0.05 % External 02/04/2024 Unknown Immunizations Vaccine Route Administration Date Status Comme nts Tdap Unknown 07/22/2012 Administered Pneumococcal polysaccharide PPV23 Unknown 07/04/2013 Ad ministered Pneumococcal polysaccharide PPV23 Unknown 12/26/2016 Ad ministered Pneumococcal conjugate PCV 13 Unknown 07/23/2018 Admini stered Moderna Covid-19 Vaccine 1st dose Unknown 11/19/2020 Ad ministered Moderna Covid-19 Vaccine 1st dose Unknown 12/17/2020 Ad ministered Influenza, seasonal, injecta ble, preservative free, 3 yrs and above Unknown 07/22/2012 Administered Influenza, high dose seasonal Unknown 07/12/2015 Admini stered Influenza, high dose seasonal Unknown 07/12/2016 Admini stered Influenza, high dose seasonal Unknown 06/27/2017 Admini stered Influenza, high dose seasonal Unknown 07/23/2018 Admini stered Influenza, high dose seasonal Unknown 07/09/2019 Admini stered Social History Tobacco Use: Social History Observation Description Date Details (start date - stop date) Never Smoker NA - NA Sex Assigned At : Social History Observation Description Sex Assigned At Female Household Question Answer Notes Marital status: Number of adults in household: 1 Number of children in household: 3 daughters Level of education: finished high school Tobacco Control (Standard) Question Answer Notes Tobacco use: Nonsmoker Additional Findings: Tobacco non-user Current no nsmoker Problems Problem Type SNOMED Code ICD Code Onset Dates Problem Status W/U Status Risk Notes Problem Severe recurrent major depression without psychotic features (38936628) Major depressive disorder, recurrent severe without psychotic features (F33.2) Active confirmed Problem Generalized anxiety disorder (05696435) Generalized anxiety disorder (F41.1) Active confirmed Problem Primary insomnia (4986429) Primary insomnia (F51.01) Active confirmed Problem Screening for cardiovascular system disease (848522191) Encounter for screening for cardiovascular disorders (Z13.6) Active confirmed Problem Depression Screening (049914222) Encounter for screening for depression (Z13.31) Active confirmed Problem 04505070 Primary hypertension (I10) Active confirmed Problem 355528125 Chronic post-traumatic stress disorder (PTSD) (F43.12) Active confirmed Problem Tardive dyskinesia (410561921) Tardive dyskinesia (G24.01) Active confirmed Problem Involuntary movement (finding) (668572308) Involuntary movements (R25.9) Active confirmed Vital Signs Heart Rate 74 /min 12/23/2024 Respiratory Rate 18 /min 06/02/2024 Height-cm 167.64 cm 12/23/2024 Blood pressure diastolic 76 mm Hg 12/23/2024 Weight-kg 83.92 kg 12/23/2024 Height 66.00 in 12/23/2024 Blood pressure systolic 114 mm Hg 12/23/2024 Weight 185 lbs 12/23/2024 BMI 29.86 kg/m2 12/23/2024 Encounters Encounter Location Date Provider Diagnosis [facility], [facility] [address] [place] [place] [address] 01/22/2024 Provider Migration [facility], [facility] [address] [place] [place] [address] 01/23/2024 Provider Migration [facility], [facility] [address] [place] [place] [address] 02/02/2024 Provider Migration [facility], [facility] [address] [place] [place] [address] 02/03/2024 Provider Migration [facility], [facility] [address] [place] [place] [address] 02/06/2024 Provider Migration [facility], [facility] [address] [place] [place] [address] 02/22/2024 Jose [facility], [facility] [address] [place] [place] [address] [facility] [address] [place] [place] [address] [facility] [address] [place] [address] 03/27/2024 [facility] [address] [place] [place] [address] 04/04/2024 Jose [facility], [facility] [address] [place] [place] [address] 05/30/2024 Jose [facility], [facility] [address] [place] [place] [address] 12/04/2024 Roya Cuellar [facility], [facility] [address] [place] [address] 12/26/2024 Daniela Velazquez [facility], [place] [address] [place] [place] [address] 12/31/2024 Roya Cuellar [place] [address] [facility] [address] [place] [address] 01/05/2025 Roya Cuellar [place] [address] [facility] [address] [place] [address] 02/04/2024 Josezak Fitch Primary insomnia F51.01 ; Major depressive disorder, recurrent severe without psychotic features F33.2 and Generalized anxiety disorder F41.1 [place] [address] [facility] [address] [place] [address] 01/13/2025 Nicolette Deb Major depressive disorder, recurrent severe without psychotic features F33.2 ; Generalized anxiety disorder F41.1 and Chronic post-traumatic stress disorder (PTSD) F43.12 [place] [address] [facility] [address] [place] [address] 05/12/2024 Nicolette Deb Major depressive disorder, recurrent severe without psychotic features F33.2 and Generalized anxiety disorder F41.1 [place] [address] [facility] [address] [place] [address] 06/30/2024 Roya Cuellar Generalized anxiety disorder F41.1 ; Major depressive disorder, recurrent severe without psychotic features F33.2 ; Primary insomnia F51.01 and Primary hypertension I10 [place] [address] [facility] [address] [place] [address] 08/28/2024 Roya Cuellar Generalized anxiety disorder F41.1 ; Major depressive disorder, recurrent severe without psychotic features F33.2 ; Primary insomnia F51.01 and Primary hypertension I10 [place] [address] [facility] [address] [place] [address] 11/27/2024 Roya Therzak Encounter for screening for depression Z13.31 ; Encounter for screening for cardiovascular disorders Z13.6 ; Generalized anxiety disorder F41.1 ; Major depressive disorder, recurrent severe without psychotic features F33.2 ; Primary insomnia F51.01 ; Primary hypertension I10 ; Involuntary movements R25.9 and Tardive dyskinesia G24.01 [place] [address] [facility] [address] [place] [address] 12/23/2024 Roya Thery Encounter for screening for depression Z13.31 ; Encounter for screening for cardiovascular disorders Z13.6 ; Generalized anxiety disorder F41.1 ; Major depressive disorder, recurrent severe without psychotic features F33.2 ; Primary insomnia F51.01 ; Primary hypertension I10 ; Involuntary movements R25.9 ; Tardive dyskinesia G24.01 and Chronic post-traumatic stress disorder (PTSD) F43.12 [facility] [address] [place] [place] [address] 03/03/2024 Jsoe Fitch Major depressive disorder, recurrent severe without psychotic features F33.2 ; Generalized anxiety disorder F41.1 and Primary insomnia F51.01 [facility] [address] [place] [place] [address] 04/04/2024 Jose Fitch Major depressive disorder, recurrent severe without psychotic features F33.2 ; Generalized anxiety disorder F41.1 and Primary insomnia F51.01 [facility] [address] [place] [place] [address] 06/02/2024 Royayamileth Cuellar Major depressive disorder, recurrent severe without psychotic features F33.2 ; Generalized anxiety disorder F41.1 and Primary insomnia F51.01 Assessments Encounter Date Diagnosis (ICD Code) Assessment Notes Treatment Notes Treatment Clinical Notes Section Notes 03/03/2024 Major depressive disorder, recurrent severe without psychotic features (ICD-10 - F33.2) Dizziness and Off-Balance Sensation - Assessment: The patient reports experiencing frequent dizziness and feeling off balance. The etiology is unclear, and it is uncertain whether it is related to medication or another underlying issue. - Plan: - Monitor symptoms and reassess at the next visit. Emotional Instability and Headaches - Assessment: The patient has recently discontinued Effexor and is currently taking Ritalin. They report increased emotional instability and frequent headaches. - Plan: - Continue monitoring symptoms and reassess at the next visit. Insomnia and Sleep Schedule - Assessment: The patient has been advised to gradually change their sleep schedule. They currently go to bed around 2:30-3:00 AM and wake up around 11:00 AM-12:00 PM. - Plan: - Encourage the patient to continue working on adjusting their sleep schedule. Weight Gain and Excessive Sweating - Assessment: The patient reports weight gain and excessive sweating, which may be related to their current medication regimen. - Plan: - Discontinue Bupropion XL 300 mg and switch to Bupropion XL 150 mg. - Add vilazodone (Viibryd) to the medication regimen. - Monitor weight and sweating symptoms and reassess at the next visit. Hypertension - Assessment: The patient is currently taking hydrochlorothiazide 12.5 mg daily and lisinopril 5 mg daily for blood pressure management. The most recent blood pressure reading was 146/85. - Plan: - Continue current medications and monitor blood pressure. Hyperlipidemia - Assessment: The patient is currently taking atorvastatin 20 mg for cholesterol management. - Plan: - Continue atorvastatin and monitor lipid levels. Anxiety - Assessment: The patient is taking Xanax 0.5 mg as needed for anxiety. - Plan: - Continue Xanax as needed and monitor anxiety symptoms. Medication Adjustments - Assessment: The patient will be reducing their Bupropion XL dosage and adding vilazodone (Viibryd) to their medication regimen. - Plan: - Prescribe Bupropion XL 150 mg for 30 days with a plan to discontinue in one month. - Prescribe vilazodone (Viibryd) for 90 days. - Monitor the patient's response to the new medication regimen and reassess at the next visit. 04/04/2024 Major depressive disorder, recurrent severe without psychotic features (ICD-10 - F33.2) Irritability and Agitation - Assessment: Patient reports a history of irritability and agitation, exacerbated by recent stressors and interpersonal issues with their daughter. Vraylar was previously tried but discontinued due to increased anger and irritability. - Plan: Discontinue bupropion. Start lurasidone (Latuda) 20 mg at night with food for mood stabilization and off-label use for irritability and agitation. Schedule a follow-up appointment in one month to assess the effectiveness of the medication. Anxiety - Assessment: Patient is currently taking alprazolam (Xanax) as needed for anxiety. - Plan: Continue alprazolam as needed. Encourage the patient to reach out to their daughter and communicate their needs for support. Insomnia - Assessment: Patient is currently taking zolpidem (Ambien) for insomnia. - Plan: Continue zolpidem as prescribed. Monitor for any changes in sleep patterns during the follow-up appointment. Previous Adverse Reaction to Medication - Assessment: Patient reports a history of muscle twitching with either Rexulti or Vraylar. - Plan: Avoid prescribing Rexulti or Vraylar. Monitor for any adverse reactions to the newly prescribed lurasidone. Pharmacogenomic Testing - Assessment: Patient has not had pharmacogenomic testing done in the past. - Plan: Order pharmacogenomic testing to help guide future medication choices. Counseling - Assessment: Patient has previously seen a counselor, Trixie, but has not attended sessions recently. - Plan: Encourage the patient to restart counseling sessions with Trixie or another provider. Discuss with the counselor the patient's preference for alternative exercises or homework, as they are not interested in reading-based tasks. 01/13/2025 Major depressive disorder, recurrent severe without psychotic features (ICD-10 - F33.2) 12/23/2024 Encounter for screening for depression (ICD-10 - Z13.31) 1. Depression- conitnue to have depression discuss therapy options- refer to [facility] Trixie dominguez and would like to see someone else in [facility] refer to Daniela for EDMR Irritability and Agitation - Assessment: Patient reports a history of irritability and agitation, exacerbated by recent stressors- improved patient needs 90 days rx, Stop lurasidone (Latuda) 20 mg at night with food - add Abilify 5 mg at bedtime educated on all rx monitor TD and mood, depression mood stabilization and off-label use for irritability and agitation and depression reported fatigue and helps sleep still has depression and some agitation and irritable heart heart healthy diet and excise educated and healthy eating habits, discuss rx options for depression and anxiety and agiation Lamotrigine 150 mg daily depression educated on Lamotrigine and monitor for rash, 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 2. Anxiety- having increase - Assessment: Patient is currently taking alprazolam (Xanax) as needed for anxiety.- - Plan: alprazolam 0.25 mg twice to four times a day a day as needed. 3. Insomnia - Assessment: Patient is currently [...] - patient will wait at this time patient reported tongue movement clicking and rt leg moves at times- improved with Austedo XR 12 MG daily AIMS= 6 11/27/24 5. TD patient reported since last visit having tongue movement clicking and rt leg moves at times DISCUSS TD and tx options Austedo and Ingrezza discuss Latuda and past medications and TD AIMS= 6 11/27/24 Austedo XR 12 mg dose - pateint having improved TD last few weeks PA [facility] education on rx benefits, side effects, risk, discuss DXN and monitoring 6. PTSD Counseling - Assessment: Patient has seen a counselor, Refer to Daniela RAMIREZ [employer] HX use [employer] relaxation techinque discuss breathing excises - Plan: Encourage healthy eating habits and excise and sleep hygenie and therapy 11/27/2024 Encounter for screening for depression (ICD-10 - Z13.31) 1. Depression discuss therapy options- refer to [facility] Trixie and would like to see someone else in [facility] Irritability and Agitation - Assessment: Patient reports [...] saples given to 12 mg dose - AK started [facility] education on rx benefits, side effects, risk, discuss DXN and monitoring Counseling - Assessment: Patient has seen a counselor, Trixie, - Plan: Encourage healthy eating habits and excise and sleep hygenie and therapy 03/03/2024 Generalized anxiety disorder (ICD-10 - F41.1) Dizziness and Off-Balance Sensation - Assessment: The patient reports experiencing frequent dizziness and feeling off balance. The etiology is unclear, and it is uncertain whether it is related to medication or another underlying issue. - Plan: - Monitor symptoms and reassess at the next visit. Emotional Instability and Headaches - Assessment: The patient has recently discontinued Effexor and is currently taking Ritalin. They report increased emotional instability and frequent headaches. - Plan: - Continue monitoring symptoms and reassess at the next visit. Insomnia and Sleep Schedule - Assessment: The patient has been advised to gradually change their sleep schedule. They currently go to bed around 2:30-3:00 AM and wake up around 11:00 AM-12:00 PM. - Plan: - Encourage the patient to continue working on adjusting their sleep schedule. Weight Gain and Excessive Sweating - Assessment: The patient reports weight gain and excessive sweating, which may be related to their current medication regimen. - Plan: - Discontinue Bupropion XL 300 mg and switch to Bupropion XL 150 mg. - Add vilazodone (Viibryd) to the medication regimen. - Monitor weight and sweating symptoms and reassess at the next visit. Hypertension - Assessment: The patient is currently taking hydrochlorothiazide 12.5 mg daily and lisinopril 5 mg daily for blood pressure management. The most recent blood pressure reading was 146/85. - Plan: - Continue current medications and monitor blood pressure. Hyperlipidemia - Assessment: The patient is currently taking atorvastatin 20 mg for cholesterol management. - Plan: - Continue atorvastatin and monitor lipid levels. Anxiety - Assessment: The patient is taking Xanax 0.5 mg as needed for anxiety. - Plan: - Continue Xanax as needed and monitor anxiety symptoms. Medication Adjustments - Assessment: The patient will be reducing their Bupropion XL dosage and adding vilazodone (Viibryd) to their medication regimen. - Plan: - Prescribe Bupropion XL 150 mg for 30 days with a plan to discontinue in one month. - Prescribe vilazodone (Viibryd) for 90 days. - Monitor the patient's response to the new medication regimen and reassess at the next visit. 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 Anxiety - Assessment: Patient is currently taking alprazolam (Xanax) as needed for anxiety. - Plan: Continue alprazolam as needed. Insomnia - Assessment: Patient is currently taking zolpidem (Ambien) for insomnia. - Plan: Continue zolpidem as prescribed. NO REFILL Needed today Monitor for any changes in sleep patterns during the follow-up appointment. Previous Adverse Reaction to Medication - Assessment: Patient reports a history of muscle twitching and agitation with either Rexulti or Vraylar. - Plan: Avoid prescribing Rexulti or Vraylar. Pharmacogenomic Testing - Assessment: Patient pharmacogenomic testing reviewedand copy given - Plan: discuss medication options Counseling - Assessment: Patient has seen a counselorTrixie, - Plan: Encourage healthy eating habits and excise and sleep hygenie and therapy 06/30/2024 Generalized anxiety disorder (ICD-10 - F41.1) [...] excise and sleep hygenie and therapy 08/28/2024 Generalized anxiety disorder (ICD-10 - F41.1) [...] copy given - Plan: discuss medication options [facility] reviewed = 24 06/30/24- discuss with patient will take test in 6-12 months discuss rx for memory - patient will wait at this time Counseling - Assessment: Patient has seen a counselor, Trixie, - Plan: Encourage healthy eating habits and excise and sleep hygenie and therapy 02/04/2024 Major depressive disorder, recurrent severe without psychotic features (ICD-10 - F33.2) 02/04/2024 Generalized anxiety disorder (ICD-10 - F41.1) 02/04/2024 Primary insomnia (ICD-10 - F51.01) 06/30/2024 Major depressive disorder, recurrent severe without [...] and excise and sleep hygenie and therapy 06/02/2024 Generalized anxiety disorder (ICD-10 - F41.1) Irritability [...] options for depression and anxiety and agiation Will add Lamotrigine 25 mg daily for 2 weeks then increase to Lamotrigine 50 mg daily - educated on Lamotrigine and monitor for rash, 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 Anxiety - Assessment: Patient is currently taking alprazolam (Xanax) as needed for anxiety. - Plan: Continue alprazolam as needed. Insomnia - Assessment: Patient is currently taking zolpidem (Ambien) for insomnia. - Plan: Continue zolpidem as prescribed. NO REFILL Needed today Monitor for any changes in sleep patterns during the follow-up appointment. Previous Adverse Reaction to Medication - Assessment: Patient reports a history of muscle twitching and agitation with either Rexulti or Vraylar. - Plan: Avoid prescribing Rexulti or Vraylar. Pharmacogenomic Testing - Assessment: Patient pharmacogenomic testing reviewedand copy given - Plan: discuss medication options Counseling - Assessment: Patient has seen a counselor, Trixie, - Plan: Encourage healthy eating habits and excise and sleep hygenie and therapy 05/12/2024 Generalized anxiety disorder (ICD-10 - F41.1) 03/03/2024 Primary insomnia (ICD-10 - F51.01) Dizziness and Off-Balance Sensation - Assessment: The patient reports experiencing frequent dizziness and feeling off balance. The etiology is unclear, and it is uncertain whether it is related to medication or another underlying issue. - Plan: - Monitor symptoms and reassess at the next visit. Emotional Instability and Headaches - Assessment: The patient has recently discontinued Effexor and is currently taking Ritalin. They report increased emotional instability and frequent headaches. - Plan: - Continue monitoring symptoms and reassess at the next visit. Insomnia and Sleep Schedule - Assessment: The patient has been advised to gradually change their sleep schedule. They currently go to bed around 2:30-3:00 AM and wake up around 11:00 AM-12:00 PM. - Plan: - Encourage the patient to continue working on adjusting their sleep schedule. Weight Gain and Excessive Sweating - Assessment: The patient reports weight gain and excessive sweating, which may be related to their current medication regimen. - Plan: - Discontinue Bupropion XL 300 mg and switch to Bupropion XL 150 mg. - Add vilazodone (Viibryd) to the medication regimen. - Monitor weight and sweating symptoms and reassess at the next visit. Hypertension - Assessment: The patient is currently taking hydrochlorothiazide 12.5 mg daily and lisinopril 5 mg daily for blood pressure management. The most recent blood pressure reading was 146/85. - Plan: - Continue current medications and monitor blood pressure. Hyperlipidemia - Assessment: The patient is currently taking atorvastatin 20 mg for cholesterol management. - Plan: - Continue atorvastatin and monitor lipid levels. Anxiety - Assessment: The patient is taking Xanax 0.5 mg as needed for anxiety. - Plan: - Continue Xanax as needed and monitor anxiety symptoms. Medication Adjustments - Assessment: The patient will be reducing their Bupropion XL dosage and adding vilazodone (Viibryd) to their medication regimen. - Plan: - Prescribe Bupropion XL 150 mg for 30 days with a plan to discontinue in one month. - Prescribe vilazodone (Viibryd) for 90 days. - Monitor the patient's response to the new medication regimen and reassess at the next visit. 11/27/2024 Encounter for screening for cardiovascular disorders (ICD-10 - Z13.6) 1. Depression discuss therapy options- refer to [facility] Trixie dominguez and would like to see someone else in [facility] Irritability and Agitation - Assessment: Patient reports [...] to 12 mg dose - [place] started [facility] education on rx benefits, side effects, risk, discuss DXN and monitoring Counseling - Assessment: Patient has seen a counselor, Trixie, - Plan: Encourage healthy eating habits and excise and sleep hygenie and therapy 12/23/2024 Encounter for screening for cardiovascular disorders (ICD-10 - Z13.6) 1. Depression- conitnue to have depression discuss therapy options- refer to [facility] doming[facility] and would like to see someone else in [facility] refer to Daniela for EDMR Irritability and Agitation - Assessment: Patient reports a history of irritability and agitation, exacerbated by recent stressors- improved patient needs 90 days rx, Stop lurasidone (Latuda) 20 mg at night with food - add Abilify 5 mg at bedtime educated on all rx monitor TD and mood, depression mood stabilization and off-label use for irritability and agitation and depression reported fatigue and helps sleep still has depression and some agitation and irritable heart heart healthy diet and excise educated and healthy eating habits, discuss rx options for depression and anxiety and agiation Lamotrigine 150 mg daily depression educated on Lamotrigine and monitor for rash, 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 2. Anxiety- having increase - Assessment: Patient is currently taking alprazolam (Xanax) as needed for anxiety.- - Plan: alprazolam 0.25 mg twice to four times a day a day as needed. 3. Insomnia - Assessment: Patient is currently [...] - patient will wait at this time patient reported tongue movement clicking and rt leg moves at times- improved with Austedo XR 12 MG daily AIMS= 6 11/27/24 5. TD patient reported since last visit having tongue movement clicking and rt leg moves at times DISCUSS TD and tx options Austedo and Ingrezza discuss Latuda and past medications and TD AIMS= 6 11/27/24 Austedo XR 12 mg dose - pateint having improved TD last few weeks [facility] education on rx benefits, side effects, risk, discuss DXN and monitoring 6. PTSD Counseling - Assessment: Patient has seen a counselor, Refer to Daniela [facility] use Calm Jaiden relaxation techinque discuss breathing excises - Plan: Encourage healthy eating habits and excise and sleep hygenie and therapy 01/13/2025 Generalized anxiety disorder (ICD-10 - F41.1) 04/04/2024 Generalized anxiety disorder (ICD-10 - F41.1) Irritability and Agitation - Assessment: Patient reports a history of irritability and agitation, exacerbated by recent stressors and interpersonal issues with their daughter. Vraylar was previously tried but discontinued due to increased anger and irritability. - Plan: Discontinue bupropion. Start lurasidone (Latuda) 20 mg at night with food for mood stabilization and off-label use for irritability and agitation. Schedule a follow-up appointment in one month to assess the effectiveness of the medication. Anxiety - Assessment: Patient is currently taking alprazolam (Xanax) as needed for anxiety. - Plan: Continue alprazolam as needed. Encourage the patient to reach out to their daughter and communicate their needs for support. Insomnia - Assessment: Patient is currently taking zolpidem (Ambien) for insomnia. - Plan: Continue zolpidem as prescribed. Monitor for any changes in sleep patterns during the follow-up appointment. Previous Adverse Reaction to Medication - Assessment: Patient reports a history of muscle twitching with either Rexulti or Vraylar. - Plan: Avoid prescribing Rexulti or Vraylar. Monitor for any adverse reactions to the newly prescribed lurasidone. Pharmacogenomic Testing - Assessment: Patient has not had pharmacogenomic testing done in the past. - Plan: Order pharmacogenomic testing to help guide future medication choices. Counseling - Assessment: Patient has previously seen a counselor, Trixie, but has not attended sessions recently. - Plan: Encourage the patient to restart counseling sessions with Trixie or another provider. Discuss with the counselor the patient's preference for alternative exercises or homework, as they are not interested in reading-based tasks. 04/04/2024 Primary insomnia (ICD-10 - F51.01) Irritability and Agitation - Assessment: Patient reports a history of irritability and agitation, exacerbated by recent stressors and interpersonal issues with their daughter. Vraylar was previously tried but discontinued due to increased anger and irritability. - Plan: Discontinue bupropion. Start lurasidone (Latuda) 20 mg at night with food for mood stabilization and off-label use for irritability and agitation. Schedule a follow-up appointment in one month to assess the effectiveness of the medication. Anxiety - Assessment: Patient is currently taking alprazolam (Xanax) as needed for anxiety. - Plan: Continue alprazolam as needed. Encourage the patient to reach out to their daughter and communicate their needs for support. Insomnia - Assessment: Patient is currently taking zolpidem (Ambien) for insomnia. - Plan: Continue zolpidem as prescribed. Monitor for any changes in sleep patterns during the follow-up appointment. Previous Adverse Reaction to Medication - Assessment: Patient reports a history of muscle twitching with either Rexulti or Vraylar. - Plan: Avoid prescribing Rexulti or Vraylar. Monitor for any adverse reactions to the newly prescribed lurasidone. Pharmacogenomic Testing - Assessment: Patient has not had pharmacogenomic testing done in the past. - Plan: Order pharmacogenomic testing to help guide future medication choices. Counseling - Assessment: Patient has previously seen a counselor, Trixie, but has not attended sessions recently. - Plan: Encourage the patient to restart counseling sessions with Trixie or another provider. Discuss with the counselor the patient's preference for alternative exercises or homework, as they are not interested in reading-based tasks. 01/13/2025 Chronic post-traumatic stress disorder (PTSD) (ICD-10 - F43.12) 12/23/2024 Generalized anxiety disorder (ICD-10 - F41.1) 1. Depression- conitnue to have depression discuss therapy options- refer to [facility] Trixie dominguez and would like to see someone else in [facility] refer to Daniela for EDMR Irritability and Agitation - Assessment: Patient reports a history of irritability and agitation, exacerbated by recent stressors- improved patient needs 90 days rx, Stop lurasidone (Latuda) 20 mg at night with food - add Abilify 5 mg at bedtime educated on all rx monitor TD and mood, depression mood stabilization and off-label use for irritability and agitation and depression reported fatigue and helps sleep still has depression and some agitation and irritable heart heart healthy diet and excise educated and healthy eating habits, discuss rx options for depression and anxiety and agiation Lamotrigine 150 mg daily depression educated on Lamotrigine and monitor for rash, 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 2. Anxiety- having increase - Assessment: Patient is currently taking alprazolam (Xanax) as needed for anxiety.- - Plan: alprazolam 0.25 mg twice to four times a day a day as needed. 3. Insomnia - Assessment: Patient is currently [...] - patient will wait at this time patient reported tongue movement clicking and rt leg moves at times- improved with Austedo XR 12 MG daily AIMS= 6 11/27/24 5. TD patient reported since last visit having tongue movement clicking and rt leg moves at times DISCUSS TD and tx options Austedo and Ingrezza discuss Latuda and past medications and TD AIMS= 6 11/27/24 Austedo XR 12 mg dose - pateint having improved TD last few weeks [facility] education on rx benefits, side effects, risk, discuss DXN and monitoring 6. 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 Anxiety - Assessment: Patient is currently taking alprazolam (Xanax) as needed for anxiety. - Plan: Continue alprazolam as needed. Insomnia - Assessment: Patient is currently taking zolpidem (Ambien) for insomnia. - Plan: Continue zolpidem as prescribed. NO REFILL Needed today Monitor for any changes in sleep patterns during the follow-up appointment. Previous Adverse Reaction to Medication - Assessment: Patient reports a history of muscle twitching and agitation with either Rexulti or Vraylar. - Plan: Avoid prescribing Rexulti or Vraylar. Pharmacogenomic Testing - Assessment: Patient pharmacogenomic testing reviewedand copy given - Plan: discuss medication options Counseling - Assessment: Patient has seen a [...] discuss therapy options- refer to [facility] Trixie dominguez and would like to see someone [...] saples given to 12 mg dose - [place] started [facility] education on rx benefits, side effects, [...] 1. Depression discuss therapy options- refer to [facility] Trixie and would like to see someone else in [facility] Irritability and Agitation - Assessment: Patient reports [...] to 12 mg dose - [place] started [facility] education on rx benefits, side effects, risk, discuss DXN and monitoring Counseling - Assessment: Patient has seen a counselor, Trixie, - Plan: Encourage healthy eating habits and excise and sleep hygenie and therapy 12/23/2024 Primary insomnia (ICD-10 - F51.01) 1. Depression- conitnue to have depression discuss therapy options- refer to [facility] Trixie and would like to see someone else in [facility] refer to Daniela for EDMR Irritability and Agitation - Assessment: Patient reports a history of irritability and agitation, exacerbated by recent stressors- improved patient needs 90 days rx, Stop lurasidone (Latuda) 20 mg at night with food - add Abilify 5 mg at bedtime educated on all rx monitor TD and mood, depression mood stabilization and off-label use for irritability and agitation and depression reported fatigue and helps sleep still has depression and some agitation and irritable heart heart healthy diet and excise educated and healthy eating habits, discuss rx options for depression and anxiety and agiation Lamotrigine 150 mg daily depression educated on Lamotrigine and monitor for rash, 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 2. Anxiety- having increase - Assessment: Patient is currently taking alprazolam (Xanax) as needed for anxiety.- - Plan: alprazolam 0.25 mg twice to four times a day a day as needed. 3. Insomnia - Assessment: Patient is currently [...] - patient will wait at this time patient reported tongue movement clicking and rt leg moves at times- improved with Austedo XR 12 MG daily AIMS= 6 11/27/24 5. TD patient reported since last visit having tongue movement clicking and rt leg moves at times DISCUSS TD and tx options Austedo and Ingrezza discuss Latuda and past medications and TD AIMS= 6 11/27/24 Austedo XR 12 mg dose - pateint having improved TD last few weeks [facility] education on rx benefits, side effects, risk, discuss DXN and monitoring 6. PTSD Counseling - Assessment: Patient has seen a counselor, Refer to Daniela [facility] use Calm Jaiden relaxation techinque discuss breathing excises - Plan: Encourage healthy eating habits and excise and sleep hygenie and therapy 12/23/2024 Major depressive disorder, recurrent severe without psychotic features (ICD-10 - F33.2) 1. Depression- conitnue to have depression discuss therapy options- refer to [facility] Trixie hx and would like to see someone else in [facility] refer to Daniela for [facility] Irritability and Agitation - Assessment: Patient reports a history of irritability and agitation, exacerbated by recent stressors- improved patient needs 90 days rx, Stop lurasidone (Latuda) 20 mg at night with food - add Abilify 5 mg at bedtime educated on all rx monitor TD and mood, depression mood stabilization and off-label use for irritability and agitation and depression reported fatigue and helps sleep still has depression and some agitation and irritable heart heart healthy diet and excise educated and healthy eating habits, discuss rx options for depression and anxiety and agiation Lamotrigine 150 mg daily depression educated on Lamotrigine and monitor for rash, 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 2. Anxiety- having increase - Assessment: Patient is currently taking alprazolam (Xanax) as needed for anxiety.- - Plan: alprazolam 0.25 mg twice to four times a day a day as needed. 3. Insomnia - Assessment: Patient is currently [...] - patient will wait at this time patient reported tongue movement clicking and rt leg moves at times- improved with Austedo XR 12 MG daily AIMS= 6 11/27/24 5. TD patient reported since last visit having tongue movement clicking and rt leg moves at times DISCUSS TD and tx options Austedo and Ingrezza discuss Latuda and past medications and TD AIMS= 6 11/27/24 Austedo XR 12 mg dose - pateint having improved TD last few weeks [facility] education on rx benefits, side effects, risk, discuss DXN and monitoring 6. PTSD Counseling - Assessment: Patient has seen a counselor, Refer to Daniela [facility] H[facility] use Calm Jaiden relaxation techinque discuss breathing excises - Plan: Encourage healthy eating habits and excise and sleep hygenie and therapy 12/23/2024 Primary hypertension (ICD-10 - I10) 1. Depression- conitnue to have depression discuss therapy options- refer to [facility] dom[facility] and would like to see someone else in [facility] refer to Daniela for [facility] Irritability and Agitation - Assessment: Patient reports a history of irritability and agitation, exacerbated by recent stressors- improved patient needs 90 days rx, Stop lurasidone (Latuda) 20 mg at night with food - add Abilify 5 mg at bedtime educated on all rx monitor TD and mood, depression mood stabilization and off-label use for irritability and agitation and depression reported fatigue and helps sleep still has depression and some agitation and irritable heart heart healthy diet and excise educated and healthy eating habits, discuss rx options for depression and anxiety and agiation Lamotrigine 150 mg daily depression educated on Lamotrigine and monitor for rash, 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 2. Anxiety- having increase - Assessment: Patient is currently taking alprazolam (Xanax) as needed for anxiety.- - Plan: alprazolam 0.25 mg twice to four times a day a day as needed. 3. Insomnia - Assessment: Patient is currently [...] - patient will wait at this time patient reported tongue movement clicking and rt leg moves at times- improved with Austedo XR 12 MG daily AIMS= 6 11/27/24 5. TD patient reported since last visit having tongue movement clicking and rt leg moves at times DISCUSS TD and tx options Austedo and Ingrezza discuss Latuda and past medications and TD AIMS= 6 11/27/24 Austedo XR 12 mg dose - pateint having improved TD last few weeks [facility] education on rx benefits, side effects, risk, discuss DXN and monitoring 6. PTSD Counseling - Assessment: Patient has seen a counselor, Refer to Daniela [facility] H[facility] use Calm Jaiden relaxation techinque discuss breathing excises - Plan: Encourage healthy eating habits and [...] to 12 mg dose - [place] started [facility] education on rx benefits, side effects, risk, discuss DXN and monitoring Counseling - Assessment: Patient has seen a counselor, Trixie, - Plan: Encourage healthy eating habits and excise and sleep hygenie and therapy 12/23/2024 Involuntary movements (ICD-10 - R25.9) 1. Depression- conitnue to have depression discuss therapy options- refer to [facility] dom[facility] and would like to see someone else in [facility] refer to Daniela for EDMR Irritability and Agitation - Assessment: Patient reports a history of irritability and agitation, exacerbated by recent stressors- improved patient needs 90 days rx, Stop lurasidone (Latuda) 20 mg at night with food - add Abilify 5 mg at bedtime educated on all rx monitor TD and mood, depression mood stabilization and off-label use for irritability and agitation and depression reported fatigue and helps sleep still has depression and some agitation and irritable heart heart healthy diet and excise educated and healthy eating habits, discuss rx options for depression and anxiety and agiation Lamotrigine 150 mg daily depression educated on Lamotrigine and monitor for rash, 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 2. Anxiety- having increase - Assessment: Patient is currently taking alprazolam (Xanax) as needed for anxiety.- - Plan: alprazolam 0.25 mg twice to four times a day a day as needed. 3. Insomnia - Assessment: Patient is currently [...] - patient will wait at this time patient reported tongue movement clicking and rt leg moves at times- improved with Austedo XR 12 MG daily AIMS= 6 11/27/24 5. TD patient reported since last visit having tongue movement clicking and rt leg moves at times DISCUSS TD and tx options Austedo and Ingrezza discuss Latuda and past medications and TD AIMS= 6 11/27/24 Austedo XR 12 mg dose - pateint having improved TD last few weeks [facility] education on rx benefits, side effects, risk, discuss DXN and monitoring 6. PTSD Counseling - Assessment: Patient has seen a counselor, Refer to Daniela SIMPSON TRAUMA HX use Calm Jaiden relaxation techinque discuss breathing excises - Plan: Encourage healthy eating habits and excise and sleep hygenie and therapy 11/27/2024 Involuntary movements (ICD-10 - R25.9) 1. Depression discuss therapy options- refer to [facility] Trixie and would like to see someone else in [facility] Irritability and Agitation - Assessment: Patient reports [...] prescribing Rexulti or Vraylar. Pharmacogenomic Testing - Patient pharmacogenomic testing reviewed and copy given [...] to 12 mg dose - PA started [facility] education on rx benefits, side effects, risk, discuss DXN and monitoring Counseling - Assessment: Patient has seen a counselor, Trixie, - Plan: Encourage healthy eating habits and excise and sleep hygenie and therapy 11/27/2024 Primary hypertension (ICD-10 - I10) 1. Depression discuss therapy options- refer to [facility] Trixie hx and would like to see [...] to 12 mg dose - PA started [facility] education on rx benefits, side effects, [...] 1. Depression discuss therapy options- refer to [facility] Trixie and would like to see someone else in [facility] Irritability and Agitation - Assessment: Patient reports [...] prescribing Rexulti or Vraylar. Pharmacogenomic Testing - Patient pharmacogenomic testing reviewed and copy given [...] to 12 mg dose - PA started [facility] education on rx benefits, side effects, risk, discuss DXN and monitoring Counseling - Assessment: Patient has seen a counselor, Trixie, - Plan: Encourage healthy eating habits and excise and sleep hygenie and therapy 12/23/2024 Tardive dyskinesia (ICD-10 - G24.01) Electronic Prior Authorization was requested for Austedo XR 12 MG Tablet Extended Release 24 Hour. Provider can order medication once approval received. 1. Depression- conitnue to have depression discuss therapy options- refer to KISHOR dominguez and would like to see someone else in [facility] refer to Daniela for [facility] Irritability and Agitation - Assessment: Patient reports a history of irritability and agitation, exacerbated by recent stressors- improved patient needs 90 days rx, Stop lurasidone (Latuda) 20 mg at night with food - add Abilify 5 mg at bedtime educated on all rx monitor TD and mood, depression mood stabilization and off-label use for irritability and agitation and depression reported fatigue and helps sleep still has depression and some agitation and irritable heart heart healthy diet and excise educated and healthy eating habits, discuss rx options for depression and anxiety and agiation Lamotrigine 150 mg daily depression educated on Lamotrigine and monitor for rash, 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 2. Anxiety- having increase - Assessment: Patient is currently taking alprazolam (Xanax) as needed for anxiety.- - Plan: alprazolam 0.25 mg twice to four times a day a day as needed. 3. Insomnia - Assessment: Patient is currently taking zolpidem (Ambien) 1/2 tab for insomnia. - Plan: Continue zolpidem as prescribed. Monitor for any changes in sleep patterns sleep hygeine Previous Adverse Reaction to Medication - Assessment: Patient reports a history of muscle twitching and agitation with either Rexulti or Vraylar. - Plan: Avoid prescribing Rexulti or Vraylar. Pharmacogenomic Testing - Patient pharmacogenomic testing reviewed and copy given - Plan: discuss medication options 4. MNCD - SLUMS reviewed = 24 06/30/24- discuss with patient will take test in 6-12 months discuss rx for memory - patient will wait at this time patient reported tongue movement clicking and rt leg moves at times- improved with Austedo XR 12 MG daily AIMS= 6 11/27/24 5. TD patient reported since last visit having tongue movement clicking and rt leg moves at times DISCUSS TD and tx options Austedo and Ingrezza discuss Latuda and past medications and TD AIMS= 6 11/27/24 Austedo XR 12 mg dose - pateint having improved TD last few weeks [facility] education on rx benefits, side effects, risk, discuss DXN and monitoring 6. PTSD Counseling - Assessment: Patient has seen a counselor, Refer to Daniela RAMIREZ TRAUMA HX use Calm Jaiden relaxation techinque discuss breathing excises - Plan: Encourage healthy eating habits and excise and sleep hygenie and therapy 12/23/2024 Chronic post-traumatic stress disorder (PTSD) (ICD-10 - F43.12) 1. Depression- conitnue to have depression discuss therapy options- refer to [facility] Trixie dominguez and would like to see someone else in [facility] refer to Daniela for [facility] Irritability and Agitation - Assessment: Patient reports a history of irritability and agitation, exacerbated by recent stressors- improved patient needs 90 days rx, Stop lurasidone (Latuda) 20 mg at night with food - add Abilify 5 mg at bedtime educated on all rx monitor TD and mood, depression mood stabilization and off-label use for irritability and agitation and depression reported fatigue and helps sleep still has depression and some agitation and irritable heart heart healthy diet and excise educated and healthy eating habits, discuss rx options for depression and anxiety and agiation Lamotrigine 150 mg daily depression educated on Lamotrigine and monitor for rash, 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 2. Anxiety- having increase - Assessment: Patient is currently taking alprazolam (Xanax) as needed for anxiety.- - Plan: alprazolam 0.25 mg twice to four times a day a day as needed. 3. Insomnia - Assessment: Patient is currently [...] - patient will wait at this time patient reported tongue movement clicking and rt leg moves at times- improved with Austedo XR 12 MG daily AIMS= 6 11/27/24 5. TD patient reported since last visit having tongue movement clicking and rt leg moves at times DISCUSS TD and tx options Austedo and Ingrezza discuss Latuda and past medications and TD AIMS= 6 11/27/24 Austedo XR 12 mg dose - pateint having improved TD last few weeks [facility] education on rx benefits, side effects, risk, discuss DXN and monitoring 6. PTSD Counseling - Assessment: Patient has seen a counselor, Refer to Daniela RAMIREZ TRAUMA HX use Calm Jaiden relaxation techinque discuss breathing excises - Plan: Encourage healthy eating habits and excise and sleep hygenie and therapy 05/12/2024 Other Client reports she is struggling with her medications. She is wanting to change medication providers. Therapist was able to talk to the promotion officer to get approval for this provider change. Client has been stressed due to having her roof replaced and the contractor did a horrible job. She has spent some time in contact with the contractor without any results. Therapist allowed the client to vent and provided a cognitive behavioral intervention to help client explore strategies to minimize her anxiety. 01/13/2025 Other Client is tearful. She has had multiple health issues. Her daughter that hasn't talked to client in 14 years, sent her a card and initiated contact. They had multiple exchanges via text but daughter does not acknowledge client when they are in the same place (ex: a bridal shower). She focused primarily on how this is contributing to her lack of motivation.Nciola patel actively listened to client and utilized a cognitve behavioral intervention to herlp her explore strategies to improve motivation (usintg a timer to ensure she is getting up every hour, making a list of calming activities). Plan Of Treatment Next Appt Details Provider Name:Roya Cuellar , 01/22/2025 03:45:00 PM, [address], [address], [place], [address], Provider Name:Nicolette Boyd , 02/13/2025 11:00:00 AM, [address], [address], [place], [address], Insurance Providers Payer Name Payer Address Payer Phone Subscriber Number Group Number Insured Name Patient Relationship to Insured Coverage Start Date Coverage End Date [place] [address] [place] [address] [id number] NABOR SANTANA Self - patient is the insured [place] [employer] [place] Medicare Supplement [address] [place] [address] [id number] NABOR SANTANA Self - patient is the insured Medical (General) History Medical History History ICD Code Problems: Chronic post-traumatic stress disorder Generalized anxiety disorder Long-term drug therapy Primary insomnia Severe recurrent major depression withou t psychotic features Surgical History Surgery Date(Month/Year) Removal of gallbladder (91030) 8 Any surgical history 05/14/2021 knee surgery rt torn hernia
--- OUTSIDE RECORDS SUMMARY | 2025-01-14 15:39 | XMS_ITS | Clinical Summary ---
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 Gender Identity Not on file Sexual Orientation Not on file Plan of Treatment Health Maintenance Due Date Last Done Comments Hepatitis C 1968 DTaP, Tdap and Td Vaccines ( 1 - Tdap) 1967 Pneumococcal Vaccine: 50+ Ye ars (1 of 1 - PCV) 1998 Zoster Vaccines (1 of 2) 1998 Dexa Scan (General) 2013 RSV Immunization or 60+ Years (1 - 1-dose 75+ series) 2023 COVID-19 Vaccine (2023-2 5 season) 2024 Meningococcal B Vaccine Aged Out No l onger eligible based on patient's age to complete this topic Meningococcal Vaccine Aged Out No nithya hannah eligible based on patient's age to complete this topic RSV Immunizations Under 20 Months Aged Out No longer eligible based on patient's age to complete this topic
[2025-01-15 07:53] LABS: Alanine Aminotransferase 23 U/L (6-35); Albumin Level 4.3 g/dL (3.5-5.1); Alkaline Phosphatase 125 U/L (38-126); Anion Gap 12 mmol/L (4-12); Aspartate Amino Transferase 26 U/L (14-36); Bilirubin,Total 0.5 mg/dL (0.2-1.3); Blood Urea Nitrogen 17 mg/dL (7-17); Calcium 9.9 mg/dL (8.4-10.2); Carbon Dioxide 23 mmol/L (22-30); Chloride 103 mmol/L (98-107); Estimated Glomerular Filt Rate > 60; Glucose 92 mg/dL (65-110); Osmolality Calculated 287 mOsm/kg (285-295); Potassium 4.3 mmol/L (3.4-5.0); Sodium 138 mmol/L (137-145)
== END 2025-01-14 14:37 | disposition home or self-care (01) ==
LOC: CHSLAB 14:38
PROVIDERS: PCP Family Medicine; Visit Provider Physician Assistant Medical
DX: F32.9 Major depressive disorder, single episode, unspecified (principal); R79.89 Other specified abnormal findings of blood chemistry
CPT/HCPCS: 36415; 80053

== ENCOUNTER 2025-01-21 14:26 | Outpatient (CLI) | payer MEDICARE, OTHER, SELFPAY ==
--- NOTE | ~2025-01-21 | CT_ITS ---
CT Scan of the Chest without Contrast: Clinical Indication: Shortness of breath Technique: Contiguous sections were acquired throughout the chest without intravenous contrast. Dose reduction technique was used on this scan by utilizing automated exposure control and iterative recon struction technique. The dose-length product (DLP) was 238.26 mGy-cm. Findings: There is no evidence of any significant mediastinal, hilar or axillary lymphadenopathy. The mediastin al soft tissues appear normal. There is no evidence of pleural or pericardial effusion. 5 mm right lower lobe pulmonary nodule present (axial image 71). 3 mm left lower lobe nodule present peripherally (axial image 72). Additional 4 mm peripheral left lower lobe nodule present (axial image 67). 5 mm left upper lobe nodule present near the fissure (axial image 52). Images through the upper abdomen reveal small hiatal hernia. Impression: Subcentimeter pulmonary nodules, as above. According to Fleischner Society criteria, for a low-risk p atient, no further follow-up required. For a high-risk patient, consider 12 month follow-up CT. Reviewed, dictated and finalized at location . Impression: Subcentimeter pulmonary nodules, as above. According to Fleischner Society radha callahan, for a low-risk patient, no further follow-up required. For a high-risk pa tient, consider 12 month follow-up CT.
--- OUTSIDE RECORDS SUMMARY | 2025-01-21 14:35 | XMS_ITS | Clinical Summary ---
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 Gender Identity Not on file Sexual Orientation Not on file Obstetrics History Last Filed Vital Signs Vital Sign Reading Time Taken Comments Blood Pressure 102/60 05/12/2024 11:42 AM CDT Pulse 88 05/12/2024 11:42 AM CDT Temperature 36.5 C (97.7 F) 12/15/2020 2:01 PM CDT Respiratory Rate 18 09/25/2020 8:45 AM VP INTEGRITY Oxygen Saturation 94% 05/12/2024 11:42 AM CDT [...] 07/04/2013 Insurance MEDICARE [employer] SENIOR SUPPLEMENT MEDICARE [place] MEDICARE [facility] Advance Directives For more information, please contact: [phone] * Full Code (Latest Code Status on File) Date Activated Date Inactivated Comments 09/21/2020 12:22 PM 09/25/2020 6:54 PM * Full Code Date Activated Date Inactivated Comments 09/20/2020 7:42 PM 09/21/2020 12:22 PM Care Teams Licensed Clinical Psychologist Relationship Specialty Start Date End Date Fuad Dudley MD [address] [address] PCP - General Family Medicine 11/29/20
--- OUTSIDE RECORDS SUMMARY | 2025-01-21 14:35 | XMS_ITS | Clinical Summary ---
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
--- OUTSIDE RECORDS SUMMARY | 2025-01-21 14:35 | XMS_ITS | Referral Summary ---
Author Organization [facility] Address [address] [place] [address] Care Team Providers Care Core Inspector Name Role Phone Fuad Dudley MD Primary [...] (09/21/2020): Added automatically from request for surgery [id number] Hiatal hernia with GERD 09/20/2020 Overview (09/22/2020): Added automatically from request for surgery [id number] Hypertension Lipid screening Dizziness Social History Tobacco Use Types Packs/Day Years Used Date Smoking Tobacco: Never Smokeless Tobacco: Never Tobacco Cessation:Counseling Given: Not Answered Comments No Sex and Gender Information Value Date Recorded Sex Assigned at Not on file 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 Gender Identity Not on file Sexual Orientation Not on file Last Filed Vital Signs Vital Sign Reading Time Taken Comments Blood Pressure 102/60 05/12/2024 11:42 AM CDT Pulse 88 05/12/2024 11:42 AM CDT Temperature 36.5 C (97.7 F) 12/15/2020 2:01 PM CDT Respiratory Rate 18 09/25/2020 8:45 AM GEOSPATIAL IMAGE ANALYST Oxygen Saturation 94% 05/12/2024 11:42 AM CDT Inhaled Oxygen Concentration - - Weight 90.3 kg (199 lb) 05/12/2024 11:42 AM CDT Height 165.1 cm (5' 5 ) 05/12/2024 11:42 AM CDT Body Mass Index 33.12 05/12/2024 11:42 AM CDT Plan of Treatment Not on file Insurance MEDICARE [facility] Address: [address] [address] [place] [address] [employer] SENIOR SUPPLEMENT MEDICARE [facility] MEDICARE [facility] [place] [address] Advance Directives For more information, please contact: [phone] * Full Code (Latest Code Status on File) Date Activated Date Inactivated Comments 09/21/2020 12:22 PM 09/25/2020 6:54 PM * Full Code Date Activated Date Inactivated Comments 09/20/2020 7:42 PM 09/21/2020 12:22 PM Care Teams Core Inspector Relationship Specialty Start Date End Date Fuad Dudley MD [address] [place] [address] PCP - General Family Medicine 11/29/20
--- OUTSIDE RECORDS SUMMARY | 2025-01-21 14:36 | XMS_ITS | Patient Health Record ---
Author Organization [facility] As [employer] [facility] Address [address] [facility] [address] [place] [address] Care Team Providers Care Health Care Coach Name Role Phone Fuad Dudley MD Primary Care Provider UnavailRoya Maldonado Unavailable [phone] Daniela Gutierrez Unavailable [phone] Nicolette Boyd Unavailable [phone] Jose Fitch Unavailable [phone] Migration, Provider Unavailable Unavailable Allergies No Known Allergies Results Component Value Reference Range Notes Benzodiazepines Reviewed date:12/26/2024 11:13:13 AM Interpretation: Performing Lab:[address] [place] [address], [address] [place] [address], Director - [id number] Notes/Report: An exception occurred while processing this report and so it has incomplete data. Please contact [employer] for assistance. Medicated Consistent Medicated Consistent [...] Not Medicated Consistent Not Medicated Consistent Specific [place] 1.019 1.003 - 1.030 pH 7.0 3.0 [...] Oxazepam (BZO) POS 0 - 300 ng/ml 4-hjttlbuuba-7,3-iajhjgud-6, 3-diphenylpyr rolidine (EDDP) NEG 0 - 300 ng/ml Methamphetamine (MET) NEG 0 - 1000 ng/ml Methylenedioxymethamphetamine (MDMA) NEG 0 - 500 ng/ml Morphine (MOP 300/[id number]) NEG 0 - 300 ng/ml Methadone (MTD) NEG 0 - 300 ng/ml Phencyclidine (PCP) NEG 0 - 25 ng/ml Nortriptyline (TCA) NEG 0 - 1000 ng/ml Oxycodone NEG 0 - 300 ng/ml x NEG 0 - 300 ng/ml Benzodiazepines Reviewed date:12/05/2024 01:06:40 PM Interpretation: Performing Lab:[address] [place] [address], [address] [place] [address], Director - [id number] Notes/Report: An exception occurred while processing this report and so it has incomplete data. Please contact [employer] for assistance. Medicated Consistent Medicated Consistent [...] Not Medicated Consistent Not Medicated Consistent Specific [place] 1.011 1.003 - 1.030 pH 7.3 3.0 - 10.9 Oxidants -12 200 g/mL Creatinine 158.7 20.0 - 300.0 mg/dL UDT Reviewed date:04/04/2024 11:15:14 AM Interpretation: Performing Lab: Notes/Report: THC N 0 - 50 ng/ml Cocaine N 0 - 300 ng/ml Amphetamine N 0 - 1000 ng/ml Buprenorphine (BUP) N 0 - 10 ng/ml Secobarbital (Bar) N 0 - 300 ng/ml Oxazepam (BZO) P 0 - 300 ng/ml 4-vtkrtrksie-4,6-tgyzdvkb-8, 3-diphenylpyr rolidine (EDDP) N 0 - 300 ng/ml Methamphetamine (MET) N 0 - 1000 ng/ml Methylenedioxymethamphetamine (MDMA) N 0 - 500 ng/ml Morphine (MOP 300/[id number]) N 0 - 300 ng/ml Methadone (MTD) [...] Oxazepam (BZO) POS 0 - 300 ng/ml 3-kogjdaxtyo-0,7-oruxrvls-4, 3-diphenylpyr rolidine (EDDP) NEG 0 - 300 ng/ml Methamphetamine (MET) NEG 0 - 1000 ng/ml Methylenedioxymethamphetamine (MDMA) NEG 0 - 500 ng/ml Morphine (MOP 300/[id number]) NEG 0 - 300 ng/ml Methadone (MTD) NEG 0 - 300 ng/ml Phencyclidine (PCP) NEG 0 - 25 ng/ml Nortriptyline (TCA) NEG 0 - 1000 ng/ml Oxycodone NEG 0 - 300 ng/ml x NEG 0 - 300 ng/ml Reason For Referral No Information Medications Medication [...] Severe recurrent major depression without psychotic features (21443591) Major depressive disorder, recurrent severe without psychotic features (F33.2) Active confirmed Problem Generalized anxiety disorder (14512822) Generalized anxiety disorder (F41.1) Active confirmed Problem Primary insomnia (8554682) Primary insomnia (F51.01) Active confirmed Problem Encounter for screening for cardiovascular disorders (Z13.6) Active confirmed Problem Depression Screening (513056529) Encounter for screening for depression (Z13.31) Active confirmed Problem 70428233 Primary hypertension (I10) Active confirmed Problem 025209430 Chronic post-traumatic stress disorder (PTSD) (F43.12) Active confirmed Problem Tardive dyskinesia (325615321) Tardive dyskinesia (G24.01) Active confirmed Problem Involuntary movement (finding) (678120520) Involuntary movements (R25.9) Active confirmed Vital Signs Heart Rate 74 /min 12/23/2024 Respiratory Rate 18 /min 06/02/2024 Height-cm 167.64 cm 12/23/2024 Blood pressure diastolic 76 mm Hg 12/23/2024 Weight-kg 83.92 kg 12/23/2024 Height 66.00 in 12/23/2024 Blood pressure systolic 114 mm Hg 12/23/2024 Weight 185 lbs 12/23/2024 BMI 29.86 kg/m2 12/23/2024 Encounters Encounter Location Date Provider Diagnosis [facility] [employer] [facility] [address] [place] [address] 02/04/2024 Jose Constantine Primary insomnia F51.01 ; Major depressive disorder, recurrent severe without psychotic features F33.2 and Generalized anxiety disorder F41.1 [facility] [place] [facility] [address] [place] [address] 03/03/2024 Jose Constantine Major depressive disorder, recurrent severe without psychotic features F33.2 ; Generalized anxiety disorder F41.1 and Primary insomnia F51.01 [facility] [place] [facility] [address] [place] [address] 04/04/2024 Jose Constantine Major depressive disorder, recurrent severe without psychotic features F33.2 ; Generalized anxiety disorder F41.1 and Primary insomnia F51.01 [email or web address] [address] [place] [address] 05/12/2024 Nicolette Boyd Major depressive disorder, recurrent severe without psychotic features F33.2 and Generalized anxiety disorder F41.1 [email or web address] [address] [place] [address] 06/02/2024 Roya Therzak Major depressive disorder, recurrent severe without psychotic features F33.2 ; Generalized anxiety disorder F41.1 and Primary insomnia F51.01 [facility] [place] [facility] [address] [place] [address] 06/30/2024 Roya Thery Generalized anxiety disorder F41.1 ; Major depressive disorder, recurrent severe without psychotic features F33.2 ; Primary insomnia F51.01 and Primary hypertension I10 [email or web address] [address] [place] [address] 08/28/2024 Roya Thery Generalized anxiety disorder F41.1 ; Major depressive disorder, recurrent severe without psychotic features F33.2 ; Primary insomnia F51.01 and Primary hypertension I10 [facility], [facility] [address] [place] [address] 11/27/2024 Roya Cuellar Encounter for screening for depression Z13.31 ; Encounter for screening for cardiovascular disorders Z13.6 ; Generalized anxiety disorder F41.1 ; Major depressive disorder, recurrent severe without psychotic features F33.2 ; Primary insomnia F51.01 ; Primary hypertension I10 ; Involuntary movements R25.9 and Tardive dyskinesia G24.01 [facility], [facility] [address] [place] [address] 12/23/2024 Roya Cuellar Encounter for screening for depression Z13.31 ; Encounter for screening for cardiovascular disorders Z13.6 ; Generalized anxiety disorder F41.1 ; Major depressive disorder, recurrent severe without psychotic features F33.2 ; Primary insomnia F51.01 ; Primary hypertension I10 ; Involuntary movements R25.9 ; Tardive dyskinesia G24.01 and Chronic post-traumatic stress disorder (PTSD) F43.12 [facility], [facility] [address] [place] [address] 01/13/2025 Nicolette Boyd Major depressive disorder, recurrent severe without psychotic features F33.2 ; Generalized anxiety disorder F41.1 and Chronic post-traumatic stress disorder (PTSD) F43.12 [facility], [facility] [address] [place] [address] 01/22/2024 Provider Migration [facility], [facility] [address] [place] [address] 01/23/2024 Provider Migration [facility], [facility] [address] [place] [address] 02/02/2024 Provider [facility], [facility] [address] [place] [address] 02/03/2024 Provider Migration [facility], [facility] [address] [place] [address] 02/06/2024 [facility], [facility] [address] [place] [address] 02/22/2024 [facility] [address] [place] [address] 02/26/2024 Jose [facility], [facility] [address] [place] [address] 03/04/2024 [facility], [facility] [address] [place] [address] 03/27/2024 [facility], [facility] [address] [place] [address] 04/04/2024 [facility], [facility] [address] [facility] [address] [place] [address] 05/30/2024 Jose [facility], [facility] [address] [place] [address] 12/04/2024 Roya Cuellar [facility], [facility] [address] [facility] [address] [place] [address] 12/26/2024 Daniela Velazquez [facility], [facility] [address] [facility] [address] [place] [address] 12/31/2024 Roya Cuellar [facility], [facility] [address] [facility] [address] [place] [address] 01/05/2025 Roya Cuellar Assessments Encounter Date Diagnosis (ICD Code) Assessment [...] they are not interested in reading-based tasks. 03/03/2024 Generalized anxiety disorder (ICD-10 - F41.1) [...] 1. Depression discuss therapy options- [facility] T[facility]ie and would like to see someone else in [facility] Irritability and Agitation - Assessment: Patient [...] to 12 mg dose - PA started [facility] education on rx benefits, side effects, risk, discuss DXN and monitoring Counseling - Assessment: Patient has seen a counselor, Trixie, - Plan: Encourage healthy eating habits and excise and sleep hygenie and therapy 12/23/2024 Encounter for screening for depression (ICD-10 - Z13.31) 1. Depression- conitnue to have depression discuss therapy options- [facility] T[facility] and would like to see someone else [facility] refer to Daniela for EDMR Irritability and [...] pateint having improved TD last few weeks [facility] education on rx benefits, side effects, risk, discuss DXN and monitoring 6. PTSD Counseling - Assessment: Patient has seen a counselor, Refer to Daniela RAMIREZ TRAUMA HX use Calm Jaiden relaxation techinque discuss breathing excises - Plan: Encourage healthy eating habits and excise and sleep hygenie and therapy 01/13/2025 Major depressive disorder, recurrent severe without psychotic features (ICD-10 - F33.2) 02/04/2024 Major depressive disorder, recurrent severe without psychotic features (ICD-10 - F33.2) 02/04/2024 Generalized anxiety disorder (ICD-10 - F41.1) 02/04/2024 Primary insomnia (ICD-10 - F51.01) 01/13/2025 Generalized anxiety disorder (ICD-10 - F41.1) 12/23/2024 Encounter for screening for cardiovascular disorders (ICD-10 - Z13.6) 1. Depression- conitnue to have depression discuss therapy options- refer to KISHOR dominguez and would like to see someone else [facility] refer to Daniela garrido [facility] Irritability and Agitation - Assessment: [...] pateint having improved TD last few weeks [facility] education on rx benefits, side [...] to 12 mg dose - PA started [facility] education on rx benefits, side effects, [...] and reassess at the next visit. 04/04/2024 Generalized anxiety disorder (ICD-10 - F41.1) [...] they are not interested in reading-based tasks. 06/02/2024 Primary insomnia (ICD-10 - F51.01) Irritability [...] excise and sleep hygenie and therapy 12/23/2024 Generalized anxiety disorder (ICD-10 - F41.1) 1. Depression- conitnue to have depression discuss therapy options- [facility] Trixie dominguez and would like to see someone else in [facility] refer to Daniela for EDMR Irritability and [...] having improved TD last few weeks [facility] education on rx benefits, side effects, risk, discuss DXN and monitoring 6. PTSD Counseling - Assessment: Patient has seen a counselor, Refer to Daniela RAMIREZ TRAUMA HX use Calm Jaiden relaxation techinque discuss breathing excises - Plan: Encourage healthy eating habits and excise and sleep hygenie and therapy 11/27/2024 Generalized anxiety disorder (ICD-10 - F41.1) 1. Depression discuss therapy options- [facility] Trixie and would like to see someone else in [facility] Irritability and Agitation - Assessment: Patient [...] to 12 mg dose - PA started [facility] education on rx benefits, side effects, risk, discuss DXN and monitoring Counseling - Assessment: Patient has seen a counselor, Trixie, - Plan: Encourage healthy eating habits and excise and sleep hygenie and therapy 01/13/2025 Chronic post-traumatic stress disorder (PTSD) (ICD-10 - F43.12) 12/23/2024 Major depressive disorder, recurrent severe without psychotic features (ICD-10 - F33.2) 1. Depression- conitnue to have depression discuss therapy options- [facility] Trixie dominguez and would like to see someone else in [facility] refer to Daniela for EDMR Irritability and [...] pateint having improved TD last few weeks [facility] education on rx benefits, side [...] would like to see someone else in [facility] refer to Daniela for [facility] Irritability and Agitation - Assessment: [...] pateint having improved TD last few weeks [facility]acy education on rx benefits, side [...] 1. Depression discuss therapy options- [facility] Trixie hx and would like to [...] to 12 mg dose - PA started [facility] education on rx benefits, side effects, [...] to 12 mg dose - PA started [facility] education on rx benefits, side effects, risk, discuss DXN and monitoring Counseling - Assessment: Patient has seen a counselor, Trixie, - Plan: Encourage healthy eating habits and excise and sleep hygenie and therapy 12/23/2024 Primary hypertension (ICD-10 - I10) 1. Depression- conitnue to have depression discuss therapy options- refer to KISHOR dominguez and would like to see someone else [facility] refer to Daniela for EDMR Irritability and [...] pateint having improved TD last few weeks [facility] education on rx benefits, side [...] would like to see someone else in [facility] refer to Daniela for ED Irritability and Agitation - Assessment: Patient reports [...] pateint having improved TD last few weeks [facility] education on rx benefits, side [...] would like to see someone else [facility] Irritability and Agitation - Assessment: Patient [...] to 12 mg dose - PA started [facility] education on rx benefits, side effects, risk, discuss DXN and monitoring Counseling - Assessment: Patient has seen a counselor, Trixie, - Plan: Encourage healthy eating habits and excise and sleep hygenie and therapy 11/27/2024 Involuntary movements (ICD-10 - R25.9) 1. Depression discuss therapy options- [facility] Trixie hx and would like to see someone else in [facility] Irritability and Agitation - Assessment: Patient [...] to 12 mg dose - PA started [facility] education on rx benefits, side effects, [...] to 12 mg dose - PA started [facility] education on rx benefits, side effects, [...] have depression discuss therapy options- [facility] Trixie dominguez and would like to see someone else in [facility] refer to Daniela for EDMR Irritability and [...] having improved TD last few weeks [facility] education on rx benefits, side effects, risk, discuss DXN and monitoring 6. PTSD Counseling - Assessment: Patient has seen a counselor, Refer to Daniela [facility] TRAUMA HX use Calm Jaiden relaxation techinque discuss breathing excises - Plan: Encourage healthy eating habits and excise and sleep hygenie and therapy 12/23/2024 Chronic post-traumatic stress disorder (PTSD) (ICD-10 - F43.12) 1. Depression- conitnue to have depression discuss therapy options- [facility] Trixie dominguez and would like to see someone else in [facility] refer to Daniela for [facility] Irritability and Agitation - Assessment: [...] having improved TD last few weeks [facility] education on rx benefits, side effects, [...] Therapist was able to talk to the bank secrecy act officer to get approval for this provider [...] this is contributing to her lack of motivation.Nicola patel actively listened to client and utilized a cognitve behavioral intervention to herlp her explore strategies to improve motivation (usintg a timer to ensure she is getting up every hour, making a list of calming activities). Plan Of Treatment Next Appt Details Provider Name:Roya Cuellar , 01/22/2025 03:45:00 PM, [address], [facility] [address], [place], [address], Provider Name:Nicolette Boyd , 02/13/2025 11:00:00 AM, [address], [facility] [address], [place], [address], Insurance Providers Payer Name Payer Address Payer Phone Subscriber Number Group Number Insured Name Patient Relationship to Insured Coverage Start Date Coverage End Date [place] [address] [place] [address] [id number] NABOR SANATNA Self - patient is the insured [employer] Medicare Supplement [address] [employer] [facility] [place] [address] [id number] NABOR SANTANA Self - patient is the insured Medical (General) History Medical History History ICD Code Problems: Chronic post-traumatic stress disorder Generalized anxiety disorder Long-term drug therapy Primary insomnia Severe recurrent major depression withou t psychotic features Surgical History Surgery Date(Month/Year) Removal of gallbladder (79287) 8 Any surgical history 05/14/2021 knee surgery rt torn hernia
== END 2025-01-21 14:27 | disposition home or self-care (01) ==
PROVIDERS: PCP Family Medicine; Visit Provider Physician Assistant Medical
DX: R06.09 Other forms of dyspnea (principal); Z87.898 Personal history of other specified conditions; R91.8 Other nonspecific abnormal finding of lung field
CPT/HCPCS: 71250

== ENCOUNTER 2025-01-22 13:39 | Outpatient (CLI) | payer MEDICARE, OTHER, SELFPAY ==
--- NOTE | ~2025-01-22 | DEXA_ITS ---
Bone Density Report Name: NABOR SANTANA Age: 74 Sex: Female Ethnicity: White Date of : 1950 Indication: postmenopausal; screening for osteoporosis; parental hip fracture; Referring Provider: FATUMA YI Study: Bone densitometry was performed. Exam Date: January 22, 2025 Accession number: [id number] Bone Density: Region BMD T-score Z-score Classification AP Spine(L1-L4) 0.992 -0.5 2.0 Normal Femoral Neck (Left) 0.703 -1.3 0.8 Osteopenia Total Hip (Left) 0.833 -0.9 1.0 Normal Femoral Neck (Right) 0.644 -1.8 0.3 Osteopenia Total Hip (Right) 0.848 -0.8 1.1 Normal Total Hip Mean 0.841 -0.9 1.1 Normal World Health Organization criteria for BMD impression classify patients as: Normal (T-score at or above -1.0), Osteopenia (T-score between -1.0 and -2.5), or Osteoporosis (T-score at or below -2.5). 10-year Fracture Risk(1): Major Osteoporotic Fracture 23% Hip Fracture 13% Reported Risk Factors: [place] (), Neck BMD=0.644, BMI=28.8, parental fracture (1) FRAX(R) Version 3.08. Fracture probability calculated for an untreated patient. Fracture probability may be lower if the patient has received treatment. Previous Exams: Region Exam Age BMD T-score BMD Change BMD Change Date g/cm2 vs Baseline vs Previous Total Hip(Left) 01/22/2025 74 0.833 -0.9 -0.042 (-4.8%) -0.042 (-4.8%) 07/12/2021 70 0.875 -0.5 Total Hip(Right) 01/22/2025 74 0.848 -0.8 0.016 (2.0%) 0.016 (2.0%) 07/12/2021 70 0.832 -0.9 *Denotes significance at 95% confidence level, LSC for Total Hip = 0.027 g/cm2 Clinical Information Provided by Patient: Parent has had a hip fracture Has used the following medications: Vitamin D Patient maximum height was 66 Menopause Age: 48 No regular weight bearing exercise Does not regularly consume dairy products Drinks caffeinated beverages Onset of menses at age 11 Number of children 3 Impression: The patient has low bone mass, based on the Right Femoral Neck T-score. The patient has an estimated ten-year risk of hip fracture of 13% and an estimated ten-year risk of major fracture of 23%, based on the WHO FRAX algorithm. The patient has risk factors, including: parental hip fracture. The BMD for the Total Hip(Left) decreased, changing by -4.8% since the last DXA exam. Discussion: BONE DENSITY IS LOW AT ONE OR MORE SKELETAL SITES. THE PATIENT'S BMD AND CLINICAL RISK FACTORS CONTRIBUTE TO THIS PATIENT'S HIGH RISK OF FRACTURE. This patient's lowest T-score is low at one or more skeletal sites. It meets the World Health Organization's (WHO) criteria for ?low bone mass? (T-score between -1.0 and -2.5). The patient's 10-year risk of hip fracture and 10 year risk of a major osteoporotic fracture as calculated by FRAX exceeds the threshold where pharmacological therapy is recommended by the National Osteoporosis Foundation (NOF). However, all treatment decisions require clinical judgment and consideration of individual patient factors, including patient preferences, comorbidities, previous drug use, risk factors not captured in the FRAX model (e.g., frailty, falls, vitamin D deficiency, increased bone turnover, interval significant decline in bone density) and possible under or overestimation of fracture risk by FRAX. The patient should follow a healthful lifestyle (good nutrition with adequate calcium and vitamin D, and appropriate weight-bearing exercise). Follow-Up: Consider a repeat BMD and Vertebral Fracture Assessment (VFA) exam in 2 years or sooner if medically necessary, to reassess this patient's status. Reported by: MAG on 01/22/2025 2:20:00 PM. Reviewed, dictated and finalized at location A.
--- OUTSIDE RECORDS SUMMARY | 2025-01-22 13:42 | XMS_ITS | Referral Summary ---
Author Organization [facility] al Address [address] [place] [address] Care Team Providers Care Clinical Program Director Name Role Phone Fuad Dudley MD Primary [...] (09/21/2020): Added automatically from request for surgery [id number] Hiatal hernia with GERD 09/20/2020 Overview (09/22/2020): Added automatically from request for surgery [id number] Hypertension Lipid screening Dizziness Social History Tobacco Use Types Packs/Day Years Used Date Smoking Tobacco: Never Smokeless Tobacco: Never Tobacco Cessation:Counseling Given: Not Answered Comments No Sex and Gender Information Value Date Recorded Sex Assigned at Not on file 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 Gender Identity Not on file Sexual Orientation Not on file Last Filed Vital Signs Vital Sign Reading Time Taken Comments Blood Pressure 102/60 05/12/2024 11:42 AM CDT Pulse 88 05/12/2024 11:42 AM CDT Temperature 36.5 C (97.7 F) 12/15/2020 2:01 PM CDT Respiratory Rate 18 09/25/2020 8:45 AM CODING SPECIALIST Oxygen Saturation 94% 05/12/2024 11:42 AM CDT Inhaled Oxygen Concentration - - Weight 90.3 kg (199 lb) 05/12/2024 11:42 AM CDT Height 165.1 cm (5' 5 ) 05/12/2024 11:42 AM CDT Body Mass Index 33.12 05/12/2024 11:42 AM CDT Plan of Treatment Not on file Insurance MEDICARE [facility] Address: [address] [address] [place] [address] [employer] SENIOR SUPP[employer]MENT MEDICARE [facility] MEDICARE [facility] [place] [address] Advance Directives For more information, please contact: [phone] * Full Code (Latest Code Status on File) Date Activated Date Inactivated Comments 09/21/2020 12:22 PM 09/25/2020 6:54 PM * Full Code Date Activated Date Inactivated Comments 09/20/2020 7:42 PM 09/21/2020 12:22 PM Care Teams Clinical Program Director Relationship Specialty Start Date End Date Fuad Dudley MD [address] [place] [address] PCP - General Family Medicine 11/29/20
--- OUTSIDE RECORDS SUMMARY | 2025-01-22 13:42 | XMS_ITS | Clinical Summary ---
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
--- OUTSIDE RECORDS SUMMARY | 2025-01-22 13:42 | XMS_ITS | Patient Health Record ---
Author Organization [facility] [employer] [facility] Address [address] [facility] [address] [place] [address] Care Team Providers Care Parking Lot Supervisor Name Role Phone Fuad Dudley MD Primary Care Provider UnavailRoya Maldonado Unavailable [phone] Daniela Gutierrez Unavailable [phone] Nicolette Boyd Unavailable [phone] Jose Fitch Unavailable [phone] Migration, Provider Unavailable Unavailable Allergies No Known Allergies Results Component Value Reference Range Notes Benzodiazepines Reviewed date:12/26/2024 11:13:13 AM Interpretation: Performing Lab:[address] [place] [address], [address] [place] [address], Director - [id number] Notes/Report: An exception occurred while processing this report and so it has incomplete data. Please contact [facility] [employer] for assistance. Medicated Consistent Medicated Consistent [...] Not Medicated Consistent Not Medicated Consistent Specific [place] 1.019 1.003 - 1.030 pH 7.0 3.0 [...] Oxazepam (BZO) POS 0 - 300 ng/ml 9-sgfxmfgjls-0,1-afhcncqc-0, 3-diphenylpyr rolidine (EDDP) NEG 0 - 300 ng/ml Methamphetamine (MET) NEG 0 - 1000 ng/ml Methylenedioxymethamphetamine (MDMA) NEG 0 - 500 ng/ml Morphine (MOP 300/[id number]) NEG 0 - 300 ng/ml Methadone (MTD) NEG 0 - 300 ng/ml Phencyclidine (PCP) NEG 0 - 25 ng/ml Nortriptyline (TCA) NEG 0 - 1000 ng/ml Oxycodone NEG 0 - 300 ng/ml x NEG 0 - 300 ng/ml Benzodiazepines Reviewed date:12/05/2024 01:06:40 PM Interpretation: Performing Lab:[address] [place] [address], [address] [place] [address], Director - [id number] Notes/Report: An exception occurred while processing this report and so it has incomplete data. Please contact [facility] for assistance. Medicated Consistent Medicated Consistent [...] Not Medicated Consistent Not Medicated Consistent Specific [place] 1.011 1.003 - 1.030 pH 7.3 3.0 - 10.9 Oxidants -12 200 g/mL Creatinine 158.7 20.0 - 300.0 mg/dL UDT Reviewed date:11/27/2024 11:37:42 AM Interpretation: Performing Lab: Notes/Report: THC NEG 0 - 50 ng/ml Cocaine NEG 0 - 300 ng/ml Amphetamine NEG 0 - 1000 ng/ml Buprenorphine (BUP) NEG 0 - 10 ng/ml Secobarbital (Bar) NEG 0 - 300 ng/ml Oxazepam (BZO) POS 0 - 300 ng/ml 3-yfdgdehwkw-3,0-umbvrlet-6, 3-diphenylpyr rolidine (EDDP) NEG 0 - 300 ng/ml Methamphetamine (MET) NEG 0 - 1000 ng/ml Methylenedioxymethamphetamine (MDMA) NEG 0 - 500 ng/ml Morphine (MOP 300/HFL3615) NEG 0 - 300 ng/ml Methadone (MTD) NEG 0 - 300 ng/ml Phencyclidine (PCP) NEG 0 - 25 ng/ml Nortriptyline (TCA) NEG 0 - 1000 ng/ml Oxycodone NEG 0 - 300 ng/ml x NEG 0 - 300 ng/ml UDT Reviewed date:04/04/2024 11:15:14 AM Interpretation: Performing Lab: Notes/Report: THC N 0 - 50 ng/ml Cocaine N 0 - 300 ng/ml Amphetamine N 0 - 1000 ng/ml Buprenorphine (BUP) N 0 - 10 ng/ml Secobarbital (Bar) N 0 - 300 ng/ml Oxazepam (BZO) P 0 - 300 ng/ml 4-enbelyxgrf-2,4-rktpqvfq-5, 3-diphenylpyr rolidine (EDDP) N 0 - 300 ng/ml Methamphetamine (MET) N 0 - 1000 ng/ml Methylenedioxymethamphetamine (MDMA) N 0 - 500 ng/ml Morphine (MOP 300/[id number]) N 0 - 300 ng/ml Methadone (MTD) N 0 - 300 ng/ml Phencyclidine (PCP) N 0 - 25 ng/ml Nortriptyline (TCA) N 0 - 1000 ng/ml Oxycodone N 0 - 300 ng/ml x N 0 - 300 ng/ml Reason For Referral [...] Vaccine Route Administration Date Status Comme nts Influenza, high dose seasonal Unknown 07/12/2015 Admini stered Influenza, high dose seasonal Unknown 07/12/2016 Admini stered Influenza, high dose seasonal Unknown 06/27/2017 Admini stered Influenza, high dose seasonal Unknown 07/23/2018 Admini stered Influenza, high dose seasonal Unknown 07/09/2019 Admini stered Influenza, seasonal, injecta ble, preservative free, 3 yrs and above Unknown 07/22/2012 Administered Moderna Covid-19 Vaccine 1st dose Unknown 11/19/2020 Ad ministered Moderna Covid-19 Vaccine 1st dose Unknown 12/17/2020 Ad ministered Pneumococcal conjugate PCV 13 Unknown 07/23/2018 Admini stered Pneumococcal polysaccharide PPV23 Unknown 07/04/2013 Ad ministered Pneumococcal polysaccharide PPV23 Unknown 12/26/2016 Ad ministered Tdap Unknown 07/22/2012 Administered Social History Tobacco Use: Social History Observation [...] Severe recurrent major depression without psychotic features (13993279) Major depressive disorder, recurrent severe without psychotic features (F33.2) Active confirmed Problem Generalized anxiety disorder (68836982) Generalized anxiety disorder (F41.1) Active confirmed Problem Primary insomnia (8380807) Primary insomnia (F51.01) Active confirmed Problem Screening for cardiovascular system disease (947756484) Encounter for screening for cardiovascular disorders (Z13.6) Active confirmed Problem Depression Screening (611354518) Encounter for screening for depression (Z13.31) Active confirmed Problem 80658812 Primary hypertension (I10) Active confirmed Problem 444105426 Chronic post-traumatic stress disorder (PTSD) (F43.12) Active confirmed Problem Tardive dyskinesia (457240004) Tardive dyskinesia (G24.01) Active confirmed Problem Involuntary movement (finding) (915774572) Involuntary movements (R25.9) Active confirmed Vital Signs Heart Rate 74 /min 12/23/2024 Respiratory Rate 18 /min 06/02/2024 Height-cm 167.64 cm 12/23/2024 Blood pressure diastolic 76 mm Hg 12/23/2024 Weight-kg 83.92 kg 12/23/2024 Height 66.00 in 12/23/2024 Blood pressure systolic 114 mm Hg 12/23/2024 Weight 185 lbs 12/23/2024 BMI 29.86 kg/m2 12/23/2024 Encounters Encounter Location Date Provider Diagnosis [facility] [employer] [facility] [address] [place] [address] 02/04/2024 Jose Constantine Primary insomnia F51.01 ; Major depressive disorder, recurrent severe without psychotic features F33.2 and Generalized anxiety disorder F41.1 [facility] [employer] [facility] [address] [place] [address] 03/03/2024 Jose Constantine Major depressive disorder, recurrent severe without psychotic features F33.2 ; Generalized anxiety disorder F41.1 and Primary insomnia F51.01 [facility] [employer] [facility] [address] [place] [address] 04/04/2024 Jose Constantine Major depressive disorder, recurrent severe without psychotic features F33.2 ; Generalized anxiety disorder F41.1 and Primary insomnia F51.01 [facility] [employer] [facility] [address] [place] [address] 05/12/2024 Nicolette Boyd Major depressive disorder, recurrent severe without psychotic features F33.2 and Generalized anxiety disorder F41.1 [facility] [employer] [facility] [address] [place] [address] 06/02/2024 Royayamileth Cuellar Major depressive disorder, recurrent severe without psychotic features F33.2 ; Generalized anxiety disorder F41.1 and Primary insomnia F51.01 [facility] [employer] [facility] [address] [place] [address] 06/30/2024 Roya Therzak Generalized anxiety disorder F41.1 ; Major depressive disorder, recurrent severe without psychotic features F33.2 ; Primary insomnia F51.01 and Primary hypertension I10 [facility] [employer] [facility] [address] [place] [address] 08/28/2024 Roya Therzak Generalized anxiety disorder F41.1 ; Major depressive disorder, recurrent severe without psychotic features F33.2 ; Primary insomnia F51.01 and Primary hypertension I10 [facility], [facility] [address] [place] [address] 11/27/2024 Roya Cuellar Encounter for screening for depression Z13.31 ; Encounter for screening for cardiovascular disorders Z13.6 ; Generalized anxiety disorder F41.1 ; Major depressive disorder, recurrent severe without psychotic features F33.2 ; Primary insomnia F51.01 ; Primary hypertension I10 ; Involuntary movements R25.9 and Tardive dyskinesia G24.01 [facility], [facility] [address] [place] [address] 12/23/2024 Roya Cuellar Encounter for screening for depression Z13.31 ; Encounter for screening for cardiovascular disorders Z13.6 ; Generalized anxiety disorder F41.1 ; Major depressive disorder, recurrent severe without psychotic features F33.2 ; Primary insomnia F51.01 ; Primary hypertension I10 ; Involuntary movements R25.9 ; Tardive dyskinesia G24.01 and Chronic post-traumatic stress disorder (PTSD) F43.12 [facility], [facility] [address] [place] [address] 01/13/2025 Nicolette Boyd Major depressive disorder, recurrent severe without psychotic features F33.2 ; Generalized anxiety disorder F41.1 and Chronic post-traumatic stress disorder (PTSD) F43.12 [facility], [facility] [address] [place] [address] 01/23/2024 Provider Migration [facility], [facility] [address] [place] [address] 02/02/2024 Provider Migration [facility], [facility] [address] [place] [address] 02/03/2024 Provider Migration [facility], [facility] [address] [place] [address] 02/06/2024 Provider [facility], [facility] [address] [place] [address] 02/22/2024 Jose Constantine [facility], [facility] [address] [place] [address] 02/26/2024 Jose Fitch [facility], [facility] [address] [place] [address] 03/04/2024 [facility] [address] [place] [address] 03/27/2024 Jose Fitch [facility], [facility] [address] [place] [address] 04/04/2024 [facility] [address] [facility] [address] [place] [address] 05/30/2024 Josejony Fitch [facility], [facility] [address] [place] [address] 12/04/2024 Roya Cuellar [facility], [facility] [address] [facility] [address] [place] [address] 12/26/2024 Daniela Velazquez [facility], [facility] [address] [place] [address] 12/31/2024 Roya Cuellar [facility], [facility] [address] [facility] [address] [place] [address] 01/05/2025 Roya Cuellar Assessments Encounter Date Diagnosis [...] copy given - Plan: discuss medication options [place] - SLUMS reviewed = 24 06/30/24- discuss [...] 1. Depression discuss therapy options- refer to [facility] Trixie dominguez and would like to see someone else in [facility] Irritability and Agitation - Assessment: Patient [...] to 12 mg dose - PA started [facility] education on rx benefits, side effects, risk, discuss DXN and monitoring Counseling - Assessment: Patient has seen a counselor, Trixie, - Plan: Encourage healthy eating habits and excise and sleep hygenie and therapy 12/23/2024 Encounter for screening for depression (ICD-10 - Z13.31) 1. Depression- conitnue to have depression discuss therapy options- refer to [facility] Trixie dominguez and would like to see someone else in [facility] refer to Daniela for EDMR Irritability [...] pateint having improved TD last few weeks [facility] education on rx benefits, side effects, [...] would like to see someone else in [facility] refer to Daniela RAMIREZ Irritability and Agitation - Assessment: Patient reports [...] pateint having improved TD last few weeks [facility] education on rx benefits, side effects, [...] saples given to 12 mg dose - MS started [facility] education on rx benefits, side effects, [...] have depression discuss therapy options- refer to [facility] Trixie dominguez and would like to see someone else in [facility] refer to Daniela for EDMR Irritability [...] pateint having improved TD last few weeks [facility] education on rx benefits, side effects, [...] Depression discuss therapy options- refer to KISHOR Marcum and would like to see someone else [...] saples given to 12 mg dose - MS started [facility] education on rx benefits, side effects, [...] have depression discuss therapy options- refer to [facility] Trixie dominguez and would like to see someone else in [facility] refer to Daniela for EDMR Irritability [...] pateint having improved TD last few weeks [facility] education on rx benefits, side effects, [...] would like to see someone else in [facility] refer to Daniela for ASHLEY Irritability and Agitation - Assessment: Patient reports [...] pateint having improved TD last few weeks [facility] education on rx benefits, side effects, [...] 1. Depression discuss therapy options- refer to [facility] Trixie and would like to see someone else in [facility] Irritability and Agitation - Assessment: Patient [...] to 12 mg dose - PA started [facility] education on rx benefits, side effects, risk, discuss DXN and monitoring Counseling - Assessment: Patient has seen a counselor, Trixie, - Plan: Encourage healthy eating habits and excise and sleep hygenie and therapy 11/27/2024 Primary insomnia (ICD-10 - F51.01) 1. Depression discuss therapy options- refer to [facility] Trixie and would like to see someone else in [facility] Irritability and Agitation - Assessment: Patient [...] to 12 mg dose - PA started [facility] education on rx benefits, side effects, risk, discuss DXN and monitoring Counseling - Assessment: Patient has seen a counselor, Trixie, - Plan: Encourage healthy eating habits and excise and sleep hygenie and therapy 12/23/2024 Primary hypertension (ICD-10 - I10) 1. Depression- conitnue to have depression discuss therapy options- refer to KISHOR dominguez and would like to see someone else in [facility] refer to Daniela for EDMR Irritability [...] pateint having improved TD last few weeks [facility] education on rx benefits, side effects, [...] would like to see someone else in [facility] refer to Daniela for [facility] Irritability and Agitation - Assessment: Patient reports [...] pateint having improved TD last few weeks [facility] education on rx benefits, side effects, [...] to 12 mg dose - PA started [facility] education on rx benefits, side effects, risk, discuss DXN and monitoring Counseling - Assessment: Patient has seen a counselor, Trixie, - Plan: Encourage healthy eating habits and excise and sleep hygenie and therapy 11/27/2024 Involuntary movements (ICD-10 - R25.9) 1. Depression discuss therapy options- refer to [facility] Trixie dominguez and would like to see someone else in [facility] Irritability and Agitation - Assessment: Patient [...] to 12 mg dose - PA started [facility] education on rx benefits, side effects, [...] would like to see someone else in [facility] Irritability and Agitation - Assessment: Patient [...] to 12 mg dose - PA started [facility] education on rx benefits, side effects, [...] have depression discuss therapy options- refer to [facility] Trixie dominguez and would like to see someone else in [facility] refer to Daniela for EDMR Irritability [...] pateint having improved TD last few weeks [facility] education on rx benefits, side effects, [...] have depression discuss therapy options- refer to [facility] Trixie dominguez and would like to see someone else in [facility] refer to Daniela for [facility] Irritability and Agitation - Assessment: Patient [...] having improved TD last few weeks [facility] education on rx benefits, side effects, [...] was able to talk to the bank compliance officer to get approval for this provider [...] Of Treatment Next Appt Details Provider Name:Roya Alisa , 01/22/2025 03:45:00 PM, [address], [place], [address], Provider Name:Nicolette Boyd , 02/13/2025 11:00:00 AM, [address], [address], [place], [address], Insurance Providers Payer Name Payer Address Payer Phone Subscriber Number Group Number Insured Name Patient Relationship to Insured Coverage Start Date Coverage End Date [place] [address] [facility] [address] [id number] NABOR SANTANA Self - patient is the insured [employer] Medicare Supplement [address] [facility] [address] [id number] NABOR SANTANA Self - patient is the insured Medical (General) History Medical History History ICD Code Problems: Chronic post-traumatic stress disorder Generalized anxiety disorder Long-term drug therapy Primary insomnia Severe recurrent major depression withou t psychotic features Surgical History Surgery Date(Month/Year) Removal of gallbladder (90831) 8 Any surgical history 05/14/2021 knee surgery rt torn hernia
--- OUTSIDE RECORDS SUMMARY | 2025-01-22 13:42 | XMS_ITS | Clinical Summary ---
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 Gender Identity Not on file Sexual Orientation Not on file Obstetrics History Last Filed Vital Signs Vital Sign Reading Time Taken Comments Blood Pressure 102/60 05/12/2024 11:42 AM CDT Pulse 88 05/12/2024 11:42 AM CDT Temperature 36.5 C (97.7 F) 12/15/2020 2:01 PM CDT Respiratory Rate 18 09/25/2020 8:45 AM SPECIAL EDUCATION COORDINATOR Oxygen Saturation 94% 05/12/2024 11:42 AM CDT [...] 07/04/2013 Insurance MEDICARE [employer] SENIOR SUPPLEMENT MEDICARE [facility] [place] MEDICARE [facility] Advance Directives For more information, please contact: [phone] * Full Code (Latest Code Status on File) Date Activated Date Inactivated Comments 09/21/2020 12:22 PM 09/25/2020 6:54 PM * Full Code Date Activated Date Inactivated Comments 09/20/2020 7:42 PM 09/21/2020 12:22 PM Care Teams Manager Of Photography Relationship Specialty Start Date End Date Fuad Dudley MD [address] [address] PCP - General Family Medicine 11/29/20
== END 2025-01-22 13:40 | disposition home or self-care (01) ==
PROVIDERS: PCP Family Medicine; Visit Provider Physician Assistant Medical
DX: M85.852 Other specified disorders of bone density and structure, left thigh (principal); M85.851 Other specified disorders of bone density and structure, right thigh; Z78.0 Asymptomatic menopausal state
CPT/HCPCS: 77080

== ENCOUNTER 2025-02-26 02:53 | Day surgery (SDC) | payer MEDICARE, OTHER, SELFPAY ==
[2025-02-16 10:28] VITALS: BMI 27.9
--- OUTSIDE RECORDS SUMMARY | 2025-02-26 02:56 | XMS_ITS | Clinical Summary ---
Author Organization [facility] Address [address] [place] [address] Care Team Providers Care [facility] Name Role Phone Fuad Dudley MD Primary [...] (09/21/2020): Added automatically from request for surgery [id number] Hiatal hernia with GERD 09/20/2020 Overview (09/22/2020): Added automatically from request for surgery [id number] Hypertension Lipid screening Dizziness Surgical History Surgery [...] on file Legal Sex Female 9:48 AM [employer] Gender Identity Not on file Sexual Orientation Not on file Obstetrics History Last Filed Vital Signs Vital Sign Reading Time Taken Comments Blood Pressure 102/60 05/12/2024 11:42 AM CDT Pulse 88 05/12/2024 11:42 AM CDT Temperature 36.5 C (97.7 F) 12/15/2020 2:01 PM CDT Respiratory Rate 18 09/25/2020 8:45 AM [employer] Oxygen Saturation 94% 05/12/2024 11:42 AM CDT Inhaled Oxygen Concentration - - Weight 90.3 kg (199 lb) 05/12/2024 11:42 AM CDT Height 165.1 cm (5' 5) 05/12/2024 11:42 AM CDT Body Mass Index [...] 07/04/2013 Insurance MEDICARE [employer] SENIOR SUPPLEMENT MEDICARE [place] MEDICARE [facility] [place] Advance Directives For more information, please contact: [phone] * Full Code (Latest Code Status on File) Date Activated Date Inactivated Comments 09/21/2020 12:22 PM 09/25/2020 6:54 PM * Full Code Date Activated Date Inactivated Comments 09/20/2020 7:42 PM 09/21/2020 12:22 PM Care Teams [facility] Relationship Specialty Start Date End Date Fuad Dudley MD [address] [id number] PCP - General Family Medicine 11/29/20
--- OUTSIDE RECORDS SUMMARY | 2025-02-26 02:56 | XMS_ITS | Patient Health Record ---
Author Organization [facility] Address [address] 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 Name Role Phone Fuad Dudley MD Primary Care Provider Unavaila Roya Mann Unavailable [phone] Daniela Gutierrez Unavailable [phone] Nicolette Boyd Unavailable [phone] Jose Fitch Unavailable [phone] Allergies No Known Allergies Results Component Value Reference Range Notes Validity Testing Reviewed date:12/05/2024 01:06:47 PM Interpretation: Performing Lab: Notes/Report: Not Medicated Consistent Not Medicated Consistent Not Medicated Consistent Not Medicated Consistent Specific Pablo 1.011 1.003 - 1.030 pH 7.3 3.0 - 10.9 Oxidants -12 200 g/mL Creatinine 158.7 20.0 - 300.0 mg/dL Benzodiazepines Reviewed date:12/05/2024 01:06:40 PM Interpretation: Performing Lab:[address] [place] [address], [address] [place] [address], Director - [id number] Notes/Report: An exception occurred while processing this report and so it has incomplete data. Please contact [employer] for assistance. Medicated Consistent Medicated Consistent [...] Not Medicated Consistent Not Medicated Consistent Specific Pablo 1.019 1.003 - 1.030 pH 7.0 3.0 - 10.9 Oxidants -17 200 g/mL Creatinine 220.6 20.0 - 300.0 mg/dL Benzodiazepines Reviewed date:12/26/2024 11:13:13 AM Interpretation: Performing Lab:[address] [place] [address], [address] [place] [address], Director - [phone] Notes/Report: An exception occurred while processing this report and so it has incomplete data. Please contact [email or web address] for assistance. Medicated Consistent Medicated Consistent Not [...] 212.0 20.0 ng/mL PDF Report [email or web address] [email or web address] UDT Reviewed date:04/04/2024 11:15:14 AM Interpretation: Performing Lab: Notes/Report: THC N 0 - 50 ng/ml Cocaine N 0 - 300 ng/ml Amphetamine N 0 - 1000 ng/ml Buprenorphine (BUP) N 0 - 10 ng/ml Secobarbital (Bar) N 0 - 300 ng/ml Oxazepam (BZO) P 0 - 300 ng/ml 6-uggaaixglw-7,9-ejjxaqyf-8, 3-diphenylpyr rolidine (EDDP) N 0 - 300 ng/ml Methamphetamine (MET) N 0 - 1000 ng/ml Methylenedioxymethamphetamine (MDMA) N 0 - 500 ng/ml Morphine (MOP 300/FVO2666) N 0 - 300 ng/ml Methadone (MTD) N 0 - 300 ng/ml Phencyclidine (PCP) N 0 - 25 ng/ml Nortriptyline (TCA) N 0 - 1000 ng/ml Oxycodone N 0 - 300 ng/ml x N 0 - 300 ng/ml UDT Reviewed date:12/23/2024 01:36:21 PM Interpretation: Performing Lab: Notes/Report: THC NEG 0 - 50 ng/ml Cocaine NEG 0 - 300 ng/ml Amphetamine NEG 0 - 1000 ng/ml Buprenorphine (BUP) NEG 0 - 10 ng/ml Secobarbital (Bar) NEG 0 - 300 ng/ml Oxazepam (BZO) POS 0 - 300 ng/ml 5-ywixsjdwax-4,3-nzkeaiqz-9, 3-diphenylpyr rolidine (EDDP) NEG 0 - 300 ng/ml Methamphetamine (MET) NEG 0 - 1000 ng/ml Methylenedioxymethamphetamine (MDMA) NEG 0 - 500 ng/ml Morphine (MOP 300/[id number]) NEG 0 - 300 ng/ml Methadone (MTD) NEG 0 - 300 ng/ml Phencyclidine (PCP) NEG 0 - 25 ng/ml Nortriptyline (TCA) NEG 0 - 1000 ng/ml Oxycodone NEG 0 - 300 ng/ml x NEG 0 - 300 ng/ml UDT Reviewed date:11/27/2024 11:37:42 AM Interpretation: Performing Lab: Notes/Report: THC NEG 0 - 50 ng/ml Cocaine NEG 0 - 300 ng/ml Amphetamine NEG 0 - 1000 ng/ml Buprenorphine (BUP) NEG 0 - 10 ng/ml Secobarbital (Bar) NEG 0 - 300 ng/ml Oxazepam (BZO) POS 0 - 300 ng/ml 9-bzelkiabgd-0,7-gjhcczwi-2, 3-diphenylpyr rolidine (EDDP) NEG 0 - 300 ng/ml Methamphetamine (MET) NEG 0 - 1000 ng/ml Methylenedioxymethamphetamine (MDMA) NEG 0 - 500 ng/ml Morphine (MOP 300/[id number]) NEG 0 - 300 ng/ml Methadone (MTD) NEG 0 - 300 ng/ml Phencyclidine (PCP) NEG 0 - 25 ng/ml Nortriptyline (TCA) NEG 0 - 1000 ng/ml Oxycodone NEG 0 - 300 ng/ml x NEG 0 - 300 ng/ml Reason For Referral No Information Medications Medication SIG (Take, Route, Frequency, Duration) Notes Start Date End Date Status Lisinopril 5 MG TAKE 1 TABLET (5 MG TOTAL) BY MOUTH DAILY. Oral for 90 Days Active Lisinopril 5 MG Oral 02/04/2024 Unk nown ARIPiprazole 15 MG 0.5 tablet at bedtime for 30 days d/c 5 mg dose Active Clobetasol Propionate 0.05 % External 02/04/2024 Unknown ALPRAZolam 0.25 MG 1 tablet Oral 4 times a day for 30 days 01/22/2025 Active Lisinopril 10 MG Oral 02/04/2024 Un known Zolpidem Tartrate 5 MG Oral 02/04/2024 Unknown metroNIDAZOLE 1 % External 02/04/2024 U nknown Zolpidem Tartrate 5 MG 1 tablet bedtime Oral bedtime for 30 days 11/27/2024 Active Atorvastatin Calcium 20 MG Oral 02/04/2024 Unknown Atorvastatin Calcium 20 MG 20 MG ORALLY EVERY DAY AT BEDTIME Oral for 90 Days Active Tretinoin 0.025 % External 02/04/2024 U nknown hydroCHLOROthiazide 12.5 MG TAKE 1 TABLET BY MOUTH EVERY DAY Oral for 90 Days Active metroNIDAZOLE 0.75 % External 02/04/2024 Unknown hydroCHLOROthiazide 12.5 MG Oral 02/04/2024 Unknown Clindamycin HCl 150 MG TAKE 1 CAPSULE 4 TIMES DAILY FOR 7 DAYS Oral for 7 Days Not-Taking Venlafaxine HCl ER 150 MG Oral 02/04/2024 Unknown ALPRAZolam 0.5 MG TAKE 1 TABLET BY MOUTH EVERY DAY FOR 30 DAYS for 30 appointment needed 11/12/2024 Not-Taking Venlafaxine HCl ER 75 MG Oral 02/04/2024 Unknown lamoTRIgine 150 MG 1 tablet Orally Once a day Oral Once a day for 30 days Active Immunizations Vaccine Route Administration Date Status Comme [...] Severe recurrent major depression without psychotic features (66705461) Major depressive disorder, recurrent severe without psychotic features (F33.2) Active confirmed Problem Generalized anxiety disorder (F41.1) Active confirmed Problem Primary insomnia (4522455) Primary insomnia (F51.01) Active confirmed Problem Screening for cardiovascular system disease (700809295) Encounter for screening for cardiovascular disorders (Z13.6) Active confirmed Problem Depression Screening (091254148) Encounter for screening for depression (Z13.31) Active confirmed Problem 51811021 Primary hypertension (I10) Active confirmed Problem [id number] Chronic post-traumatic stress disorder (PTSD) (F43.12) Active confirmed Problem Tardive dyskinesia (668254011) Tardive dyskinesia (G24.01) Active confirmed Problem Involuntary movement (finding) (310737136) Involuntary movements (R25.9) Active confirmed Vital Signs Heart Rate 78 /min 01/22/2025 Respiratory Rate 16 /min 01/22/2025 Height-cm 167.64 cm 01/22/2025 Blood pressure diastolic 84 mm Hg 01/22/2025 Weight-kg 82.1 kg 01/22/2025 Height 66.00 in 01/22/2025 Blood pressure systolic 126 mm Hg 01/22/2025 Weight 181.0 lbs 01/22/2025 BMI 29.21 kg/m2 01/22/2025 Encounters Encounter Location Date Provider Diagnosis [facility] [employer] [facility] [address] [place] [address] [place] [address] 03/03/2024 Jose Fitch Major depressive disorder, recurrent severe without psychotic features F33.2 ; Generalized anxiety disorder F41.1 and Primary insomnia F51.01 [facility] [address] [place] [address] 04/04/2024 Jose Fitch Major depressive disorder, recurrent severe without psychotic features F33.2 ; Generalized anxiety disorder F41.1 and Primary insomnia F51.01 [facility] [address] [place] [address] 05/12/2024 Nicoletteshun Boyd Major depressive disorder, recurrent severe without psychotic features F33.2 and Generalized anxiety disorder F41.1 [facility] [address] [place] [address] 06/02/2024 Roya Cuellar Major depressive disorder, recurrent severe without psychotic features F33.2 ; Generalized anxiety disorder F41.1 and Primary insomnia F51.01 [facility] [address] [place] [address] 06/30/2024 Roya Cuellar Generalized anxiety disorder F41.1 ; Major depressive disorder, recurrent severe without psychotic features F33.2 ; Primary insomnia F51.01 and Primary hypertension I10 [facility] [employer] [facility] [address] [place] [place] [address] 08/28/2024 Roya Cuellar Generalized anxiety disorder F41.1 ; Major depressive disorder, recurrent severe without psychotic features F33.2 ; Primary insomnia F51.01 and Primary hypertension I10 [facility] [employer] [facility] [address] [place] [address] 11/27/2024 Roya Cuellar Encounter for screening for depression Z13.31 ; Encounter for screening for cardiovascular disorders Z13.6 ; Generalized anxiety disorder F41.1 ; Major depressive disorder, recurrent severe without psychotic features F33.2 ; Primary insomnia F51.01 ; Primary hypertension I10 ; Involuntary movements R25.9 and Tardive dyskinesia G24.01 [facility] [address] [place] [address] 12/23/2024 Roya Cuellar Encounter for screening for depression Z13.31 ; Encounter for screening for cardiovascular disorders Z13.6 ; Generalized anxiety disorder F41.1 ; Major depressive disorder, recurrent severe without psychotic features F33.2 ; Primary insomnia F51.01 ; Primary hypertension I10 ; Involuntary movements R25.9 ; Tardive dyskinesia G24.01 and Chronic post-traumatic stress disorder (PTSD) F43.12 [facility], [address] [address] 01/13/2025 Nicolette Boyd Major depressive disorder, recurrent severe without psychotic features F33.2 ; Generalized anxiety disorder F41.1 and Chronic post-traumatic stress disorder (PTSD) F43.12 [facility], [address] [address] 01/22/2025 Roya Cuellar Encounter for screening for depression Z13.31 ; Major depressive disorder, recurrent severe without psychotic features F33.2 ; Encounter for screening for cardiovascular disorders Z13.6 ; Generalized anxiety disorder F41.1 ; Primary insomnia F51.01 ; Primary hypertension I10 ; Involuntary movements R25.9 ; Tardive dyskinesia G24.01 and Chronic post-traumatic stress disorder (PTSD) F43.12 [facility], [place] [id number] [facility] [address] [address] 02/13/2025 Nicolette Boyd Major depressive disorder, recurrent severe without psychotic features F33.2 ; Generalized anxiety disorder F41.1 ; Chronic post-traumatic stress disorder (PTSD) F43.12 and Encounter for screening for depression Z13.31 [facility] [place] [address] [address] 03/04/20[facility] [place] [address] [address] 03/27/20[facility] [place] [address] [address] 04/04/2024 [facility] [place] [address] [address] 05/30/2024 [facility], [place] [address] [place] [address] 12/04/2024 [facility] [address] [place] [address] 12/26/2024 Daniela Velazquez [facility], [facility] [address] [place] [address] 12/31/2024 [facility]isa [facility] [address] [place] [address] 01/05/2025 Roya Alisa Assessments Encounter Date Diagnosis (ICD Code) Assessment [...] to 12 mg dose - PA started [facility] education on rx benefits, side effects, [...] pateint having improved TD last few weeks [facility] education on rx benefits, side effects, risk, discuss DXN and monitoring 6. PTSD Counseling - Assessment: Patient has seen a counselor, Refer to Daniela [facility] TRAUMA HX use Calm Jaiden relaxation techinque discuss breathing excises - Plan: Encourage healthy eating habits and excise and sleep hygenie and therapy 01/13/2025 Major depressive disorder, recurrent severe without psychotic features (ICD-10 - F33.2) 01/22/2025 Major depressive disorder, recurrent severe without psychotic features (ICD-10 - F33.2) 1. Depression- conitnue to have depression discuss therapy options- KISHOR Marcum refer to Daniela garrido [facility] scheduled Irritability and Agitation - Assessment: Patient reports a history of irritability and agitation, exacerbated by recent stressors- improved patient needs 90 days rx, Increase Abilify 7.5 mg at bedtime for depression educated on all rx monitor TD and [...] the effectiveness of the medication. 2. Anxiety- - Assessment: Patient is currently taking alprazolam [...] 5. TD patient reported since last visit not having having tongue movement clicking and rt leg moves at times- improved DISCUSS TD and tx options Austedo and Ingrezza AIMS= 6 11/27/24 patient stopped Austedo XR 12 mg dose - pateint having improved TD last few weeks - insomnia and anxiety with Austedo [facility] education on rx benefits, side effects, risk, discuss DXN and monitoring 6. PTSD Counseling - Assessment: Patient has seen a counselor, Refer to Daniela [facility] TRAUMA HX use Calm Jaiden relaxation techinque discuss breathing excises - Plan: Encourage healthy eating habits and excise and sleep hygenie and therapy 01/22/2025 Encounter for screening for depression (ICD-10 - Z13.31) 1. Depression- conitnue to have depression discuss therapy options- KISHOR Marcum refer to Daniela garrido ED scheduled Irritability and Agitation - Assessment: Patient reports a history of irritability and agitation, exacerbated by recent stressors- improved patient needs 90 days rx, Increase Abilify 7.5 mg at bedtime for depression educated on all rx monitor TD and [...] the effectiveness of the medication. 2. Anxiety- - Assessment: Patient is currently taking alprazolam [...] 5. TD patient reported since last visit not having having tongue movement clicking and rt leg moves at times- improved DISCUSS TD and tx options Austedo and Ingrezza AIMS= 6 11/27/24 patient stopped [facility]edo XR 12 mg dose - pateint having improved TD last few weeks - insomnia and anxiety with Austedo [facility] education on rx benefits, side effects, risk, discuss DXN and monitoring 6. PTSD Counseling - Assessment: Patient has seen a counselor, Refer to Daniela RAMIRE[facility] TRAUMA HX use Calm Jaiden relaxation techinque discuss breathing excises - Plan: Encourage healthy eating habits and excise and sleep hygenie and therapy 02/13/2025 Major depressive disorder, recurrent severe without psychotic features (ICD-10 - F33.2) 02/13/2025 Generalized anxiety disorder (ICD-10 - F41.1) 01/22/2025 Encounter for screening for cardiovascular disorders (ICD-10 - Z13.6) 1. Depression- conitnue to have depression discuss therapy options- KISHOR Marcum refer to Daniela garrido ED scheduled Irritability and Agitation - Assessment: Patient reports a history of irritability and agitation, exacerbated by recent stressors- improved patient needs 90 days rx, Increase Abilify 7.5 mg at bedtime for depression educated on all rx monitor TD and [...] the effectiveness of the medication. 2. Anxiety- - Assessment: Patient is currently taking alprazolam [...] 5. TD patient reported since last visit not having having tongue movement clicking and rt leg moves at times- improved DISCUSS TD and tx options Austedo and Ingrezza AIMS= 6 11/27/24 patient stopped Austedo XR 12 mg dose - pateint having improved TD last few weeks - insomnia and anxiety with [facility] education on rx benefits, side effects, risk, discuss DXN and monitoring 6. 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 Schedule a follow-up appointment [...] pateint having improved TD last few weeks [facility] education on rx benefits, [...] to 12 mg dose - PA started [facility] education on rx benefits, side effects, [...] copy given - Plan: discuss medication options [facility] reviewed = 24 06/30/24- [...] copy given - Plan: discuss medication options [facility] reviewed = 24 06/30/24- discuss with patient [...] pateint having improved TD last few weeks [facility] education on rx benefits, [...] to 12 mg dose - PA started [facility] education on rx benefits, side effects, risk, discuss DXN and monitoring Counseling - Assessment: Patient has seen a counselor, Trixie, - Plan: Encourage healthy eating habits and excise and sleep hygenie and therapy 01/13/2025 Chronic post-traumatic stress disorder (PTSD) (ICD-10 - F43.12) 02/13/2025 Encounter for screening for depression (ICD-10 - Z13.31) 01/22/2025 Generalized anxiety disorder (ICD-10 - F41.1) 1. Depression- conitnue to have depression discuss therapy options- KISHOR Marcum refer to Daniela for EDMR scheduled Irritability and Agitation - Assessment: Patient reports a history of irritability and agitation, exacerbated by recent stressors- improved patient needs 90 days rx, Increase Abilify 7.5 mg at bedtime for depression educated on all rx monitor TD and [...] the effectiveness of the medication. 2. Anxiety- - Assessment: Patient is currently taking alprazolam [...] 5. TD patient reported since last visit not having having tongue movement clicking and rt leg moves at times- improved DISCUSS TD and tx options Austedo and Ingrezza AIMS= 6 11/27/24 patient stopped Austedo XR 12 mg dose - pateint having improved TD last few weeks - insomnia and anxiety with [facility]edo [facility] education on rx benefits, side effects, risk, discuss DXN and monitoring 6. PTSD Counseling - Assessment: Patient has seen a counselor, Refer to Daniela RAMIREZ TRAUMA HX use Calm Jaiden relaxation techinque discuss breathing excises - Plan: Encourage healthy eating habits and excise and sleep hygenie and therapy 01/22/2025 Primary insomnia (ICD-10 - F51.01) 1. Depression- conitnue to have depression discuss therapy options- KISHOR Marcum refer to Daniela RAMIREZ scheduled Irritability and Agitation - Assessment: Patient reports a history of irritability and agitation, exacerbated by recent stressors- improved patient needs 90 days rx, Increase Abilify 7.5 mg at bedtime for depression educated on all rx monitor TD and [...] the effectiveness of the medication. 2. Anxiety- - Assessment: Patient is currently taking alprazolam [...] 5. TD patient reported since last visit not having having tongue movement clicking and rt leg moves at times- improved DISCUSS TD and tx options Austedo and Ingrezza AIMS= 6 11/27/24 patient stopped [facility]edo XR 12 mg dose - pateint having improved TD last few weeks - insomnia and anxiety with [facility] education on rx benefits, side effects, [...] pateint having improved TD last few weeks [facility] education on rx benefits, [...] [facility] refer to Daniela for [facility] Irritability and Agitation - Assessment: Patient [...] and monitor for rash, educated on Abdullahi Raemsh syndrome continue therapy Schedule a follow-up appointment [...] pateint having improved TD last few weeks [facility] education on rx benefits, [...] to 12 mg dose - PA started [facility] education on rx benefits, side effects, [...] to 12 mg dose - PA started [facility] education on rx benefits, side effects, risk, discuss DXN and monitoring Counseling - Assessment: Patient has seen a counselor, Trixie, - Plan: Encourage healthy eating habits and excise and sleep hygenie and therapy 12/23/2024 Primary hypertension (ICD-10 - I10) 1. Depression- conitnue to have depression discuss therapy options- [facility] Trixie dominguze and would like to see someone else [...] having improved TD last few weeks [facility] education on rx benefits, side effects, risk, discuss DXN and monitoring 6. PTSD Counseling - Assessment: Patient has seen a counselor, Refer to Daniela RAMIREZ TRAUMA HX use Calm Jaiden relaxation techinque discuss breathing excises - Plan: Encourage healthy eating habits and excise and sleep hygenie and therapy 01/22/2025 Primary hypertension (ICD-10 - I10) 1. Depression- conitnue to have depression discuss therapy options- KISHOR Marcum refer to Daniela for ED scheduled Irritability and Agitation - Assessment: Patient reports a history of irritability and agitation, exacerbated by recent stressors- improved patient needs 90 days rx, Increase Abilify 7.5 mg at bedtime for depression educated on all rx monitor TD and [...] the effectiveness of the medication. 2. Anxiety- - Assessment: Patient is currently taking alprazolam [...] 5. TD patient reported since last visit not having having tongue movement clicking and rt leg moves at times- improved DISCUSS TD and tx options Austedo and Ingrezza AIMS= 6 11/27/24 patient stopped Austedo XR 12 mg dose - pateint having improved TD last few weeks - insomnia and anxiety with [facility]edo [facility] education on rx benefits, side effects, risk, discuss DXN and monitoring 6. PTSD Counseling - Assessment: Patient has seen a counselor, Refer to Daniela RAMIREZ TRAUMA HX use Calm Jaiden relaxation techinque discuss breathing excises - Plan: Encourage healthy eating habits and excise and sleep hygenie and therapy 01/22/2025 Involuntary movements (ICD-10 - R25.9) 1. Depression- conitnue to have depression discuss therapy options- KISHOR Marcum refer to Daniela garrido [facility] scheduled Irritability and Agitation - Assessment: Patient reports a history of irritability and agitation, exacerbated by recent stressors- improved patient needs 90 days rx, Increase Abilify 7.5 mg at bedtime for depression educated on all rx monitor TD and [...] the effectiveness of the medication. 2. Anxiety- - Assessment: Patient is currently taking alprazolam [...] 5. TD patient reported since last visit not having having tongue movement clicking and rt leg moves at times- improved DISCUSS TD and tx options Austedo and Ingrezza AIMS= 6 11/27/24 patient stopped Austedo XR 12 mg dose - pateint having improved TD last few weeks - insomnia and anxiety with [facility] education on rx benefits, side effects, [...] [facility] refer to Daniela for [facility] Irritability and Agitation - Assessment: Patient [...] pateint having improved TD last few weeks [facility] education on rx benefits, [...] to 12 mg dose - PA started [facility] education on rx benefits, side effects, [...] to 12 mg dose - PA started [facility] education on rx benefits, side effects, [...] to 12 mg dose - PA started [facility] education on rx benefits, side effects, [...] pateint having improved TD last few weeks [facility] education on rx benefits, side effects, risk, discuss DXN and monitoring 6. PTSD Counseling - Assessment: Patient has seen a counselor, Refer to Daniela RAMIREZ TRAUMA HX use Calm Jaiden relaxation techinque discuss breathing excises - Plan: Encourage healthy eating habits and excise and sleep hygenie and therapy 01/22/2025 Tardive dyskinesia (ICD-10 - G24.01) Electronic Prior Authorization was requested for Austedo XR 12 MG Tablet Extended Release 24 Hour. Provider can order medication once approval received. 1. Depression- conitnue to have depression discuss therapy options- KISHOR Marcum refer to Daniela for EDMR scheduled Irritability and Agitation - Assessment: Patient reports a history of irritability and agitation, exacerbated by recent stressors- improved patient needs 90 days rx, Increase Abilify 7.5 mg at bedtime for depression educated on all rx monitor TD and [...] the effectiveness of the medication. 2. Anxiety- - Assessment: Patient is currently taking alprazolam [...] 5. TD patient reported since last visit not having having tongue movement clicking and rt leg moves at times- improved DISCUSS TD and tx options Austedo and Ingrezza AIMS= 6 11/27/24 patient stopped Austedo XR 12 mg dose - pateint having improved TD last few weeks - insomnia and anxiety with Austedo [facility] education on rx benefits, side effects, risk, discuss DXN and monitoring 6. PTSD Counseling - Assessment: Patient has seen a counselor, Refer to Daniela [facility] HX use Calm Jaiden relaxation techinque discuss breathing excises - Plan: Encourage healthy eating habits and excise and sleep hygenie and therapy 01/22/2025 Chronic post-traumatic stress disorder (PTSD) (ICD-10 - F43.12) 1. Depression- conitnue to have depression discuss therapy options- KISHOR Marcum refer to Daniela garrido ED scheduled Irritability and Agitation - Assessment: Patient reports a history of irritability and agitation, exacerbated by recent stressors- improved patient needs 90 days rx, Increase Abilify 7.5 mg at bedtime for depression educated on all rx monitor TD and [...] the effectiveness of the medication. 2. Anxiety- - Assessment: Patient is currently taking alprazolam [...] 5. TD patient reported since last visit not having having tongue movement clicking and rt leg moves at times- improved DISCUSS TD and tx options Austedo and Ingrezza AIMS= 6 11/27/24 patient stopped Austedo XR 12 mg dose - pateint having improved TD last few weeks - insomnia and anxiety with Austedo [facility] education on rx benefits, side effects, risk, discuss DXN and monitoring 6. PTSD Counseling - Assessment: Patient has seen a counselor, Refer to Daniela [facility] TRAUMA HX use Calm Jaiden relaxation [...] [facility] refer to Daniela for [facility] Irritability and Agitation - Assessment: Patient [...] having improved TD last few weeks [facility] education on rx benefits, side effects, [...] Therapist was able to talk to the medical office clerk to get approval for this provider change. [...] hour, making a list of calming activities). 02/13/2025 Other Client reports she feels as though everything is falling down around her. She states she has discovered there are squirrels in her attic. She has never had this problem before. It only started after she had the new roof put on (which created another set of problems). She is scheduled for a colonoscopy next week to try to determine why she has been experiencing diarrhea so much of the time. She states she feels as if everything is terrible. Therapist actively listened to client and helped her to explore strategies to help her reduce the stress and anxiety she has been feeling. PHQ=12 moderate Plan Of Treatment Next Appt Details Provider Name:Roya Cuellar , 03/02/2025 01:30:00 PM, [address], [facility] [address], [place], [address], Provider Name:Daniela Peoples Dougie Velazquez, 06/22/2025 01:00:00 PM, [address], [facility] [address], [place], [address], Insurance Providers Payer Name Payer Address Payer Phone Subscriber Number Group Number Insured Name Patient Relationship to Insured Coverage Start Date Coverage End Date [place] [address] [place] [address] [id number] NABOR SANTANA Self - patient is the insured [employer] Medicare Supplement [address] [employer] [place] [address] [id number] NABOR SANTANA Self - patient is the insured Medical (General) History Medical History History ICD Code Problems: Chronic post-traumatic stress disorder Generalized anxiety disorder Long-term drug therapy Primary insomnia Severe recurrent major depression withou t psychotic features Surgical History Surgery Date(Month/Year) Removal of gallbladder (51719) 8 Any surgical history 05/14/2021 knee surgery rt torn hernia
--- OUTSIDE RECORDS SUMMARY | 2025-02-26 02:56 | XMS_ITS | Referral Summary ---
Author Organization [facility] al Address [address] [place] [address] Care Team Providers Care Administrative Hearing Officer Name Role Phone Fuad Dudley MD Primary [...] (09/21/2020): Added automatically from request for surgery [id number] Hiatal hernia with GERD 09/20/2020 Overview (09/22/2020): Added automatically from request for surgery [id number] Hypertension Lipid screening Dizziness Social History Tobacco Use Types Packs/Day Years Used Date Smoking Tobacco: Never Smokeless Tobacco: Never Tobacco Cessation:Counseling Given: Not Answered Comments No Sex and Gender Information Value Date Recorded Sex Assigned at Not on file 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 Gender Identity Not on file Sexual Orientation Not on file Last Filed Vital Signs Vital Sign Reading Time Taken Comments Blood Pressure 102/60 05/12/2024 11:42 AM CDT Pulse 88 05/12/2024 11:42 AM CDT Temperature 36.5 C (97.7 F) 12/15/2020 2:01 PM CDT Respiratory Rate 18 09/25/2020 8:45 AM DECK WORKER Oxygen Saturation 94% 05/12/2024 11:42 AM CDT Inhaled Oxygen Concentration - - Weight 90.3 kg (199 lb) 05/12/2024 11:42 AM CDT Height 165.1 cm (5' 5) 05/12/2024 11:42 AM CDT Body Mass Index 33.12 05/12/2024 11:42 AM CDT Plan of Treatment Not on file Insurance MEDICARE [facility] Address: [address] [address] [place] [address] [employer] SENIOR SUPP[employer]MENT MEDICARE [facility] MEDICARE [facility] [place] [address] Advance Directives For more information, please contact: [phone] * Full Code (Latest Code Status on File) Date Activated Date Inactivated Comments 09/21/2020 12:22 PM 09/25/2020 6:54 PM * Full Code Date Activated Date Inactivated Comments 09/20/2020 7:42 PM 09/21/2020 12:22 PM Care Teams Administrative Hearing Officer Relationship Specialty Start Date End Date Fuad Dudley MD [address] [place] [address] PCP - General Family Medicine 11/29/20
[2025-02-26 10:56] VITALS: BP 127/83; PULSE 94; RESP 16; TEMP 37.1; O2SAT 98
[2025-02-26] MEDS: LACTATED RINGERS 1,000 ML 150 ML IV CONT (11:06)
--- NOTE | 2025-02-26 11:49 | WPDANESEPPF ---
Anes - Initial Pre Proc Eval Procedure: Operation Date: 02/26/25 14:30 Proposed Procedures p Colonoscopy - Luis Keane MD Date/Time: 02/26/25 11:49 Surgeon: Luis Keane MD Pre Op Diagnosis: Full incontinence of feces, Diarrhea, unspecified Patient Data Age: 74 Gender: F Height: 1.7 m Weight: 76.9 kg Last Vital Signs Temp 98.8 F 02/26/25 10:56 Pulse 94 02/26/25 10:56 Resp 16 02/26/25 10:56 BP 127/83 02/26/25 10:56 Pulse Ox 98 02/26/25 10:56 O2 Del Method Room Air 02/26/25 10:56 Allergies Allergy/AdvReac Type Severity Reaction Status Date / Time testosterone AdvReac Unknown HIVES Verified 02/26/25 10:54 Home Medications ?Medication ?Instructions ?Recorded ?Confirmed ?Type cholecalciferol (vitamin D3) 125 125 mcg PO DAILY 02/13/20 02/26/25 History mcg (5,000 unit) tablet zolpidem 5 mg tablet (Ambien) 5 mg PO HS 02/13/20 02/26/25 History hydrochlorothiazide 12.5 mg tablet 12.5 mg PO DAILY #90 tabs 03/14/21 02/26/25 Rx alprazolam 0.25 mg tablet 0.25 mg PO ONCE PRN 03/21/23 02/26/25 Rx anxiety/claustrophobia #2 tabs atorvastatin 20 mg tablet 20 mg PO QHS #90 tabs 12/04/24 02/26/25 Rx lamotrigine 50 mg disintegrating 150 mg PO DAILY 12/18/24 02/26/25 History tablet aripiprazole 5 mg tablet (Abilify) 5 mg PO DAILY 01/15/25 02/26/25 History alendronate 70 mg tablet 70 mg PO WEEKLY #12 tabs 02/03/25 02/16/25 Rx Saccharomyces boulardii 250 mg 250 mg PO BID #60 caps 02/06/25 02/26/25 Rx capsule (Florastor) nystatin 100,000 unit/gram topical 1 applic topical BID #60 grams 02/06/25 02/16/25 Rx cream triamcinolone acetonide 0.1 % 1 applic topical BID #80 grams 02/06/25 02/16/25 Rx topical cream fluconazole 200 mg tablet 200 mg PO WEEKLY #2 tabs 02/13/25 02/16/25 Rx biotin 1 mg capsule 1 mg PO DAILY 02/16/25 02/26/25 History calcium polycarbophil 625 mg 2,500 mg PO DAILY 02/16/25 02/26/25 History tablet (Fiber-Lax) lisinopril 10 mg tablet 5 mg PO DAILY 02/16/25 02/26/25 History Patient hx anesthesia problems: none Family hx anesthesia problems: none Results Review: All pre-operative results and documents have been reviewed as part of the pre-operative evaluation. PENDING SALE TO [facility] Past Medical History Medical History Major depression, chronic Adhesive capsulitis of left shoulder BMI 32.0-32.9,adult History of terminal esophageal web H/O hiatal hernia Vitamin D deficiency Insomnia OAB (overactive bladder) HLD (hyperlipidemia) Depression HTN (hypertension) Surgical History Surgical History History of hernia repair History of cholecystectomy (~1994) H/O right knee surgery (~1989) Family History Family History Father Hypertension Cerebrovascular accident Sibling Hypertension Cerebrovascular accident Family history of malignant neoplasm Social History Social History Smoking status: Never smoker Second hand tobacco smoke exposure: No Alcohol intake: former Substance use: never Substance use type: does not use Do You Feel Safe in your Home?: Yes Lack of Transportation: No Lack of Food: Never True Current Housing: I Have Housing Concerned About Future Housing: No Difficulty Paying Gas/Electric Bills: No Difficulty Paying for Meds: No Currently Unemployed: YES Education: Don't Know Difficulty w/ Childcare or Family Care: No Living arrangements: alone Occupation/Education: retired Additional occupation/education comments: [employer] Gender identity (if verbalized by the patient): Female Sexual Orientation (if Verbalized by the Patient): Straight or Heterosexual Anes - Eval Final PreProcedure Day of Procedure 02/26/25 11:49 Patient weight: normal Heart: regular rate and rhythm Lungs: clear to auscultation Airway: Mallampati scale class II Neurological: alert and oriented Last oral intake: >/= 8 hours ASA classification: III Emergent: no Anesthetic plan: proceed Anesthesia type and monitoring: general GIVS and standard monitoring Results Review: All pre-operative results and documents have been reviewed as part of the pre-operative evaluation. Informed Consent: The patient's anesthetic plan and its attendant risks and benefits were discussed with the patient/family/POA. Questions were solicited and answers provided to the satisfaction of the patient/family/POA.
--- NOTE | 2025-02-26 11:54 | PM.HPGS ---
History of Present Illness History of Present Illness Consent: Risks, benefits, and alternatives have been discussed and questions answered. Patient agrees to proceed with procedure. Chief complaint: Full incontinence of feces, Diarrhea, unspecified Narrative: Daphne Paula is a 74 year old female with diarrhea using fibercon, last colonoscopy 2020 Review of Systems Review of Systems: All systems reviewed & are unremarkable except as noted in HPI and below PMFSH Past Medical History Medical History Major depression, chronic Adhesive capsulitis of left shoulder BMI 32.0-32.9,adult History of terminal esophageal web H/O hiatal hernia Vitamin D deficiency Insomnia OAB (overactive bladder) HLD (hyperlipidemia) Depression HTN (hypertension) Surgical History Surgical History History of hernia repair History of cholecystectomy (~1994) H/O right knee surgery (~1989) Family History Family History Father Hypertension Cerebrovascular accident Sibling Hypertension Cerebrovascular accident Family history of malignant neoplasm Social History Social History Smoking status: Never smoker Second hand tobacco smoke exposure: No Alcohol intake: former Substance use: never Substance use type: does not use Do You Feel Safe in your Home?: Yes Lack of Transportation: No Lack of Food: Never True Current Housing: I Have Housing Concerned About Future Housing: No Difficulty Paying Gas/Electric Bills: No Difficulty Paying for Meds: No Currently Unemployed: YES Education: Don't Know Difficulty w/ Childcare or Family Care: No Living arrangements: alone Occupation/Education: retired Additional occupation/education comments: [employer] Gender identity (if verbalized by the patient): Female Sexual Orientation (if Verbalized by the Patient): Straight or Heterosexual Meds Home Medications and Allergies Home Medications ?Medication ?Instructions ?Recorded ?Confirmed ?Type cholecalciferol (vitamin D3) 125 125 mcg PO DAILY 02/13/20 02/26/25 History mcg (5,000 unit) tablet zolpidem 5 mg tablet (Ambien) 5 mg PO HS 02/13/20 02/26/25 History hydrochlorothiazide 12.5 mg tablet 12.5 mg PO DAILY #90 tabs 03/14/21 02/26/25 Rx alprazolam 0.25 mg tablet 0.25 mg PO ONCE PRN 03/21/23 02/26/25 Rx anxiety/claustrophobia #2 tabs atorvastatin 20 mg tablet 20 mg PO QHS #90 tabs 12/04/24 02/26/25 Rx lamotrigine 50 mg disintegrating 150 mg PO DAILY 12/18/24 02/26/25 History tablet aripiprazole 5 mg tablet (Abilify) 5 mg PO DAILY 01/15/25 02/26/25 History alendronate 70 mg tablet 70 mg PO WEEKLY #12 tabs 02/03/25 02/16/25 Rx Saccharomyces boulardii 250 mg 250 mg PO BID #60 caps 02/06/25 02/26/25 Rx capsule (Florastor) nystatin 100,000 unit/gram topical 1 applic topical BID #60 grams 02/06/25 02/16/25 Rx cream triamcinolone acetonide 0.1 % 1 applic topical BID #80 grams 02/06/25 02/16/25 Rx topical cream fluconazole 200 mg tablet 200 mg PO WEEKLY #2 tabs 02/13/25 02/16/25 Rx biotin 1 mg capsule 1 mg PO DAILY 02/16/25 02/26/25 History calcium polycarbophil 625 mg 2,500 mg PO DAILY 02/16/25 02/26/25 History tablet (Fiber-Lax) lisinopril 10 mg tablet 5 mg PO DAILY 02/16/25 02/26/25 History Allergies Allergy/AdvReac Type Severity Reaction Status Date / Time testosterone AdvReac Unknown HIVES Verified 02/26/25 10:54 Vital Signs Vital Signs - 24 hr 02/26/25 10:56 Temperature 98.8 F Pulse Rate 94 Respiratory Rate 16 Blood Pressure 127/83 Pulse Oximetry 98 Oxygen Delivery Room Air Exam Const: General: comfortable and no acute distress HENMT: Face/Nose/Sinus: Normal nares present Eyes: General: appearance normal, both eyes and all related structures Neck: Neck: no JVD Resp: Auscultation: clear to auscultation bilaterally Cardio: Rate: regular rate Rhythm: regular rhythm GI: Inspection: non-distended GI Palp: Yes Soft to palpation Skin: General skin exam: normal color Neuro: General: gait normal Speech: normal speech Extrem: General: normal to inspection Psych: Mental Status: mental status grossly normal Assessment and Plan Assessment and plan (1) Diarrhea: Qualifiers: Diarrhea type: functional diarrhea Qualified Code(s): K59.1 - Functional diarrhea Code(s): R19.7 - Diarrhea, unspecified Status: Acute Assessment and Plan: colonoscopy with random bx
--- NOTE | 2025-02-26 12:11 | S_PTH ---
PATIENT: Daphne Paula LOC: [facility] Nur#:[id number] AGE/SX: 74/F ROOM: RE02/26/[address]: Luis Keane MD : 1950 BED: DIS: 02/26/2025 SPEC #: [id number] RECD: 02/26/25 13:48 STATUS: DEL REQ #: [id number] VALARIE: 02/26/25 12:[address]: Luis Keane DEPT: [facility] Surgical RECD BY: Jazmin Ovalle ENTERED: 02/26/25 13:49 SP TYPE: Surgical OTHR DR: Fuad Dudley MD Tissues: A - Colon Biopsy Procedures: Hematoxylin and Eosin Stain Gross and Microscopic Level 4
[2025-02-26 12:15] VITALS: BP 100/50; PULSE 77; RESP 20; O2SAT 98
[2025-02-26 12:25] VITALS: BP 130/68; PULSE 75; RESP 18; O2SAT 99
[2025-02-26 12:35] VITALS: BP 121/58; PULSE 77; RESP 19; O2SAT 99
== END 2025-02-26 12:51 | disposition home or self-care (01) ==
PROVIDERS: PCP Family Medicine; Referring Provider Nurse Practitioner Family; Visit Provider Internal Medicine Gastroenterology
PROC: 0DJD8ZZ Inspection of Lower Intestinal Tract, Via Natural or Artificial Opening Endoscopic (ICD-10-PCS; CPT 45378; principal; 2025-02-26 14:30)
DX: K59.1 Functional diarrhea (principal); I10 Essential (primary) hypertension; E78.5 Hyperlipidemia, unspecified; E55.9 Vitamin D deficiency, unspecified; G47.00 Insomnia, unspecified; N32.81 Overactive bladder; F32.9 Major depressive disorder, single episode, unspecified; Z79.83 Long term (current) use of bisphosphonates; Z98.890 Other specified postprocedural states; Z90.49 Acquired absence of other specified parts of digestive tract; Z80.9 Family history of malignant neoplasm, unspecified; Z82.49 Family history of ischemic heart disease and other diseases of the circulatory system
CPT/HCPCS: 45380; 88305; J2003; J2704; J7120

== ENCOUNTER 2025-03-09 16:02 | Outpatient (CLI) | payer MEDICARE, OTHER, SELFPAY ==
[2025-03-09 16:47] LABS: Basophils Percent Auto 0.4 % (0.2-1.2); Eosinophils Percent Auto 0.3 % (0-4.4); Hematocrit 43.9 % (37.0-47.0); Hemoglobin 14.2 g/dL (12.0-15.0); Immature Granulocyte Absolute 0.06 K/mm3 (0.00-0.031); Immature Granulocyte Percent A 0.5 % (0-0.5); Lymphocytes Absolute Auto 2.16 K/mm3 (0.9-3.2); Lymphocytes Percent Auto 19.4 % (18.3-44.2); Mean Corpuscular HGB Conc 32.3 g/dl (32-36); Mean Corpuscular Hemoglobin 28.4 pg (26-34); Mean Corpuscular Volume 87.8 fl (80-100); Monocytes Absolute Auto 0.6 K/mm3 (0.1-0.6); Monocytes Percent Auto 5.3 % (2.6-8.5); Neutrophils Absolute Auto 8.3 K/mm3 (1.3-6.7); Neutrophils Percent Auto 74.1 % (45.5-73.1); Platelet Count Result 319 k/mm3 (150-375); Red Cell Distribution Width 13.5 % (11.5-14.5); White Blood Count 11.1 K/mm3 (4.5-10.0)
[2025-03-09 16:57] LABS: Alanine Aminotransferase 26 U/L (6-35); Albumin Level 4.4 g/dL (3.5-5.1); Alkaline Phosphatase 116 U/L (38-126); Amylase 88 U/L (30-110); Anion Gap 9 mmol/L (4-12); Aspartate Amino Transferase 32 U/L (14-36); Bilirubin,Total 0.6 mg/dL (0.2-1.3); Blood Urea Nitrogen 12 mg/dL (7-17); Calcium 10.2 mg/dL (8.4-10.2); Carbon Dioxide 27 mmol/L (22-30); Chloride 101 mmol/L (98-107); Estimated Glomerular Filt Rate > 60; Glucose 107 mg/dL (65-110); Lipase 67 U/L (23-300); Potassium 3.8 mmol/L (3.4-5.0); Sodium 137 mmol/L (137-145); Total Protein 7.6 g/dL (6.3-8.2)
== END 2025-03-09 16:03 | disposition home or self-care (01) ==
PROVIDERS: PCP Family Medicine
DX: R10.13 Epigastric pain (principal); R11.0 Nausea; R63.4 Abnormal weight loss
CPT/HCPCS: 36415; 80053; 82150; 83013; 83690; 85025

== ENCOUNTER 2025-04-08 09:13 | Outpatient (CLI) | payer MEDICARE, OTHER, SELFPAY ==
--- NOTE | ~2025-04-08 | US_ITS ---
US abdomen complete INDICATION: Stomach pain. Weight loss. PROCEDURE: Realtime right upper abdominal ultrasound. COMPARISON: No prior studies for comparison. FINDINGS: The pancreas is normal without focal mass or pancreatic ductal dilation. Liver echotexture is increased, consistent with fatty infiltration. There is normal directional flow in the portal ve in. Gallbladder is surgically absent. Common bile duct measures 5 mm. No sonographic Fraser's sign. Renal echotexture is unremarkable bilaterally without hydronephrosis, contour deforming mass or renal calculi. Spleen within normal limits. No IMPRESSION: 1: Fatty infiltration of the liver. Reviewed, dictated and finalized at location A.
--- OUTSIDE RECORDS SUMMARY | 2025-04-08 09:25 | XMS_ITS | Clinical Summary ---
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 Gender Identity Not on file Sexual Orientation Not on file Obstetrics History Last Filed Vital Signs Vital Sign Reading Time Taken Comments Blood Pressure 102/60 05/12/2024 11:42 AM CDT Pulse 88 05/12/2024 11:42 AM CDT Temperature 36.5 C (97.7 F) 12/15/2020 2:01 PM CDT Respiratory Rate 18 09/25/2020 8:45 AM GUNNER'S MATE Oxygen Saturation 94% 05/12/2024 11:42 AM CDT [...] or Tdap) 07/22/2022 07/22/2012 Influenza Vaccine (#1) 2025 9, 07/23/2018, 06/27/2017, Additional history exists Pneumococcal vaccine 65+ Completed 018, 12/26/2016, 07/04/2013 Insurance MEDICARE MEDICARE [facility] MEDICARE [facility] Advance Directives For more information, please contact: [phone] * Full Code (Latest Code Status on File) Date Activated Date Inactivated Comments 09/21/2020 12:22 PM 09/25/2020 6:54 PM * Full Code Date Activated Date Inactivated Comments 09/20/2020 7:42 PM 09/21/2020 12:22 PM Care Teams Overhead Distribution Engineer Relationship Specialty Start Date End Date Fuad Dudley MD [address] [facility] [place] [address] [place] [address] PCP - General Family Medicine 11/29/20
--- OUTSIDE RECORDS SUMMARY | 2025-04-08 09:25 | XMS_ITS | Referral Summary ---
Author Organization [facility] al Address [address] [place] [address] Care Team Providers Care Research Assoc Name Role Phone Fuad Dudley MD Primary [...] (09/21/2020): Added automatically from request for surgery [id number] Hiatal hernia with GERD 09/20/2020 Overview (09/22/2020): Added automatically from request for surgery [id number] Hypertension Lipid screening Dizziness Social History Tobacco Use Types Packs/Day Years Used Date Smoking Tobacco: Never Smokeless Tobacco: Never Tobacco Cessation:Counseling Given: Not Answered Comments No Sex and Gender Information Value Date Recorded Sex Assigned at Not on file Legal Sex 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 Gender Identity Not on file Sexual Orientation Not on file Last Filed Vital Signs Vital Sign Reading Time Taken Comments Blood Pressure 102/60 05/12/2024 11:42 AM CDT Pulse 88 05/12/2024 11:42 AM CDT Temperature 36.5 C (97.7 F) 12/15/2020 2:01 PM CDT Respiratory Rate 18 09/25/2020 8:45 AM EDUCATIONAL SPEECH LANGUAGE CLINICIAN Oxygen Saturation 94% 05/12/2024 11:42 AM CDT Inhaled Oxygen Concentration - - Weight 90.3 kg (199 lb) 05/12/2024 11:42 AM CDT Height 165.1 cm (5' 5) 05/12/2024 11:42 AM CDT Body Mass Index 33.12 05/12/2024 11:42 AM CDT Plan of Treatment Not on file Insurance MEDICARE MEDICARE [facility] MEDICARE [facility] Advance Directives For more information, please contact: [phone] * Full Code (Latest Code Status on File) Date Activated Date Inactivated Comments 09/21/2020 12:22 PM 09/25/2020 6:54 PM * Full Code Date Activated Date Inactivated Comments 09/20/2020 7:42 PM 09/21/2020 12:22 PM Care Teams Research Assoc Relationship Specialty Start Date End Date Fuad Dudley MD [address] [facility] [address] [place] [address] PCP - General Family Medicine 11/29/20
--- OUTSIDE RECORDS SUMMARY | 2025-04-08 09:26 | XMS_ITS | Patient Health Record ---
Author Organization [facility] Fly6 [facility] Address [address] [facility] [address] [place] [address] Care Team Providers Care Library Serials Assistant Name Role Phone Fuad Dudley MD Primary Care Provider Unavaila Roya Mann Unavailable [phone] Daniela Gutierrez Unavailable [phone] Nicolette Boyd Unavailable [phone] Jose Fitch Unavailable [phone] Allergies No Known Allergies Results Component Value Reference Range Notes Benzodiazepines Reviewed date:12/05/2024 01:06:40 PM Interpretation: Performing Lab:[address] [place] [address], [address] [place] [address], Director - [id number] Notes/Report: An exception occurred while processing this report and so it has incomplete data. Please contact [employer] for assistance. Medicated Consistent Medicated Consistent [...] Not Medicated Consistent Not Medicated Consistent Specific [place] 1.011 1.003 - 1.030 pH 7.3 3.0 [...] Oxazepam (BZO) POS 0 - 300 ng/ml 3-crmtfdnfwa-6,4-xgdbwsbd-4, 3-diphenylpyr rolidine (EDDP) NEG 0 - 300 ng/ml Methamphetamine (MET) NEG 0 - 1000 ng/ml Methylenedioxymethamphetamine (MDMA) NEG 0 - 500 ng/ml Morphine (MOP 300/[id number]) NEG 0 - 300 ng/ml Methadone (MTD) NEG 0 - 300 ng/ml Phencyclidine (PCP) NEG 0 - 25 ng/ml Nortriptyline (TCA) NEG 0 - 1000 ng/ml Oxycodone NEG 0 - 300 ng/ml x NEG 0 - 300 ng/ml Benzodiazepines Reviewed date:12/26/2024 11:13:13 AM Interpretation: Performing Lab:[address] [place] [address], [address] [place] [address], Director - [phone] Notes/Report: An exception occurred while processing this report and so it has incomplete data. Please contact [employer] for assistance. Medicated Consistent Medicated Consistent [...] Not Medicated Consistent Not Medicated Consistent Specific [place] 1.019 1.003 - 1.030 pH 7.0 3.0 [...] Oxazepam (BZO) POS 0 - 300 ng/ml 4-uvrpdumhqt-9,3-pbgpvgpx-2, 3-diphenylpyr rolidine (EDDP) NEG 0 - 300 ng/ml Methamphetamine (MET) NEG 0 - 1000 ng/ml Methylenedioxymethamphetamine (MDMA) NEG 0 - 500 ng/ml Morphine (MOP 300/[id number]) NEG 0 - 300 ng/ml Methadone (MTD) NEG 0 - 300 ng/ml Phencyclidine (PCP) NEG 0 - 25 ng/ml Nortriptyline (TCA) NEG 0 - 1000 ng/ml Oxycodone NEG 0 - 300 ng/ml x NEG 0 - 300 ng/ml Reason For Referral No Information Medications Medication SIG (Take, Route, Frequency, Duration) Notes Start Date End Date Status Omeprazole 40 MG 1 capsule 1/2 to 1 hour before morning meal Orally Once a day Active Lisinopril 10 MG Oral 02/04/2024 Un known hydroCHLOROthiazide 12.5 MG Oral 02/04/2024 Unknown Clindamycin HCl 150 MG TAKE 1 CAPSULE 4 TIMES DAILY FOR 7 DAYS Oral; Duration: 7 Days Not-Taking ALPRAZolam 0.5 MG TAKE 1 TABLET BY MOUTH EVERY DAY FOR 30 DAYS; Duration: 30 appointment needed 11/12/2024 Not-Taking Venlafaxine HCl ER 150 MG Oral 02/04/2024 Unknown Zolpidem Tartrate 5 MG 1 tablet bedtime Oral bedtime; Duration: 30 days 03/08/2025 Active Venlafaxine HCl ER 75 MG Oral 02/04/2024 Unknown metroNIDAZOLE 1 % External 02/04/2024 U nknown lamoTRIgine 150 MG 1 tablet Orally Once a day Oral Once a day; Duration: 30 days Active Atorvastatin Calcium 20 MG Oral 02/04/2024 Unknown lamoTRIgine 200 MG 1 tablet Orally Once a day Oral Once a day; Duration: 30 days Active Tretinoin 0.025 % External 02/04/2024 U nknown Atorvastatin Calcium 20 MG 20 MG ORALLY EVERY DAY AT BEDTIME Oral; Duration: 90 Days Active hydroCHLOROthiazide 12.5 MG TAKE 1 TABLET BY MOUTH EVERY DAY Oral; Duration: 90 Days Active metroNIDAZOLE 0.75 % External 02/04/2024 Unknown Lisinopril 5 MG TAKE 1 TABLET (5 MG TOTAL) BY MOUTH DAILY. Oral; Duration: 90 Days Active Lisinopril 5 MG Oral 02/04/2024 Unk nown Clobetasol Propionate 0.05 % External 02/04/2024 Unknown ARIPiprazole 15 MG 0.5 tablet at bedtime; Duration: 30 days Active ALPRAZolam 0.25 MG 1 tablet Oral 4 times a day; Duration: 30 days 03/30/2025 Active Immunizations Vaccine Route Administration Date Status [...] Severe recurrent major depression without psychotic features (86733589) Major depressive disorder, recurrent severe without psychotic features (F33.2) Active confirmed Problem Generalized anxiety disorder (29414206) Generalized anxiety disorder (F41.1) Active confirmed Problem Primary insomnia (7823518) Primary insomnia (F51.01) Active confirmed Problem Screening for cardiovascular system disease (533040392) Encounter for screening for cardiovascular disorders (Z13.6) Active confirmed Problem Depression Screening (581818685) Encounter for screening for depression (Z13.31) Active confirmed Problem Primary hypertension (61255058) Primary hypertension (I10) Active confirmed Problem Posttraumatic stress disorder (03200680) Chronic post-traumatic stress disorder (PTSD) (F43.12) Active confirmed Problem Tardive dyskinesia (236106088) Tardive dyskinesia (G24.01) Active confirmed Problem Involuntary movement (finding) (130675706) Involuntary movements (R25.9) Active confirmed Vital Signs Heart Rate 87 /min 03/30/2025 Respiratory Rate 16 /min 03/30/2025 Blood pressure diastolic 71 mm Hg 03/30/2025 Height-cm 167.64 cm 03/30/2025 Weight-kg 76.66 kg 03/30/2025 Height 66.00 in 03/30/2025 Blood pressure systolic 103 mm Hg 03/30/2025 Weight 169 lbs 03/30/2025 BMI 27.27 kg/m2 03/30/2025 Encounters Encounter Location Date Provider Diagnosis [facility] [employer] [facility] [address] [facility] [address] [place] [address] 05/12/2024 Nicolette Deb Major depressive disorder, recurrent severe without psychotic features F33.2 and Generalized anxiety disorder F41.1 [facility] [employer] [facility] [address] [facility] [address] [place] [address] 06/02/2024 Roya Cuellar Major depressive disorder, recurrent severe without psychotic features F33.2 ; Generalized anxiety disorder F41.1 and Primary insomnia F51.01 [facility] [employer] [facility] [address] [facility] [address] [place] [address] 06/30/2024 Roya Cuellar Generalized anxiety disorder F41.1 ; Major depressive disorder, recurrent severe without psychotic features F33.2 ; Primary insomnia F51.01 and Primary hypertension I10 [address] [address] 08/28/2024 Roya Cuellar Generalized anxiety disorder F41.1 ; Major depressive disorder, recurrent severe without psychotic features F33.2 ; Primary insomnia F51.01 and Primary hypertension I10 [address] [address] 11/27/2024 Roya Therzak Encounter for screening for depression Z13.31 ; Encounter for screening for cardiovascular disorders Z13.6 ; Generalized anxiety disorder F41.1 ; Major depressive disorder, recurrent severe without psychotic features F33.2 ; Primary insomnia F51.01 ; Primary hypertension I10 ; Involuntary movements R25.9 and Tardive dyskinesia G24.[address] [address] 12/23/2024 Roya Thery Encounter for screening for depression Z13.31 ; Encounter for screening for cardiovascular disorders Z13.6 ; Generalized anxiety disorder F41.1 ; Major depressive disorder, recurrent severe without psychotic features F33.2 ; Primary insomnia F51.01 ; Primary hypertension I10 ; Involuntary movements R25.9 ; Tardive dyskinesia G24.01 and Chronic post-traumatic stress disorder (PTSD) F43.[address] [address] 01/13/2025 Nicolette Boyd Major depressive disorder, recurrent severe without psychotic features F33.2 ; Generalized anxiety disorder F41.1 and Chronic post-traumatic stress disorder (PTSD) F43.[address] [address] 01/22/2025 Roya Thery Encounter for screening for depression Z13.31 ; Major depressive disorder, recurrent severe without psychotic features F33.2 ; Encounter for screening for cardiovascular disorders Z13.6 ; Generalized anxiety disorder F41.1 ; Primary insomnia F51.01 ; Primary hypertension I10 ; Involuntary movements R25.9 ; Tardive dyskinesia G24.01 and Chronic post-traumatic stress disorder (PTSD) F43.12 [facility] [address] [facility] [address] [place] [address] 02/13/2025 Nicolette Boyd Major depressive disorder, recurrent severe without psychotic features F33.2 ; Generalized anxiety disorder F41.1 ; Chronic post-traumatic stress disorder (PTSD) F43.12 and Encounter for screening for depression Z13.31 [facility] [address] [facility] [address] [place] [address] 03/30/2025 Roya Cuellar Encounter for screening for depression Z13.31 ; Major depressive disorder, recurrent severe without psychotic features F33.2 ; Encounter for screening for cardiovascular disorders Z13.6 ; Generalized anxiety disorder F41.1 ; Primary insomnia F51.01 ; Primary hypertension I10 ; Involuntary movements R25.9 ; Tardive dyskinesia G24.01 and Chronic post-traumatic stress disorder (PTSD) F43.12 [facility] [email or web address] [facility] [address] [address] 05/30/2024 Jose Fitch [facility] [place] [address] [address] 12/04/2024 Roya Cuellar [facility] [address] [address] 12/26/2024 Daniela Velazquez [facility] [place] [address] [address] 12/31/2024 Roya Cuellar [facility] [place] [address] [address] 01/05/2025 Roya Cuellar [facility] [place] [address] [address] 02/27/2025 Roya Cuellar Major depressive disorder, recurrent severe without psychotic features F33.2 Assessments Encounter Date Diagnosis (ICD Code) Assessment Notes Treatment Notes Treatment Clinical Notes Section Notes 02/27/2025 Major depressive disorder, recurrent severe without psychotic features (ICD-10 - F33.2) 05/12/2024 Major depressive disorder, recurrent severe without [...] 1. Depression discuss therapy options- refer to [facility] Trixie hx and would like to see someone else in [facility] Irritability and Agitation - Assessment: Patient [...] to 12 mg dose - PA started [facility] education on rx benefits, side effects, risk, discuss DXN and monitoring Counseling - Assessment: Patient has seen a counselor, Trixie, - Plan: Encourage healthy eating habits and excise and sleep hygenie and therapy 12/23/2024 Encounter for screening for depression (ICD-10 - Z13.31) 1. Depression- conitnue to have depression discuss therapy options- refer to [facility] Trixie dominguez and would like to see someone else in [facility] refer to Daniela for EDMR Irritability [...] options- KISHOR Marcum refer to Daniela for [facility] scheduled Irritability and Agitation - Assessment: Patient [...] - insomnia and anxiety with [facility] PA [facility] education on rx benefits, side effects, [...] - insomnia and anxiety with [facility] PA [facility] education on rx benefits, side effects, [...] 02/13/2025 Generalized anxiety disorder (ICD-10 - F41.1) 03/30/2025 Encounter for screening for depression (ICD-10 - Z13.31) 1. Depression- conitnue to have depression discuss therapy options- KISHOR Marcum refer to Daniela garrido ED scheduled 07/11 Irritability and Agitation - Assessment: Patient reports a history of irritability and agitation, exacerbated by recent stressors- patient needs 90 days rx, CURRENTLY ON Abilify 7.5 mg at bedtime for depression - haing mouth movement and leg shake on this dose discuss decrease Abilify 5 mg bedtime patient wants to wait at this time since going on vacation 04/17-- plan to decrease after vacation discuss Auvelity and educated on rx for depression and patient will consider when come back from vacation and she will check on cost having GI issues and weight loss- seen PCP 03/30/25 and schedule with GI educated on all rx monitor TD and mood, depression mood stabilization and off-label use for irritability and agitation and depression reported fatigue and helps sleep still has depression and some agitation and irritable heart heart healthy diet and excise educated and healthy eating habits, discuss rx options for depression and anxiety and agiation Increase Lamotrigine 200 mg daily depression educated on Lamotrigine and [...] reviewed = 24 06/30/24- discuss with patient SLUMS= 24 03/30/25 will take test in 6-12 months discuss rx for memory - patient will wait at this time 5. TD patient reported since last visit not having having tongue movement clicking and rt leg moves at times- improved DISCUSS TD and tx options Austedo and Ingrezza patient reported tongue movement clicking and rt leg moves at times- AIMS= 6 11/27/24 patient stopped [facility]edo XR 12 mg dose - pateint having improved TD last few weeks - insomnia and anxiety with [facility] PA HX [facility] education on rx benefits, side effects, risk, Disucss TD discuss DXN and monitoring 6. PTSD Counseling - Assessment: Patient has seen a counselor, Refer to Daniela [facility]X use [employer] Ja[employer] relaxation techinque discuss breathing excises - Plan: Encourage healthy eating habits and excise and sleep hygenie and therapy 01/22/2025 Encounter for screening for cardiovascular disorders [...] Plan: discuss medication options 4. MNCD - UMS reviewed = 24 06/30/24- discuss with patient [...] - insomnia and anxiety with [facility] PA [facility] education on rx benefits, side effects, risk, discuss DXN and monitoring 6. PTSD Counseling - Assessment: Patient has seen a counselor, Refer to Daniela [facility] HX use Calm Jaiden relaxation techinque discuss breathing excises - Plan: Encourage healthy eating habits and excise and sleep hygenie and therapy 02/13/2025 Chronic post-traumatic stress disorder (PTSD) (ICD-10 - F43.12) 03/30/2025 Major depressive disorder, recurrent severe without psychotic features (ICD-10 - F33.2) 1. Depression- conitnue to have depression discuss therapy options- KISHOR Marcum refer to Daniela for [facility] scheduled 07/11 Irritability and Agitation - Assessment: Patient reports a history of irritability and agitation, exacerbated by recent stressors- patient needs 90 days rx, CURRENTLY ON Abilify 7.5 mg at bedtime for depression - haing mouth movement and leg shake on this dose discuss decrease Abilify 5 mg bedtime patient wants to wait at this time since going on vacation 04/17-- plan to decrease after vacation discuss Auvelity and educated on rx for depression and patient will consider when come back from vacation and she will check on cost having GI issues and weight loss- seen PCP 03/30/25 and schedule with GI educated on all rx monitor TD and mood, depression mood stabilization and off-label use for irritability and agitation and depression reported fatigue and helps sleep still has depression and some agitation and irritable heart heart healthy diet and excise educated and healthy eating habits, discuss rx options for depression and anxiety and agiation Increase Lamotrigine 200 mg daily depression educated on Lamotrigine and [...] reviewed = 24 06/30/24- discuss with patient SLUMS= 24 03/30/25 will take test in 6-12 months discuss rx for memory - patient will wait at this time 5. TD patient reported since last visit not having having tongue movement clicking and rt leg moves at times- improved DISCUSS TD and tx options Austedo and Ingrezza patient reported tongue movement clicking and rt leg moves at times- AIMS= 6 11/27/24 patient stopped Austedo XR 12 mg dose - pateint having improved TD last few weeks - insomnia and anxiety with [facility] PA HX [facility] education on rx benefits, side effects, risk, Disucss TD discuss DXN and monitoring 6. PTSD Counseling - Assessment: Patient has seen a counselor, Refer to Daniela [facility] HX use Cal[employer] Jaiden relaxation techinque discuss breathing excises - Plan: Encourage healthy eating habits and excise and sleep hygenie and therapy 01/13/2025 Generalized anxiety disorder (ICD-10 - F41.1) 11/27/2024 Encounter for screening for cardiovascular disorders (ICD-10 - Z13.6) 1. Depression discuss therapy options- refer to [facility] Trixie and would like to see someone else in [facility] Irritability and Agitation - Assessment: Patient [...] to 12 mg dose - PA started [facility] education on rx benefits, side effects, [...] would like to see someone else in [facility] refer to Daniela for EDMR Irritability [...] 05/12/2024 Generalized anxiety disorder (ICD-10 - F41.1) 06/02/2024 Primary insomnia (ICD-10 - F51.01) Irritability [...] 1. Depression discuss therapy options- refer to [facility] Trixie hx and would like to see someone else in [facility] Irritability and Agitation - Assessment: Patient [...] to 12 mg dose - PA started [facility] education on rx benefits, side effects, [...] given - Plan: discuss medication options [facility] reviewed = 24 06/30/24- discuss with patient [...] would like to see someone else in [facility] refer to Daniela for EDMR Irritability [...] post-traumatic stress disorder (PTSD) (ICD-10 - F43.12) 01/22/2025 Generalized anxiety disorder (ICD-10 - F41.1) [...] - insomnia and anxiety with [facility] PA [facility] education on rx benefits, side effects, risk, discuss DXN and monitoring 6. PTSD Counseling - Assessment: Patient has seen a counselor, Refer to Daniela [facility] HX use Calm Jaiden relaxation techinque discuss breathing excises - Plan: Encourage healthy eating habits and excise and sleep hygenie and therapy 02/13/2025 Encounter for screening for depression (ICD-10 - Z13.31) 03/30/2025 Encounter for screening for cardiovascular disorders (ICD-10 - Z13.6) 1. Depression- conitnue to have depression discuss therapy options- KISHOR Marcum refer to Daniela for EDMR scheduled 07/11 Irritability and Agitation - Assessment: Patient reports a history of irritability and agitation, exacerbated by recent stressors- patient needs 90 days rx, CURRENTLY ON Abilify 7.5 mg at bedtime for depression - haing mouth movement and leg shake on this dose discuss decrease Abilify 5 mg bedtime patient wants to wait at this time since going on vacation 04/17-- plan to decrease after vacation discuss Auvelity and educated on rx for depression and patient will consider when come back from vacation and she will check on cost having GI issues and weight loss- seen PCP 03/30/25 and schedule with GI educated on all rx monitor TD and mood, depression mood stabilization and off-label use for irritability and agitation and depression reported fatigue and helps sleep still has depression and some agitation and irritable heart heart healthy diet and excise educated and healthy eating habits, discuss rx options for depression and anxiety and agiation Increase Lamotrigine 200 mg daily depression educated on Lamotrigine and [...] reviewed = 24 06/30/24- discuss with patient SLUMS= 24 03/30/25 will take test in 6-12 months discuss rx for memory - patient will wait at this time 5. TD patient reported since last visit not having having tongue movement clicking and rt leg moves at times- improved DISCUSS TD and tx options Austedo and Ingrezza patient reported tongue movement clicking and rt leg moves at times- AIMS= 6 11/27/24 patient stopped [facility] XR 12 mg dose - pateint having improved TD last few weeks - insomnia and anxiety with [facility] PA HX [facility] education on rx benefits, side effects, risk, Disucss TD discuss DXN and monitoring 6. PTSD Counseling - Assessment: Patient has seen a counselor, Refer to Daniela [facility] HX use Calm Jaiden relaxation techinque discuss breathing excises - Plan: Encourage healthy eating habits and excise and sleep hygenie and therapy 03/30/2025 Generalized anxiety disorder (ICD-10 - F41.1) 1. Depression- conitnue to have depression discuss therapy options- KISHOR Marcum refer to Daniela garrido [facility] scheduled 07/11 Irritability and Agitation - Assessment: Patient reports a history of irritability and agitation, exacerbated by recent stressors- patient needs 90 days rx, CURRENTLY ON Abilify 7.5 mg at bedtime for depression - haing mouth movement and leg shake on this dose discuss decrease Abilify 5 mg bedtime patient wants to wait at this time since going on vacation 04/17-- plan to decrease after vacation discuss Auvelity and educated on rx for depression and patient will consider when come back from vacation and she will check on cost having GI issues and weight loss- seen PCP 03/30/25 and schedule with GI educated on all rx monitor TD and mood, depression mood stabilization and off-label use for irritability and agitation and depression reported fatigue and helps sleep still has depression and some agitation and irritable heart heart healthy diet and excise educated and healthy eating habits, discuss rx options for depression and anxiety and agiation Increase Lamotrigine 200 mg daily depression educated on Lamotrigine and [...] reviewed = 24 06/30/24- discuss with patient SLUMS= 24 03/30/25 will take test in 6-12 months discuss rx for memory - patient will wait at this time 5. TD patient reported since last visit not having having tongue movement clicking and rt leg moves at times- improved DISCUSS TD and tx options Austedo and Ingrezza patient reported tongue movement clicking and rt leg moves at times- AIMS= 6 11/27/24 patient stopped [facility]edo XR 12 mg dose - pateint having improved TD last few weeks - insomnia and anxiety with [facility] PA HX [facility] education on rx benefits, side effects, risk, Disucss TD discuss DXN and monitoring 6. PTSD Counseling - Assessment: Patient has seen a counselor, Refer to Daniela [facility] HX use Calm Jaiden relaxation techinque discuss breathing excises - Plan: Encourage healthy eating habits and excise and sleep hygenie and therapy 01/22/2025 Primary insomnia (ICD-10 - F51.01) 1. Depression- conitnue to have depression discuss therapy options- KISHOR Marcum refer to Daniela garrido [facility] scheduled Irritability and Agitation - Assessment: Patient [...] - insomnia and anxiety with [facility] PA [facility] education on rx benefits, side effects, [...] would like to see someone else in [facility] refer to Daniela for ED Irritability [...] have depression discuss therapy options- refer to [facility] Trixie dominguez and would like to see someone else in [facility] refer to Daniela for EDMR Irritability [...] copy given - Plan: discuss medication options [facility] reviewed = 24 06/30/24- discuss [...] to 12 mg dose - PA started [facility] education on rx benefits, side effects, [...] to 12 mg dose - PA started [facility] education on rx benefits, side effects, risk, discuss DXN and monitoring Counseling - Assessment: Patient has seen a counselor, Trixie, - Plan: Encourage healthy eating habits and excise and sleep hygenie and therapy 12/23/2024 Primary hypertension (ICD-10 - I10) 1. Depression- conitnue to have depression discuss therapy options- refer to [facility] Marcum and would like to see someone else in [place] refer to Daniela for ED Irritability and [...] has seen a counselor, Refer to Daniela EDMR TRAUMA HX use Calm Jaiden relaxation techinque discuss breathing excises - Plan: Encourage healthy eating habits and excise and sleep hygenie and therapy 03/30/2025 Primary insomnia (ICD-10 - F51.01) 1. Depression- conitnue to have depression discuss therapy options- KISHOR Marcum refer to Daniela for EDMR scheduled 07/11 Irritability and Agitation - Assessment: Patient reports a history of irritability and agitation, exacerbated by recent stressors- patient needs 90 days rx, CURRENTLY ON Abilify 7.5 mg at bedtime for depression - haing mouth movement and leg shake on this dose discuss decrease Abilify 5 mg bedtime patient wants to wait at this time since going on vacation 04/17-- plan to decrease after vacation discuss Auvelity and educated on rx for depression and patient will consider when come back from vacation and she will check on cost having GI issues and weight loss- seen PCP 03/30/25 and schedule with GI educated on all rx monitor TD and mood, depression mood stabilization and off-label use for irritability and agitation and depression reported fatigue and helps sleep still has depression and some agitation and irritable heart heart healthy diet and excise educated and healthy eating habits, discuss rx options for depression and anxiety and agiation Increase Lamotrigine 200 mg daily depression educated on Lamotrigine and [...] reviewed = 24 06/30/24- discuss with patient SLUMS= 24 03/30/25 will take test in 6-12 months discuss rx for memory - patient will wait at this time 5. TD patient reported since last visit not having having tongue movement clicking and rt leg moves at times- improved DISCUSS TD and tx options Austedo and Ingrezza patient reported tongue movement clicking and rt leg moves at times- AIMS= 6 11/27/24 patient stopped Austedo XR 12 mg dose - pateint having improved TD last few weeks - insomnia and anxiety with Austedo PA HX [facility] education on rx benefits, side effects, risk, Disucss TD discuss DXN and monitoring 6. PTSD Counseling - Assessment: Patient has seen a counselor, Refer to Daniela [facility] TRAUMA HX use Calm Jaiden relaxation techinque discuss breathing excises - Plan: Encourage healthy eating habits and excise and sleep hygenie and therapy 01/22/2025 Primary hypertension (ICD-10 - I10) 1. Depression- conitnue to have depression discuss therapy options- KISHOR Marcum refer to Daniela garrido [facility] scheduled Irritability and Agitation - Assessment: Patient [...] - insomnia and anxiety with Austedo PA [facility] education on rx benefits, side effects, [...] - insomnia and anxiety with Austedo PA [facility] education on rx benefits, side effects, risk, discuss DXN and monitoring 6. PTSD Counseling - Assessment: Patient has seen a counselor, Refer to Daniela [facility] TRAUMA HX use Calm Jaiden relaxation techinque discuss breathing excises - Plan: Encourage healthy eating habits and excise and sleep hygenie and therapy 03/30/2025 Primary hypertension (ICD-10 - I10) 1. Depression- conitnue to have depression discuss therapy options- KISHOR Marcum refer to Daniela garrido EDMR scheduled 07/11 Irritability and Agitation - Assessment: Patient reports a history of irritability and agitation, exacerbated by recent stressors- patient needs 90 days rx, CURRENTLY ON Abilify 7.5 mg at bedtime for depression - haing mouth movement and leg shake on this dose discuss decrease Abilify 5 mg bedtime patient wants to wait at this time since going on vacation 04/17-- plan to decrease after vacation discuss Auvelity and educated on rx for depression and patient will consider when come back from vacation and she will check on cost having GI issues and weight loss- seen PCP 03/30/25 and schedule with GI educated on all rx monitor TD and mood, depression mood stabilization and off-label use for irritability and agitation and depression reported fatigue and helps sleep still has depression and some agitation and irritable heart heart healthy diet and excise educated and healthy eating habits, discuss rx options for depression and anxiety and agiation Increase Lamotrigine 200 mg daily depression educated on Lamotrigine and [...] reviewed = 24 06/30/24- discuss with patient SLUMS= 24 03/30/25 will take test in 6-12 months discuss rx for memory - patient will wait at this time 5. TD patient reported since last visit not having having tongue movement clicking and rt leg moves at times- improved DISCUSS TD and tx options Austedo and Ingrezza patient reported tongue movement clicking and rt leg moves at times- AIMS= 6 11/27/24 patient stopped Austedo XR 12 mg dose - pateint having improved TD last few weeks - insomnia and anxiety with Austedo PA [facility] education on rx benefits, side effects, risk, Disucss TD discuss DXN and monitoring 6. PTSD Counseling [...] would like to see someone else in [facility] refer to Daniela for EDMR Irritability [...] 1. Depression discuss therapy options- refer to [facility] Trixie and would like to see [...] to 12 mg dose - PA started [facility] education on rx benefits, side effects, risk, discuss DXN and monitoring Counseling - Assessment: Patient has seen a counselor, Trixie, - Plan: Encourage healthy eating habits and excise and sleep hygenie and therapy 11/27/2024 Primary hypertension (ICD-10 - I10) 1. Depression discuss therapy options- refer to [facility] Trixie and would like to see someone else in [facility] Irritability and Agitation - Assessment: Patient [...] to 12 mg dose - PA started [facility] education on rx benefits, side effects, [...] 1. Depression discuss therapy options- refer to [facility] Trixie hx and would like to see someone else in [facility] Irritability and Agitation - Assessment: Patient [...] to 12 mg dose - PA started [facility] education on rx benefits, side effects, [...] have depression discuss therapy options- refer to [facility] Trixie dominguez and would like to see someone else in [facility] refer to Daniela for EDMR Irritability [...] having improved TD last few weeks NAYE [facility] education on rx benefits, side effects, risk, discuss DXN and monitoring 6. PTSD Counseling - Assessment: Patient has seen a counselor, Refer to Daniela [facility] TRAUMA HX use Calm Jaiden relaxation techinque discuss breathing excises - Plan: Encourage healthy eating habits and excise and sleep hygenie and therapy 03/30/2025 Involuntary movements (ICD-10 - R25.9) 1. Depression- conitnue to have depression discuss therapy options- KISHOR Marcum refer to Daniela garrido [facility] scheduled 07/11 Irritability and Agitation - Assessment: Patient reports a history of irritability and agitation, exacerbated by recent stressors- patient needs 90 days rx, CURRENTLY ON Abilify 7.5 mg at bedtime for depression - haing mouth movement and leg shake on this dose discuss decrease Abilify 5 mg bedtime patient wants to wait at this time since going on vacation 04/17-- plan to decrease after vacation discuss Auvelity and educated on rx for depression and patient will consider when come back from vacation and she will check on cost having GI issues and weight loss- seen PCP 03/30/25 and schedule with GI educated on all rx monitor TD and mood, depression mood stabilization and off-label use for irritability and agitation and depression reported fatigue and helps sleep still has depression and some agitation and irritable heart heart healthy diet and excise educated and healthy eating habits, discuss rx options for depression and anxiety and agiation Increase Lamotrigine 200 mg daily depression educated on Lamotrigine and [...] reviewed = 24 06/30/24- discuss with patient SLUMS= 24 03/30/25 will take test in 6-12 months discuss rx for memory - patient will wait at this time 5. TD patient reported since last visit not having having tongue movement clicking and rt leg moves at times- improved DISCUSS TD and tx options Austedo and Ingrezza patient reported tongue movement clicking and rt leg moves at times- AIMS= 6 11/27/24 patient stopped Austedo XR 12 mg dose - pateint having improved TD last few weeks - insomnia and anxiety with Austedo PA HX [facility] education on rx benefits, side effects, risk, Disucss TD discuss DXN and monitoring 6. PTSD Counseling [...] weeks - insomnia and anxiety with Austedo [facility] education on rx [...] options- KISHOR Marcum refer to Daniela garrido [facility] scheduled Irritability and Agitation - Assessment: Patient [...] - insomnia and anxiety with Yuliyatedo NAYE [facility] education on rx benefits, side effects, risk, discuss DXN and monitoring 6. PTSD Counseling - Assessment: Patient has seen a counselor, Refer to Daniela [facility] TRAUMA HX use Calm Jaiden relaxation techinque discuss breathing excises - Plan: Encourage healthy eating habits and excise and sleep hygenie and therapy 03/30/2025 Tardive dyskinesia (ICD-10 - G24.01) Electronic Prior Authorization was requested for Austedo XR 12 MG Tablet Extended Release 24 Hour. Provider can order medication once approval received. 1. Depression- conitnue to have depression discuss therapy options- KISHOR Marcum refer to Daniela for EDMR scheduled 07/11 Irritability and Agitation - Assessment: Patient reports a history of irritability and agitation, exacerbated by recent stressors- patient needs 90 days rx, CURRENTLY ON Abilify 7.5 mg at bedtime for depression - haing mouth movement and leg shake on this dose discuss decrease Abilify 5 mg bedtime patient wants to wait at this time since going on vacation 04/17-- plan to decrease after vacation discuss Auvelity and educated on rx for depression and patient will consider when come back from vacation and she will check on cost having GI issues and weight loss- seen PCP 03/30/25 and schedule with GI educated on all rx monitor TD and mood, depression mood stabilization and off-label use for irritability and agitation and depression reported fatigue and helps sleep still has depression and some agitation and irritable heart heart healthy diet and excise educated and healthy eating habits, discuss rx options for depression and anxiety and agiation Increase Lamotrigine 200 mg daily depression educated on Lamotrigine and [...] reviewed = 24 06/30/24- discuss with patient SLUMS= 24 03/30/25 will take test in 6-12 months discuss rx for memory - patient will wait at this time 5. TD patient reported since last visit not having having tongue movement clicking and rt leg moves at times- improved DISCUSS TD and tx options Austedo and Ingrezza patient reported tongue movement clicking and rt leg moves at times- AIMS= 6 11/27/24 patient stopped Austedo XR 12 mg dose - pateint having improved TD last few weeks - insomnia and anxiety with Austedo PA HX [facility] education on rx benefits, side effects, risk, Disucss TD discuss DXN and monitoring 6. PTSD Counseling - Assessment: Patient has seen a counselor, Refer to Daniela [facility] TRAUMA HX use Calm Jaiden relaxation techinque discuss breathing excises - Plan: Encourage healthy eating habits and excise and sleep hygenie and therapy 12/23/2024 Chronic post-traumatic stress disorder (PTSD) (ICD-10 - F43.12) 1. Depression- conitnue to have depression discuss therapy options- refer to [facility] and would like to see someone else in [facility] refer to Daniela for [facility] Irritability and Agitation - Assessment: [...] and excise and sleep hygenie and therapy 03/30/2025 Chronic post-traumatic stress disorder (PTSD) (ICD-10 - F43.12) 1. Depression- conitnue to have depression discuss therapy options- KISHOR Marcum refer to Daniela garrido [facility] scheduled 07/11 Irritability and Agitation - Assessment: Patient reports a history of irritability and agitation, exacerbated by recent stressors- patient needs 90 days rx, CURRENTLY ON Abilify 7.5 mg at bedtime for depression - haing mouth movement and leg shake on this dose discuss decrease Abilify 5 mg bedtime patient wants to wait at this time since going on vacation 04/17-- plan to decrease after vacation discuss Auvelity and educated on rx for depression and patient will consider when come back from vacation and she will check on cost having GI issues and weight loss- seen PCP 03/30/25 and schedule with GI educated on all rx monitor TD and mood, depression mood stabilization and off-label use for irritability and agitation and depression reported fatigue and helps sleep still has depression and some agitation and irritable heart heart healthy diet and excise educated and healthy eating habits, discuss rx options for depression and anxiety and agiation Increase Lamotrigine 200 mg daily depression educated on Lamotrigine and [...] reviewed = 24 06/30/24- discuss with patient SLUMS= 24 03/30/25 will take test in 6-12 months discuss rx for memory - patient will wait at this time 5. TD patient reported since last visit not having having tongue movement clicking and rt leg moves at times- improved DISCUSS TD and tx options Austedo and Ingrezza patient reported tongue movement clicking and rt leg moves at times- AIMS= 6 11/27/24 patient stopped Austedo XR 12 mg dose - pateint having improved TD last few weeks - insomnia and anxiety with Austedo PA HX [facility] education on rx benefits, side effects, risk, Disucss TD discuss DXN and monitoring 6. PTSD Counseling [...] Therapist was able to talk to the air defence officer to get approval for this provider [...] this is contributing to her lack of motivation.The rapist actively listened to client and utilized a [...] Plan Of Treatment Next Appt Details Provider Name:Daniela Peoples Dougie Velazquez, 06/22/2025 01:00:00 PM, [address], [facility], [place], [address], Insurance Providers Payer Name Payer Address Payer Phone Subscriber Number Group Number Insured Name Patient Relationship to Insured Coverage Start Date Coverage End Date [place] [address] [facility] MANDA [phone] [id number] NABOR SANTANA Self - patient is the insured [place] Medicare Supplement [address] [employer], ALEJANDRA [phone] [id number] NABOR SANTANA Self - patient is the insured Medical (General) History Medical History History ICD Code Problems: Chronic post-traumatic stress disorder Generalized anxiety disorder Long-term drug therapy Primary insomnia Severe recurrent major depression withou t psychotic features Surgical History Surgery Date(Month/Year) Removal of gallbladder (91463) 8 Any surgical history 05/14/2021 knee surgery rt torn hernia
== END 2025-04-08 09:14 | disposition home or self-care (01) ==
LOC: CHSIMG 09:14
PROVIDERS: PCP Family Medicine; Visit Provider Internal Medicine Gastroenterology
DX: R10.13 Epigastric pain (principal); R63.4 Abnormal weight loss; K76.0 Fatty (change of) liver, not elsewhere classified
CPT/HCPCS: 76700

== ENCOUNTER 2025-04-15 06:45 | Outpatient (CLI) | payer MEDICARE, OTHER, SELFPAY ==
--- NOTE | ~2025-04-15 | NM_ITS ---
EXAM: NM gastric emptying study DATE: 04/15/2025 13:21 INDICATION: Abnormal weight loss TECHNIQUE: A gastric emptying study was performed using the methodology of Wander ALBERTS, et al. J Nucl Med 2007; 48:568-572. The patient was given a meal consisting of 2 scrambled eggs labeled with 0.991 mCi Tc-99m sulfur colloid, 2 slices of toast, two packages of jam, and approximately 120 mL of water . Simultaneous anterior and posterior 1-min images of the abdomen were obtained with the patient supi ne at multiple time points over a total period of 4 hours. The geometric mean of anterior and posteri or views was determined, and the percentage retention was calculated for each time point. COMPARISON: None. FINDINGS: Gastric retention of the radiotracer-labeled meal was 45%, 10%, and 3% at the 1-hour, 2-hour, and 4-h our time points, respectively. With this technique, apparent rapid gastric emptying is suggested by < 30% gastric retention at 1 hour. Delayed gastric emptying is defined by gastric retention of >90% at 1 hour, >60% retention at 2 hours, or >10% retention at 4 hours. IMPRESSION: 1. Normal gastric emptying. Reviewed, dictated and finalized at location A. IMPRESSION: 1. Normal gastric emptying.
--- NOTE | ~2025-04-15 | XR_ITS ---
XR abdomen/kub 1V 04/15/2025 07:36 INDICATION: Abdominal pain TECHNIQUE: KUB COMPARISON: CT dated 09/20/2020 and ultrasound dated 04/08/2025 FINDINGS: Bowel gas pattern is normal. There is no evidence of free air, mass, organomegaly, ascites or obstruction. No abnormal calculi are seen. The bones appear intact. There are cholecystectomy c lips. There are pelvic phleboliths. Moderate lumbar spondylosis. IMPRESSION: 1: No acute abdominal abnormality identified. Reviewed, dictated and finalized at location B.
--- OUTSIDE RECORDS SUMMARY | 2025-04-15 06:48 | XMS_ITS | Referral Summary ---
Author Organization [facility] Address [address] [place] [address] Care Team Providers Care Light Truck Driver Name Role Phone Fuad Dudley MD Primary Care Provider Encounters Date Type Department Care Team Description 04/14/2025 3:00 PM CDT Office Visit [facility] Department of Psychiatry [address] [address] Juanito Nelson MD from Last 3 Months Allergies No known active allergies Medications zolpidem (AMBIEN) 5 mg tablet 1 Active atorvastatin (LIPITOR) 20 mg tablet 2 Active hydroCHLOROthiazi de 12.5 mg tabletIndications :Essential hypertension TAKE 1 TABLET BY MOUTH EVERY DAY 90 tablet 2 4 Active lisinopriL (PRINIVIL,ZESTRIL ) 5 mg tabletIndications :Essential hypertension TAKE 1 TABLET (5 MG TOTAL) BY MOUTH DAILY. 90 tablet 2 4 09/15/20 25 Active ARIPiprazole (ABILIFY) 15 mg tablet Take 0.5 tablets (7.5 mg total) by mouth nightly Active lamoTRIgine (LaMICtal) 200 mg tablet Take 1 tablet (200 mg total) by mouth nightly Active ALPRAZolam (XANAX) 0.25 mg tablet Take 1 tablet (0.25 mg total) by mouth 3 (three) times a day as needed for anxiety 5 Active ALPRAZolam (XANAX) 0.5 mg tablet Take 1 tablet (0.5 mg total) by mouth nightly as needed for anxiety 04/14/20 Discontinu ed(Patient Reported) lurasidone (LATUDA) 20 mg tablet TAKE 1 TABLET BY MOUTH EVERY DAY IN THE EVENING WITH FOOD 04/14/20 Discontinu ed(Patient Reported) Active Problems Problem Noted Date Diagnosed Date Intra-abdominal hernia 04/14/2025 Generalized anxiety disorder 04/14/2025 Severe recurrent major depre ssion without psychotic features 04/14/2025 Tardive dyskinesia 04/14/2025 Primary hypertension 04/14/2025 Hypercholesterolemia 01/23/2022 LBBB (left bundle branch block) 11/29/2020 Sinus tachycardia 11/29/2020 Hiatal hernia 09/20/2020 Overview (09/21/2020): Added automatically from request for surgery [id number] Hiatal hernia with GERD 09/20/2020 Overview (09/22/2020): Added automatically from request for surgery [id number] Hypertension Lipid screening Dizziness Social History Tobacco Use Types Packs/Day Years Used Date Smoking Tobacco: Never Smokeless Tobacco: Never Tobacco Cessation:Counseling Given: Not Answered Comments No Sex and Gender Information Value Date Recorded Sex Assigned at Not on file Legal Sex Female 9:48 AM KAIAWHINA Gender Identity Not on file Sexual Orientation Not on file Last Filed Vital Signs Vital Sign Reading Time Taken Comments Blood Pressure 108/68 04/14/2025 2:39 PM CDT Pulse 102 04/14/2025 2:39 PM CDT Temperature 36.5 C (97.7 F) 12/15/2020 2:01 PM CDT Respiratory Rate 18 09/25/2020 8:45 AM KAIAWHINA Oxygen Saturation 94% 05/12/2024 11:42 AM CDT Inhaled Oxygen Concentration - - Weight 76.7 kg (169 lb) 04/14/2025 2:39 PM CDT Height 167.6 cm (5' 6) 04/14/2025 2:39 PM CDT Body Mass Index 27.28 04/14/2025 2:39 PM CDT Plan of Treatment Not on file Insurance MEDICARE MEDICARE [facility] Address: [address] [address] [facility] MEDICARE [employer] [facility] Advance Directives For more information, please contact: [phone] * Full Code (Latest Code Status on File) Date Activated Date Inactivated Comments 09/21/2020 12:22 PM 09/25/2020 6:54 PM * Full Code Date Activated Date Inactivated Comments 09/20/2020 7:42 PM 09/21/2020 12:22 PM Care Teams Light Truck Driver Relationship Specialty Start Date End Date Fuad Dudley MD [address] [place] [id number] PCP - General Family Medicine 11/29/20
--- OUTSIDE RECORDS SUMMARY | 2025-04-15 06:48 | XMS_ITS | Encounter Summary ---
Author Organization [facility] Address [address] [place] [address] Phone Care Team Providers Care Nut Picker Name Role Phone Fuad Dudley MD Primary Care Provider Reason for Visit * Consultation (Routine) - Pending Review Specialty Diagnoses / Procedures Referred By Contac t Referred To Contact Psychiatry Diagnoses Episode of recurrent major depressive disorder, unspecified depression episode severity Anxiety Sonam Lindo PA [address] [facility] [address] [facility] [address] [place] [address] Phone: tel: fax: Juanito Nelson MD [address] [address], [address] [address] Phone: tel: fax: Referral ID Status Reason Start Date Expiration Date Visits Requested Visits Authorized [id number] Pending Review Specialty Services Required 12/24/2024 06/25/2026 1 1 Encounter Details Date Type Department Care Team (Late st Contact Info) Description 04/14/2025 3:00 PM CDT Office Visit [facility] Department of Psychiatry [address] [address] Juanito Nelson MD [address] [address] Social History Tobacco Use Types Packs/Day Years Used Date Smoking Tobacco: Never Smokeless Tobacco: Never Comments No Sex and Gender Information Value Date Recorded Sex Assigned at Not on file 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 Gender Identity Not on file Sexual Orientation Not on file documented as of this encounter Last Filed Vital Signs Vital Sign Reading Time Taken Comments Blood Pressure 108/68 04/14/2025 2:39 PM CDT Pulse 102 04/14/2025 2:39 PM CDT Temperature - - Respiratory Rate - - Oxygen Saturation - - Inhaled Oxygen Concentration - - Weight 76.7 kg (169 lb) 04/14/2025 2:39 PM CDT Height 167.6 cm (5' 6) 04/14/2025 2:39 PM CDT Body Mass Index 27.28 04/14/2025 2:39 PM CDT documented in this encounter Patient Instructions * Patient Instructions* Juanito Nelson MD - 04/14/2025 3:00 PM CDT Medication Management: The benefit of the patient???s current medications remains unclear. No changes will be made to the current regimen at this time due to upcoming travel. However, gradual discontinuation will be considered upon reassessment of her symptoms. Should the patient???s symptoms persist, consideration will be given to initiating a medication such as bupropion to target issues of motivation and apathy, which appear to be significant barriers toher engagement in daily life. Ambien and Xanax Use: The patient???s use of Ambien and Xanax should be monitored, as both medications have potential fordependency and tolerance. These medications may be contributing to her impaired functioning, and a gradual tapering plan will be considered after her return from the cruise. Safer alternatives for anxiety and sleep management will be explored. Psychotherapy: The patient should continue with psychotherapy to address both her depressive symptoms and anxiety.This is critical for improving her coping skills, addressing any unresolved trauma, and helping to manage her social isolation. Cognitive Behavioral Therapy (CBT) or other evidence-based approaches would be appropriate to consider. Follow-Up: A follow-up appointment is scheduled for four weeks to reassess her medication, mental health, and any changes to her symptoms post-cruise. During this time, additional considerations for her care plan will be made based on her experiences and feedback. documented in this encounter Plan of Treatment Not on file documented as of this encounter Visit Diagnoses Not on filedocumented in this encounter Discontinued Medications Medication Sig Discontinue Reason Start Date End Da te ALPRAZolam (XANAX) 0.5 mg tablet Take 1 tablet (0.5 mg total) by mouth nightly as needed for anxiety Patient Reported 04/14/2025 lurasidone (LATUDA) 20 mg tablet TAKE 1 TABLET BY MOUTH EVERY DAY IN THE EVENING WITH FOOD Patient Reported 05/02/2024 04/14/2025 documented as of this encounter Historical Medications * This list may reflect changes made after this encounter. ALPRAZolam (XANAX) 0.25 mg tablet Take 1 tablet (0.25 mg total) by mouth 3 (three) times a day as needed for anxiety 03/30/2025 lamoTRIgine (LaMICtal) 200 mg tablet Take 1 tablet (200 mg total) by mouth nightly ARIPiprazole (ABILIFY) 15 mg tablet Take 0.5 tablets (7.5 mg total) by mouth nightly added in this encounter Care Teams Nut Picker Relationship Specialty Start Date End Date Fuad Dudley MD [address] [place] [address] PCP - General Family Medicine 11/29/20 documented as of this encounter
--- OUTSIDE RECORDS SUMMARY | 2025-04-15 06:48 | XMS_ITS | Clinical Summary ---
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
--- OUTSIDE RECORDS SUMMARY | 2025-04-15 06:48 | XMS_ITS | Clinical Summary ---
Author Organization [facility] Address [address] [place] [address] Care Team Providers Care Alley Cleaner Name Role Phone Fuad Dudley MD Primary Care Provider Allergies No known active allergies Medications zolpidem [...] DAY IN THE EVENING WITH FOOD 4 04/14/20 25 Discontinu ed(Patient Reported) Active Problems Problem Noted Date Diagnosed Date Intra-abdominal hernia 04/14/2025 Generalized anxiety disorder 04/14/2025 Severe recurrent major depre ssion without psychotic features 04/14/2025 Tardive dyskinesia 04/14/2025 Primary hypertension 04/14/2025 Hypercholesterolemia 01/23/2022 LBBB (left bundle branch block) 11/29/2020 Sinus tachycardia 11/29/2020 Hiatal hernia 09/20/2020 Overview (09/21/2020): Added automatically from request for surgery [id number] Hiatal hernia with GERD 09/20/2020 Overview (09/22/2020): Added automatically from request for surgery [id number] Hypertension Lipid screening Dizziness Encounters Date Type Department Care Team Description 04/14/2025 3:00 PM CDT Office Visit [facility] Department of Psychiatry [address] [place] [phone] Juanito Nelson MD from Last 3 Months Surgical History Surgery Date Site/Laterality Comments KNEE [...] on file Legal Sex Female 9:48 AM CORNER 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 Gender Identity Not on file Sexual Orientation Not on file Obstetrics History Last Filed Vital Signs Vital Sign Reading Time Taken Comments Blood Pressure 108/68 04/14/2025 2:39 PM CDT Pulse 102 04/14/2025 2:39 PM CDT Temperature 36.5 C (97.7 F) 12/15/2020 2:01 PM CDT Respiratory Rate 18 09/25/2020 8:45 AM CORNER FORMER Oxygen Saturation 94% 05/12/2024 11:42 AM CDT Inhaled Oxygen Concentration - - Weight 76.7 kg (169 lb) 04/14/2025 2:39 PM CDT Height 167.6 cm (5' 6) 04/14/2025 2:39 PM CDT Body Mass Index 27.28 04/14/2025 2:39 PM CDT Plan of Treatment Health Maintenance Due [...] Completed 018, 12/26/2016, 07/04/2013 Insurance MEDICARE MEDICARE [facility] MEDICARE [facility] Advance Directives For more information, please contact: [phone] * Full Code (Latest Code Status on File) Date Activated Date Inactivated Comments 09/21/2020 12:22 PM 09/25/2020 6:54 PM * Full Code Date Activated Date Inactivated Comments 09/20/2020 7:42 PM 09/21/2020 12:22 PM Care Teams Alley Cleaner Relationship Specialty Start Date End Date Fuad Dudley MD [address] [facility] [address] [facility] [address] [place] [address] PCP - General Family Medicine 11/29/20
--- OUTSIDE RECORDS SUMMARY | 2025-04-15 06:48 | XMS_ITS | Patient Health Record ---
Author Organization [facility] [employer] [facility] Address [address] [facility] [address] [place] [address] Care Team Providers Care Observation Assistant Name Role Phone Fuad Dudley MD Primary Care Provider Unavaila Roya Mann Unavailable [phone] Daniela Gutirerez Unavailable [phone] Nicolette Boyd Unavailable [phone] Jose Fitch Unavailable [phone] Allergies No Known Allergies Results Component Value Reference Range Notes Benzodiazepines Reviewed date:12/26/2024 11:13:13 AM Interpretation: Performing Lab:[address] [place] [address], [address] [place] [address], Director - [id number] Notes/Report: An exception occurred while processing this report and so it has incomplete data. Please contact [employer] for assistance. Medicated Consistent Medicated Consistent [...] Not Medicated Consistent Not Medicated Consistent Specific [place] 1.019 1.003 - 1.030 pH 7.0 3.0 - 10.9 Oxidants -17 200 g/mL Creatinine 220.6 20.0 - 300.0 mg/dL Benzodiazepines Reviewed date:12/05/2024 01:06:40 PM Interpretation: Performing Lab:, [facility], [address] [place] [address], Director - [id number] Notes/Report: An exception occurred while processing this report and so it has incomplete data. Please contact [employer] for assistance. Medicated Consistent Medicated Consistent Not [...] Not Medicated Consistent Not Medicated Consistent Specific [place] 1.011 1.003 - 1.030 pH 7.3 3.0 - 10.9 Oxidants -12 200 g/mL Creatinine 158.7 20.0 - 300.0 mg/dL UDT Reviewed date:12/23/2024 01:36:21 PM Interpretation: Performing Lab: Notes/Report: THC NEG 0 - 50 ng/ml Cocaine NEG 0 - 300 ng/ml Amphetamine NEG 0 - 1000 ng/ml Buprenorphine (BUP) NEG 0 - 10 ng/ml Secobarbital (Bar) NEG 0 - 300 ng/ml Oxazepam (BZO) POS 0 - 300 ng/ml 9-nputxyeytd-2,9-bijkpdpb-5, 3-diphenylpyr rolidine (EDDP) NEG 0 - 300 ng/ml Methamphetamine (MET) NEG 0 - 1000 ng/ml Methylenedioxymethamphetamine (MDMA) NEG 0 - 500 ng/ml Morphine (MOP 300/MYO3943) NEG 0 - 300 ng/ml Methadone (MTD) [...] Oxazepam (BZO) POS 0 - 300 ng/ml 8-seksvvlxqx-8,6-rrzbpqiw-4, 3-diphenylpyr rolidine (EDDP) NEG 0 - 300 ng/ml Methamphetamine (MET) NEG 0 - 1000 ng/ml Methylenedioxymethamphetamine (MDMA) NEG 0 - 500 ng/ml Morphine (MOP 300/LUM1629) NEG 0 - 300 ng/ml Methadone (MTD) [...] Severe recurrent major depression without psychotic features (64007437) Major depressive disorder, recurrent severe without psychotic features (F33.2) Active confirmed Problem Generalized anxiety disorder (42987099) Generalized anxiety disorder (F41.1) Active confirmed Problem Primary insomnia (4668489) Primary insomnia (F51.01) Active confirmed Problem Screening for cardiovascular system disease (967300153) Encounter for screening for cardiovascular disorders (Z13.6) Active confirmed Problem Depression Screening (484765769) Encounter for screening for depression (Z13.31) Active confirmed Problem Primary hypertension (33347915) Primary hypertension (I10) Active confirmed Problem Posttraumatic stress disorder (56184869) Chronic post-traumatic stress disorder (PTSD) (F43.12) Active confirmed Problem Tardive dyskinesia (787445937) Tardive dyskinesia (G24.01) Active confirmed Problem Involuntary movement (finding) (858723713) Involuntary movements (R25.9) Active confirmed Vital Signs Heart Rate 87 /min 03/30/2025 Respiratory Rate 16 /min 03/30/2025 Blood pressure diastolic 71 mm Hg 03/30/2025 Height-cm 167.64 cm 03/30/2025 Weight-kg 76.66 kg 03/30/2025 Height 66.00 in 03/30/2025 Blood pressure systolic 103 mm Hg 03/30/2025 Weight 169 lbs 03/30/2025 BMI 27.27 kg/m2 03/30/2025 Encounters Encounter Location Date Provider Diagnosis [facility] [employer] [facility] [address] [facility] [address] [place] [address] 05/12/2024 Nicolette Deb Major depressive disorder, recurrent severe without psychotic features F33.2 and Generalized anxiety disorder F41.1 [facility] [employer] [facility] [address] [facility] [address] [place] [address] 06/02/2024 Roya Cuellar Major depressive disorder, recurrent severe without psychotic features F33.2 ; Generalized anxiety disorder F41.1 and Primary insomnia F51.01 [facility] [employer] [facility] [address] [facility] [address] [place] [address] 06/30/2024 Roya Cuellar Generalized anxiety disorder F41.1 ; Major depressive disorder, recurrent severe without psychotic features F33.2 ; Primary insomnia F51.01 and Primary hypertension I10 [address] [address] 08/28/2024 Roya Cuellar Generalized anxiety disorder F41.1 ; Major depressive disorder, recurrent severe without psychotic features F33.2 ; Primary insomnia F51.01 and Primary hypertension I10 [address] [address] 11/27/2024 Roya Therzak Encounter for screening for depression Z13.31 ; Encounter for screening for cardiovascular disorders Z13.6 ; Generalized anxiety disorder F41.1 ; Major depressive disorder, recurrent severe without psychotic features F33.2 ; Primary insomnia F51.01 ; Primary hypertension I10 ; Involuntary movements R25.9 and Tardive dyskinesia G24.[address] [address] 12/23/2024 Roya Thery Encounter for screening for depression Z13.31 ; Encounter for screening for cardiovascular disorders Z13.6 ; Generalized anxiety disorder F41.1 ; Major depressive disorder, recurrent severe without psychotic features F33.2 ; Primary insomnia F51.01 ; Primary hypertension I10 ; Involuntary movements R25.9 ; Tardive dyskinesia G24.01 and Chronic post-traumatic stress disorder (PTSD) F43.[address] [address] 01/13/2025 Nicolette Boyd Major depressive disorder, recurrent severe without psychotic features F33.2 ; Generalized anxiety disorder F41.1 and Chronic post-traumatic stress disorder (PTSD) F43.[address] [address] 01/22/2025 Roya Thery Encounter for screening for depression Z13.31 ; Major depressive disorder, recurrent severe without psychotic features F33.2 ; Encounter for screening for cardiovascular disorders Z13.6 ; Generalized anxiety disorder F41.1 ; Primary insomnia F51.01 ; Primary hypertension I10 ; Involuntary movements R25.9 ; Tardive dyskinesia G24.01 and Chronic post-traumatic stress disorder (PTSD) F43.12 [facility] [employer] [facility] [address] [facility] [address] [place] [address] 02/13/2025 Nicolette Boyd Major depressive disorder, recurrent severe without psychotic features F33.2 ; Generalized anxiety disorder F41.1 ; Chronic post-traumatic stress disorder (PTSD) F43.12 and Encounter for screening for depression Z13.31 [facility] [address] [facility] [address] [place] [address] 03/30/2025 Roya Cuellar Encounter for screening for depression Z13.31 ; Major depressive disorder, recurrent severe without psychotic features F33.2 ; Encounter for screening for cardiovascular disorders Z13.6 ; Generalized anxiety disorder F41.1 ; Primary insomnia F51.01 ; Primary hypertension I10 ; Involuntary movements R25.9 ; Tardive dyskinesia G24.01 and Chronic post-traumatic stress disorder (PTSD) F43.12 [facility] [employer] [facility] [address] [address] 05/30/2024 Jose Fitch [facility], [facility] [address] [address] 12/04/2024 Roya Cuellar [facility], [facility] [address] [address] 12/26/2024 Daniela Velazquez [facility], [facility] [address] [address] 12/31/2024 Roya Cuellar [facility], [facility] [address] [address] 01/05/2025 Roya Cuellar [facility], [facility] [address] [address] 02/27/2025 Roya Cuellar Major depressive disorder, recurrent severe without psychotic features F33.2 Assessments Encounter Date Diagnosis (ICD Code) Assessment Notes Treatment Notes Treatment Clinical Notes Section Notes 05/12/2024 Major depressive disorder, recurrent severe without [...] like to see someone else in [facility] Irritability and Agitation - Assessment: Patient [...] to 12 mg dose - PA started [facility] education on rx benefits, side effects, risk, discuss DXN and monitoring Counseling - Assessment: Patient has seen a counselor, Trixie, - Plan: Encourage healthy eating habits and excise and sleep hygenie and therapy 12/23/2024 Encounter for screening for depression (ICD-10 - Z13.31) 1. Depression- conitnue to have depression discuss therapy options- refer to [facility] Trixie dominguez and would like to see someone else in [facility] refer to Daniela for EDMR Irritability [...] pateint having improved TD last few weeks [facility] education on rx benefits, [...] options- KISHOR Marcum refer to Daniela garrido [facility] scheduled Irritability and Agitation - Assessment: Patient [...] - insomnia and anxiety with [place] PA [facility] education on rx benefits, side effects, [...] - insomnia and anxiety with [facility] PA [facility] education on rx benefits, side effects, [...] 02/13/2025 Generalized anxiety disorder (ICD-10 - F41.1) 02/27/2025 Major depressive disorder, recurrent severe without psychotic features (ICD-10 - F33.2) 03/30/2025 Encounter for screening for depression (ICD-10 [...] insomnia and anxiety with [employer] PA HX [facility] education on rx benefits, side effects, [...] to have depression discuss therapy options- KISHOR Trixie refer to Daniela for EDMR scheduled 07/11 [...] insomnia and anxiety with [employer] PA HX [facility] education on rx benefits, side effects, risk, Disucss TD discuss DXN and monitoring 6. PTSD Counseling - Assessment: Patient has seen a counselor, Refer to Daniela ED TRAUMA HX use Calm Jaiden relaxation techinque [...] - insomnia and anxiety with [place] PA [facility] education on rx benefits, side effects, [...] like to see someone else in [facility] refer to Daniela for [facility] Irritability and Agitation - Assessment: Patient reports [...] pateint having improved TD last few weeks [facility] education on rx benefits, [...] to 12 mg dose - PA started [facility] education on rx benefits, side effects, [...] discuss medication options [facility] reviewed = 24 06/30/24- discuss with patient [...] like to see someone else in [facility] refer to Daniela for EDMR Irritability [...] pateint having improved TD last few weeks [facility] education on rx benefits, [...] discuss therapy options- refer to KISHOR Marcum hx and would like to see someone [...] to 12 mg dose - PA started [facility] education on rx benefits, side effects, [...] has seen a counselor, Refer to Daniela ED TRAUMA HX use Cal[employer] Jaiden relaxation techinque discuss breathing excises - Plan: Encourage healthy eating habits and excise and sleep hygenie and therapy 03/30/2025 Encounter for screening for cardiovascular disorders [...] insomnia and anxiety with [employer] PA HX [facility] education on rx benefits, side effects, [...] - insomnia and anxiety with [place] PA [facility] education on rx benefits, side effects, [...] - insomnia and anxiety with [place] PA [facility] education on rx benefits, [...] depression discuss therapy options- refer to [facility] Trixie dominguez and would like to see someone else in [facility] refer to Daniela for ED Irritability [...] pateint having improved TD last few weeks [facility] education on rx benefits, [...] depression discuss therapy options- refer to [facility] Trixie dominguez and would like to see someone else in [facility] refer to Daniela for EDMR Irritability [...] pateint having improved TD last few weeks [facility] education on rx benefits, [...] copy given - Plan: discuss medication options [facility] reviewed = 24 06/30/24- discuss with [...] to 12 mg dose - PA started [facility] education on rx benefits, side effects, [...] to 12 mg dose - PA started [facility] education on rx benefits, side effects, [...] pateint having improved TD last few weeks [facility] education on rx benefits, [...] insomnia and anxiety with [place] PA HX [facility] education on rx benefits, side effects, risk, Disucss TD discuss DXN and monitoring 6. PTSD Counseling - Assessment: Patient has seen a counselor, Refer to Daniela [facility] TRAUMA HX use Calm Jaiden relaxation techinque discuss breathing excises - Plan: Encourage healthy eating habits and excise and sleep hygenie and therapy 01/22/2025 Primary hypertension (ICD-10 - I10) 1. Depression- conitnue to have depression discuss therapy options- KISHOR Marcum refer to Daniela garrido [facility] scheduled Irritability and Agitation - Assessment: Patient [...] - insomnia and anxiety with [place] PA [facility] education on rx benefits, side effects, [...] - insomnia and anxiety with [place] PA [facility] education on rx benefits, side effects, risk, discuss DXN and monitoring 6. PTSD Counseling - Assessment: Patient has seen a counselor, Refer to Daniela [facility] TRAUMA HX use Calm Jaiden relaxation techinque [...] - insomnia and anxiety with [place] PA [facility] education on rx benefits, [...] like to see someone else in [facility] refer to Daniela for EDMR Irritability [...] pateint having improved TD last few weeks [facility] education on rx benefits, [...] like to see someone else in [facility] Irritability and Agitation - Assessment: Patient [...] to 12 mg dose - PA started [facility] education on rx benefits, side effects, risk, discuss DXN and monitoring Counseling - Assessment: Patient has seen a counselor, Trixie, - Plan: Encourage healthy eating habits and excise and sleep hygenie and therapy 11/27/2024 Involuntary movements (ICD-10 - R25.9) 1. Depression discuss therapy options- refer to [facility] Trixie dominguez and would like to see someone else in [facility] Irritability and Agitation - Assessment: Patient [...] to 12 mg dose - PA started [facility] education on rx benefits, side effects, [...] Depression discuss therapy options- refer to [facility] Trixie hx and would like to see someone else in [facility] Irritability and Agitation - Assessment: Patient [...] to 12 mg dose - PA started [facility] education on rx benefits, side effects, [...] depression discuss therapy options- refer to [facility] Trixie dominguez and would like to see someone else in [facility] refer to Daniela for EDMR Irritability [...] having improved TD last few weeks [facility] education on rx benefits, side effects, risk, discuss DXN and monitoring 6. PTSD Counseling - Assessment: Patient has seen a counselor, Refer to Daniela [facility] TRAUMA HX use Calm Jaiden relaxation techinque [...] options- KISHOR Marcum refer to Daniela garrido [facility] scheduled Irritability and Agitation - Assessment: Patient [...] - insomnia and anxiety with [place] PA [facility] education on rx benefits, side effects, [...] - insomnia and anxiety with [place] PA [facility] education on rx benefits, [...] insomnia and anxiety with [place] PA HX [facility] education on rx benefits, side effects, [...] - insomnia and anxiety with [place] PA [facility] education on rx benefits, side effects, risk, discuss DXN and monitoring 6. PTSD Counseling - Assessment: Patient has seen a counselor, Refer to Daniela [facility] TRAUMA HX use Calm Jaiden relaxation techinque discuss breathing excises - Plan: Encourage healthy eating habits and excise and sleep hygenie and therapy 12/23/2024 Chronic post-traumatic stress disorder (PTSD) (ICD-10 - F43.12) 1. Depression- conitnue to have depression discuss therapy options- refer to [facility] and would like to see someone else in [facility] refer to Daniela for [facility] Irritability and Agitation - Assessment: Patient reports [...] pateint having improved TD last few weeks [facility] education on rx benefits, [...] options- KISHOR Marcum refer to Daniela garrido [facility] scheduled 07/11 Irritability and Agitation - Assessment: [...] insomnia and anxiety with [place] PA HX [facility] education on rx benefits, side effects, [...] Therapist was able to talk to the signals officer to get approval for this provider [...] Name:Daniela Peoples Dougie Velazquez, 06/22/2025 01:00:00 PM, [address], [facility] [address], [place], [address], Insurance Providers Payer Name Payer Address Payer Phone Subscriber Number Group Number Insured Name Patient Relationship to Insured Coverage Start Date Coverage End Date [place] [address] [facility] [place] [phone] [id number] NABOR SANTANA Self - patient is the insured [employer] [place] [employer] [place] Medicare Supplement [address] [employer] [place] [employer], [place] [phone] [id number] NABOR SANTANA Self - patient is the insured Medical (General) History Medical History History ICD Code Problems: Chronic post-traumatic stress disorder Generalized anxiety disorder Long-term drug therapy Primary insomnia Severe recurrent major depression withou t psychotic features Surgical History Surgery Date(Month/Year) Removal of gallbladder (63150) 8 Any surgical history 05/14/2021 knee surgery rt torn hernia
== END 2025-04-15 06:46 | disposition home or self-care (01) ==
PROVIDERS: PCP Family Medicine; Visit Provider Internal Medicine Gastroenterology
DX: R10.13 Epigastric pain (principal); K52.9 Noninfective gastroenteritis and colitis, unspecified; R10.30 Lower abdominal pain, unspecified; R63.4 Abnormal weight loss
CPT/HCPCS: 74018; 78264; A9541

== ENCOUNTER 2025-05-14 12:13 | Outpatient (CLI) | payer MEDICARE, OTHER, SELFPAY ==
--- NOTE | ~2025-05-14 | CT_ITS ---
EXAMINATION: CT abdomen pelvis w con DATE: 05/14/2025 13:08 INDICATION: Weight loss and abdominal pain TECHNIQUE: Computed tomography (CT) of the abdomen and pelvis was performed with 100 mL Omnipaque-350 intravenous contrast. Automated exposure control and iterative reconstruction technique were employed. The dose-length product was 496.44 mGy-cm. COMPARISON: 09/20/2020 FINDINGS: Chronic 5 mm noncalcified granulomata in the right lower lobe unchanged since CT dated 11/18/2020. Heart size is normal. No pericardial or pleural effusion. Significant decrease in size of a now small sliding-type hiatal hernia. Focal hepatic steatosis along the ligamentum teres. Cholecystectomy clips at the gallbladder fossa. Spleen, pancreas, bilateral adrenal glands and kidneys are normal. Bowels including the appendix are normal. Bladder, anteverted uterus and left adnexa are unremarkable. 2.1 cm right ovarian cyst/follicle. No free intraperitoneal gas or fluid. No pathologically enlarged abdominal or pelvic lymphadenopathy. Mild lumbar and lower thoracic spondylosis. IMPRESSION: 1. No acute intra-abdominal/pelvic process. 2. Small sliding-type hiatal hernia significantly decrease in size since the prior study suggesting interval hernia repair. Reviewed, dictated and finalized at location A. IMPRESSION: 1. No acute intra-abdominal/pelvic process. 2. Small sliding-type hiatal hernia significantly decrease in size since the pr ior study suggesting interval hernia repair.
--- OUTSIDE RECORDS SUMMARY | 2025-05-14 12:17 | XMS_ITS | Clinical Summary ---
Author Organization [facility] Address [address] [place] [address] Care Team Providers Care Porter Baggage Name Role Phone Fuad Dudley MD Primary [...] day as needed for anxiety 5 Active Active Problems Problem Noted Date Diagnosed Date Intra-abdominal hernia 04/14/2025 Generalized anxiety disorder 04/14/2025 Severe recurrent major depre ssion without psychotic features 04/14/2025 Tardive dyskinesia 04/14/2025 Primary hypertension 04/14/2025 Hypercholesterolemia 01/23/2022 LBBB (left bundle branch block) 11/29/2020 Sinus tachycardia 11/29/2020 Hiatal hernia 09/20/2020 Overview (09/21/2020): Added automatically from request for surgery [id number] Hiatal hernia with GERD 09/20/2020 Overview (09/22/2020): Added automatically from request for surgery [id number] Hypertension Lipid screening Dizziness Encounters Date Type Department Care Team Description 05/08/2025 1:00 PM CDT Ancillary Procedure [facility] Cardiology at [address] [place] [id number] Primary hypertension; LBBB (left bundle branch block) 05/08/2025 Results Follow-Up [facility] Medical [facility] Cardiology [address] [facility] [address] [place] [phone] Isiah Nur MD Transthoracic Echo (TTE) Complete W Doppler/CF 04/27/2025 Telephone [facility] Medicine Psychiatry [address] [place] [phone] Juanito Nelson MD Scheduling Appointments 04/14/2025 3:00 PM CDT Office Visit [facility] Medicine Psychiatry [address] [facility] [address] [place] [address] Juanito Nelson MD Severe recurrent major depression without psychotic features (HCC) (Primary Dx); Generalized anxiety disorder from Last 3 Months Surgical History Surgery [...] on file Legal 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 Gender Identity Not on file Sexual Orientation Not on file Obstetrics History Last Filed Vital Signs Vital Sign Reading Time Taken Comments Blood Pressure 108/68 04/14/2025 2:39 PM CDT Pulse 102 04/14/2025 2:39 PM CDT Temperature 36.5 C (97.7 F) 12/15/2020 2:01 PM CDT Respiratory Rate 18 09/25/2020 8:45 AM HAND LAUNDERER Oxygen Saturation 94% 05/12/2024 11:42 AM CDT [...] Tdap) 07/22/2022 07/22/2012 Influenza Vaccine (#1) 2025 0, 07/09/2019, 07/23/2018, Additional history exists Pneumococcal vaccine 65+ Completed 018, 07/23/2018, 12/26/2016, Additional history exists Procedures Procedure Name Priority Date/Time Associated Diagnosis Comments TRANSTHORACIC ECHO (TTE) COMPLETE W DOPPLER/CF WO CONTRAST Routine 05/08/2025 1:01 PM CDT Primary hypertension LBBB (left bundle branch block) from Last 3 Months Results * TRANSTHORACIC ECHO (TTE) COMPLETE W DOPPLER/CF WO CONTRAST (05/08/2025 1:01 PM CDT) Estimated EF 70 % CONS SCIMAGE EF Mod BP 59 % CONS SCIMAGE Anatomical Region Laterality Modality Ultrasound 05/08/2025 12:1 5 PM CDT Narrative 05/08/2025 1:01 PM CDT [facility] Cardiology [address], [address] [address] P:[phone] P:[phone] Echocardiographic Report Patient Name: NABOR PAULA A : 1950 Study Date: 05/08/2025 12:15:12 PM Gender: F In Flight Refueling Manager: FIDELINA Location: [facility] Ref Provider: ISIAH NUR Height(Cm): 168 BSA: 1.89 Weight(Kg): 76.7 Heart Rate: 76 BP: 108 / 68 Quality: Good Order Provider: ISIAH NUR PROCEDURES: Echocardiographic Report: Transthoracic echocardiogram with complete 2D, M-Mode, and color Doppler examination. With Strain Analysis. INDICATIONS: I10 Essential (primary) hypertension and I44.7 Left bundle-branch block, unspecified. MEASUREMENTS: 2D/MM Value Range Doppler Value Range EF Mod BP 59 % [ 54 - 74 ] BEVERLY Vmax 2.64 cm2 [ 2.00 - 4.00 ] EF Teich MM 67 % [ 54 - 74 ] AV Mean PG 10 mmHg Estimated EF 70 % AV Peak Hever 2.11 m/s [ 1.00 - 1.70 ] LV GLS -18.74 % AV Peak PG 18 mmHg LVIDd 2D 4.19 cm [ 3.80 - 5.20 ] AV VTI 47.20 cm LVIDd MM 4.54 cm [ 3.80 - 5.20 ] LVOT Diam 1.99 cm [ 1.70 - 2.10 ] LVIDs 2D 3.04 cm [ 2.20 - 3.50 ] LVOT Peak Hever 1.79 m/s [ 0.70 - 1.10 ] LVIDs MM 2.85 cm [ 2.20 - 3.50 ] LVOT VTI 40.06 cm LVPWd 2D 1.02 cm [ 0.60 - 0.90 ] MV E Peak Hever 0.97 m/s [ 0.60 - 1.30 ] LVPWd MM 0.88 cm [ 0.60 - 0.90 ] MV A Peak Hever 1.32 m/s [ 1.00 - 1.20 ] IVSd 2D 0.72 cm [ 0.60 - 0.90 ] MV Decel Time 221 msec [ 104 - 258 ] IVSd MM 0.78 cm [ 0.60 - 0.90 ] PV Peak Hever 1.21 m/s [ 0.40 - 0.80 ] LA Dimension MM 3.73 cm [ 2.70 - 3.80 ] TR Peak Hever 3.43 m/s [ 1.00 - 2.80 ] AoR Diam MM 3.28 cm [ 2.70 - 3.70 ] TR Peak PG 47 mmHg LA Volume 50.75 ml [ 22.00 - 52.00 ] RVSP 56.00 mmHg [ 10.00 - 36.00 ] LA Volume Index 27 cc/m2 [ 16 - 28 ] RV S` 0.09 m/s RA Volume 22.26 ml Lateral E` 0.06 m/s [ 0.10 - 0.15 ] Septal E` 0.04 m/s [ 0.08 - 0.15 ] E` 0.05 m/s E/E` 20 Tapse 2.39 cm [ 1.71 - 5.00 ] 2D/MM Value Range Doppler Value Range - FINDINGS: Interpretation Site: Exam was interpreted at [facility]. Left Ventricle: Normal left ventricular size. Sigmoid hypertrophy of the septum. Normal global left ventricular systolic function. Impaired diastolic relaxation Grade I. Ejection fraction is measured at 59 %. Ejection Fraction is visually estimated to be 70 %. Global Longitudinal Strain is -19 %. Right Ventricle: Normal right ventricular size. Left Atrium: The left atrium is normal in size. Right Atrium: The right atrium is normal in size. Atrial Septum: Normal atrial septum. Mitral Valve: Normal appearance of the mitral valve. Mild mitral annular calcification. Trivial regurgitation of the mitral valve. Aortic Valve: Normal appearance of the aortic valve. Tricuspid Valve: Normal appearance of the tricuspid valve. Mild pulmonary hypertension based on right ventricular systolic pressure. Estimated peak RVSP is 56 mmHg. Mild tricuspid regurgitation. Pulmonic Valve: Normal appearance of the pulmonic valve. Pericardium: Normal pericardium with no significant pericardial effusion. Aorta: Normal aortic root. IVC: Normal size and normal respiratory collapse consistent with normal right atrial pressure (<5 mmHg). Pulmonary Artery: Normal pulmonary artery size. CONCLUSIONS: Normal left ventricular size. Sigmoid hypertrophy of the septum. Normal global left ventricular systolic function. Impaired diastolic relaxation Grade I. Ejection fraction is measured at 59 %. Ejection Fraction is visually estimated to be 70 %. Global Longitudinal Strain is -19 %. The left atrium is normal in size. Normal appearance of the mitral valve. Mild mitral annular calcification. Trivial regurgitation of the mitral valve. Normal appearance of the aortic valve. Electronically Signed By: Nile Reynolds MD, [facility] 05/08/2025 1:00:19 PM CDT Procedure Note Nile Reynolds MD - 05/08/2025 [facility] Cardiology [address] [facility], [address], [place] [address] P:[phone] P:[phone] Echocardiographic Report Patient Name: NABOR PAULA A : 1950 Study Date: 05/08/2025 12:15:12 PM Gender: F In Flight Refueling Manager: FIDELINA Location: [facility] Ref Provider: ISIAH NUR Height(Cm): 168 BSA: 1.89 Weight(Kg): 76.7 Heart Rate: 76 BP: 108 / 68 Quality: Good Order Provider: ISIAH NUR PROCEDURES: Echocardiographic Report: Transthoracic echocardiogram with complete 2D, M-Mode, and color Dopplerexamination. With Strain Analysis. INDICATIONS: I10 Essential (primary) hypertension and I44.7 Left bundle-branch block,unspecified. MEASUREMENTS: 2D/MM Value Range Doppler ValueRange EF Mod BP 59 % [ 54 - 74 ] BEVERLY Vmax 2.64cm2 [ 2.00 - 4.00 ] EF Teich MM 67 % [ 54 - 74 ] AV Mean PG 10mmHg Estimated EF 70 % AV Peak Hever 2.11m/s [ 1.00 - 1.70 ] LV GLS -18.74 % AV Peak PG 18mmHg LVIDd 2D 4.19 cm [ 3.80 - 5.20 ] AV VTI 47.20cm LVIDd MM 4.54 cm [ 3.80 - 5.20 ] LVOT Diam 1.99cm [ 1.70 - 2.10 ] LVIDs 2D 3.04 cm [ 2.20 - 3.50 ] LVOT Peak Hever 1.79m/s [ 0.70 - 1.10 ] LVIDs MM 2.85 cm [ 2.20 - 3.50 ] LVOT VTI 40.06cm LVPWd 2D 1.02 cm [ 0.60 - 0.90 ] MV E Peak Hever 0.97m/s [ 0.60 - 1.30 ] LVPWd MM 0.88 cm [ 0.60 - 0.90 ] MV A Peak Hever 1.32m/s [ 1.00 - 1.20 ] IVSd 2D 0.72 cm [ 0.60 - 0.90 ] MV Decel Time 221msec [ 104 - 258 ] IVSd MM 0.78 cm [ 0.60 - 0.90 ] PV Peak Hever 1.21m/s [ 0.40 - 0.80 ] LA Dimension MM 3.73 cm [ 2.70 - 3.80 ] TR Peak Hever 3.43m/s [ 1.00 - 2.80 ] AoR Diam MM 3.28 cm [ 2.70 - 3.70 ] TR Peak PG 47mmHg LA Volume 50.75 ml [ 22.00 - 52.00 ] RVSP 56.00mmHg [ 10.00 - 36.00 ] LA Volume Index 27 cc/m2 [ 16 - 28 ] RV S` 0.09m/s RA Volume 22.26 ml Lateral E` 0.06m/s [ 0.10 - 0.15 ] Septal E` 0.04 m/s [ 0.08 - 0.15 ] E` 0.05 m/s E/E` 20 Tapse 2.39 cm [ 1.71 - 5.00 ] 2D/MM Value Range Doppler ValueRange - FINDINGS: Interpretation Site: Exam was interpreted at [facility]. Left Ventricle: Normal left ventricular size. Sigmoid hypertrophy of the septum. Normalglobal left ventricular systolic function. Impaired diastolic relaxation Grade I.Ejection fraction is measured at 59 %. Ejection Fraction is visually estimated to be 70 %.Global Longitudinal Strain is -19 %. Right Ventricle: Normal right ventricular size. Left Atrium: The left atrium is normal in size. Right Atrium: The right atrium is normal in size. Atrial Septum: Normal atrial septum. Mitral Valve: Normal appearance of the mitral valve. Mild mitral annular calcification.Trivial regurgitation of the mitral valve. Aortic Valve: Normal appearance of the aortic valve. Tricuspid Valve: Normal appearance of the tricuspid valve. Mild pulmonary hypertensionbased on right ventricular systolic pressure. Estimated peak RVSP is 56 mmHg. Mildtricuspid regurgitation. Pulmonic Valve: Normal appearance of the pulmonic valve. Pericardium: Normal pericardium with no significant pericardial effusion. Aorta: Normal aortic root. IVC: Normal size and normal respiratory collapse consistent with normal rightatrial pressure (<5 mmHg). Pulmonary Artery: Normal pulmonary artery size. CONCLUSIONS: Normal left ventricular size. Sigmoid hypertrophy of the septum. Normalglobal left ventricular systolic function. Impaired diastolic relaxation Grade I.Ejection fraction is measured at 59 %. Ejection Fraction is visually estimated to be 70 %.Global Longitudinal Strain is -19 %. The left atrium is normal in size. Normal appearance of the mitral valve. Mild mitral annular calcification.Trivial regurgitation of the mitral valve. Normal appearance of the aortic valve. Electronically Signed By: Nile Reynolds MD, [facility] 05/08/2025 1:00:19 PM CDT us Isiah Nur MD CV ECHO PROCEDURES F inal Result from Last 3 Months Insurance MEDICARE MEDICARE [facility] MEDICARE [facility] Advance Directives For more information, please contact: [phone] * Full Code (Latest Code Status on File) Date Activated Date Inactivated Comments 09/21/2020 12:22 PM 09/25/2020 6:54 PM * Full Code Date Activated Date Inactivated Comments 09/20/2020 7:42 PM 09/21/2020 12:22 PM Care Teams Porter Baggage Relationship Specialty Start Date End Date Fuad Dudley MD [id number] [facility] [address] [place] [address] PCP - General Family Medicine 11/29/20
--- OUTSIDE RECORDS SUMMARY | 2025-05-14 12:17 | XMS_ITS | Patient Health Record ---
Author Organization [facility] As Lost My Name [facility] Address [address] [facility] [address] [place] [address] Care Team Providers Care Renal Dialysis Technician Name Role Phone Fuad Dudley MD Primary Care Provider Unavaila Roya Mann Unavailable [phone] Daniela Gutierrez Unavailable [phone] DebNicolette Unavailable [phone] Jose Fitch Unavailable [phone] Allergies No Known Allergies Results Component Value Reference Range Flag Notes Validity Testing Reviewed date:12/05/2024 01:06:47 PM Interpretation: Performing Lab: Notes/Report: Not Medicated Consistent Not Medicated Consistent Not Medicated Consistent Not Medicated Consistent Specific [place] 1.011 1.003 - 1.030 pH 7.3 3.0 - 10.9 Oxidants -12 200 g/mL Creatinine 158.7 20.0 - 300.0 mg/dL Benzodiazepines Reviewed date:12/05/2024 01:06:40 PM Interpretation: Performing Lab:[address] [place] [address], [address] [place] [address], Director - [id number] Notes/Report: An exception occurred while processing this report and so it has incomplete data. Please contact [employer] for assistance. Medicated Consistent Medicated Consistent [...] NEGATIVE 20.0 ng/mL Hydroxyalprazolam 228.1 20.0 ng/mL POSITIVE Alprazolam 88.9 20.0 ng/mL POSITIVE PDF Report CE_OUT_RAW_COMMO N_SRC_ORU Validity Testing Reviewed date:12/26/2024 11:13:27 AM Interpretation: Performing Lab: Notes/Report: Not Medicated Consistent Not Medicated Consistent Not Medicated Consistent Not Medicated Consistent Specific [place] 1.019 1.003 - 1.030 pH 7.0 3.0 - 10.9 Oxidants -17 200 g/mL Creatinine 220.6 20.0 - 300.0 mg/dL Benzodiazepines Reviewed date:12/26/2024 11:13:13 AM Interpretation: Performing Lab:[address] [place] [address], [address] [place] [address], Director - [id number] Notes/Report: An exception occurred while processing this report and so it has incomplete data. Please contact [employer] for assistance. Medicated Consistent Medicated Consistent Not [...] NEGATIVE 20.0 ng/mL Hydroxyalprazolam 686.5 20.0 ng/mL POSITIVE Alprazolam 212.0 20.0 ng/mL POSITIVE PDF Report CE_OUT_RAW_COMMO N_SRC_ORU UDT Reviewed date:11/27/2024 11:37:42 AM Interpretation: Performing Lab: Notes/Report: THC NEG 0 - 50 ng/ml Cocaine NEG 0 - 300 ng/ml Amphetamine NEG 0 - 1000 ng/ml Buprenorphine (BUP) NEG 0 - 10 ng/ml Secobarbital (Bar) NEG 0 - 300 ng/ml Oxazepam (BZO) POS 0 - 300 ng/ml 3-ccigzxnfkk-3,8-ioeajepp-6, 3-dipheny lpyrrolidine (EDDP) NEG 0 - 300 ng/ml Methamphetamine (MET) NEG 0 - 1000 ng/ml Methylenedioxymethamphetamine (MDMA) NEG 0 - 500 ng /ml Morphine (MOP 300/[id number]) NEG 0 - 300 ng/ml Methadone (MTD) NEG 0 - 300 ng/ml Phencyclidine (PCP) NEG 0 - 25 ng/ml Nortriptyline (TCA) NEG 0 - 1000 ng/ml Oxycodone NEG 0 - 300 ng/ml x NEG 0 - 300 ng/ml UDT Reviewed date:12/23/2024 01:36:21 PM Interpretation: Performing Lab: Notes/Report: THC NEG 0 - 50 ng/ml Cocaine NEG 0 - 300 ng/ml Amphetamine NEG 0 - 1000 ng/ml Buprenorphine (BUP) NEG 0 - 10 ng/ml Secobarbital (Bar) NEG 0 - 300 ng/ml Oxazepam (BZO) POS 0 - 300 ng/ml 2-pwsqfmvrlv-2,2-valshokn-4, 3-dipheny lpyrrolidine (EDDP) NEG 0 - 300 ng/ml Methamphetamine (MET) NEG 0 - 1000 ng/ml Methylenedioxymethamphetamine (MDMA) NEG 0 - 500 ng /ml Morphine (MOP 300/FRX9397) NEG 0 - 300 ng/ml Methadone (MTD) NEG 0 - 300 ng/ml Phencyclidine (PCP) NEG 0 - 25 ng/ml Nortriptyline (TCA) NEG 0 - 1000 ng/ml Oxycodone NEG 0 - 300 ng/ml x NEG 0 - 300 ng/ml Reason For Referral No Information Medications Medication SIG (Take, Route, Frequency, Duration) Notes Start Date End Date Status Omeprazole 40 MG Capsule Delayed Release 1 capsule 1/2 to 1 hour before morning meal Orally Once a day Active Lisinopril 10 MG Tablet Oral 02/04/2024 Unknown hydroCHLOROthiazide 12.5 MG Tablet Oral 02/04/2024 Unknown Clindamycin HCl 150 MG Capsule TAKE 1 CAPSULE 4 TIMES DAILY FOR 7 DAYS Oral; Duration: 7 Days Not-Taking ALPRAZolam 0.5 MG Tablet TAKE 1 TABLET BY MOUTH EVERY DAY FOR 30 DAYS; Duration: 30 appointment needed 11/12/2024 Not-Taking Venlafaxine HCl ER 150 MG Capsule Extended Release 24 Hour Oral 02/04/2024 Unknown Zolpidem Tartrate 5 MG Tablet 1 tablet bedtime Oral bedtime; Duration: 30 days 03/08/2025 Active Venlafaxine HCl ER 75 MG Capsule Extended Release 24 Hour Oral 02/04/2024 Unknown metroNIDAZOLE 1 % Gel External 02/04/2024 Unknown lamoTRIgine 150 MG Tablet 1 tablet Orally Once a day Oral Once a day; Duration: 30 days Active Atorvastatin Calcium 20 MG Tablet Oral 02/04/2024 Unknown lamoTRIgine 200 MG Tablet 1 tablet Orally Once a day Oral Once a day; Duration: 30 days Active Tretinoin 0.025 % Cream External 02/04/2024 Unknown Atorvastatin Calcium 20 MG Tablet 20 MG ORALLY EVERY DAY AT BEDTIME Oral; Duration: 90 Days Active hydroCHLOROthiazide 12.5 MG Tablet TAKE 1 TABLET BY MOUTH EVERY DAY Oral; Duration: 90 Days Active metroNIDAZOLE 0.75 % Gel External 02/04/2024 Unknown Lisinopril 5 MG Tablet TAKE 1 TABLET (5 MG TOTAL) BY MOUTH DAILY. Oral; Duration: 90 Days Active Lisinopril 5 MG Tablet Oral 02/04/2024 Unknown Clobetasol Propionate 0.05 % Solution External 02/04/2024 Unknown ARIPiprazole 15 MG Tablet 0.5 tablet at bedtime; Duration: 30 days Active ALPRAZolam 0.25 MG Tablet 1 tablet Oral 4 times a day; [...] History Observation Description Sex Assigned At Female Social History Household: Social Info Question Answer Notes Household Marital status: Number of adults in household: 1 Number of children in household: 3 daughters Number of siblings: 4 1 brother an d 3 sisters Level of education: finished high school Any household tobacco use? No Any household pets? Yes 2 cats Drug/Alcohol: Social Info Question Answer Notes Drugs Have you used drugs other than those for medical reasons in the past 12 months? No Caffeine Intake: 1-2 cups per day drinks most ly de caf Tobacco Use: Social Info Question Answer Notes Tobacco Control (Standard) Tobacco use: Nonsmoker Additional Findings: Tobacco non-user Current no nsmoker Additional Details Category Social Info Options Details Migrated Social History Migrated Social History Alcohol Intake: None 11/22/2023,Tobacco Years: Never smoker 08/08/2019,Smoking Status: 0 09/20/2023 Drug/Alcohol: Do you smoke marijuana? Den ies Do you drink alcohol? No Problems Problem Type SNOMED Code ICD Code Onset Dates Problem Status W/U Status Risk Notes Problem Severe recurrent major depression without psychotic features (65758393) Major depressive disorder, recurrent severe without psychotic features (F33.2) Active confirmed Problem Generalized anxiety disorder (26079454) Generalized anxiety disorder (F41.1) Active confirmed Problem Primary insomnia (6165689) Primary insomnia (F51.01) Active confirmed Problem Screening for cardiovascular system disease (369519070) Encounter for screening for cardiovascular disorders (Z13.6) Active confirmed Problem Depression Screening (339300938) Encounter for screening for depression (Z13.31) Active confirmed Problem Primary hypertension (04977811) Primary hypertension (I10) Active confirmed Problem Posttraumatic stress disorder (41086562) Chronic post-traumatic stress disorder (PTSD) (F43.12) Active confirmed Problem Tardive dyskinesia (931672008) Tardive dyskinesia (G24.01) Active confirmed Problem Involuntary movement (finding) (803977943) Involuntary movements (R25.9) Active confirmed Vital Signs Heart Rate 87 /min 03/30/2025 Respiratory Rate 16 /min 03/30/2025 Blood pressure diastolic 71 mm Hg 03/30/2025 Height-cm 167.64 cm 03/30/2025 Weight-kg 76.66 kg 03/30/2025 Height 66.00 in 03/30/2025 Blood pressure systolic 103 mm Hg 03/30/2025 Weight 169 lbs 03/30/2025 BMI 27.27 kg/m2 03/30/2025 Encounters Encounter Location Date Provider Diagnosis [place] [address] [address] 06/02/2024 Roya Cuellar Major depressive disorder, recurrent severe without psychotic features F33.2 ; Generalized anxiety disorder F41.1 and Primary insomnia F51.01 [place] [address] [address] 06/30/2024 Roya Cuellar Generalized anxiety disorder F41.1 ; Major depressive disorder, recurrent severe without psychotic features F33.2 ; Primary insomnia F51.01 and Primary hypertension I10 [place] [address] [address] 08/28/2024 Roya Cuellar Generalized anxiety disorder F41.1 ; Major depressive disorder, recurrent severe without psychotic features F33.2 ; Primary insomnia F51.01 and Primary hypertension I10 [place] [address] [address] 11/27/2024 Roya Cuellar Encounter for screening for depression Z13.31 ; Encounter for screening for cardiovascular disorders Z13.6 ; Generalized anxiety disorder F41.1 ; Major depressive disorder, recurrent severe without psychotic features F33.2 ; Primary insomnia F51.01 ; Primary hypertension I10 ; Involuntary movements R25.9 and Tardive dyskinesia G24.01 [place] [address] [address] 12/23/2024 Roya Cuellar Encounter for screening for depression Z13.31 ; Encounter for screening for cardiovascular disorders Z13.6 ; Generalized anxiety disorder F41.1 ; Major depressive disorder, recurrent severe without psychotic features F33.2 ; Primary insomnia F51.01 ; Primary hypertension I10 ; Involuntary movements R25.9 ; Tardive dyskinesia G24.01 and Chronic post-traumatic stress disorder (PTSD) F43.12 [place] [address] [facility] [address] [place] [address] 01/13/2025 Nicolette Boyd Major depressive disorder, recurrent severe without psychotic features F33.2 ; Generalized anxiety disorder F41.1 and Chronic post-traumatic stress disorder (PTSD) F43.12 [facility], [facility] [address] [place] [address] 01/22/2025 Roya Cuellar Encounter for screening for depression Z13.31 ; Major depressive disorder, recurrent severe without psychotic features F33.2 ; Encounter for screening for cardiovascular disorders Z13.6 ; Generalized anxiety disorder F41.1 ; Primary insomnia F51.01 ; Primary hypertension I10 ; Involuntary movements R25.9 ; Tardive dyskinesia G24.01 and Chronic post-traumatic stress disorder (PTSD) F43.12 [facility], [facility] [address] [place] [address] 02/13/2025 Nicolette Weberman Major depressive disorder, recurrent severe without psychotic features F33.2 ; Generalized anxiety disorder F41.1 ; Chronic post-traumatic stress disorder (PTSD) F43.12 and Encounter for screening for depression Z13.31 [facility], [facility] [address] [place] [address] 03/30/2025 Roya Cuellar Encounter for screening for depression Z13.31 ; Major depressive disorder, recurrent severe without psychotic features F33.2 ; Encounter for screening for cardiovascular disorders Z13.6 ; Generalized anxiety disorder F41.1 ; Primary insomnia F51.01 ; Primary hypertension I10 ; Involuntary movements R25.9 ; Tardive dyskinesia G24.01 and Chronic post-traumatic stress disorder (PTSD) F43.12 [facility], [facility] [address] [place] [address] 05/30/2024 Jose Fitch [facility], [facility] [address] [place] [address] 12/04/2024 Roya Cuellar [facility], [facility] [address] [place] [address] 12/26/2024 Daniela Velazquez [facility], [facility] [address] [place] [address] 12/31/2024 Roya Cuellar [facility], [facility] [address] [place] [address] 01/05/2025 Roya Cuellar [facility], [facility] [address] [place] [address] 02/27/2025 Roya Cuellar Major depressive disorder, recurrent severe without psychotic features F33.2 Assessments Encounter Date Diagnosis (ICD Code) Assessment Notes Treatment Notes Treatment Clinical Notes Section Notes 06/02/2024 Major depressive disorder, recurrent severe without [...] to 12 mg dose - PA started [facility] education on rx benefits, side effects, [...] like to see someone else in [facility] refer to Daniela for EDMR Irritability [...] having improved TD last few weeks PA [facility] education on rx benefits, side effects, [...] weeks - insomnia and anxiety with [facility] education on rx benefits, side [...] KISHOR Marcum refer to Daniela garrido BANNER scheduled Irritability and Agitation - Assessment: Patient [...] - insomnia and anxiety with [facility] PA [facility] education on rx benefits, side effects, [...] insomnia and anxiety with [facility] PA HX [facility] education on rx benefits, side effects, [...] insomnia and anxiety with [facility] PA HX [facility] education on rx benefits, side effects, [...] - insomnia and anxiety with [place] PA [facility] education on rx benefits, side effects, [...] depression discuss therapy options- refer to KISHOR Trixie and would like to see someone else in [facility] refer to Daniela for CALVIN Irritability [...] improved TD last few weeks [facility] education on rx benefits, side [...] to 12 mg dose - PA started [facility] education on rx benefits, side effects, [...] copy given - Plan: discuss medication options [facility] reviewed = 24 06/30/24- discuss with [...] and monitor for rash, 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 Schedule a follow-up appointment [...] like to see someone else in [facility] refer to Daniela for EDMR Irritability [...] improved TD last few weeks [facility] education on rx benefits, side [...] to 12 mg dose - PA started [facility] education on rx benefits, side effects, [...] few weeks - insomnia and anxiety with [facility] education on rx benefits, side effects, [...] Marcum refer to Daniela for ED scheduled 07/11 Irritability and Agitation - [...] insomnia and anxiety with [facility] PA [facility]X [facility] education on rx benefits, side effects, risk, Disucss TD discuss DXN and monitoring 6. PTSD Counseling - Assessment: Patient has seen a counselor, Refer to Daniela [facility] TRAUMA HX use Calm Jaiden relaxation techinque discuss breathing excises - Plan: Encourage healthy eating habits and excise and sleep hygenie and therapy 01/22/2025 Primary insomnia (ICD-10 - F51.01) 1. Depression- conitnue to have depression discuss therapy options- KISHOR Marcum refer to Daniela garrido [facility] scheduled Irritability and Agitation - Assessment: Patient [...] - insomnia and anxiety with [facility] PA [facility] education on rx benefits, side effects, [...] - insomnia and anxiety with [facility] PA [facility] education on rx benefits, [...] depression discuss therapy options- refer to [facility] Trixie dominguez and would like to see someone else in [facility] refer to Daniela for EDMR Irritability [...] improved TD last few weeks [facility] education on rx benefits, side [...] depression discuss therapy options- refer to [facility] Trixie dominguez and would like to see someone else in [facility] refer to Daniela for [facility]ANNER Irritability and Agitation - Assessment: Patient reports [...] having improved TD last few weeks NAYE [facility] education on rx benefits, side effects, [...] like to see someone else in [facility] Irritability and Agitation - Assessment: Patient [...] to 12 mg dose - PA started [facility] education on rx benefits, side effects, risk, discuss DXN and monitoring Counseling - Assessment: Patient has seen a counselor, Trixie, - Plan: Encourage healthy eating habits and excise and sleep hygenie and therapy 11/27/2024 Primary insomnia (ICD-10 - F51.01) 1. Depression discuss therapy options- refer to [facility] Trixie and would like to see someone else in [facility] Irritability and Agitation - Assessment: Patient [...] to 12 mg dose - PA started [facility] education on rx benefits, side effects, risk, discuss DXN and monitoring Counseling - Assessment: Patient has seen a counselor, Trixie, - Plan: Encourage healthy eating habits and excise and sleep hygenie and therapy 12/23/2024 Primary hypertension (ICD-10 - I10) 1. Depression- conitnue to have depression discuss therapy options- refer to [facility] Trixie dominguez and would like to see someone else in [facility] refer to Daniela for EDMR Irritability [...] having improved TD last few weeks NAYE [facility] education on rx benefits, side effects, risk, discuss DXN and monitoring 6. PTSD Counseling - Assessment: Patient has seen a counselor, Refer to Daniela [facility] TRAUMA HX use Calm Jaiden relaxation techinque discuss breathing excises - Plan: Encourage healthy eating habits and excise and sleep hygenie and therapy 03/30/2025 Primary insomnia (ICD-10 - F51.01) 1. Depression- conitnue to have depression discuss therapy options- KISHOR Marcum refer to Daniela for ED scheduled 07/11 Irritability and Agitation - [...] insomnia and anxiety with [facility] PA [facility] education on rx benefits, side effects, [...] - insomnia and anxiety with [facility] PA [facility] education on rx benefits, side effects, [...] - insomnia and anxiety with [place] PA [facility] education on rx benefits, side effects, risk, discuss DXN and monitoring 6. PTSD Counseling - Assessment: Patient has seen a counselor, Refer to Daniela BANNER TRAUMA HX use Calm Jaiden relaxation techinque [...] insomnia and anxiety with [place] PA [facility] education on rx benefits, side effects, [...] like to see someone else in [facility] refer to Daniela for EDMR Irritability [...] improved TD last few weeks [facility] education on rx benefits, side [...] Depression discuss therapy options- refer to [facility] Trixie and would like to see someone else in [facility] Irritability and Agitation - Assessment: Patient [...] to 12 mg dose - PA started [facility] education on rx benefits, side effects, [...] to 12 mg dose - PA started [facility] education on rx benefits, side effects, [...] like to see someone else in [facility] Irritability and Agitation - Assessment: Patient [...] to 12 mg dose - PA started [facility] education on rx benefits, side effects, [...] like to see someone else in [facility] refer to Daniela for EDMR Irritability [...] improved TD last few weeks [facility] education on rx benefits, side effects, risk, discuss DXN and monitoring 6. PTSD Counseling - Assessment: Patient has seen a counselor, Refer to Daniela BANNER TRAUMA HX use Calm Jaiden relaxation techinque [...] KISHOR Marcum refer to Daniela for [facility] scheduled Irritability and Agitation - Assessment: Patient [...] - insomnia and anxiety with [place] PA [facility] education on rx benefits, side effects, [...] insomnia and anxiety with [facility] PA HX [facility] education on rx benefits, side effects, [...] to have depression discuss therapy options- KISHOR Manuelne refer to Daniela for EDMR scheduled 07/11 [...] insomnia and anxiety with [place] PA [facility] education on rx benefits, side effects, [...] KISHOR Marcum refer to Daniela garrido BANNER scheduled Irritability and Agitation - Assessment: Patient [...] - insomnia and anxiety with [place] PA [facility] education on rx benefits, side effects, [...] like to see someone else in [facility] refer to Daniela for [facility] Irritability and Agitation - Assessment: Patient reports [...] improved TD last few weeks [facility] education on rx benefits, side [...] KISHOR Marcum refer to Daniela RAMIREZ scheduled 07/11 Irritability and Agitation - Assessment: [...] insomnia and anxiety with [place] PA [facility] education on rx benefits, side effects, risk, Disucss TD discuss DXN and monitoring 6. PTSD Counseling - Assessment: Patient has seen a counselor, Refer to Daniela RAMIREZ TRAUMA HX use Calm Jaiden relaxation techinque discuss breathing excises - Plan: Encourage healthy eating habits and excise and sleep hygenie and therapy 01/13/2025 Other Client is tearful. She has [...] Name:Daniela Peoples Dougie Velazquez, 06/22/2025 01:00:00 PM, [address], [facility] [address], [place], [address], Insurance Providers Payer Name Payer Address Payer Phone Subscriber Number Group Number Insured Name Patient Relationship to Insured Coverage Start Date Coverage End Date [place] [address] [place] [address] [id number] NABOR SANTANA Self - patient is the insured [employer] Medicare Supplement [address] [place] [phone] [id number] NABOR SANTANA Self - patient is the insured Medical (General) History Medical History History ICD Code Problems: Chronic post-traumatic stress disorder Generalized anxiety disorder Long-term drug therapy Primary insomnia Severe recurrent major depression withou t psychotic features Surgical History Surgery Date(Month/Year) Removal of gallbladder (09409) 8 Any surgical history 05/14/2021 knee surgery rt torn hernia
--- OUTSIDE RECORDS SUMMARY | 2025-05-14 12:17 | XMS_ITS | Encounter Summary ---
Author Organization [facility] Healthcare Address [address] [place] [address] Care Team Providers Care Equine Vet Name Role Phone Fuad Dudley MD Primary Care Provider Encounter Details Date Type Department Care Team (Latest Contact Info) Description 05/08/2025 Results Follow-Up [facility] Cardiology [address] [address] [place] [address] [place] [address] [place] [address] Transthoracic Echo (TTE) Complete W Doppler/CF Social History Tobacco Use Types Packs/Day Years Used Date Smoking Tobacco: Never Smokeless Tobacco: Never Comments No Sex and Gender Information Value Date Recorded Sex Assigned at Not on file 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
--- OUTSIDE RECORDS SUMMARY | 2025-05-14 12:17 | XMS_ITS | Clinical Summary ---
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
[2025-05-14 12:41] LABS: Estimated Glomerular Filt Rate > 60
== END 2025-05-14 12:14 | disposition home or self-care (01) ==
LOC: CHSIMG 12:15
PROVIDERS: PCP Family Medicine; Visit Provider Nurse Practitioner Family
DX: R10.13 Epigastric pain (principal); R63.4 Abnormal weight loss; K44.9 Diaphragmatic hernia without obstruction or gangrene
CPT/HCPCS: 74177; Q9967

== ENCOUNTER 2025-06-04 00:23 | Day surgery (SDC) | payer MEDICARE, OTHER, SELFPAY ==
[2025-05-22 10:11] VITALS: BMI 26.4
--- OUTSIDE RECORDS SUMMARY | 2025-06-04 00:27 | XMS_ITS | Clinical Summary ---
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
--- OUTSIDE RECORDS SUMMARY | 2025-06-04 00:28 | XMS_ITS | Clinical Summary ---
Author Organization [facility] Address [address] [place] [address] Care Team Providers Care Field Artillery Officer Name Role Phone Fuad Dudley MD [...] (09/21/2020): Added automatically from request for surgery [id number] Hiatal hernia with GERD 09/20/2020 Overview (09/22/2020): Added automatically from request for surgery [id number] Hypertension Lipid screening Dizziness Encounters Date Type Department Care Team Description 06/01/2025 2:00 PM CDT Office Visit [facility] Cardiology [address] [address] [address] [place] [address] Pradip Nur MD LBBB (left bundle branch block) (Primary Dx); Primary hypertension; Hypercholesterolemia; Sinus tachycardia 05/27/2025 Telephone [facility] Psychiatry [address] [place] [address] Natalya Nino CMA 05/08/2025 1:00 PM CDT Ancillary Procedure [facility] Group Cardiology at [address] [place] [address] Primary hypertension; LBBB (left bundle branch block) 05/08/2025 Results Follow-Up [facility] Cardiology [address] [facility] [address] [place] [phone] Pradip Nur MD Transthoracic Echo (TTE) Complete W Doppler/CF 04/27/[address] [address] Juanito Nelson MD Scheduling Appointments 04/14/2025 3:00 PM CDT Office Visit [facility] Psychiatry [address] [facility] [address] [place] [id number] Juanito Nelson MD Severe recurrent major depression [...] on file 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 Gender Identity Not on file Sexual Orientation Not on file Obstetrics History Last Filed Vital Signs Vital Sign Reading Time Taken Comments Blood Pressure 110/70 06/01/2025 1:54 PM CDT Pulse 85 06/01/2025 1:54 PM CDT Temperature 36.5 C (97.7 F) 12/15/2020 2:01 PM CDT Respiratory Rate 18 09/25/2020 8:45 AM STEEL MELTER Oxygen Saturation 97% 06/01/2025 1:54 PM CDT Inhaled Oxygen Concentration - - Weight 72.2 kg (159 lb 1.6 oz) 06/01/2025 1:54 P M CDT Height 165.1 cm (5' 5) 06/01/2025 1:54 PM CDT Body Mass Index 26.48 06/01/2025 1:54 PM CDT Plan of Treatment Health Maintenance [...] PM CDT Narrative 05/08/2025 1:01 PM CDT [facility] Cardiology [address], [address], [place] [address] P:[phone] P:[phone] Echocardiographic Report Patient Name: NABOR PAULA A : 1950 Study Date: 05/08/2025 12:15:12 PM Gender: F Reporter Anchor: FIDELINA Location: [facility] Ref Provider: PRADIP NUR Height(Cm): 168 BSA: 1.89 Weight(Kg): 76.7 Heart Rate: 76 BP: 108 / 68 Quality: Good Order Provider: PRADIP NUR PROCEDURES: Echocardiographic Report: Transthoracic echocardiogram with [...] FINDINGS: Interpretation Site: Exam was interpreted at [facility]. Left Ventricle: Normal left ventricular size. Sigmoid [...] valve. Electronically Signed By: Nile Reynolds MD, [facility] 05/08/2025 1:00:19 PM CDT Procedure Note Nile Reynolds MD - 05/08/2025 [facility] Medical [facility] Cardiology [address] [facility], [address], [place] [address] P:[phone] P:[phone] Echocardiographic Report Patient Name: NABOR PAULA A : 1950 Study Date: 05/08/2025 12:15:12 PM Gender: F Reporter Anchor: FIDELINA Location: [facility] Ref Provider: PRADIP NUR Height(Cm): 168 BSA: 1.89 Weight(Kg): 76.7 Heart Rate: 76 BP: 108 / 68 Quality: Good Order Provider: PRADIP NUR PROCEDURES: Echocardiographic Report: Transthoracic echocardiogram with [...] FINDINGS: Interpretation Site: Exam was interpreted at [facility]. Left Ventricle: Normal left ventricular size. Sigmoid [...] valve. Electronically Signed By: Nile Reynolds MD, FACC 05/08/2025 1:00:19 PM CDT Pradip Nur MD CV ECHO PROCEDURES F inal Result from Last 3 Months Insurance MEDICARE [facility] MEDICARE [facility] MEDICARE [facility] Advance Directives For more information, please contact: [phone] * Full Code (Latest Code Status on File) Date Activated Date Inactivated Comments 09/21/2020 12:22 PM 09/25/2020 6:54 PM * Full Code Date Activated Date Inactivated Comments 09/20/2020 7:42 PM 09/21/2020 12:22 PM Care Teams Field Artillery Officer Relationship Specialty Start Date End Date Fuad Dudley MD [address] [facility] [address] [place] [address] PCP - General Family Medicine 11/29/20
--- OUTSIDE RECORDS SUMMARY | 2025-06-04 00:28 | XMS_ITS | Encounter Summary ---
Author Organization [facility] Address [address] [place] [address] Care Team Providers Care Rotational Moulding Operator Name Role Phone Fuad Dudley MD Primary Care Provider Encounter Details Date Type Department Care Team (Latest Contact Info) Description 05/08/2025 Results Follow-Up [facility] Medical Group Cardiology [address] [address] [place] [address] [place] [address] [place] [address] Transthoracic Echo (TTE) Complete W Doppler/CF Social History Tobacco Use Types Packs/Day Years Used Date Smoking Tobacco: Never Smokeless Tobacco: Never Comments No Sex and Gender Information Value Date Recorded Sex Assigned at Not on file 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
--- NOTE | 2025-06-04 12:19 | WPDANESEPPF ---
Anes - Initial Pre Proc Eval Procedure: Operation Date: 06/04/25 13:30 Proposed Procedures p Esophagogastroduodenoscopy - Luis Keane MD Date/Time: 06/04/25 12:19 Surgeon: Luis Keane MD Pre Op Diagnosis: Epigastric pain Patient Data Age: 74 Gender: F Height: 1.65 m Weight: 72.2 kg Allergies Allergy/AdvReac Type Severity Reaction Status Date / Time testosterone AdvReac Unknown HIVES Verified 05/22/25 10:08 brexpiprazole (From Rexulti) AdvReac uncontrolled Verified 05/22/25 10:08 motion Home Medications ?Medication ?Instructions ?Recorded ?Confirmed ?Type cholecalciferol (vitamin D3) 125 125 mcg PO DAILY 02/13/20 06/04/25 History mcg (5,000 unit) tablet zolpidem 5 mg tablet (Ambien) 5 mg PO HS 02/13/20 06/04/25 History hydrochlorothiazide 12.5 mg tablet 12.5 mg PO DAILY #90 tabs 03/14/21 06/04/25 Rx alprazolam 0.25 mg tablet 0.25 mg PO ONCE PRN 03/21/23 06/04/25 Rx anxiety/claustrophobia #2 tabs atorvastatin 20 mg tablet 20 mg PO QHS #90 tabs 12/04/24 06/04/25 Rx lamotrigine 50 mg disintegrating 150 mg PO DAILY 12/18/24 06/04/25 History tablet aripiprazole 5 mg tablet (Abilify) 5 mg PO DAILY 01/15/25 06/04/25 History triamcinolone acetonide 0.1 % 1 applic topical BID #80 grams 02/06/25 06/04/25 Rx topical cream Held on 03/09/25. Instructions: .Provider Order lisinopril 10 mg tablet 5 mg PO DAILY 02/16/25 06/04/25 History nystatin 100,000 unit/gram topical 1 applic topical TID #60 grams 03/09/25 06/04/25 Rx powder omeprazole 40 mg capsule,delayed 40 mg PO DAILY #30 caps 03/12/25 06/04/25 Rx release Patient hx anesthesia problems: none Family hx anesthesia problems: none Results Review: All pre-operative results and documents have been reviewed as part of the pre-operative evaluation. [facility] Past Medical History Medical History Epigastric pain Major depression, chronic Adhesive capsulitis of left shoulder BMI 32.0-32.9,adult History of terminal esophageal web H/O hiatal hernia Vitamin D deficiency Insomnia OAB (overactive bladder) HLD (hyperlipidemia) Depression HTN (hypertension) Surgical History Surgical History History of hernia repair History of cholecystectomy (~1994) H/O right knee surgery (~1989) Family History Family History Father Hypertension Cerebrovascular accident Sibling Hypertension Cerebrovascular accident Family history of malignant neoplasm Social History Social History Smoking status: Never smoker Second hand tobacco smoke exposure: No Alcohol intake: former Substance use: never Substance use type: does not use Do You Feel Safe in your Home?: Yes Lack of Transportation: No Lack of Food: Never True Current Housing: I Have Housing Concerned About Future Housing: No Difficulty Paying Gas/Electric Bills: No Difficulty Paying for Meds: No Currently Unemployed: YES Education: Don't Know Difficulty w/ Childcare or Family Care: No Living arrangements: alone Occupation/Education: retired Additional occupation/education comments: [employer] Gender identity (if verbalized by the patient): Female Sexual Orientation (if Verbalized by the Patient): Straight or Heterosexual Spiritual care concerns: No Anes - Eval Final PreProcedure Day of Procedure 06/04/25 12:19 Patient weight: overweight Heart: regular rate and rhythm Lungs: clear to auscultation Airway: Mallampati scale class II Neurological: alert and oriented Last oral intake: >/= 8 hours ASA classification: III Emergent: no Anesthetic plan: proceed Anesthesia type and monitoring: general GIVS and standard monitoring Results Review: All pre-operative results and documents have been reviewed as part of the pre-operative evaluation. Informed Consent: The patient's anesthetic plan and its attendant risks and benefits were discussed with the patient/family/POA. Questions were solicited and answers provided to the satisfaction of the patient/family/POA.
[2025-06-04] MEDS: LACTATED RINGERS 1,000 ML 150 ML IV CONT (12:25)
[2025-06-04 12:26] VITALS: BP 137/66; PULSE 73; RESP 18; TEMP 36.7; O2SAT 100; BMI 26.2
--- NOTE | 2025-06-04 12:26 | WPDHPUPDATE1 ---
History and Physical Update Update Date/Time: 06/04/25 12:26 History and Physical has been reviewed, including an updated exam of the patient. There are NO changes in the patient's condition. Risks, benefits, and alternatives have been discussed and questions answered. Patient agrees to proceed with procedure.
--- NOTE | 2025-06-04 12:29 | S_PTH ---
PATIENT: Daphne Paula LOC: [facility] Nur#:[id number] AGE/SX: 74/F ROOM: RE06/04/[address]: Luis Keane MD : 1950 BED: DIS: 06/04/2025 SPEC #: [id number] RECD: 06/04/25 13:19 STATUS: DEL REGiselle #: [id number] VALARIE: 06/04/25 12:[address]: Luis Keane DEPT: [facility] Surgical RECD BY: Jazmin Ovalle ENTERED: 06/04/25 13:19 SP TYPE: Surgical OTHR DR: Fuad Dudley MD Tissues: A - Gastric Biopsy B - Small Bowel Bx Procedures: Hematoxylin and Eosin Stain Gross and Microscopic Level 4
[2025-06-04 12:33] VITALS: BP 92/47; PULSE 73; RESP 20; O2SAT 96
[2025-06-04 12:43] VITALS: BP 98/45; PULSE 72; RESP 20; O2SAT 95
[2025-06-04 12:53] VITALS: BP 114/57; PULSE 68; RESP 24; O2SAT 100
== END 2025-06-04 13:00 | disposition home or self-care (01) ==
PROVIDERS: PCP Family Medicine; Referring Provider Internal Medicine Gastroenterology; Visit Provider Internal Medicine Gastroenterology
PROC: 0DJ08ZZ Inspection of Upper Intestinal Tract, Via Natural or Artificial Opening Endoscopic (ICD-10-PCS; CPT 43239; principal; 2025-06-04 13:30)
DX: R10.13 Epigastric pain (principal); R63.4 Abnormal weight loss; K44.9 Diaphragmatic hernia without obstruction or gangrene; Z68.26 Body mass index [BMI] 26.0-26.9, adult
CPT/HCPCS: 43239; 88305; J2003; J2704; J7120